=== PATIENT | female | born 1985 | race Caucasian/White ===

== ENCOUNTER 2016-10-02 21:23 | Emergency (ER) | payer OTHER ==
[2016-10-02] MEDS ORDERED: METHYLPREDNISOLONE PF 125MG/VIAL IVP ONE (23:11)
[2016-10-02] MEDS ORDERED: DIPHENHYDRAMINE HCL IV 50 MG/ML VIAL IVP ONE (23:11)
[2016-10-02] MEDS ORDERED: 0.9 % SODIUM CHLORIDE 1,000 ML BAG IV ONE (23:11)
[2016-10-02] MEDS ORDERED: METOCLOPRAMIDE HCL 10 MG/2 ML VIAL IVP ONE (23:11)
[2016-10-02] MEDS ORDERED: ALBUTEROL SULFATE (0.083%) 2.5 MG/3 ML NEB INH ONE (23:12)
--- NOTE | 2016-10-02 23:14 | Emergency Department Record ---
History of Present Illness - General Chief Complaint: Cough Stated Complaint: COUGH, MIGRAINE Time Seen by Provider: 10/02/16 23:05 Source: Patient Mode of Arrival: Ambulatory - History of Present Illness Initial Comments: The patient has had a cough productive green for the past week with coughing spasms and now a migraine headache has set in from all the coughing. She just finished Cipro yesterday for a UTI. She has a history of pneumonia in the past. She uses inhalers for what she calls asthma at home. MD Complaint: Cough Onset/Timin -: Week(s) Severity scale (1-10): 8 - Related Data Home Medications Medication Instructions Recorded Confirmed Last Taken Medroxyprogesterone Acetate [Depo 150 mg IM ASDIR 04/27/14 09/22/16 09/21/16 Provera] Butalb/Acetaminophen/Caffeine 1 each PO ASDIR PRN 07/23/14 09/22/16 07/25/16 [Fioricet] Diphenhydramine HCl [Benadryl] 50 mg PO Q12H PRN 07/23/14 09/22/16 09/21/16 Butorphanol Tartrate 10 mg NS ASDIR PRN 11/19/14 09/22/16 07/25/16 Cyclobenzaprine HCl [Flexeril] 10 mg PO ASDIR 03/04/16 09/22/16 09/21/16 Nortriptyline HCl [Pamelor] 30 mg PO QHS 06/25/16 09/22/16 09/21/16 Onabotulinumtoxina [Botox] 100 unit IJ ASDIR vial 06/29/16 09/22/16 09/21/16 Ursodiol [Actigall] 300 mg PO BID cap 06/29/16 09/22/16 09/21/16 Metformin HCl 500 mg PO BID 09/09/16 09/22/16 09/21/16 Previous Rx's Medication Instructions Recorded Fluticasone Propionate [Flonase] 2 spray EACH NARES DAILY #1 bottle 09/09/16 Ciprofloxacin HCl [Cipro] 500 mg PO Q12HR #13 tablet 09/22/16 Azithromycin [Zithromax] 250 mg PO DAILY #4 tab 10/03/16 Prednisone [Prednisone 20Mg] 20 mg PO DAILY #20 tab 10/03/16 Allergies Allergy/AdvReac Type Severity Reaction Status Date / Time sumatriptan [From Imitrex] Allergy ANAPHYLAXIS Verified 07/25/16 16:51 sumatriptan succinate Allergy ANAPHYLAXIS Verified 07/25/16 16:51 [From Imitrex] erythromycin base AdvReac VOMITING Verified 07/25/16 16:51 [Erythromycin Base] Travel Screening - Travel/Exposure Within Last 30 Days Have you traveled within the last 30 days?: No - Travel Symptoms Symptom Screening: None Review of Systems Reviewed: No additional complaints except as noted below Constitutional: Reports: As per HPI. Denies: Chills, Fever, Malaise, Night sweats, Weakness, Weight change Eyes: Reports: As per HPI. Denies: Eye discharge, Eye pain, Photophobia, Vision change ENT: Reports: As per HPI. Denies: Congestion, Dental pain, Ear pain, Epistaxis , Hearing loss, Throat pain Respiratory: Reports: As per HPI. Denies: Cough, Dyspnea, Hemoptysis, Stridor, Wheezes Cardiovascular: Reports: As per HPI. Denies: Arrhythmia, Chest pain, Dyspnea on exertion, Edema, Murmurs, Orthopnea, Palpitations, Paroxysmal nocturnal dyspnea, Rheumatic Fever, Syncope Endocrine: Reports: As per HPI. Denies: Fatigue, Heat or cold intolerance, Polydipsia, Polyuria Gastrointestinal: Reports: As per HPI. Denies: Abdominal pain, Constipation, Diarrhea, Hematemesis, Hematochezia, Melena, Nausea, Vomiting Genitourinary: Reports: As per HPI. Denies: Abnormal menses, Discharge, Dyspareunia, Dysuria, Frequency, Hematuria, Incontinence, Retention, Urgency Musculoskeletal: Reports: As per HPI. Denies: Arthralgia, Back pain, Gout, Joint swelling, Myalgia, Neck pain Skin: Reports: As per HPI. Denies: Bruising, Change in color, Change in hair/ nails, Lesions, Pruritus, Rash Neurological: Reports: As per HPI. Denies: Abnormal gait, Confusion, Headache, Numbness, Paresthesias, Seizure, Tingling, Tremors, Vertigo, Weakness Psychiatric: Reports: As per HPI. Denies: Anxiety, Auditory hallucinations, Depression, Homicidal thoughts, Suicidal thoughts, Visual hallucinations Hematological/Lymphatic: Reports: As per HPI. Denies: Anemia, Blood Clots, Easy bleeding, Easy bruising, Swollen glands Past Medical History - SOCIAL HISTORY Smoking Status: Never smoker - RESPIRATORY Hx Respiratory Disorders: Yes Hx Asthma: Yes Hx Sleep Apnea: Yes Hx of CPAP: Yes - CARDIOVASCULAR Hx Cardio Disorders: Yes Hx Hypertension: Yes ("pretty much went away since the gastric surgery") - NEURO Hx Neuro Disorders: Yes Hx Headaches: Yes (migraines) - GI Hx GI Disorders: No - Hx Genitourinary Disorders: Yes Hx Kidney Stones: Yes - ENDOCRINE Hx Endocrine Disorders: Yes Hx Diabetes: Yes (type II) Hx Thyroid Disease: No - MUSCULOSKELETAL Hx Musculoskeletal Disorders: No - PSYCH Hx Psych Problems: No - HEMATOLOGY/ONCOLOGY Hx Hematology/Oncology Disorders: No Family Medical History Any Significant Family History?: Yes Hx Cancer: Grandparents Hx Diabetes: Father, Grandparents Hx Heart Disease: Grandparents Hx HTN: Mother Hx Kidney Disease: Father *Kidney Comment: stones Hx Stroke: Grandparents Physical Exam - General General Appearance: Alert, Oriented x3, Cooperative, Moderate distress (due to coughing spasms ) - Head Head exam: Normal inspection - Eye Eye exam: Normal appearance, PERRL Pupils: Normal accommodation - ENT ENT exam: Normal exam, Mucous membranes moist, Normal external ear exam, Normal orophraynx, TM's normal bilaterally Ear exam: Normal external inspection. negative: External canal tenderness Nasal Exam: Normal inspection. negative: Discharge, Sinus tenderness Mouth exam: Normal external inspection, Tongue normal Teeth exam: Normal inspection. negative: Dental caries Throat exam: Normal inspection. negative: Tonsillar erythema, Tonsillar exudate - Neck Neck exam: Normal inspection, Full ROM. negative: Tenderness - Respiratory Respiratory exam: Normal lung sounds bilaterally. negative: Respiratory distress - Cardiovascular Cardiovascular Exam: Normal rhythm, Normal heart sounds, Tachycardia - GI/Abdominal GI/Abdominal exam: Soft, Normal bowel sounds, Other (obese). negative: Tenderness - Rectal Rectal exam: Deferred - exam: Deferred - Extremities Extremities exam: Normal inspection, Full ROM, Normal capillary refill. negative: Tenderness - Back Back exam: Reports: Normal inspection, Full ROM. Denies: Muscle spasm, Rash noted, Tenderness - Neurological Neurological exam: Alert, Normal gait, Oriented X3, Reflexes normal - Psychiatric Psychiatric exam: Normal affect, Normal mood - Skin Skin exam: Dry, Intact, Normal color, Warm Course Vital Signs 10/02/16 22:31 Temperature 98.2 F Pulse Rate [ 104 H Pulse Ox Probe] Respiratory 16 Rate Blood Pressure 132/99 [Left Arm] Pulse Ox 98 - Reevaluation(s) Reevaluation #1: The patient's breathing has improved but her headache has not. She is requesting dilaudid as she has tried all her rescue meds for headache which Dr. Lopez recommends. Will DC home on Zpack and steroid taper. 10/03/16 01:22 Reevaluation #2: Lungs clear to auscultation, coughing has diminished. 10/03/16 01:29 Medical Decision Making - Management Options MDM Management: No Additional Work-up Planned - Data Complexity MDM Data: X-Ray Ordered and/or Reviewed (CXR NEg per ED physician) Disposition Disposition: Discharge Clinical Impression: Acute asthmatic bronchitis Migraine Qualifiers: Migraine type: unspecified Status migrainosus presence: without status migrainosus Intractability: not intractable Qualified Code(s): G43.909 - Migraine, unspecified, not intractable, without status migrainosus Disposition: Home, Self-Care Condition: (1) Good Instructions: Cold Symptoms (ED), Acute Bronchitis (ED), Bronchospasm (ED), Migraine Headache (ED) Additional Instructions: Home to bed and do not drive tonight. Take antibiotics as directed until gone. Taper prednisone: 3 tabs daily for 3 days, the 2 tabs daily for 3 days, then 1 tab daily for 3 days, the 1/2 tab daily for 4 days, then stop. Follow up with PCP as needed. Prescriptions: Prednisone [Prednisone 20Mg] 20 mg PO DAILY #20 tab Azithromycin [Zithromax] 250 mg PO DAILY #4 tab Forms: Patient Portal Access
[2016-10-03] MEDS ORDERED: AZITHROMYCIN 500 MG TABLET PO ONE (01:21)
[2016-10-03] MEDS ORDERED: HYDROMORPHONE HCL 1 MG/ML CPJ IVP ONE (01:21)
--- NOTE | 2016-10-03 01:34 | Emergency Department Record ---
History of Present Illness - General Chief Complaint: Cough Stated Complaint: COUGH, MIGRAINE Time Seen by Provider: 10/02/16 23:05 Source: Patient Mode of Arrival: Ambulatory - History of Present Illness Initial Comments: The patient states that she developed a respiratory infection about a week ago and has been having greenish nasal discharge and harsh loose coughing spasms with low grade fevers. The coughing has induced a migraine headache which was unresolved with her usual protocol of migraine medications. She denies cp,v, ap ,calf tenderness, rashes. Onset/Timin -: Week(s) Severity scale (1-10): 8 - Related Data Home Medications Medication Instructions Recorded Confirmed Last Taken Medroxyprogesterone Acetate [Depo 150 mg IM ASDIR 04/27/14 09/22/16 09/21/16 Provera] Butalb/Acetaminophen/Caffeine 1 each PO ASDIR PRN 07/23/14 09/22/16 07/25/16 [Fioricet] Diphenhydramine HCl [Benadryl] 50 mg PO Q12H PRN 07/23/14 09/22/16 09/21/16 Butorphanol Tartrate 10 mg NS ASDIR PRN 11/19/14 09/22/16 07/25/16 Cyclobenzaprine HCl [Flexeril] 10 mg PO ASDIR 03/04/16 09/22/16 09/21/16 Nortriptyline HCl [Pamelor] 30 mg PO QHS 06/25/16 09/22/16 09/21/16 Onabotulinumtoxina [Botox] 100 unit IJ ASDIR vial 06/29/16 09/22/16 09/21/16 Ursodiol [Actigall] 300 mg PO BID cap 06/29/16 09/22/16 09/21/16 Metformin HCl 500 mg PO BID 09/09/16 09/22/16 09/21/16 Previous Rx's Medication Instructions Recorded Fluticasone Propionate [Flonase] 2 spray EACH NARES DAILY #1 bottle 09/09/16 Ciprofloxacin HCl [Cipro] 500 mg PO Q12HR #13 tablet 09/22/16 Azithromycin [Zithromax] 250 mg PO DAILY #4 tab 10/03/16 Prednisone [Prednisone 20Mg] 20 mg PO DAILY #20 tab 10/03/16 Allergies Allergy/AdvReac Type Severity Reaction Status Date / Time sumatriptan [From Imitrex] Allergy ANAPHYLAXIS Verified 07/25/16 16:51 sumatriptan succinate Allergy ANAPHYLAXIS Verified 07/25/16 16:51 [From Imitrex] erythromycin base AdvReac VOMITING Verified 07/25/16 16:51 [Erythromycin Base] Travel Screening - Travel/Exposure Within Last 30 Days Have you traveled within the last 30 days?: No - Travel Symptoms Symptom Screening: None Review of Systems Constitutional: Reports: As per HPI. Denies: Chills, Fever, Malaise, Night sweats, Weakness, Weight change Eyes: Reports: As per HPI. Denies: Eye discharge, Eye pain, Photophobia, Vision change ENT: Reports: As per HPI. Denies: Congestion, Dental pain, Ear pain, Epistaxis , Hearing loss, Throat pain Respiratory: Reports: As per HPI. Denies: Cough, Dyspnea, Hemoptysis, Stridor, Wheezes Cardiovascular: Reports: As per HPI. Denies: Arrhythmia, Chest pain, Dyspnea on exertion, Edema, Murmurs, Orthopnea, Palpitations, Paroxysmal nocturnal dyspnea, Rheumatic Fever, Syncope Endocrine: Reports: As per HPI. Denies: Fatigue, Heat or cold intolerance, Polydipsia, Polyuria Gastrointestinal: Reports: As per HPI. Denies: Abdominal pain, Constipation, Diarrhea, Hematemesis, Hematochezia, Melena, Nausea, Vomiting Genitourinary: Reports: As per HPI. Denies: Abnormal menses, Discharge, Dyspareunia, Dysuria, Frequency, Hematuria, Incontinence, Retention, Urgency Musculoskeletal: Reports: As per HPI. Denies: Arthralgia, Back pain, Gout, Joint swelling, Myalgia, Neck pain Skin: Reports: As per HPI. Denies: Bruising, Change in color, Change in hair/ nails, Lesions, Pruritus, Rash Neurological: Reports: As per HPI. Denies: Abnormal gait, Confusion, Headache, Numbness, Paresthesias, Seizure, Tingling, Tremors, Vertigo, Weakness Psychiatric: Reports: As per HPI. Denies: Anxiety, Auditory hallucinations, Depression, Homicidal thoughts, Suicidal thoughts, Visual hallucinations Hematological/Lymphatic: Reports: As per HPI. Denies: Anemia, Blood Clots, Easy bleeding, Easy bruising, Swollen glands Past Medical History - SOCIAL HISTORY Smoking Status: Never smoker - RESPIRATORY Hx Respiratory Disorders: Yes Hx Asthma: Yes Hx Sleep Apnea: Yes Hx of CPAP: Yes - CARDIOVASCULAR Hx Cardio Disorders: Yes Hx Hypertension: Yes ("pretty much went away since the gastric surgery") - NEURO Hx Neuro Disorders: Yes Hx Headaches: Yes (migraines) - GI Hx GI Disorders: No - Hx Genitourinary Disorders: Yes Hx Kidney Stones: Yes - ENDOCRINE Hx Endocrine Disorders: Yes Hx Diabetes: Yes (type II) Hx Thyroid Disease: No - MUSCULOSKELETAL Hx Musculoskeletal Disorders: No - PSYCH Hx Psych Problems: No - HEMATOLOGY/ONCOLOGY Hx Hematology/Oncology Disorders: No Family Medical History Any Significant Family History?: Yes Hx Cancer: Grandparents Hx Diabetes: Father, Grandparents Hx Heart Disease: Grandparents Hx HTN: Mother Hx Kidney Disease: Father *Kidney Comment: stones Hx Stroke: Grandparents Physical Exam - General General Appearance: Alert, Oriented x3, Cooperative, No acute distress, Mild distress (coughing spasms, uncontrolled prior to nebulizer treatment) - Head Head exam: Normal inspection - Eye Eye exam: Normal appearance, PERRL Pupils: Normal accommodation - ENT ENT exam: Normal exam, Mucous membranes moist, Normal external ear exam, Normal orophraynx, TM's normal bilaterally Ear exam: Normal external inspection. negative: External canal tenderness Nasal Exam: Normal inspection, Discharge (congestion, sniffling). negative: Sinus tenderness Mouth exam: Normal external inspection, Tongue normal Teeth exam: Normal inspection. negative: Dental caries Throat exam: Normal inspection. negative: Tonsillar erythema, Tonsillar exudate - Neck Neck exam: Normal inspection, Full ROM. negative: Lymphadenopathy, Meningismus , Tenderness - Respiratory Respiratory exam: Decreased breath sounds, Prolonged expiratory, Rhonchi ( generalized), Wheezes. negative: Respiratory distress - Cardiovascular Cardiovascular Exam: Normal rhythm, Normal heart sounds, Tachycardia - GI/Abdominal GI/Abdominal exam: Soft, Normal bowel sounds. negative: Tenderness - Rectal Rectal exam: Deferred - exam: Deferred - Extremities Extremities exam: Normal inspection, Full ROM, Normal capillary refill. negative: Calf tenderness, Pedal edema, Tenderness - Back Back exam: Reports: Normal inspection, Full ROM. Denies: Muscle spasm, Rash noted, Tenderness - Neurological Neurological exam: Alert, Normal gait, Oriented X3, Reflexes normal - Psychiatric Psychiatric exam: Normal affect, Normal mood - Skin Skin exam: Dry, Intact, Normal color, Warm Course Vital Signs 10/02/16 10/02/16 10/03/16 22:31 23:44 00:35 Temperature 98.2 F Pulse Rate 108 H Pulse Rate [ 104 H 100 H Pulse Ox Probe] Respiratory 16 20 16 Rate Blood Pressure 132/99 [Left Arm] Blood Pressure 102/60 [Right Arm] Pulse Ox 98 98 98 - Reevaluation(s) Reevaluation #1: Following nebulizer the patent's wheezes resolved and her coughing greatly diminished. Her headache remained, however and she said that only dilaudid helps her when she gets this way. She requested tessalon pearles prescription at discharge. 10/03/16 06:57 Medical Decision Making - Management Options MDM Management: No Additional Work-up Planned - Data Complexity MDM Data: X-Ray Ordered and/or Reviewed (CXR Neg per ED physician.) Disposition Disposition: Discharge Clinical Impression: Acute asthmatic bronchitis Migraine Qualifiers: Migraine type: unspecified Status migrainosus presence: without status migrainosus Intractability: not intractable Qualified Code(s): G43.909 - Migraine, unspecified, not intractable, without status migrainosus Disposition: Home, Self-Care Condition: (1) Good Instructions: Migraine Headache (ED), Acute Bronchitis (ED), Cold Symptoms (ED) , Bronchospasm (ED) Additional Instructions: Home to bed and do not drive tonight. Take antibiotics as directed until gone. Taper prednisone: 3 tabs daily for 3 days, the 2 tabs daily for 3 days, then 1 tab daily for 3 days, the 1/2 tab daily for 4 days, then stop. Follow up with PCP as needed. Prescriptions: Prednisone [Prednisone 20Mg] 20 mg PO DAILY #20 tab Azithromycin [Zithromax] 250 mg PO DAILY #4 tab Forms: Patient Portal Access
--- NOTE | 2016-10-06 13:17 | RADIOLOGY REPORT ---
EXAM: CHEST HISTORY: PRODUCTIVE COUGH WITH GREEN PHLEGM. TECHNIQUE: Two views of the chest were obtained. Comparison: 11/08/15. FINDINGS: The heart is not enlarged and there is no mediastinal mass. No infiltrate or vascular congestion identified. IMPRESSION: UNREMARKABLE CHEST EXAMINATION. JOB NUMBER: [id number] MTDD
== END 2016-10-03 02:06 | disposition home or self-care (01) ==
LOC: ER 21:23
DX: J45.909 Unspecified asthma, uncomplicated (principal); G43.909 Migraine, unspecified, not intractable, without status migrainosus; R07.89 Other chest pain
CPT/HCPCS: 99284 ×2; 96374; 96375; 71020; 94640; J1170; J1200; J2765; J2930; J7613

== ENCOUNTER 2016-10-18 19:21 | Emergency (ER) | payer OTHER ==
[2016-10-18] MEDS ORDERED: METHYLPREDNISOLONE PF 125MG/VIAL IVP ONE (19:44)
[2016-10-18] MEDS ORDERED: DIPHENHYDRAMINE HCL IV 50 MG/ML VIAL IVP ONE (19:44)
[2016-10-18] MEDS ORDERED: METOCLOPRAMIDE HCL 10 MG/2 ML VIAL IVP ONE (19:44)
[2016-10-18] MEDS ORDERED: 0.9 % SODIUM CHLORIDE 1000ML 1,000 ML IV SCH (19:45)
--- NOTE | 2016-10-18 19:49 | Emergency Department Record ---
History of Present Illness - General Chief Complaint: Headache Migraine Stated Complaint: LANGLEY Time Seen by Provider: 10/18/16 19:44 Source: Patient Mode of Arrival: Ambulatory Limitations: No limitations - History of Present Illness Initial Comments: 31 yo female presents to ED with a CC of "migraine headache" that began approximately 16 hours ago. Patient reports taking home treatments including Fiorcet, Stadol, and saw her PCP this afternoon and was given Toradol IM for her pain symptoms. Patient reports that her pain symptoms are similar to previous, and denies fevers, chills, or neck pain symptoms. MD Complaint: Headache Onset/Timin -: Hour(s) Onset Description: Awoke with symptoms Location: Diffuse Severity scale (1-10): 9 Quality: Throbbing, Similar to previous headaches Consistency: Constant Improves With: Medication Worsens With: Light, Noise Associated Symptoms: Nausea, Photophobia, Sensitivity to sound Treatments Prior to Arrival: Migraine medication - Related Data Home Medications Medication Instructions Recorded Confirmed Last Taken Medroxyprogesterone Acetate [Depo 150 mg IM ASDIR 04/27/14 09/22/16 09/21/16 Provera] Butalb/Acetaminophen/Caffeine 1 each PO ASDIR PRN 07/23/14 09/22/16 07/25/16 [Fioricet] Diphenhydramine HCl [Benadryl] 50 mg PO Q12H PRN 07/23/14 09/22/16 09/21/16 Butorphanol Tartrate 10 mg NS ASDIR PRN 11/19/14 09/22/16 07/25/16 Cyclobenzaprine HCl [Flexeril] 10 mg PO ASDIR 03/04/16 09/22/16 09/21/16 Nortriptyline HCl [Pamelor] 30 mg PO QHS 06/25/16 10/18/16 10/18/16 Onabotulinumtoxina [Botox] 100 unit IJ ASDIR vial 06/29/16 10/18/16 10/18/16 Ursodiol [Actigall] 300 mg PO BID cap 06/29/16 10/18/16 10/18/16 Metformin HCl 500 mg PO BID 09/09/16 09/22/16 09/21/16 Gabapentin [Neurontin] 300 mg PO Q6H 10/18/16 10/18/1617 Previous Rx's Medication Instructions Recorded Fluticasone Propionate [Flonase] 2 spray EACH NARES DAILY #1 bottle 09/09/16 Allergies Allergy/AdvReac Type Severity Reaction Status Date / Time sumatriptan [From Imitrex] Allergy ANAPHYLAXIS Verified 07/25/16 16:51 sumatriptan succinate Allergy ANAPHYLAXIS Verified 07/25/16 16:51 [From Imitrex] erythromycin base AdvReac VOMITING Verified 07/25/16 16:51 [Erythromycin Base] Travel Screening - Travel/Exposure Within Last 30 Days Have you traveled within the last 30 days?: No - Travel Symptoms Symptom Screening: None Review of Systems Constitutional: Denies: Chills, Fever, Malaise, Night sweats Eyes: Denies: Eye discharge, Eye pain ENT: Denies: Congestion, Ear pain, Epistaxis Respiratory: Denies: Cough, Dyspnea Cardiovascular: Denies: Chest pain, Dyspnea on exertion Endocrine: Denies: Fatigue, Heat or cold intolerance Gastrointestinal: Denies: Abdominal pain, Nausea, Vomiting Genitourinary: Denies: Dysuria, Frequency, Hematuria Musculoskeletal: Denies: Arthralgia, Back pain, Gout, Joint swelling Skin: Denies: Bruising, Change in color Neurological: Reports: Headache. Denies: Abnormal gait, Confusion, Seizure Psychiatric: Denies: Anxiety Hematological/Lymphatic: Denies: Anemia, Blood Clots Past Medical History - SOCIAL HISTORY Smoking Status: Never smoker - RESPIRATORY Hx Respiratory Disorders: Yes Hx Asthma: Yes Hx Sleep Apnea: Yes Hx of CPAP: Yes - CARDIOVASCULAR Hx Cardio Disorders: Yes Hx Hypertension: Yes ("pretty much went away since the gastric surgery") - NEURO Hx Neuro Disorders: Yes Hx Headaches: Yes (migraines) - GI Hx GI Disorders: No - Hx Genitourinary Disorders: Yes Hx Kidney Stones: Yes - ENDOCRINE Hx Endocrine Disorders: Yes Hx Diabetes: Yes (type II) Hx Thyroid Disease: No - MUSCULOSKELETAL Hx Musculoskeletal Disorders: No - PSYCH Hx Psych Problems: No - HEMATOLOGY/ONCOLOGY Hx Hematology/Oncology Disorders: No Family Medical History Any Significant Family History?: Yes Hx Cancer: Grandparents Hx Diabetes: Father, Grandparents Hx Heart Disease: Grandparents Hx HTN: Mother Hx Kidney Disease: Father *Kidney Comment: stones Hx Stroke: Grandparents Physical Exam - General General Appearance: Alert, Oriented x3, Cooperative, No acute distress Limitations: No limitations - Head Head exam: Atraumatic, Normocephalic, Normal inspection Head exam detail: negative: Abrasion, Contusion, Frazier's sign, General tenderness, Hematoma, Laceration - Eye Eye exam: Normal appearance. negative: Conjunctival injection, Periorbital swelling, Periorbital tenderness, Scleral icterus - ENT Ear exam: negative: Auricular hematoma, Auricular trauma Nasal Exam: negative: Active bleeding, Discharge, Dried blood, Foreign body Mouth exam: negative: Drooling, Laceration, Muffled voice, Tongue elevation - Neck Neck exam: Normal inspection. negative: Meningismus, Tenderness - Respiratory Respiratory exam: Normal lung sounds bilaterally. negative: Respiratory distress, Rhonchi, Stridor, Wheezes - Cardiovascular Cardiovascular Exam: Regular rate, Normal rhythm, Normal heart sounds - GI/Abdominal GI/Abdominal exam: Soft. negative: Pulsatile mass, Rebound, Rigid, Tenderness - Rectal Rectal exam: Deferred - exam: Deferred - Extremities Extremities exam: Normal inspection. negative: Calf tenderness, Pedal edema, Tenderness - Back Back exam: Reports: Normal inspection. Denies: CVA tenderness (R), CVA tenderness (L) - Neurological Neurological exam: Alert, Normal gait, Oriented X3 - Psychiatric Psychiatric exam: Normal affect, Normal mood - Skin Skin exam: Normal color. negative: Abrasion Type of lesion: negative: abrasion Course Vital Signs 10/18/16 19:26 Temperature 98.4 F Pulse Rate [ 103 H Pulse Ox Probe] Respiratory 20 Rate Blood Pressure 143/97 [Left Arm] Pulse Ox 100 - Reevaluation(s) Reevaluation #1: 10/18/16 19:51 Case was discussed with Dr. Flores, does feel that narcotic pain medication may be indicated for her refractory headache pain symptoms. Will order migraine cocktail in addition to Dilaudid 1 mg x 1. Will re-evaluate in 30-45 minutes. Reevaluation #2: 10/18/16 21:06 Patient re-evaluated, resting comfortably at this time and reports that her headache symptoms are down to 6/10 at this time. Patient appears stable for discharge at this time. Disposition Disposition: Discharge Clinical Impression: Acute headache Qualifiers: Headache type: unspecified Intractability: not intractable Qualified Code(s): R51 - Headache Disposition: Home, Self-Care Condition: (2) Stable Instructions: Acute Headache (ED) Additional Instructions: Return to ED if your symptoms worsen or if you have any concerns. Follow-up with Dr. Flores in 1-3 days as directed. Forms: Patient Portal Access Time of Disposition: 21:07
[2016-10-18] MEDS ORDERED: HYDROMORPHONE HCL 1 MG/ML CPJ IVP ONE (19:51)
== END 2016-10-18 21:16 | disposition home or self-care (01) ==
LOC: ER 19:21
DX: R51 Headache (principal); R11.0 Nausea; H53.149 Visual discomfort, unspecified
CPT/HCPCS: 99284 ×2; 96374; 96375; J1170; J1200; J2765; J2930; J7030

== ENCOUNTER 2016-11-06 14:54 | Emergency (ER) | payer OTHER ==
[2016-11-06] MEDS ORDERED: NALBUPHINE HCL 20 MG/ML AMPULE IM ONE (15:32)
[2016-11-06] MEDS ORDERED: PROMETHAZINE HCL 25 MG/ML VIAL IM ONE (15:33)
--- NOTE | 2016-11-06 15:38 | Emergency Department Record ---
History of Present Illness - General Chief Complaint: Headache Migraine Stated Complaint: LANGLEY Time Seen by Provider: 11/06/16 15:19 Source: Patient Mode of Arrival: Ambulatory Limitations: No limitations - History of Present Illness Initial Comments: 31 yo female presents to ED with a CC of headache symptoms. Patient reports that her headache symptoms are simialr to previous, patient denies fevers, chills, neck pain, or recent illness. Patient reports taking flexeril, fiorcet , stadol, and zofran at home without improvement. Patient reports that her headache symptoms are similar to previous. MD Complaint: Headache Onset/Timin -: Hour(s) Onset Description: Gradual, Awoke with symptoms Location: Diffuse Severity scale (1-10): 9 Quality: Aching, Similar to previous headaches Consistency: Constant Improves With: Nothing Worsens With: Light, Other Associated Symptoms: Photophobia Treatments Prior to Arrival: Antiemetic, Migraine medication - Related Data Home Medications Medication Instructions Recorded Confirmed Last Taken Medroxyprogesterone Acetate [Depo 150 mg IM ASDIR 04/27/14 11/06/16 11/06/16 Provera] Butalb/Acetaminophen/Caffeine 1 each PO ASDIR PRN 07/23/14 11/06/16 11/06/16 [Fioricet] Diphenhydramine HCl [Benadryl] 50 mg PO Q12H PRN 07/23/14 11/06/16 11/06/16 Butorphanol Tartrate 10 mg NS ASDIR PRN 11/19/14 11/06/16 11/06/16 Cyclobenzaprine HCl [Flexeril] 10 mg PO ASDIR 03/04/16 11/06/16 11/06/16 Onabotulinumtoxina [Botox] 100 unit IJ ASDIR vial 06/29/16 11/06/16 11/06/16 Ursodiol [Actigall] 300 mg PO BID cap 06/29/16 11/06/16 11/06/16 Metformin HCl 500 mg PO BID 09/09/16 11/06/16 11/06/16 Gabapentin [Neurontin] 300 mg PO Q6H 10/18/16 11/06/16 11/06/16 Phenobarbital 90 mg PO BID 02/05/17 02/05/17 02/05/17 Allergies Allergy/AdvReac Type Severity Reaction Status Date / Time sumatriptan [From Imitrex] Allergy ANAPHYLAXIS Verified 11/06/16 15:19 sumatriptan succinate Allergy ANAPHYLAXIS Verified 11/06/16 15:19 [From Imitrex] erythromycin base AdvReac VOMITING Verified 11/06/16 15:19 [Erythromycin Base] Travel Screening - Travel/Exposure Within Last 30 Days Have you traveled within the last 30 days?: No - Travel/Exposure Within Last Year Have you traveled outside the [place] in the last year?: No - Additonal Travel Details Have you been exposed to anyone with a communicable illness?: No - Travel Symptoms Symptom Screening: None Review of Systems Constitutional: Denies: Chills, Fever, Malaise, Night sweats Eyes: Denies: Eye discharge, Eye pain ENT: Denies: Congestion, Ear pain, Epistaxis Respiratory: Denies: Cough, Dyspnea Cardiovascular: Denies: Chest pain, Dyspnea on exertion Endocrine: Denies: Fatigue, Heat or cold intolerance Gastrointestinal: Reports: Nausea. Denies: Abdominal pain, Vomiting Genitourinary: Denies: Dysuria, Frequency, Hematuria, Incontinence Musculoskeletal: Denies: Arthralgia, Back pain, Gout, Joint swelling Skin: Denies: Bruising, Change in color Neurological: Reports: Headache. Denies: Abnormal gait, Confusion, Seizure Psychiatric: Denies: Anxiety Hematological/Lymphatic: Denies: Anemia Past Medical History - SOCIAL HISTORY Smoking Status: Never smoker Alcohol Use: None Drug Use: None - RESPIRATORY Hx Respiratory Disorders: Yes Hx Asthma: Yes Hx Sleep Apnea: Yes Hx of CPAP: Yes - CARDIOVASCULAR Hx Cardio Disorders: Yes Hx Hypertension: Yes ("pretty much went away since the gastric surgery") - NEURO Hx Neuro Disorders: Yes Hx Headaches: Yes (migraines) - GI Hx GI Disorders: No - Hx Genitourinary Disorders: Yes Hx Kidney Stones: Yes - ENDOCRINE Hx Endocrine Disorders: Yes Hx Diabetes: Yes (type II) Hx Thyroid Disease: No - MUSCULOSKELETAL Hx Musculoskeletal Disorders: No - PSYCH Hx Psych Problems: No - HEMATOLOGY/ONCOLOGY Hx Hematology/Oncology Disorders: No Family Medical History Any Significant Family History?: Yes Hx Cancer: Grandparents Hx Diabetes: Father, Grandparents Hx Heart Disease: Grandparents Hx HTN: Mother Hx Kidney Disease: Father *Kidney Comment: stones Hx Stroke: Grandparents Physical Exam - General General Appearance: Alert, Oriented x3, Cooperative, No acute distress Limitations: No limitations - Head Head exam: Atraumatic, Normocephalic, Normal inspection Head exam detail: negative: Abrasion, Contusion, Frazier's sign, General tenderness, Hematoma, Laceration - Eye Eye exam: Normal appearance. negative: Conjunctival injection, Periorbital swelling, Periorbital tenderness, Scleral icterus - ENT Ear exam: negative: Auricular hematoma, Auricular trauma Nasal Exam: negative: Active bleeding, Discharge, Dried blood, Foreign body Mouth exam: negative: Drooling, Laceration, Muffled voice, Tongue elevation - Neck Neck exam: Normal inspection. negative: Meningismus, Tenderness - Respiratory Respiratory exam: Normal lung sounds bilaterally. negative: Respiratory distress, Rhonchi, Stridor, Wheezes - Cardiovascular Cardiovascular Exam: Regular rate, Normal rhythm, Normal heart sounds - GI/Abdominal GI/Abdominal exam: Soft. negative: Distended, Rebound, Rigid, Tenderness - Rectal Rectal exam: Deferred - exam: Deferred - Extremities Extremities exam: Normal inspection. negative: Calf tenderness, Pedal edema, Tenderness - Back Back exam: Reports: Normal inspection. Denies: CVA tenderness (R), CVA tenderness (L) - Neurological Neurological exam: Alert, Normal gait, Oriented X3 - Psychiatric Psychiatric exam: Normal affect, Normal mood - Skin Skin exam: Normal color. negative: Abrasion Type of lesion: negative: abrasion Course Vital Signs 11/06/16 15:23 Temperature 98.3 F Pulse Rate 110 H Respiratory 18 Rate Blood Pressure 134/79 Pulse Ox 98 - Reevaluation(s) Reevaluation #1: 11/06/16 16:40 Patient reassessed, reports that her headache symptoms are improved, and the patient appears stable for discharge at this time. Disposition Disposition: Discharge Clinical Impression: Acute headache Qualifiers: Headache type: unspecified Intractability: not intractable Qualified Code(s): R51 - Headache Disposition: Home, Self-Care Condition: (2) Stable Instructions: Acute Headache (ED) Additional Instructions: Return to ED if your symptoms worsen or if you have any concerns. Follow-up with your family doctor in 1-3 days as directed. Forms: Patient Portal Access Time of Disposition: 16:40
== END 2016-11-06 16:53 | disposition home or self-care (01) ==
LOC: ER 14:54
DX: R51 Headache (principal)
CPT/HCPCS: 99283 ×2; 96372; J2300; J2550

== ENCOUNTER 2016-11-24 10:41 | Emergency (ER) | payer OTHER ==
[2016-11-24] MEDS ORDERED: NALBUPHINE HCL 20 MG/ML AMPULE IM ONE (10:54)
[2016-11-24] MEDS ORDERED: PROMETHAZINE HCL 25 MG/ML VIAL IM ONE (10:54)
--- NOTE | 2016-11-24 11:00 | Emergency Department Record ---
History of Present Illness - General Chief Complaint: Headache Migraine Stated Complaint: HEADACHE Time Seen by Provider: 11/24/16 10:46 Source: Patient Mode of Arrival: Ambulatory Limitations: No limitations - History of Present Illness Initial Comments: 31 yo female returns to ED for evaluation a "migraine headache". Patient reports taking her usual migraine therapy medications this morning (stadol, fiorcet) without significant improvement. Patient reports that she has recently received another round of botox injections for her frequent headaches, and has an appointment scheduled for the 2nd with her neurologist for further evaluation (Jessica). Patient denies fevers, chill, or recent illness. MD Complaint: Headache Onset/Timin -: Hour(s) Onset Description: Gradual, At rest Location: Neck, Temporal Severity scale (1-10): 9 Quality: Throbbing Consistency: Constant Improves With: Nothing Worsens With: None Associated Symptoms: Nausea, Vomiting Treatments Prior to Arrival: Migraine medication - Related Data Home Medications Medication Instructions Recorded Confirmed Last Taken Medroxyprogesterone Acetate [Depo 150 mg IM ASDIR 04/27/14 11/24/16 11/24/16 Provera] Butalb/Acetaminophen/Caffeine 1 each PO ASDIR PRN 07/23/14 11/24/16 11/24/16 [Fioricet] Diphenhydramine HCl [Benadryl] 50 mg PO Q12H PRN 07/23/14 11/24/16 11/24/16 Butorphanol Tartrate 10 mg NS ASDIR PRN 11/19/14 11/24/16 11/24/16 Cyclobenzaprine HCl [Flexeril] 10 mg PO ASDIR 03/04/16 11/24/16 11/24/16 Onabotulinumtoxina [Botox] 100 unit IJ ASDIR vial 06/29/16 11/24/16 11/24/16 Ursodiol [Actigall] 300 mg PO BID cap 06/29/16 11/24/16 11/24/16 Metformin HCl 500 mg PO BID 09/09/16 11/24/16 11/24/16 Gabapentin [Neurontin] 300 mg PO Q6H 10/18/16 11/24/16 11/24/16 Phenobarbital 90 mg PO BID 02/05/17 02/23/17 02/23/17 Cyclobenzaprine HCl [Flexeril] 10 mg PO ASDIR 11/24/16 11/24/16 11/24/16 Ondansetron [Zofran Odt] 4 mg PO ASDIR 11/24/16 11/24/16 11/24/16 Allergies Allergy/AdvReac Type Severity Reaction Status Date / Time sumatriptan [From Imitrex] Allergy ANAPHYLAXIS Verified 11/24/16 10:50 sumatriptan succinate Allergy ANAPHYLAXIS Verified 11/24/16 10:50 [From Imitrex] erythromycin base AdvReac VOMITING Verified 11/24/16 10:50 [Erythromycin Base] Travel Screening - Travel/Exposure Within Last 30 Days Have you traveled within the last 30 days?: No Review of Systems Constitutional: Denies: Chills, Fever, Malaise, Night sweats Eyes: Denies: Eye discharge, Eye pain ENT: Denies: Congestion, Ear pain, Epistaxis Respiratory: Denies: Cough, Dyspnea Cardiovascular: Denies: Chest pain, Dyspnea on exertion Endocrine: Denies: Fatigue, Heat or cold intolerance Gastrointestinal: Denies: Abdominal pain, Nausea, Vomiting Genitourinary: Denies: Dysuria, Frequency Musculoskeletal: Denies: Arthralgia, Back pain, Gout, Joint swelling Skin: Denies: Bruising, Change in color Neurological: Reports: Headache. Denies: Abnormal gait, Confusion, Seizure Psychiatric: Denies: Anxiety Hematological/Lymphatic: Denies: Anemia, Blood Clots Past Medical History - SOCIAL HISTORY Smoking Status: Never smoker Alcohol Use: None Drug Use: None - RESPIRATORY Hx Respiratory Disorders: Yes Hx Asthma: Yes Hx Sleep Apnea: Yes Hx of CPAP: Yes - CARDIOVASCULAR Hx Cardio Disorders: Yes Hx Hypertension: Yes ("pretty much went away since the gastric surgery") - NEURO Hx Neuro Disorders: Yes Hx Headaches: Yes (migraines) - GI Hx GI Disorders: No - Hx Genitourinary Disorders: Yes Hx Kidney Stones: Yes - ENDOCRINE Hx Endocrine Disorders: Yes Hx Diabetes: Yes (type II) Hx Thyroid Disease: No - MUSCULOSKELETAL Hx Musculoskeletal Disorders: No - PSYCH Hx Psych Problems: No - HEMATOLOGY/ONCOLOGY Hx Hematology/Oncology Disorders: No Family Medical History Any Significant Family History?: Yes Hx Cancer: Grandparents Hx Diabetes: Father, Grandparents Hx Heart Disease: Grandparents Hx HTN: Mother Hx Kidney Disease: Father *Kidney Comment: stones Hx Stroke: Grandparents Physical Exam - General General Appearance: Alert, Oriented x3, Cooperative, No acute distress Limitations: No limitations - Head Head exam: Atraumatic, Normocephalic, Normal inspection Head exam detail: negative: Abrasion, Contusion, Frazier's sign, General tenderness, Hematoma, Laceration - Eye Eye exam: Normal appearance. negative: Conjunctival injection, Periorbital swelling, Periorbital tenderness, Scleral icterus - ENT Ear exam: negative: Auricular hematoma, Auricular trauma Nasal Exam: negative: Active bleeding, Discharge, Dried blood, Foreign body Mouth exam: negative: Drooling, Laceration, Muffled voice, Tongue elevation - Neck Neck exam: Normal inspection. negative: Meningismus, Tenderness - Respiratory Respiratory exam: Normal lung sounds bilaterally. negative: Rales, Respiratory distress, Rhonchi, Stridor - Cardiovascular Cardiovascular Exam: Regular rate, Normal rhythm, Normal heart sounds - GI/Abdominal GI/Abdominal exam: Soft. negative: Rebound, Rigid, Tenderness - Rectal Rectal exam: Deferred - exam: Deferred - Extremities Extremities exam: Normal inspection. negative: Calf tenderness, Pedal edema, Tenderness - Back Back exam: Denies: CVA tenderness (R), CVA tenderness (L) - Neurological Neurological exam: Alert, Normal gait, Oriented X3 - Psychiatric Psychiatric exam: Normal affect, Normal mood - Skin Skin exam: Normal color. negative: Abrasion Type of lesion: negative: abrasion Course Vital Signs 11/24/16 10:47 Temperature 98.4 F Pulse Rate 107 H Respiratory 18 Rate Blood Pressure 126/96 Pulse Ox 97 - Reevaluation(s) Reevaluation #1: 11/24/16 10:59 Patient seen and examined, reports that her pain symptoms were improved with Phenergan and Nubain previously, will re-administer today and reassess. Reevaluation #2: 11/24/16 11:24 Patient reports that she is feeling much better, and appears stable for discharge at this time. Disposition Disposition: Discharge Clinical Impression: Acute headache Qualifiers: Headache type: unspecified Intractability: not intractable Qualified Code(s): R51 - Headache Disposition: Home, Self-Care Condition: (2) Stable Instructions: Acute Headache (ED) Additional Instructions: Return to ED if your symptoms worsen or if you have any concerns. Follow-up with Dr. Lopez as scheduled on December 01. Forms: Patient Portal Access Time of Disposition: 11:24
== END 2016-11-24 11:33 | disposition home or self-care (01) ==
LOC: ER 10:41
DX: R51 Headache (principal); R11.2 Nausea with vomiting, unspecified
CPT/HCPCS: 99283 ×2; 96372; J2300; J2550

== ENCOUNTER 2016-12-06 22:45 | Emergency (ER) | payer OTHER ==
[2016-12-06] MEDS ORDERED: NALBUPHINE HCL 20 MG/ML AMPULE IM ONE (23:14)
[2016-12-06] MEDS ORDERED: PROMETHAZINE HCL 25 MG/ML VIAL IM ONE (23:14)
--- NOTE | 2016-12-06 23:21 | Emergency Department Record ---
History of Present Illness - General Chief Complaint: Headache Migraine Stated Complaint: HEADACHE Time Seen by Provider: 12/06/16 23:14 Source: Patient Mode of Arrival: Ambulatory Limitations: No limitations - History of Present Illness Initial Comments: 31 yo female presents to ED with a CC of headache that began earlir this morning. Patient saw her PCP this afternoon, received Toradol that did not "break" her headache symptoms. Patient denies fevers, chills, or neck pain symptoms. Patient reports improvement with Nubain and Phenergan previously. MD Complaint: Headache Onset/Timin -: Days(s) Onset Description: Awoke with symptoms Location: Occipital, Temporal Severity scale (1-10): 8 Quality: Aching, Similar to previous headaches Consistency: Constant Improves With: Nothing Worsens With: Light, Noise, Other Treatments Prior to Arrival: Migraine medication, Prescription analgesic - Related Data Home Medications Medication Instructions Recorded Confirmed Last Taken Medroxyprogesterone Acetate [Depo 150 mg IM ASDIR 04/27/14 12/06/16 12/06/16 Provera] Butalb/Acetaminophen/Caffeine 1 each PO ASDIR PRN 07/23/14 12/06/16 12/06/16 [Fioricet] Diphenhydramine HCl [Benadryl] 50 mg SQ Q12H PRN 07/23/14 12/06/16 12/06/16 Butorphanol Tartrate 10 mg NS ASDIR PRN 11/19/14 12/06/16 12/06/16 Onabotulinumtoxina [Botox] 100 unit IJ ASDIR vial 06/29/16 12/06/16 12/06/16 Ursodiol [Actigall] 300 mg PO BID cap 06/29/16 12/06/16 12/06/16 Metformin HCl 500 mg PO BID 09/09/16 12/06/16 12/06/16 Gabapentin [Neurontin] 600 mg PO TID 10/18/16 12/06/16 12/06/16 Phenobarbital 90 mg PO BID 11/06/16 12/06/16 12/06/16 Cyclobenzaprine HCl [Flexeril] 10 mg PO ASDIR 11/24/16 12/06/16 12/06/16 Ondansetron [Zofran Odt] 4 mg PO ASDIR 02/12/06/16 12/06/16 Clonazepam [Clonazepam] 2 mg PO QHS 12/06/16 12/06/16 12/05/16 Gabapentin [Gabapentin] 900 mg PO QHS 12/06/16 12/06/16 12/06/16 Allergies Allergy/AdvReac Type Severity Reaction Status Date / Time sumatriptan [From Imitrex] Allergy ANAPHYLAXIS Verified 12/06/16 22:51 sumatriptan succinate Allergy ANAPHYLAXIS Verified 12/06/16 22:51 [From Imitrex] erythromycin base AdvReac VOMITING Verified 12/06/16 22:51 [Erythromycin Base] Travel Screening - Travel/Exposure Within Last 30 Days Have you traveled within the last 30 days?: No - Travel/Exposure Within Last Year Have you traveled outside the [place] in the last year?: No - Additonal Travel Details Have you been exposed to anyone with a communicable illness?: No - Travel Symptoms Symptom Screening: None Review of Systems Constitutional: Denies: Chills, Fever, Malaise, Night sweats Eyes: Denies: Eye discharge, Eye pain ENT: Denies: Congestion, Ear pain, Epistaxis Respiratory: Denies: Cough, Dyspnea Cardiovascular: Denies: Chest pain, Dyspnea on exertion Endocrine: Denies: Fatigue, Heat or cold intolerance Gastrointestinal: Denies: Abdominal pain, Nausea, Vomiting Genitourinary: Denies: Dysuria, Frequency Musculoskeletal: Denies: Arthralgia, Back pain, Gout Skin: Denies: Bruising, Change in color Neurological: Denies: Abnormal gait, Confusion, Seizure Psychiatric: Denies: Anxiety Hematological/Lymphatic: Denies: Anemia, Blood Clots Past Medical History - SOCIAL HISTORY Smoking Status: Never smoker Alcohol Use: None Drug Use: None - RESPIRATORY Hx Respiratory Disorders: Yes Hx Asthma: Yes Hx Sleep Apnea: Yes Hx of CPAP: Yes - CARDIOVASCULAR Hx Cardio Disorders: Yes Hx Hypertension: Yes ("pretty much went away since the gastric surgery") - NEURO Hx Neuro Disorders: Yes Hx Headaches: Yes (migraines) - GI Hx GI Disorders: No - Hx Genitourinary Disorders: Yes Hx Kidney Stones: Yes - ENDOCRINE Hx Endocrine Disorders: Yes Hx Diabetes: Yes (type II) Hx Thyroid Disease: No - MUSCULOSKELETAL Hx Musculoskeletal Disorders: No - PSYCH Hx Psych Problems: No - HEMATOLOGY/ONCOLOGY Hx Hematology/Oncology Disorders: No Family Medical History Any Significant Family History?: No Hx Cancer: Grandparents Hx Diabetes: Father, Grandparents Hx Heart Disease: Grandparents Hx HTN: Mother Hx Kidney Disease: Father *Kidney Comment: stones Hx Stroke: Grandparents Physical Exam - General General Appearance: Alert, Oriented x3, Cooperative, No acute distress Limitations: No limitations - Head Head exam: Atraumatic, Normocephalic, Normal inspection Head exam detail: negative: Abrasion, Contusion, Frazier's sign, General tenderness, Hematoma, Laceration - Eye Eye exam: Normal appearance. negative: Conjunctival injection, Periorbital swelling, Periorbital tenderness, Scleral icterus - ENT Ear exam: negative: Auricular hematoma, Auricular trauma Nasal Exam: negative: Active bleeding, Discharge, Dried blood, Foreign body Mouth exam: negative: Drooling, Laceration, Muffled voice, Tongue elevation - Neck Neck exam: Normal inspection. negative: Meningismus, Tenderness - Respiratory Respiratory exam: Normal lung sounds bilaterally. negative: Rales, Respiratory distress, Rhonchi, Stridor - Cardiovascular Cardiovascular Exam: Regular rate, Normal rhythm, Normal heart sounds - GI/Abdominal GI/Abdominal exam: Soft. negative: Rebound, Rigid, Tenderness - Rectal Rectal exam: Deferred - exam: Deferred - Extremities Extremities exam: Normal inspection. negative: Calf tenderness, Pedal edema, Tenderness - Back Back exam: Denies: CVA tenderness (R), CVA tenderness (L) - Neurological Neurological exam: Alert, Normal gait, Oriented X3 - Psychiatric Psychiatric exam: Normal affect, Normal mood - Skin Skin exam: Normal color. negative: Abrasion Type of lesion: negative: abrasion Course Vital Signs 12/06/16 22:57 Temperature 98.8 F Pulse Rate 110 H Respiratory 20 Rate Blood Pressure 124/87 Pulse Ox 97 - Reevaluation(s) Reevaluation #1: 12/06/16 23:42 Patient reassessed and reports that her symptoms are improved, and appears stable for discharge at this time. Disposition Disposition: Discharge Clinical Impression: Headache Qualifiers: Headache type: unspecified Headache chronicity pattern: acute headache Intractability: not intractable Qualified Code(s): R51 - Headache Disposition: Home, Self-Care Condition: (2) Stable Instructions: Acute Headache (ED) Additional Instructions: Return to ED if your symptoms worsen or if you have any concerns. Follow-up with Dr. Flores in 3-5 days as directed. Forms: Patient Portal Access Time of Disposition: 23:43
== END 2016-12-06 23:48 | disposition home or self-care (01) ==
LOC: ER 22:45
DX: R51 Headache (principal); E11.9 Type 2 diabetes mellitus without complications
CPT/HCPCS: 99283 ×2; 96372; J2300; J2550

== ENCOUNTER 2016-12-07 17:49 | Emergency (ER) | payer OTHER ==
[2016-12-07] MEDS ORDERED: KETOROLAC 60 MG/2 ML VIAL IM STA (18:39)
[2016-12-07] MEDS ORDERED: DIPHENHYDRAMINE HCL IV 50 MG/ML VIAL IM ONE (18:39)
[2016-12-07] MEDS ORDERED: PROMETHAZINE HCL 25 MG/ML VIAL IM ONE (18:39)
--- NOTE | 2016-12-07 18:41 | Emergency Department Record ---
History of Present Illness - General Chief Complaint: Headache Migraine Stated Complaint: LANGLEY Time Seen by Provider: 12/07/16 18:33 Source: Patient Mode of Arrival: Ambulatory Limitations: No limitations - History of Present Illness Initial Comments: 31 yo female returns to ED for recurrent headache that she was seen and treated for last night. Patient reports that upon discharge last night her headache symptoms were significantly improved, however her symptoms worsened this morning again. Patient denies fevers, chills, or a change in the symptoms of her headache, reports this headache is similar to previous. Patient reports taking Benadryl, Stadol, and Fiorcet at home for her symptoms. MD Complaint: Headache, "Migraine" Onset/Timin -: Days(s) Onset Description: Gradual Severity: Severe Severity scale (1-10): 9 Quality: Throbbing Consistency: Constant Improves With: Nothing Worsens With: None Associated Symptoms: Nausea, Vomiting Treatments Prior to Arrival: Migraine medication - Related Data Home Medications Medication Instructions Recorded Confirmed Last Taken Medroxyprogesterone Acetate [Depo 150 mg IM ASDIR 04/27/14 12/07/16 12/06/16 Provera] Butalb/Acetaminophen/Caffeine 1 each PO ASDIR PRN 07/23/14 12/07/16 12/06/16 [Fioricet] Diphenhydramine HCl [Benadryl] 50 mg SQ Q12H PRN 07/23/14 12/07/16 12/06/16 Butorphanol Tartrate 10 mg NS ASDIR PRN 11/19/14 12/07/16 12/06/16 Onabotulinumtoxina [Botox] 100 unit IJ ASDIR vial 06/29/16 12/07/16 12/06/16 Ursodiol [Actigall] 300 mg PO BID cap 06/29/16 12/07/16 12/06/16 Metformin HCl 500 mg PO BID 09/09/16 12/07/16 12/06/16 Gabapentin [Neurontin] 600 mg PO TID 10/18/16 12/07/16 12/06/16 Phenobarbital 90 mg PO BID 11/06/16 12/07/16 12/06/16 Cyclobenzaprine HCl [Flexeril] 10 mg PO ASDIR 11/24/16 12/07/16 12/06/16 Ondansetron [Zofran Odt] 4 mg PO ASDIR 11/24/16 12/07/16 12/06/16 Clonazepam [Clonazepam] 2 mg PO QHS 12/06/16 12/07/16 12/05/16 Gabapentin [Gabapentin] 900 mg PO QHS 12/06/16 12/07/16 12/06/16 Allergies Allergy/AdvReac Type Severity Reaction Status Date / Time sumatriptan [From Imitrex] Allergy ANAPHYLAXIS Verified 12/07/16 18:11 sumatriptan succinate Allergy ANAPHYLAXIS Verified 12/07/16 18:11 [From Imitrex] erythromycin base AdvReac VOMITING Verified 12/07/16 18:11 [Erythromycin Base] Travel Screening - Travel/Exposure Within Last 30 Days Have you traveled within the last 30 days?: No Review of Systems Constitutional: Denies: Chills, Fever, Malaise, Night sweats Eyes: Denies: Eye discharge, Eye pain ENT: Denies: Congestion, Ear pain, Epistaxis Respiratory: Denies: Cough, Dyspnea Cardiovascular: Denies: Chest pain, Dyspnea on exertion Endocrine: Denies: Fatigue, Heat or cold intolerance Gastrointestinal: Denies: Abdominal pain, Nausea, Vomiting Genitourinary: Denies: Frequency, Hematuria, Incontinence Musculoskeletal: Denies: Arthralgia, Back pain, Gout, Joint swelling Skin: Denies: Bruising, Change in color Neurological: Reports: Headache. Denies: Abnormal gait, Confusion, Tingling, Tremors Psychiatric: Denies: Anxiety Hematological/Lymphatic: Denies: Anemia, Blood Clots Past Medical History - SOCIAL HISTORY Smoking Status: Never smoker Alcohol Use: None Drug Use: None - RESPIRATORY Hx Respiratory Disorders: Yes Hx Asthma: Yes Hx Sleep Apnea: Yes Hx of CPAP: Yes - CARDIOVASCULAR Hx Cardio Disorders: Yes Hx Hypertension: Yes ("pretty much went away since the gastric surgery") - NEURO Hx Neuro Disorders: Yes Hx Headaches: Yes (migraines) - GI Hx GI Disorders: No - Hx Genitourinary Disorders: Yes Hx Kidney Stones: Yes - ENDOCRINE Hx Endocrine Disorders: Yes Hx Diabetes: Yes (type II) Hx Thyroid Disease: No - MUSCULOSKELETAL Hx Musculoskeletal Disorders: No - PSYCH Hx Psych Problems: No - HEMATOLOGY/ONCOLOGY Hx Hematology/Oncology Disorders: No Family Medical History Any Significant Family History?: Yes Hx Cancer: Grandparents Hx Diabetes: Father, Grandparents Hx Heart Disease: Grandparents Hx HTN: Mother Hx Kidney Disease: Father *Kidney Comment: stones Hx Stroke: Grandparents Physical Exam - General General Appearance: Alert, Oriented x3, Cooperative, Mild distress Limitations: No limitations - Head Head exam: Atraumatic, Normocephalic, Normal inspection Head exam detail: negative: Abrasion, Contusion, Frazier's sign, General tenderness, Hematoma, Laceration - Eye Eye exam: Normal appearance. negative: Conjunctival injection, Periorbital swelling, Periorbital tenderness, Scleral icterus - ENT Ear exam: negative: Auricular hematoma, Auricular trauma Nasal Exam: negative: Active bleeding, Discharge, Dried blood, Foreign body Mouth exam: negative: Drooling, Laceration, Muffled voice, Tongue elevation - Neck Neck exam: Normal inspection. negative: Meningismus, Tenderness - Respiratory Respiratory exam: Normal lung sounds bilaterally. negative: Respiratory distress, Rhonchi, Stridor, Wheezes - Cardiovascular Cardiovascular Exam: Regular rate, Normal rhythm, Normal heart sounds - GI/Abdominal GI/Abdominal exam: Soft. negative: Rebound, Rigid, Tenderness - Rectal Rectal exam: Deferred - exam: Deferred - Extremities Extremities exam: Normal inspection. negative: Calf tenderness, Pedal edema, Tenderness - Back Back exam: Denies: CVA tenderness (R), CVA tenderness (L) - Neurological Neurological exam: Alert, Normal gait, Oriented X3 - Psychiatric Psychiatric exam: Normal affect, Normal mood. negative: Anxious - Skin Skin exam: Normal color. negative: Abrasion Type of lesion: negative: abrasion Course Vital Signs 12/07/16 18:04 Temperature 98.3 F Pulse Rate [ 112 H Pulse Ox Probe] Respiratory 12 Rate Blood Pressure 149/97 [Left Arm] Pulse Ox 98 - Reevaluation(s) Reevaluation #1: 12/07/16 20:02 Patient reassesses, reports that her headache symptoms have not significantly improved. Case was discussed with her Neurologist, copy of the patient's ED visit history was faxed to his office as well. Will attempt the Nubain for pain relief tonight with instructions for her to call Dr. Lopez in the morning for a change in medication plan. Reevaluation #2: 12/07/16 20:31 Patient reassessed, reports improvement in her pain symptoms and appears stable for discharge with instructions to call Dr. Lopez tomorrow morning at 9:00 for further evaluation of her frequent headaches. Disposition Disposition: Discharge Clinical Impression: Acute headache Qualifiers: Headache type: unspecified Intractability: not intractable Qualified Code(s): R51 - Headache Disposition: Home, Self-Care Instructions: Acute Headache (ED) Additional Instructions: Return to ED if your symptoms worsen or if you have any concerns. Follow-up with Dr. Lopez or Dr. Flores in 1-3 days without fail for further management options for your headaches. Forms: Patient Portal Access Time of Disposition: 20:32
[2016-12-07] MEDS ORDERED: NALBUPHINE HCL 20 MG/ML AMPULE IM ONE (20:01)
== END 2016-12-07 20:31 | disposition home or self-care (01) ==
LOC: ER 17:49
DX: R51 Headache (principal); R11.2 Nausea with vomiting, unspecified
CPT/HCPCS: 99284 ×2; 96372; J2300; J1200; J1885; J2550

== ENCOUNTER 2016-12-13 21:58 | Emergency (ER) | payer OTHER ==
[2016-12-14] MEDS ORDERED: KETOROLAC 30 MG/ML VIAL IM ONE (00:20)
[2016-12-14] MEDS ORDERED: NALBUPHINE HCL 20 MG/ML AMPULE IM ONE (00:20)
[2016-12-14] MEDS ORDERED: PROMETHAZINE HCL 25 MG/ML VIAL IM ONE (00:20)
--- NOTE | 2016-12-14 00:26 | Emergency Department Record ---
History of Present Illness - General Chief Complaint: Headache Migraine Stated Complaint: HEADACHE Time Seen by Provider: 12/14/16 00:00 Source: Patient Mode of Arrival: Ambulatory Limitations: No limitations - History of Present Illness Initial Comments: pt is having her typical migraine. she has vomited 3x. she had a neg mri of the brain last week and sees her neurologist on MD Complaint: "Migraine" Onset/Timin -: Days(s) Onset Description: Awoke with symptoms Location: Diffuse Severity scale (1-10): 10 Quality: Similar to previous headaches Consistency: Constant Improves With: Medication Worsens With: Light, Movement of head/neck, Noise Associated Symptoms: Nausea, Photophobia, Sensitivity to sound, Vomiting Treatments Prior to Arrival: Prescription analgesic - Related Data Home Medications Medication Instructions Recorded Confirmed Last Taken Medroxyprogesterone Acetate [Depo 150 mg IM ASDIR 04/27/14 12/07/16 12/06/16 Provera] Butalb/Acetaminophen/Caffeine 1 each PO ASDIR PRN 07/23/14 12/07/16 12/06/16 [Fioricet] Diphenhydramine HCl [Benadryl] 50 mg SQ Q12H PRN 07/23/14 12/07/16 12/06/16 Butorphanol Tartrate 10 mg NS ASDIR PRN 11/19/14 12/07/16 12/06/16 Onabotulinumtoxina [Botox] 100 unit IJ ASDIR vial 06/29/16 12/07/16 12/06/16 Ursodiol [Actigall] 300 mg PO BID cap 06/29/16 12/07/16 12/06/16 Metformin HCl 500 mg PO BID 09/09/16 12/07/16 12/06/16 Gabapentin [Neurontin] 600 mg PO TID 10/18/16 12/07/16 12/06/16 Phenobarbital 90 mg PO BID 11/06/16 12/07/16 12/06/16 Cyclobenzaprine HCl [Flexeril] 10 mg PO ASDIR 11/24/16 12/07/16 12/06/16 Ondansetron [Zofran Odt] 4 mg PO ASDIR 11/24/16 12/07/16 12/06/16 Clonazepam [Clonazepam] 2 mg PO QHS 12/06/16 12/07/16 12/05/16 Gabapentin [Gabapentin] 900 mg PO QHS 12/06/16 12/07/16 12/06/16 Allergies Allergy/AdvReac Type Severity Reaction Status Date / Time sumatriptan [From Imitrex] Allergy ANAPHYLAXIS Verified 12/07/16 18:11 sumatriptan succinate Allergy ANAPHYLAXIS Verified 12/07/16 18:11 [From Imitrex] erythromycin base AdvReac VOMITING Verified 12/07/16 18:11 [Erythromycin Base] Travel Screening - Travel/Exposure Within Last 30 Days Have you traveled within the last 30 days?: No - Travel Symptoms Symptom Screening: None Review of Systems Reviewed: No additional complaints except as noted below Constitutional: Reports: As per HPI. Denies: Chills, Fever, Malaise, Night sweats, Weakness, Weight change Eyes: Reports: As per HPI. Denies: Eye discharge, Eye pain, Photophobia, Vision change ENT: Reports: As per HPI. Denies: Congestion, Dental pain, Ear pain, Epistaxis , Hearing loss, Throat pain Respiratory: Reports: As per HPI. Denies: Cough, Dyspnea, Hemoptysis, Stridor, Wheezes Cardiovascular: Reports: As per HPI. Denies: Arrhythmia, Chest pain, Dyspnea on exertion, Edema, Murmurs, Orthopnea, Palpitations, Paroxysmal nocturnal dyspnea, Rheumatic Fever, Syncope Endocrine: Reports: As per HPI. Denies: Fatigue, Heat or cold intolerance, Polydipsia, Polyuria Gastrointestinal: Reports: As per HPI. Denies: Abdominal pain, Constipation, Diarrhea, Hematemesis, Hematochezia, Melena, Nausea, Vomiting Genitourinary: Reports: As per HPI. Denies: Abnormal menses, Discharge, Dyspareunia, Dysuria, Frequency, Hematuria, Incontinence, Retention, Urgency Musculoskeletal: Reports: As per HPI. Denies: Arthralgia, Back pain, Gout, Joint swelling, Myalgia, Neck pain Skin: Reports: As per HPI. Denies: Bruising, Change in color, Change in hair/ nails, Lesions, Pruritus, Rash Neurological: Reports: As per HPI. Denies: Abnormal gait, Confusion, Headache, Numbness, Paresthesias, Seizure, Tingling, Tremors, Vertigo, Weakness Psychiatric: Reports: As per HPI. Denies: Anxiety, Auditory hallucinations, Depression, Homicidal thoughts, Suicidal thoughts, Visual hallucinations Hematological/Lymphatic: Reports: As per HPI. Denies: Anemia, Blood Clots, Easy bleeding, Easy bruising, Swollen glands Past Medical History - SOCIAL HISTORY Smoking Status: Never smoker - RESPIRATORY Hx Respiratory Disorders: Yes Hx Asthma: Yes Hx Sleep Apnea: Yes Hx of CPAP: Yes - CARDIOVASCULAR Hx Cardio Disorders: Yes Hx Hypertension: Yes ("pretty much went away since the gastric surgery") - NEURO Hx Neuro Disorders: Yes Hx Headaches: Yes (migraines) - GI Hx GI Disorders: No - Hx Genitourinary Disorders: Yes Hx Kidney Stones: Yes - ENDOCRINE Hx Endocrine Disorders: Yes Hx Diabetes: Yes (type II) Hx Thyroid Disease: No - MUSCULOSKELETAL Hx Musculoskeletal Disorders: No - PSYCH Hx Psych Problems: No - HEMATOLOGY/ONCOLOGY Hx Hematology/Oncology Disorders: No Family Medical History Any Significant Family History?: Yes Hx Cancer: Grandparents Hx Diabetes: Father, Grandparents Hx Heart Disease: Grandparents Hx HTN: Mother Hx Kidney Disease: Father *Kidney Comment: stones Hx Stroke: Grandparents Physical Exam - General General Appearance: Alert, Oriented x3, Cooperative, Mild distress - Head Head exam: Normal inspection - Eye Eye exam: Normal appearance, PERRL, EOMI Pupils: Normal accommodation - ENT ENT exam: Normal exam, Mucous membranes moist, Normal external ear exam, Normal orophraynx Ear exam: Normal external inspection. negative: External canal tenderness Nasal Exam: Normal inspection. negative: Discharge, Sinus tenderness Mouth exam: Normal external inspection, Tongue normal Teeth exam: Normal inspection. negative: Dental caries Throat exam: Normal inspection. negative: Tonsillar erythema, Tonsillar exudate - Neck Neck exam: Normal inspection, Full ROM. negative: Tenderness - Respiratory Respiratory exam: Normal lung sounds bilaterally. negative: Respiratory distress - Cardiovascular Cardiovascular Exam: Normal rhythm, Normal heart sounds, Tachycardia - GI/Abdominal GI/Abdominal exam: Soft, Normal bowel sounds. negative: Tenderness - Rectal Rectal exam: Deferred - exam: Deferred - Extremities Extremities exam: Normal inspection, Full ROM, Normal capillary refill. negative: Tenderness - Back Back exam: Reports: Normal inspection, Full ROM. Denies: Muscle spasm, Rash noted, Tenderness - Neurological Neurological exam: Alert, CN II-XII intact, Normal gait, Oriented X3 - Psychiatric Psychiatric exam: Normal affect, Normal mood - Skin Skin exam: Dry, Intact, Normal color, Warm Course Vital Signs 12/13/16 23:29 Temperature 98.8 F Pulse Rate [ 114 H Pulse Ox Probe] Respiratory 20 Rate Blood Pressure 143/95 [Left Arm] Pulse Ox 97 Disposition Disposition: Discharge Clinical Impression: Migraine Qualifiers: Migraine type: unspecified Status migrainosus presence: without status migrainosus Intractability: not intractable Qualified Code(s): G43.909 - Migraine, unspecified, not intractable, without status migrainosus Disposition: Home, Self-Care Condition: (1) Good Instructions: Migraine Headache (ED) Additional Instructions: follow up with neurologist. return sooner if worse Forms: Patient Portal Access
== END 2016-12-14 01:16 | disposition home or self-care (01) ==
LOC: ER 21:58
DX: G43.909 Migraine, unspecified, not intractable, without status migrainosus (principal); R11.2 Nausea with vomiting, unspecified; H53.149 Visual discomfort, unspecified
CPT/HCPCS: 99283 ×2; 96372; J1885; J2300; J2550

== ENCOUNTER 2016-12-19 05:10 | Emergency (ER) | payer OTHER ==
[2016-12-19] MEDS ORDERED: KETOROLAC 30 MG/ML VIAL IM ONE (05:27)
[2016-12-19] MEDS ORDERED: NALBUPHINE HCL 20 MG/ML AMPULE IM ONE ×2 (05:27→05:28)
--- NOTE | 2016-12-19 05:31 | Emergency Department Record ---
History of Present Illness - General Chief Complaint: Headache Migraine Stated Complaint: HEADACHE Time Seen by Provider: 12/19/16 05:22 Source: Patient Mode of Arrival: Ambulatory Limitations: No limitations - History of Present Illness Initial Comments: The patient is here due to a migraine LANGLEY over the last 3 hours. The pain is throbbing and located in the neck and front of the head. She does have mild photophobia and nausea but no vomiting. The patient has a long hx of similar LANGLEY' s. MD Complaint: Headache Onset/Timin -: Hour(s) Onset Description: Gradual, Awoke with symptoms Severity: Moderate Severity scale (1-10): 9 Quality: Similar to previous headaches Consistency: Constant Improves With: Nothing Worsens With: Light, Noise Associated Symptoms: Nausea, Sensitivity to sound, Vomiting Treatments Prior to Arrival: Other Treatment Prior to Arrival Comment:: benadryl inj stadol inh and zofran - Related Data Home Medications Medication Instructions Recorded Confirmed Last Taken Medroxyprogesterone Acetate [Depo 150 mg IM ASDIR 04/27/14 12/19/16 12/06/16 Provera] Butalb/Acetaminophen/Caffeine 1 each PO ASDIR PRN 07/23/14 12/19/16 12/06/16 [Fioricet] Diphenhydramine HCl [Benadryl] 50 mg SQ Q12H PRN 07/23/14 12/19/16 12/06/16 Butorphanol Tartrate 10 mg NS ASDIR PRN 11/19/14 12/19/16 12/06/16 Onabotulinumtoxina [Botox] 100 unit IJ ASDIR vial 06/29/16 12/19/16 12/06/16 Ursodiol [Actigall] 300 mg PO BID cap 06/29/16 12/19/16 12/06/16 Metformin HCl 500 mg PO BID 09/09/16 12/19/16 12/06/16 Gabapentin [Neurontin] 600 mg PO TID 10/18/16 12/19/16 12/06/16 Phenobarbital 90 mg PO BID 11/06/16 12/19/16 12/06/16 Cyclobenzaprine HCl [Flexeril] 10 mg PO ASDIR 11/24/16 12/19/16 12/06/16 Ondansetron [Zofran Odt] 4 mg PO ASDIR 11/24/16 12/19/16 12/06/16 Clonazepam [Clonazepam] 2 mg PO QHS 12/06/16 12/19/16 12/05/16 Gabapentin [Gabapentin] 900 mg PO QHS 12/06/16 12/19/16 12/06/16 Duloxetine HCl [Cymbalta] 30 mg PO DAILY 12/19/16 12/19/16 Unknown Allergies Allergy/AdvReac Type Severity Reaction Status Date / Time sumatriptan [From Imitrex] Allergy ANAPHYLAXIS Verified 12/07/16 18:11 sumatriptan succinate Allergy ANAPHYLAXIS Verified 12/07/16 18:11 [From Imitrex] erythromycin base AdvReac VOMITING Verified 12/07/16 18:11 [Erythromycin Base] Travel Screening - Travel/Exposure Within Last 30 Days Have you traveled within the last 30 days?: No - Travel/Exposure Within Last Year Have you traveled outside the [place] in the last year?: No - Additonal Travel Details Have you been exposed to anyone with a communicable illness?: No - Travel Symptoms Symptom Screening: None Review of Systems Constitutional: Denies: Chills, Fever Eyes: Denies: Eye discharge ENT: Denies: Congestion Respiratory: Denies: Cough, Dyspnea Past Medical History - SOCIAL HISTORY Smoking Status: Never smoker Alcohol Use: None Drug Use: None - RESPIRATORY Hx Respiratory Disorders: Yes Hx Asthma: Yes Hx Sleep Apnea: Yes Hx of CPAP: Yes - CARDIOVASCULAR Hx Cardio Disorders: Yes Hx Hypertension: Yes ("pretty much went away since the gastric surgery") - NEURO Hx Neuro Disorders: Yes Hx Headaches: Yes (migraines) - GI Hx GI Disorders: No - Hx Genitourinary Disorders: Yes Hx Kidney Stones: Yes - ENDOCRINE Hx Endocrine Disorders: Yes Hx Diabetes: Yes (type II) Hx Thyroid Disease: No - MUSCULOSKELETAL Hx Musculoskeletal Disorders: No - PSYCH Hx Psych Problems: No - HEMATOLOGY/ONCOLOGY Hx Hematology/Oncology Disorders: No Family Medical History Any Significant Family History?: No Hx Cancer: Grandparents Hx Diabetes: Father, Grandparents Hx Heart Disease: Grandparents Hx HTN: Mother Hx Kidney Disease: Father *Kidney Comment: stones Hx Stroke: Grandparents Physical Exam - General General Appearance: Alert, Oriented x3, Cooperative, No acute distress - Head Head exam: Atraumatic, Normocephalic, Normal inspection - Eye Eye exam: Normal appearance, PERRL - Neck Neck exam: Normal inspection, Full ROM. negative: Tenderness - Respiratory Respiratory exam: Normal lung sounds bilaterally. negative: Respiratory distress - Cardiovascular Cardiovascular Exam: Regular rate, Normal rhythm, Normal heart sounds - GI/Abdominal GI/Abdominal exam: Soft, Normal bowel sounds. negative: Tenderness - Extremities Extremities exam: Normal inspection, Full ROM, Normal capillary refill. negative: Tenderness - Neurological Neurological exam: Alert, Normal gait. negative: Abnormal gait, Motor sensory deficit Course Vital Signs 12/19/16 05:12 Temperature 98.2 F Pulse Rate 118 H Respiratory 20 Rate Blood Pressure 122/81 Pulse Ox 97 - Reevaluation(s) Reevaluation #1: The patient is doing much better at this time. She states the pain is almost completely gone and she feels ready for home. 12/19/16 06:03 Disposition Disposition: Discharge Clinical Impression: Migraine Qualifiers: Migraine type: unspecified Status migrainosus presence: without status migrainosus Intractability: not intractable Qualified Code(s): G43.909 - Migraine, unspecified, not intractable, without status migrainosus Disposition: Home, Self-Care Condition: (1) Good Instructions: Acute Headache (ED) Additional Instructions: Continue your regular medicines. Please see your Headache Specialist next week if needed. Forms: Patient Portal Access Time of Disposition: 06:04
== END 2016-12-19 06:22 | disposition home or self-care (01) ==
LOC: ER 05:10
DX: G43.909 Migraine, unspecified, not intractable, without status migrainosus (principal); R11.2 Nausea with vomiting, unspecified; H53.149 Visual discomfort, unspecified
CPT/HCPCS: 96372; 99283; J1885

== ENCOUNTER 2016-12-23 15:22 | Emergency (ER) | payer OTHER ==
[2016-12-23] MEDS ORDERED: PROMETHAZINE HCL 25 MG/ML VIAL IM ONE (16:10)
[2016-12-23] MEDS ORDERED: NALBUPHINE HCL 20 MG/ML AMPULE IM ONE (16:10)
[2016-12-23] MEDS ORDERED: KETOROLAC 30 MG/ML VIAL IM ONE (16:10)
--- NOTE | 2016-12-23 16:15 | Emergency Department Record ---
History of Present Illness - General Chief Complaint: Headache Migraine Stated Complaint: HEADACHE Time Seen by Provider: 12/23/16 16:08 Source: Patient, Family Mode of Arrival: Ambulatory - History of Present Illness Initial Comments: 31 yo female presents with a migraine. She does not have aura. She states the headache is typical with nausea. She vomiting once. No weakness, no vision changes but she is sensitive to light. She [place] [facility] [place] appointment was 2 weeks ago. She reports a negative MRI at that time. Her neurologist changes her medications. She is on Neurotin and cymbalta. No new are atypical features. MD Complaint: "Migraine" Onset/Timin -: Days(s) Onset Description: Awoke with symptoms Location: Occipital, Temporal Severity: Moderate Severity scale (1-10): >10 Quality: Aching Improves With: Nothing Worsens With: None Associated Symptoms: Nausea, Neck stiffness, Photophobia, Vomiting Treatments Prior to Arrival: Other Treatment Prior to Arrival Comment:: benadryl, zofran - Related Data Home Medications Medication Instructions Recorded Confirmed Last Taken Medroxyprogesterone Acetate [Depo 150 mg IM ASDIR 04/27/14 12/23/16 12/22/16 Provera] Butalb/Acetaminophen/Caffeine 1 each PO ASDIR PRN 07/23/14 12/23/16 12/22/16 [Fioricet] Diphenhydramine HCl [Benadryl] 50 mg SQ Q12H PRN 07/23/14 12/23/16 12/22/16 Butorphanol Tartrate 10 mg NS ASDIR PRN 11/19/14 12/23/16 12/22/16 Onabotulinumtoxina [Botox] 100 unit IJ ASDIR vial 06/29/16 12/23/16 12/22/16 Ursodiol [Actigall] 300 mg PO BID cap 06/29/16 12/23/16 12/22/16 Metformin HCl 500 mg PO BID 09/09/16 12/23/16 12/22/16 Gabapentin [Neurontin] 600 mg PO TID 10/18/16 12/23/16 12/22/16 Cyclobenzaprine HCl [Flexeril] 10 mg PO ASDIR 11/24/16 12/23/16 12/22/16 Ondansetron [Zofran Odt] 4 mg PO ASDIR 11/24/16 12/23/16 12/22/16 Clonazepam [Clonazepam] 2 mg PO QHS 12/06/16 12/23/16 12/22/16 Gabapentin [Gabapentin] 900 mg PO QHS 12/06/16 12/23/16 12/22/16 Duloxetine HCl [Cymbalta] 30 mg PO DAILY 12/19/16 12/23/16 12/22/16 Allergies Allergy/AdvReac Type Severity Reaction Status Date / Time sumatriptan [From Imitrex] Allergy ANAPHYLAXIS Verified 12/07/16 18:11 sumatriptan succinate Allergy ANAPHYLAXIS Verified 12/07/16 18:11 [From Imitrex] erythromycin base AdvReac VOMITING Verified 12/07/16 18:11 [Erythromycin Base] Travel Screening - Travel/Exposure Within Last 30 Days Have you traveled within the last 30 days?: No - Travel/Exposure Within Last Year Have you traveled outside the [place] in the last year?: No Review of Systems Constitutional: Denies: Chills, Fever, Malaise, Weakness Eyes: Reports: Photophobia. Denies: Eye discharge, Eye pain, Vision change ENT: Denies: Congestion Respiratory: Denies: Cough, Dyspnea, Hemoptysis, Stridor, Wheezes Cardiovascular: Denies: Chest pain, Palpitations, Syncope Endocrine: Denies: Fatigue Gastrointestinal: Reports: Nausea, Vomiting. Denies: Abdominal pain, Diarrhea Genitourinary: Denies: Dysuria, Urgency Musculoskeletal: Denies: Arthralgia, Back pain, Myalgia, Neck pain Skin: Denies: Change in color, Rash Neurological: Denies: Confusion, Headache Psychiatric: Denies: Anxiety Hematological/Lymphatic: Denies: Blood Clots, Easy bleeding, Easy bruising, Swollen glands Past Medical History - SOCIAL HISTORY Smoking Status: Never smoker Alcohol Use: None Drug Use: None - RESPIRATORY Hx Respiratory Disorders: Yes Hx Asthma: Yes Hx Sleep Apnea: Yes Hx of CPAP: Yes - CARDIOVASCULAR Hx Cardio Disorders: Yes Hx Hypertension: Yes ("pretty much went away since the gastric surgery") - NEURO Hx Neuro Disorders: Yes Hx Headaches: Yes (migraines) - GI Hx GI Disorders: No - Hx Genitourinary Disorders: Yes Hx Kidney Stones: Yes - ENDOCRINE Hx Endocrine Disorders: Yes Hx Diabetes: Yes (type II) Hx Thyroid Disease: No - MUSCULOSKELETAL Hx Musculoskeletal Disorders: No - PSYCH Hx Psych Problems: No - HEMATOLOGY/ONCOLOGY Hx Hematology/Oncology Disorders: No Family Medical History Any Significant Family History?: No Hx Cancer: Grandparents Hx Diabetes: Father, Grandparents Hx Heart Disease: Grandparents Hx HTN: Mother Hx Kidney Disease: Father *Kidney Comment: stones Hx Stroke: Grandparents Physical Exam - General General Appearance: Alert, Oriented x3, Cooperative, No acute distress Limitations: No limitations - Head Head exam: Atraumatic, Normal inspection - Eye Eye exam: Normal appearance, PERRL. negative: Conjunctival injection, Periorbital swelling - ENT ENT exam: Normal exam, Mucous membranes moist Ear exam: Normal external inspection Nasal Exam: Normal inspection Mouth exam: Normal external inspection Teeth exam: Normal inspection Throat exam: Normal inspection - Neck Neck exam: Normal inspection, Full ROM. negative: Lymphadenopathy, Tenderness, Thyromegaly - Respiratory Respiratory exam: Normal lung sounds bilaterally. negative: Respiratory distress, Rhonchi, Stridor, Wheezes - Cardiovascular Cardiovascular Exam: Regular rate, Normal rhythm, Normal heart sounds - GI/Abdominal GI/Abdominal exam: Soft. negative: Tenderness - Rectal Rectal exam: Deferred - exam: Deferred - Extremities Extremities exam: Normal inspection, Full ROM, Normal capillary refill. negative: Tenderness - Back Back exam: Reports: Normal inspection, Full ROM. Denies: CVA tenderness (R), CVA tenderness (L), Muscle spasm, Paraspinal tenderness, Rash noted, Tenderness , Vertebral tenderness - Neurological Neurological exam: Alert, CN II-XII intact, Normal gait, Oriented X3. negative : Abnormal gait, Altered, Motor sensory deficit - Psychiatric Psychiatric exam: Normal affect, Normal mood. negative: Agitated, Anxious - Skin Skin exam: Dry, Intact, Normal color, Warm Course - Reevaluation(s) Reevaluation #1: EMR reviewed for recent visits and treatment 12/23/16 16:31 Reevaluation #2: The patient reports the pain is controlled She is at her baseline She has phone follow up scheduled with her neurologist Monday12/23/16 17:01 Disposition Disposition: Discharge Clinical Impression: Migraine Qualifiers: Migraine type: unspecified Status migrainosus presence: without status migrainosus Intractability: not intractable Qualified Code(s): G43.909 - Migraine, unspecified, not intractable, without status migrainosus Disposition: Home, Self-Care Condition: (1) Good Instructions: Migraine Headache (ED) Additional Instructions: Follow up Monday as scheduled with your Neurologist Return if worse, vomiting or new concerns Forms: Patient Portal Access Time of Disposition: 17:03
== END 2016-12-23 17:18 | disposition home or self-care (01) ==
LOC: ER 15:22
DX: G43.909 Migraine, unspecified, not intractable, without status migrainosus (principal); R11.11 Vomiting without nausea
CPT/HCPCS: 99283 ×2; 96372; J1885; J2300; J2550

== ENCOUNTER 2016-12-24 12:19 | Emergency (ER) | payer OTHER ==
[2016-12-24] MEDS ORDERED: 0.9 % SODIUM CHLORIDE 1,000 ML BAG IV ONE (12:51)
[2016-12-24] MEDS ORDERED: ONDANSETRON HCL IV 4 MG/2 ML VIAL IV ONE (12:51)
[2016-12-24] MEDS ORDERED: KETOROLAC 30 MG/ML VIAL IVP ONE (12:51)
[2016-12-24 13:07] LABS: BASO % 0.9 % (0-6); EOS % 3.1 % (0-6); GRAN % 66.2 % (47-80); HEMATOCRIT 40.9 % (35.0-47.0); LYMPH % 23.9 % (16-45); MEAN CORPUSCULAR HEMOGLOBIN 30.1 pg (27-33); MEAN CORPUSCULAR HGB CONC 34.2 g/dl (32-36); MEAN PLATELET VOLUME 9.8 fl (7.4-10.4); MONO % 5.9 % (0-9); PLATELET COUNT 395 K/uL (130-400); RED BLOOD COUNT 4.65 M/uL (3.80-5.40); RED CELL DISTRIBUTION WIDTH 12.8 % (11.5-14.5); WHITE BLOOD COUNT W/O DIFF 8.7 K/uL (4.2-12.2)
[2016-12-24 13:18] LABS: ALB/GLOB RATIO 1.4 (1.1-1.8); ALBUMIN 4.7 gm/dL (3.5-5.0); ALKALINE PHOSPHATASE 108 U/L (38-126); ALT/SGPT 33 U/L (9-52); ANION GAP 11.6 (7-16); AST/SGOT 36 U/L (14-36); BILIRUBIN,TOTAL 0.46 mg/dL (0.2-1.3); BLOOD UREA NITROGEN 11 mg/dL (7-17); CARBON DIOXIDE 23.4 mmol/L (22-30); CREATININE 0.6 mg/dL (0.52-1.04); EST GLOMERULAR FILTRATION RATE > 60 ml/min; GLUCOSE,RANDOM 275 mg/dL (70-110); LIPASE 120 U/L (23-300)
[2016-12-24 13:20] LABS: URINE APPEARANCE SL CLOUDY; URINE BILIRUBIN NEGATIVE (NEGATIVE); URINE BLOOD LARGE (NEGATIVE); URINE COLOR YELLOW; URINE KETONE NEGATIVE (NEGATIVE); URINE LEUKOCYTE ESTERASE NEGATIVE (NEGATIVE); URINE NITRITE NEGATIVE (NEGATIVE); URINE PROTEIN TRACE (NEGATIVE)
[2016-12-24 13:23] LABS: HCG,QUALITATIVE URINE NEGATIVE (NEGATIVE)
--- NOTE | 2016-12-24 13:26 | Emergency Department Record ---
History of Present Illness - General Chief complaint: Flank Pain Stated complaint: flank pain Time Seen by Provider: 12/24/16 12:44 Source: Patient Mode of Arrival: Ambulatory Limitations: No limitations - History of Present Illness Initial comments: pt thinks she has a kidney stone. she has r flank pain that radiates to rlq and she has blood in her urine. she states it feels like her previous kidney stones Complaint: Other Onset/Timin -: Hour(s) Location: Suprapubic, RLQ Radiation: R flank Severity: Moderate Severity scale (1-10): 7 Quality: Aching Consistency: Constant Improves with: None Worsens with: None Patient : No - Related Data Home Medications Medication Instructions Recorded Confirmed Last Taken Medroxyprogesterone Acetate [Depo 150 mg IM ASDIR 04/27/14 12/24/16 1 Day Ago Provera] Butalb/Acetaminophen/Caffeine 1 each PO ASDIR PRN 07/23/14 12/24/16 1 Day Ago [Fioricet] Diphenhydramine HCl [Benadryl] 50 mg SQ Q12H PRN 07/23/14 12/24/16 1 Day Ago Butorphanol Tartrate 10 mg NS ASDIR PRN 11/19/14 12/24/16 1 Day Ago Onabotulinumtoxina [Botox] 100 unit IJ ASDIR vial 06/29/16 12/24/16 1 Day Ago Ursodiol [Actigall] 300 mg PO BID cap 06/29/16 12/24/16 1 Day Ago Metformin HCl 500 mg PO BID 09/09/16 12/24/16 1 Day Ago Gabapentin [Neurontin] 600 mg PO TID 10/18/16 12/24/16 1 Day Ago Cyclobenzaprine HCl [Flexeril] 10 mg PO ASDIR 11/24/16 12/24/16 1 Day Ago Ondansetron [Zofran Odt] 4 mg PO ASDIR 11/24/16 12/24/16 1 Day Ago Clonazepam [Clonazepam] 2 mg PO QHS 12/06/16 12/24/16 1 Day Ago Gabapentin [Gabapentin] 900 mg PO QHS 12/06/16 12/24/16 1 Day Ago Duloxetine HCl [Cymbalta] 30 mg PO DAILY 12/19/16 12/24/16 1 Day Ago Previous Rx's Medication Instructions Recorded Fluconazole [Diflucan] 150 mg PO ONCE #1 tab 12/24/16 Hydrocodone/Acetaminophen [[place] 1 tab PO Q6H PRN #7 tab 12/24/16 5mg/325mg] Allergies Allergy/AdvReac Type Severity Reaction Status Date / Time sumatriptan [From Imitrex] Allergy ANAPHYLAXIS Verified 12/24/16 12:34 sumatriptan succinate Allergy ANAPHYLAXIS Verified 12/24/16 12:34 [From Imitrex] erythromycin base AdvReac VOMITING Verified 12/24/16 12:34 [Erythromycin Base] Travel Screening - Travel/Exposure Within Last 30 Days Have you traveled within the last 30 days?: No - Travel/Exposure Within Last Year Have you traveled outside the [place] in the last year?: No - Additonal Travel Details Have you been exposed to anyone with a communicable illness?: No - Travel Symptoms Symptom Screening: None Review of Systems Reviewed: No additional complaints except as noted below Constitutional: Reports: As per HPI. Denies: Chills, Fever, Malaise, Night sweats, Weakness, Weight change Eyes: Reports: As per HPI. Denies: Eye discharge, Eye pain, Photophobia, Vision change ENT: Reports: As per HPI. Denies: Congestion, Dental pain, Ear pain, Epistaxis , Hearing loss, Throat pain Respiratory: Reports: As per HPI. Denies: Cough, Dyspnea, Hemoptysis, Stridor, Wheezes Cardiovascular: Reports: As per HPI. Denies: Arrhythmia, Chest pain, Dyspnea on exertion, Edema, Murmurs, Orthopnea, Palpitations, Paroxysmal nocturnal dyspnea, Rheumatic Fever, Syncope Endocrine: Reports: As per HPI. Denies: Fatigue, Heat or cold intolerance, Polydipsia, Polyuria Gastrointestinal: Reports: As per HPI. Denies: Abdominal pain, Constipation, Diarrhea, Hematemesis, Hematochezia, Melena, Nausea, Vomiting Genitourinary: Reports: As per HPI. Denies: Abnormal menses, Discharge, Dyspareunia, Dysuria, Frequency, Hematuria, Incontinence, Retention, Urgency Musculoskeletal: Reports: As per HPI. Denies: Arthralgia, Back pain, Gout, Joint swelling, Myalgia, Neck pain Skin: Reports: As per HPI. Denies: Bruising, Change in color, Change in hair/ nails, Lesions, Pruritus, Rash Neurological: Reports: As per HPI. Denies: Abnormal gait, Confusion, Headache, Numbness, Paresthesias, Seizure, Tingling, Tremors, Vertigo, Weakness Psychiatric: Reports: As per HPI. Denies: Anxiety, Auditory hallucinations, Depression, Homicidal thoughts, Suicidal thoughts, Visual hallucinations Hematological/Lymphatic: Reports: As per HPI. Denies: Anemia, Blood Clots, Easy bleeding, Easy bruising, Swollen glands Past Medical History - SOCIAL HISTORY Smoking Status: Never smoker Alcohol Use: Rare Drug Use: None - RESPIRATORY Hx Respiratory Disorders: Yes Hx Asthma: Yes Hx Sleep Apnea: Yes Hx of CPAP: Yes - CARDIOVASCULAR Hx Cardio Disorders: Yes Hx Hypertension: Yes ("pretty much went away since the gastric surgery") - NEURO Hx Neuro Disorders: Yes Hx Headaches: Yes (migraines) - GI Hx GI Disorders: No - Hx Genitourinary Disorders: Yes Hx Kidney Stones: Yes - ENDOCRINE Hx Endocrine Disorders: Yes Hx Diabetes: Yes (type II) Hx Thyroid Disease: No - MUSCULOSKELETAL Hx Musculoskeletal Disorders: No - PSYCH Hx Psych Problems: No - HEMATOLOGY/ONCOLOGY Hx Hematology/Oncology Disorders: No Family Medical History Any Significant Family History?: Yes Hx Cancer: Grandparents Hx Diabetes: Father, Grandparents Hx Heart Disease: Grandparents Hx HTN: Mother Hx Kidney Disease: Father *Kidney Comment: stones Hx Stroke: Grandparents Physical Exam - General General Appearance: Alert, Oriented x3, Cooperative, Mild distress - Head Head exam: Normal inspection - Eye Eye exam: Normal appearance, PERRL, EOMI Pupils: Normal accommodation - ENT ENT exam: Normal exam, Mucous membranes moist, Normal external ear exam, Normal orophraynx Ear exam: Normal external inspection. negative: External canal tenderness Nasal Exam: Normal inspection. negative: Discharge, Sinus tenderness Mouth exam: Normal external inspection, Tongue normal Teeth exam: Normal inspection. negative: Dental caries Throat exam: Normal inspection. negative: Tonsillar erythema, Tonsillar exudate - Neck Neck exam: Normal inspection, Full ROM. negative: Tenderness - Respiratory Respiratory exam: Normal lung sounds bilaterally. negative: Respiratory distress - Cardiovascular Cardiovascular Exam: Regular rate, Normal rhythm, Normal heart sounds - GI/Abdominal GI/Abdominal exam: Soft, Normal bowel sounds, Tenderness (rlq) - Rectal Rectal exam: Deferred - exam: Deferred - Extremities Extremities exam: Normal inspection, Full ROM, Normal capillary refill. negative: Tenderness - Back Back exam: Reports: Normal inspection, Full ROM. Denies: Muscle spasm, Rash noted, Tenderness - Neurological Neurological exam: Alert, CN II-XII intact, Normal gait, Oriented X3 - Psychiatric Psychiatric exam: Normal affect, Normal mood - Skin Skin exam: Dry, Intact, Normal color, Warm Course Vital Signs 12/24/16 12:25 Temperature 97.9 F Pulse Rate 92 H Respiratory 16 Rate Blood Pressure 133/92 Pulse Ox 99 - Reevaluation(s) Reevaluation #1: 12/24/16 14:54 cat scan shows recently passed stone in bladder Medical Decision Making - Management Options MDM Management: No Additional Work-up Planned - Data Complexity MDM Data: Labs Ordered and/or Reviewed, X-Ray Ordered and/or Reviewed - Lab Data Result diagrams: 12/24/16 13:05 12/24/16 13:05 Lab Results 12/24/16 12/24/16 12/24/16 Range/Units 12:41 12:42 13:05 WBC 8.7 (4.2-12.2) K/uL RBC 4.65 (3.80-5.40) M/uL Hgb 14.0 (11.6-16.0) gm/dl Hct 40.9 (35.0-47.0) % MCV 88.0 (81-97) fl MCH 30.1 (27-33) pg MCHC 34.2 (32-36) g/dl RDW 12.8 (11.5-14.5) % Plt Count 395 (130-400) K/uL MPV 9.8 (7.4-10.4) fl Gran % 66.2 (47-80) % Lymphocytes % 23.9 (16-45) % Monocytes % 5.9 (0-9) % Eosinophils % 3.1 (0-6) % Basophils % 0.9 (0-6) % Sodium (136-145) mmol/L Potassium (3.5-5.1) mmol/L Chloride (98-107) mmol/L Carbon Dioxide (22-30) mmol/L Anion Gap (7-16) BUN (7-17) mg/dL Creatinine (0.52-1.04) mg/dL Estimated GFR ml/min Random Glucose (70-110) mg/dL Calcium (8.5-10.1) mg/dL Total Bilirubin (0.2-1.3) mg/dL AST (14-36) U/L ALT (9-52) U/L Alkaline Phosphatase (38-126) U/L Total Protein (6.3-8.2) gm/dL Albumin (3.5-5.0) gm/dL Globulin (1.4-4.8) gm/dL Albumin/Globulin Ratio (1.1-1.8) Lipase (23-300) U/L Urine Color Cancelled Urine Appearance Cancelled Urine pH Cancelled Ur Specific [place] Cancelled Urine Protein Cancelled Urine Glucose (UA) Cancelled Urine Clinitest Cancelled Urine Ketones Cancelled Urine Blood Cancelled Urine Nitrite Cancelled Urine Bilirubin Cancelled Urine Ictotest Cancelled Prot Sulfosalicylic Acd Cancelled Urine Urobilinogen Cancelled Ur Leukocyte Esterase Cancelled Urine HCG, Qual Cancelled 12/24/16 Range/Units 13:05 WBC (4.2-12.2) K/uL RBC (3.80-5.40) M/uL Hgb (11.6-16.0) gm/dl Hct (35.0-47.0) % MCV (81-97) fl MCH (27-33) pg MCHC (32-36) g/dl RDW (11.5-14.5) % Plt Count (130-400) K/uL MPV (7.4-10.4) fl Gran % (47-80) % Lymphocytes % (16-45) % Monocytes % (0-9) % Eosinophils % (0-6) % Basophils % (0-6) % Sodium 139 (136-145) mmol/L Potassium 3.9 (3.5-5.1) mmol/L Chloride 104 (98-107) mmol/L Carbon Dioxide 23.4 (22-30) mmol/L Anion Gap 11.6 (7-16) BUN 11 (7-17) mg/dL Creatinine 0.6 (0.52-1.04) mg/dL Estimated GFR > 60 ml/min Random Glucose 275 H (70-110) mg/dL Calcium 9.5 (8.5-10.1) mg/dL Total Bilirubin 0.46 (0.2-1.3) mg/dL AST 36 (14-36) U/L ALT 33 (9-52) U/L Alkaline Phosphatase 108 (38-126) U/L Total Protein 8.0 (6.3-8.2) gm/dL Albumin 4.7 (3.5-5.0) gm/dL Globulin 3.3 (1.4-4.8) gm/dL Albumin/Globulin Ratio 1.4 (1.1-1.8) Lipase 120 (23-300) U/L Urine Color Urine Appearance Urine pH Ur Specific [place] Urine Protein Urine Glucose (UA) Urine Clinitest Urine Ketones Urine Blood Urine Nitrite Urine Bilirubin Urine Ictotest Prot Sulfosalicylic Acd Urine Urobilinogen Ur Leukocyte Esterase Urine HCG, Qual Disposition Disposition: Discharge Clinical Impression: Renal lithiasis, Gloria vaginitis Disposition: Home, Self-Care Condition: (1) Good Instructions: Kidney Stones (ED), Vaginitis (ED), How to Strain Your Urine (ED) Additional Instructions: follow up with family doctor. return sooner if worse. stop zofran for 5 days Prescriptions: Fluconazole [Diflucan] 150 mg PO ONCE #1 tab Hydrocodone/Acetaminophen [[place] 5mg/325mg] 1 tab PO Q6H PRN #7 tab PRN Reason: Pain - General Forms: Patient Portal Access
[2016-12-24 13:27] LABS: URINE SQUAMOUS EPITHELIAL CELL 0 - 2 /hpf; URINE WBC 0 - 2 (0-2/hpf)
--- NOTE | 2016-12-28 12:43 | CT SCAN REPORT ---
EXAM: CT OF THE ABDOMEN AND PELVIS WITHOUT CONTRAST HISTORY: RIGHT LOWER QUADRANT PAIN EXTENDING INTO BACK. TECHNIQUE: Thin collimation helical CT examination of the abdomen and pelvis was performed without oral or intravenous contrast administration for express purpose of evaluating the renal collecting systems for obstructing calculi. Lack of oral and IV contrast utilization limits evaluation of the bowel and solid viscera respectively. Comparison: CT of the abdomen and pelvis without contrast dated 09/22/16. FINDINGS: There is minimal dependent atelectasis within the lung bases. The visualized lung bases are otherwise clear and there is no pleural or pericardial effusion. The heart is not enlarged. Diffuse decreased density of the liver relative to the spleen is again noted consistent with steatosis. There is a small area of sparing adjacent to the gallbladder fossa. No suspicious focal hepatic lesion is identified. The spleen, pancreas, and adrenal glands are normal in appearance. Post surgical changes involving the stomach redemonstrated. The kidneys remain normal in size, position, and are smoothly marginated. No nephrolithiasis nor renal mass. The renal collecting systems are not dilated. There is a tiny calcification projecting along the posterior wall of the urinary bladder lumen consistent with recently passed stone or tiny nonobstructing stone within the right ureterovesical junction. There are small follicles within the ovaries with the dominant follicle located on the right measuring 13 mm. The ovaries and uterus are otherwise normal in appearance. No suspicious pelvic mass nor lymphadenopathy is seen. No gross bowel dilatation nor bowel thickening. The appendix is visualized and is normal in appearance. No new lytic or blastic bone lesion. There are degenerative changes scattered within the visualized spine. A disk spur complex at the L3-L4 level is redemonstrated causing moderate central canal stenosis. IMPRESSION: 1. NO NEPHROLITHIASIS NOR OBSTRUCTIVE UROPATHY IDENTIFIED THOUGH THERE IS A TINY CALCIFICATION POSITIONED NEAR THE POSTERIOR WALL OF THE URINARY BLADDER JUST RIGHT OF MIDLINE CONSISTENT WITH RECENTLY PASSED STONE OR NONOBSTRUCTING CALCULUS WITHIN THE RIGHT URETEROVESICAL JUNCTION. 2. DIFFUSE HEPATIC STEATOSIS REDEMONSTRATED. 3. POST SURGICAL CHANGES AGAIN NOTED WITHIN THE STOMACH. 4. MODERATE SIZED DISK SPUR COMPLEX AT THE L3-L4 LEVEL REDEMONSTRATED CAUSING MODERATE CENTRAL CANAL STENOSIS. JOB NUMBER: [id number] MTDD
== END 2016-12-24 15:07 | disposition home or self-care (01) ==
LOC: ER 12:19
DX: N20.0 Calculus of kidney (principal); B37.3 Candidiasis of vulva and vagina; Z87.442 Personal history of urinary calculi
CPT/HCPCS: 74176; 80053; 81001; 81025; 83690; 85025; 96361; 96374; 96375; 99284; J1885; J2405; J7030

== ENCOUNTER 2017-01-08 20:39 | Emergency (ER) | payer OTHER ==
[2017-01-08] MEDS ORDERED: NALBUPHINE HCL 20 MG/ML AMPULE IM ONE (21:07)
[2017-01-08] MEDS ORDERED: PROMETHAZINE HCL 25 MG/ML VIAL IM ONE (21:07)
--- NOTE | 2017-01-08 21:13 | Emergency Department Record ---
History of Present Illness - General Chief Complaint: Headache Migraine Stated Complaint: HEADACHE Time Seen by Provider: 01/08/17 21:07 Source: Patient Mode of Arrival: Ambulatory Limitations: No limitations - History of Present Illness Initial Comments: 31 yo female returns to ED for evaluation of a "migraine headache". Patient reports that she saw her Neurologist , has been started on Depakate instead of her Neurontin, reports negative MRI brain in the last 3 weeks as well. Patient reports that she is scheduled to start PT of her neck tomorrow as well. Patient denies fevers, chills, or neck stiffness on examination, and reports that this headache is similar to previous. Complaint: Headache Onset/Timin -: Days(s) Onset Description: Awoke with symptoms Location: Diffuse, Temporal Severity scale (1-10): 9 Quality: Similar to previous headaches Consistency: Constant Improves With: Nothing Worsens With: Light, Movement of head/neck Associated Symptoms: Nausea, Photophobia, Sensitivity to sound, Vomiting Treatments Prior to Arrival: Migraine medication - Related Data Home Medications Medication Instructions Recorded Confirmed Last Taken Medroxyprogesterone Acetate [Depo 150 mg IM ASDIR 04/27/14 01/08/17 1 Day Ago Provera] Butalb/Acetaminophen/Caffeine 1 each PO ASDIR PRN 07/23/14 01/08/17 1 Day Ago [Fioricet] Diphenhydramine HCl [Benadryl] 50 mg SQ Q12H PRN 07/23/14 01/08/17 1 Day Ago Butorphanol Tartrate 10 mg NS ASDIR PRN 11/19/14 01/08/17 1 Day Ago Onabotulinumtoxina [Botox] 100 unit IJ ASDIR vial 06/29/16 01/08/17 1 Day Ago Ursodiol [Actigall] 300 mg PO BID cap 06/29/16 01/08/17 1 Day Ago Metformin HCl 500 mg PO BID 09/09/16 01/08/17 1 Day Ago Cyclobenzaprine HCl [Flexeril] 10 mg PO ASDIR 11/24/16 01/08/17 1 Day Ago Ondansetron [Zofran Odt] 4 mg PO ASDIR 11/24/16 01/08/17 1 Day Ago Clonazepam [Clonazepam] 2 mg PO QHS 12/06/16 01/08/17 1 Day Ago Duloxetine HCl [Cymbalta] 30 mg PO DAILY 12/19/16 01/08/17 1 Day Ago Cholecalciferol (Vitamin D3) 50,000 unit PO WEEKLY 01/08/17 01/08/17 01/05/17 [Vitamin D] Valproic Acid [Depakene] 250 mg PO TID 01/08/17 01/08/17 Unknown Previous Rx's Medication Instructions Recorded Fluconazole [Diflucan] 150 mg PO ONCE #1 tab 12/24/16 Hydrocodone/Acetaminophen [Temple 1 tab PO Q6H PRN #7 tab 12/24/16 5mg/325mg] Allergies Allergy/AdvReac Type Severity Reaction Status Date / Time sumatriptan [From Imitrex] Allergy ANAPHYLAXIS Verified 12/24/16 12:34 sumatriptan succinate Allergy ANAPHYLAXIS Verified 12/24/16 12:34 [From Imitrex] erythromycin base AdvReac VOMITING Verified 12/24/16 12:34 [Erythromycin Base] Travel Screening - Travel/Exposure Within Last 30 Days Have you traveled within the last 30 days?: No - Travel Symptoms Symptom Screening: None Review of Systems Constitutional: Denies: Chills, Fever, Malaise, Night sweats Eyes: Reports: Photophobia. Denies: Eye discharge, Eye pain ENT: Denies: Congestion, Dental pain, Ear pain, Epistaxis Respiratory: Denies: Cough, Dyspnea Cardiovascular: Denies: Chest pain, Dyspnea on exertion Endocrine: Denies: Fatigue, Heat or cold intolerance Gastrointestinal: Reports: Nausea, Vomiting. Denies: Abdominal pain Genitourinary: Denies: Incontinence, Retention Musculoskeletal: Denies: Arthralgia, Back pain, Gout, Joint swelling Skin: Denies: Bruising, Change in color Neurological: Reports: Headache. Denies: Abnormal gait, Confusion, Seizure Psychiatric: Denies: Anxiety Hematological/Lymphatic: Denies: Anemia, Blood Clots Past Medical History - SOCIAL HISTORY Smoking Status: Never smoker - RESPIRATORY Hx Respiratory Disorders: Yes Hx Asthma: Yes Hx Sleep Apnea: Yes Hx of CPAP: Yes - CARDIOVASCULAR Hx Cardio Disorders: Yes Hx Hypertension: Yes ("pretty much went away since the gastric surgery") - NEURO Hx Neuro Disorders: Yes Hx Headaches: Yes (migraines) - GI Hx GI Disorders: No - Hx Genitourinary Disorders: Yes Hx Kidney Stones: Yes - ENDOCRINE Hx Endocrine Disorders: Yes Hx Diabetes: Yes (type II) Hx Thyroid Disease: No - MUSCULOSKELETAL Hx Musculoskeletal Disorders: No - PSYCH Hx Psych Problems: No - HEMATOLOGY/ONCOLOGY Hx Hematology/Oncology Disorders: No Family Medical History Any Significant Family History?: Yes Hx Cancer: Grandparents Hx Diabetes: Father, Grandparents Hx Heart Disease: Grandparents Hx HTN: Mother Hx Kidney Disease: Father *Kidney Comment: stones Hx Stroke: Grandparents Physical Exam - General General Appearance: Alert, Oriented x3, Cooperative Limitations: No limitations - Head Head exam: Atraumatic, Normocephalic, Normal inspection Head exam detail: negative: Abrasion, Contusion, Frazier's sign, General tenderness, Hematoma, Laceration - Eye Eye exam: Normal appearance. negative: Conjunctival injection, Periorbital swelling, Periorbital tenderness, Scleral icterus - ENT Ear exam: negative: Auricular hematoma, Auricular trauma Nasal Exam: negative: Active bleeding, Discharge, Dried blood, Foreign body Mouth exam: negative: Drooling, Laceration, Muffled voice, Tongue elevation - Neck Neck exam: Normal inspection. negative: Meningismus, Tenderness - Respiratory Respiratory exam: Normal lung sounds bilaterally. negative: Rales, Respiratory distress, Rhonchi, Stridor - Cardiovascular Cardiovascular Exam: Regular rate, Normal rhythm, Normal heart sounds - GI/Abdominal GI/Abdominal exam: Soft. negative: Rebound, Rigid, Tenderness - Rectal Rectal exam: Deferred - exam: Deferred - Extremities Extremities exam: Normal inspection. negative: Calf tenderness, Pedal edema, Tenderness - Back Back exam: Denies: CVA tenderness (R), CVA tenderness (L) - Neurological Neurological exam: Alert, Normal gait, Oriented X3 - Psychiatric Psychiatric exam: Normal affect, Normal mood - Skin Skin exam: Normal color. negative: Abrasion Type of lesion: negative: abrasion Course Vital Signs 01/08/17 21:02 Temperature 97.9 F Pulse Rate [ 101 H Pulse Ox Probe] Respiratory 18 Rate Blood Pressure 160/104 [Left Arm] Pulse Ox 98 - Reevaluation(s) Reevaluation #1: 01/08/17 21:53 Patient reassessed, reports that her pain symptoms are down to 5/10 and reports that she is ready to go home at this time. Disposition Disposition: Discharge Clinical Impression: Acute headache Qualifiers: Headache type: unspecified Intractability: not intractable Qualified Code(s): R51 - Headache Disposition: Home, Self-Care Condition: (2) Stable Instructions: Acute Headache (ED) Additional Instructions: Return to ED if your symptoms worsen or if you have any concerns. Follow-up with your family doctor in 3-5 days as directed. Forms: Patient Portal Access Time of Disposition: 21:54
== END 2017-01-08 21:58 | disposition home or self-care (01) ==
LOC: ER 20:39
DX: R51 Headache (principal); R11.2 Nausea with vomiting, unspecified; H53.149 Visual discomfort, unspecified
CPT/HCPCS: 96372; 99283; J2550

== ENCOUNTER 2017-01-09 08:14 | Emergency (ER) | payer OTHER ==
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
[2017-01-09] MEDS ORDERED: KETOROLAC 30 MG/ML VIAL IM ONE (08:38)
[2017-01-09] MEDS ORDERED: HYDROMORPHONE HCL 1 MG/ML CPJ IM ONE (10:46)
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
== END 2017-01-09 11:47 | disposition home or self-care (01) ==
LOC: ER 08:14
DX: S20.211A Contusion of right front wall of thorax, initial encounter (principal); M54.2 Cervicalgia; M79.641 Pain in right hand; V49.88XA Car occupant (driver) (passenger) injured in other specified transport accidents, initial encounter; Y92.410 Unspecified street and highway as the place of occurrence of the external cause
CPT/HCPCS: 99284 ×2; 96372; 71020; 72050; 73130; 71110; 93005; 93010; J1885; J1170

== ENCOUNTER 2017-01-10 14:09 | Emergency (ER) | payer OTHER ==
[2017-01-10] MEDS ORDERED: KETOROLAC 30 MG/ML VIAL IM ONE (14:38)
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
[2017-01-10 15:01] LABS: BASO % 0.6 % (0-6); EOS % 4.3 % (0-6); GRAN % 59.4 % (47-80); HEMATOCRIT 38.9 % (35.0-47.0); HEMOGLOBIN 12.8 gm/dl (11.6-16.0); LYMPH % 28.9 % (16-45); MEAN CELL VOLUME 88.8 fl (81-97); MEAN CORPUSCULAR HEMOGLOBIN 29.2 pg (27-33); MEAN CORPUSCULAR HGB CONC 32.9 g/dl (32-36); MEAN PLATELET VOLUME 10.1 fl (7.4-10.4); MONO % 6.8 % (0-9); PLATELET COUNT 365 K/uL (130-400); RED BLOOD COUNT 4.38 M/uL (3.80-5.40); RED CELL DISTRIBUTION WIDTH 12.6 % (11.5-14.5)
[2017-01-10 15:31] LABS: ALB/GLOB RATIO 1.4 (1.1-1.8); ALBUMIN 4.1 gm/dL (3.5-5.0); ALKALINE PHOSPHATASE 107 U/L (38-126); ALT/SGPT 30 U/L (9-52); ANION GAP 11.4 (7-16); AST/SGOT 27 U/L (14-36); BILIRUBIN,TOTAL 0.23 mg/dL (0.2-1.3); BLOOD UREA NITROGEN 11 mg/dL (7-17); CARBON DIOXIDE 23.6 mmol/L (22-30); CREATININE 0.5 mg/dL (0.52-1.04); EST GLOMERULAR FILTRATION RATE > 60 ml/min; GLUCOSE,RANDOM 438 mg/dL (70-110)
[2017-01-10] MEDS ORDERED: METFORMIN 500 MG TABLET PO ONE (15:57)
[2017-01-10] MEDS ORDERED: HYDROMORPHONE HCL 1 MG/ML CPJ IM ONE (15:57)
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
== END 2017-01-10 17:09 | disposition home or self-care (01) ==
LOC: ER 14:09
DX: S20.211A Contusion of right front wall of thorax, initial encounter (principal); M54.2 Cervicalgia; E11.65 Type 2 diabetes mellitus with hyperglycemia; Z79.84 Long term (current) use of oral hypoglycemic drugs; V49.60XA Unspecified car occupant injured in collision with unspecified motor vehicles in traffic accident, initial encounter
CPT/HCPCS: 99283; 96372; 99284; 85025; 80053; 71250; J1885; J1170

== ENCOUNTER 2017-01-12 23:14 | Emergency (ER) | payer OTHER ==
[2017-01-12] MEDS ORDERED: NALBUPHINE HCL 20 MG/ML AMPULE IM ONE (23:34)
[2017-01-12] MEDS ORDERED: PROMETHAZINE HCL 25 MG/ML VIAL IM ONE (23:34)
--- NOTE | 2017-01-12 23:42 | Emergency Department Record ---
History of Present Illness - General Chief Complaint: Headache Migraine Stated Complaint: HEADACHE Time Seen by Provider: 01/12/17 23:26 Source: Patient Mode of Arrival: Ambulatory Limitations: No limitations - History of Present Illness Initial Comments: pt having her typical migraine w nausea Complaint: "Migraine" Onset/Timin -: Days(s) Onset Description: Awoke with symptoms Location: Diffuse Severity scale (1-10): 9 Quality: Throbbing, Similar to previous headaches Consistency: Constant Improves With: Medication, Rest Worsens With: Exertion/activity, Light, Movement of head/neck, Noise Associated Symptoms: Nausea, Photophobia, Sensitivity to sound Treatments Prior to Arrival: Migraine medication - Related Data Home Medications Medication Instructions Recorded Confirmed Last Taken Medroxyprogesterone Acetate [Depo 150 mg IM ASDIR 04/27/14 01/10/17 1 Day Ago Provera] Butalb/Acetaminophen/Caffeine 1 each PO ASDIR PRN 07/23/14 01/10/17 1 Day Ago [Fioricet] Diphenhydramine HCl [Benadryl] 50 mg SQ Q12H PRN 07/23/14 01/10/17 1 Day Ago Butorphanol Tartrate 10 mg NS ASDIR PRN 11/19/14 01/10/17 1 Day Ago Onabotulinumtoxina [Botox] 100 unit IJ ASDIR vial 06/29/16 01/10/17 1 Day Ago Ursodiol [Actigall] 300 mg PO BID cap 06/29/16 01/10/17 1 Day Ago Metformin HCl 500 mg PO BID 09/09/16 01/10/17 1 Day Ago Cyclobenzaprine HCl [Flexeril] 10 mg PO ASDIR 11/24/16 01/10/17 1 Day Ago Ondansetron [Zofran Odt] 4 mg PO ASDIR 11/24/16 01/10/17 1 Day Ago Clonazepam [Clonazepam] 2 mg PO QHS 12/06/16 01/10/17 1 Day Ago Duloxetine HCl [Cymbalta] 30 mg PO DAILY 12/19/16 01/10/17 1 Day Ago Cholecalciferol (Vitamin D3) 50,000 unit PO WEEKLY 01/08/17 01/10/17 01/05/17 [Vitamin D] Valproic Acid [Depakene] 250 mg PO TID 01/08/17 01/10/17 Unknown Allergies Allergy/AdvReac Type Severity Reaction Status Date / Time sumatriptan [From Imitrex] Allergy ANAPHYLAXIS Verified 12/24/16 12:34 sumatriptan succinate Allergy ANAPHYLAXIS Verified 12/24/16 12:34 [From Imitrex] erythromycin base AdvReac VOMITING Verified 12/24/16 12:34 [Erythromycin Base] Travel Screening - Travel/Exposure Within Last 30 Days Have you traveled within the last 30 days?: No - Travel Symptoms Symptom Screening: None Review of Systems Reviewed: No additional complaints except as noted below Constitutional: Reports: As per HPI. Denies: Chills, Fever, Malaise, Night sweats, Weakness, Weight change Eyes: Reports: As per HPI. Denies: Eye discharge, Eye pain, Photophobia, Vision change ENT: Reports: As per HPI. Denies: Congestion, Dental pain, Ear pain, Epistaxis , Hearing loss, Throat pain Respiratory: Reports: As per HPI. Denies: Cough, Dyspnea, Hemoptysis, Stridor, Wheezes Cardiovascular: Reports: As per HPI. Denies: Arrhythmia, Chest pain, Dyspnea on exertion, Edema, Murmurs, Orthopnea, Palpitations, Paroxysmal nocturnal dyspnea, Rheumatic Fever, Syncope Endocrine: Reports: As per HPI. Denies: Fatigue, Heat or cold intolerance, Polydipsia, Polyuria Gastrointestinal: Reports: As per HPI. Denies: Abdominal pain, Constipation, Diarrhea, Hematemesis, Hematochezia, Melena, Nausea, Vomiting Genitourinary: Reports: As per HPI. Denies: Abnormal menses, Discharge, Dyspareunia, Dysuria, Frequency, Hematuria, Incontinence, Retention, Urgency Musculoskeletal: Reports: As per HPI. Denies: Arthralgia, Back pain, Gout, Joint swelling, Myalgia, Neck pain Skin: Reports: As per HPI. Denies: Bruising, Change in color, Change in hair/ nails, Lesions, Pruritus, Rash Neurological: Reports: As per HPI. Denies: Abnormal gait, Confusion, Headache, Numbness, Paresthesias, Seizure, Tingling, Tremors, Vertigo, Weakness Psychiatric: Reports: As per HPI. Denies: Anxiety, Auditory hallucinations, Depression, Homicidal thoughts, Suicidal thoughts, Visual hallucinations Hematological/Lymphatic: Reports: As per HPI. Denies: Anemia, Blood Clots, Easy bleeding, Easy bruising, Swollen glands Past Medical History - SOCIAL HISTORY Smoking Status: Never smoker - RESPIRATORY Hx Respiratory Disorders: Yes Hx Asthma: Yes Hx Sleep Apnea: Yes Hx of CPAP: Yes - CARDIOVASCULAR Hx Cardio Disorders: Yes Hx Hypertension: Yes ("pretty much went away since the gastric surgery") - NEURO Hx Neuro Disorders: Yes Hx Headaches: Yes (migraines) - GI Hx GI Disorders: No - Hx Genitourinary Disorders: Yes Hx Kidney Stones: Yes - ENDOCRINE Hx Endocrine Disorders: Yes Hx Diabetes: Yes (type II) Hx Thyroid Disease: No - MUSCULOSKELETAL Hx Musculoskeletal Disorders: No - PSYCH Hx Psych Problems: No - HEMATOLOGY/ONCOLOGY Hx Hematology/Oncology Disorders: No Family Medical History Any Significant Family History?: Yes Hx Cancer: Grandparents Hx Diabetes: Father, Grandparents Hx Heart Disease: Grandparents Hx HTN: Mother Hx Kidney Disease: Father *Kidney Comment: stones Hx Stroke: Grandparents Physical Exam - General General Appearance: Alert, Oriented x3, Cooperative, Mild distress - Head Head exam: Normal inspection - Eye Eye exam: Normal appearance, PERRL, EOMI Pupils: Normal accommodation - ENT ENT exam: Normal exam, Mucous membranes moist, Normal external ear exam, Normal orophraynx Ear exam: Normal external inspection. negative: External canal tenderness Nasal Exam: Normal inspection. negative: Discharge, Sinus tenderness Mouth exam: Normal external inspection, Tongue normal Teeth exam: Normal inspection. negative: Dental caries Throat exam: Normal inspection. negative: Tonsillar erythema, Tonsillar exudate - Neck Neck exam: Normal inspection, Full ROM. negative: Tenderness - Respiratory Respiratory exam: Normal lung sounds bilaterally. negative: Respiratory distress - Cardiovascular Cardiovascular Exam: Regular rate, Normal rhythm, Normal heart sounds - GI/Abdominal GI/Abdominal exam: Soft, Normal bowel sounds. negative: Tenderness - Rectal Rectal exam: Deferred - exam: Deferred - Extremities Extremities exam: Normal inspection, Full ROM, Normal capillary refill. negative: Tenderness - Back Back exam: Reports: Normal inspection, Full ROM. Denies: Muscle spasm, Rash noted, Tenderness - Neurological Neurological exam: Alert, CN II-XII intact, Normal gait, Oriented X3 - Psychiatric Psychiatric exam: Normal affect, Normal mood - Skin Skin exam: Dry, Intact, Normal color, Warm Course Vital Signs 01/12/17 23:23 Temperature 97.9 F Pulse Rate 120 H Respiratory 18 Rate Blood Pressure 123/81 Pulse Ox 97 Disposition Disposition: Discharge Clinical Impression: Migraine Qualifiers: Migraine type: unspecified Status migrainosus presence: without status migrainosus Intractability: not intractable Qualified Code(s): G43.909 - Migraine, unspecified, not intractable, without status migrainosus Disposition: Home, Self-Care Condition: (1) Good Instructions: Migraine Headache (ED) Additional Instructions: follow up with family doctorand with neurologist. return sooner if worse Forms: Patient Portal Access
== END 2017-01-13 00:24 | disposition home or self-care (01) ==
LOC: ER 23:14
DX: G43.909 Migraine, unspecified, not intractable, without status migrainosus (principal); R11.0 Nausea; H53.149 Visual discomfort, unspecified
CPT/HCPCS: 96372; 99283; J2550

== ENCOUNTER 2017-01-13 11:22 | Emergency (ER) | payer OTHER ==
[2017-01-13] MEDS ORDERED: NALBUPHINE HCL 20 MG/ML AMPULE IM ONE (11:44)
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
== END 2017-01-13 12:21 | disposition home or self-care (01) ==
LOC: ER 11:22
DX: R51 Headache (principal); M54.2 Cervicalgia; H53.149 Visual discomfort, unspecified; V49.60XA Unspecified car occupant injured in collision with unspecified motor vehicles in traffic accident, initial encounter
CPT/HCPCS: 96372; 99283

== ENCOUNTER 2017-01-13 23:08 | Emergency (ER) | payer OTHER ==
[2017-01-14] MEDS ORDERED: 0.9 % SODIUM CHLORIDE 1,000 ML BAG IV ONE (00:15)
[2017-01-14] MEDS ORDERED: KETOROLAC 30 MG/ML VIAL IVP ONE (00:31)
[2017-01-14] MEDS ORDERED: PROMETHAZINE HCL 25 MG/ML VIAL IVP ONE (00:37)
[2017-01-14] MEDS ORDERED: NALBUPHINE HCL 20 MG/ML AMPULE IM ONE (00:37)
[2017-01-14 01:35] LABS: BASO % 0.8 % (0-6); EOS % 4.3 % (0-6); GRAN % 55.4 % (47-80); HEMATOCRIT 42.5 % (35.0-47.0); HEMOGLOBIN 13.9 gm/dl (11.6-16.0); LYMPH % 32.4 % (16-45); MEAN CORPUSCULAR HEMOGLOBIN 28.8 pg (27-33); MEAN CORPUSCULAR HGB CONC 32.7 g/dl (32-36); MONO % 7.1 % (0-9); PLATELET COUNT 405 K/uL (130-400); RED BLOOD COUNT 4.83 M/uL (3.80-5.40); RED CELL DISTRIBUTION WIDTH 12.9 % (11.5-14.5)
[2017-01-14 01:43] LABS: ANION GAP 12.8 (7-16); BLOOD UREA NITROGEN 13 mg/dL (7-17); CARBON DIOXIDE 25.2 mmol/L (22-30); CREATININE 0.5 mg/dL (0.52-1.04); EST GLOMERULAR FILTRATION RATE > 60 ml/min; GLUCOSE,RANDOM 180 mg/dL (70-110)
--- NOTE | 2017-01-14 01:51 | Emergency Department Record ---
History of Present Illness - General Chief Complaint: Headache Migraine Stated Complaint: MIGRAINE Time Seen by Provider: 01/14/17 00:12 Source: Patient Mode of Arrival: Ambulatory Limitations: No limitations - History of Present Illness Initial Comments: pt having her typical migraine MD Complaint: "Migraine" Onset/Timin -: Days(s) Onset Description: Gradual Location: Diffuse Severity: Moderate Severity scale (1-10): 9 Quality: Throbbing, Similar to previous headaches Consistency: Constant, Getting worse Improves With: Nothing Worsens With: Light, Noise Associated Symptoms: Nausea, Photophobia, Sensitivity to sound Treatments Prior to Arrival: Other - Related Data Home Medications Medication Instructions Recorded Confirmed Last Taken Medroxyprogesterone Acetate [Depo 150 mg IM ASDIR 04/27/14 01/13/17 01/12/17 Provera] Butalb/Acetaminophen/Caffeine 1 each PO ASDIR PRN 07/23/14 01/13/17 01/12/17 [Fioricet] Diphenhydramine HCl [Benadryl] 50 mg SQ Q12H PRN 07/23/14 01/13/17 01/13/17 Butorphanol Tartrate 10 mg NS ASDIR PRN 11/19/14 01/13/17 01/12/17 Onabotulinumtoxina [Botox] 100 unit IJ ASDIR vial 06/29/16 01/13/17 01/12/17 Ursodiol [Actigall] 300 mg PO BID cap 06/29/16 01/13/17 01/12/17 Metformin HCl 500 mg PO BID 09/09/16 01/13/17 01/12/17 Cyclobenzaprine HCl [Flexeril] 10 mg PO ASDIR 11/24/16 01/13/17 01/12/17 Ondansetron [Zofran Odt] 4 mg PO ASDIR 11/24/16 01/13/17 01/13/17 Clonazepam [Clonazepam] 2 mg PO QHS 12/06/16 01/13/17 01/12/17 Duloxetine HCl [Cymbalta] 30 mg PO DAILY 12/19/16 01/13/17 01/12/17 Cholecalciferol (Vitamin D3) 50,000 unit PO WEEKLY 01/08/17 01/13/17 01/12/17 [Vitamin D] Valproic Acid [Depakene] 250 mg PO TID 01/08/17 01/13/17 01/12/17 Allergies Allergy/AdvReac Type Severity Reaction Status Date / Time sumatriptan [From Imitrex] Allergy ANAPHYLAXIS Verified 01/13/17 11:25 sumatriptan succinate Allergy ANAPHYLAXIS Verified 01/13/17 11:25 [From Imitrex] erythromycin base AdvReac VOMITING Verified 01/13/17 11:25 [Erythromycin Base] Travel Screening - Travel/Exposure Within Last 30 Days Have you traveled within the last 30 days?: No - Travel/Exposure Within Last Year Have you traveled outside the [place] in the last year?: No - Additonal Travel Details Have you been exposed to anyone with a communicable illness?: No - Travel Symptoms Symptom Screening: None Review of Systems Reviewed: No additional complaints except as noted below Constitutional: Reports: As per HPI. Denies: Chills, Fever, Malaise, Night sweats, Weakness, Weight change Eyes: Reports: As per HPI. Denies: Eye discharge, Eye pain, Photophobia, Vision change ENT: Reports: As per HPI. Denies: Congestion, Dental pain, Ear pain, Epistaxis , Hearing loss, Throat pain Respiratory: Reports: As per HPI. Denies: Cough, Dyspnea, Hemoptysis, Stridor, Wheezes Cardiovascular: Reports: As per HPI. Denies: Arrhythmia, Chest pain, Dyspnea on exertion, Edema, Murmurs, Orthopnea, Palpitations, Paroxysmal nocturnal dyspnea, Rheumatic Fever, Syncope Endocrine: Reports: As per HPI. Denies: Fatigue, Heat or cold intolerance, Polydipsia, Polyuria Gastrointestinal: Reports: As per HPI. Denies: Abdominal pain, Constipation, Diarrhea, Hematemesis, Hematochezia, Melena, Nausea, Vomiting Genitourinary: Reports: As per HPI. Denies: Abnormal menses, Discharge, Dyspareunia, Dysuria, Frequency, Hematuria, Incontinence, Retention, Urgency Musculoskeletal: Reports: As per HPI. Denies: Arthralgia, Back pain, Gout, Joint swelling, Myalgia, Neck pain Skin: Reports: As per HPI. Denies: Bruising, Change in color, Change in hair/ nails, Lesions, Pruritus, Rash Neurological: Reports: As per HPI. Denies: Abnormal gait, Confusion, Headache, Numbness, Paresthesias, Seizure, Tingling, Tremors, Vertigo, Weakness Psychiatric: Reports: As per HPI. Denies: Anxiety, Auditory hallucinations, Depression, Homicidal thoughts, Suicidal thoughts, Visual hallucinations Hematological/Lymphatic: Reports: As per HPI. Denies: Anemia, Blood Clots, Easy bleeding, Easy bruising, Swollen glands Past Medical History - SOCIAL HISTORY Smoking Status: Never smoker Alcohol Use: None Drug Use: None - RESPIRATORY Hx Respiratory Disorders: Yes Hx Asthma: Yes Hx Sleep Apnea: Yes Hx of CPAP: Yes - CARDIOVASCULAR Hx Cardio Disorders: Yes Hx Hypertension: Yes ("pretty much went away since the gastric surgery") - NEURO Hx Neuro Disorders: Yes Hx Headaches: Yes (migraines) - GI Hx GI Disorders: No - Hx Genitourinary Disorders: Yes Hx Kidney Stones: Yes - ENDOCRINE Hx Endocrine Disorders: Yes Hx Diabetes: Yes (type II) Hx Thyroid Disease: No - MUSCULOSKELETAL Hx Musculoskeletal Disorders: No - PSYCH Hx Psych Problems: No - HEMATOLOGY/ONCOLOGY Hx Hematology/Oncology Disorders: No Family Medical History Any Significant Family History?: No Hx Cancer: Grandparents Hx Diabetes: Father, Grandparents Hx Heart Disease: Grandparents Hx HTN: Mother Hx Kidney Disease: Father *Kidney Comment: stones Hx Stroke: Grandparents Physical Exam - General General Appearance: Alert, Oriented x3, Cooperative, Mild distress - Head Head exam: Normal inspection - Eye Eye exam: Normal appearance, PERRL, EOMI Pupils: Normal accommodation - ENT ENT exam: Normal exam, Mucous membranes moist, Normal external ear exam, Normal orophraynx Ear exam: Normal external inspection. negative: External canal tenderness Nasal Exam: Normal inspection. negative: Discharge, Sinus tenderness Mouth exam: Normal external inspection, Tongue normal Teeth exam: Normal inspection. negative: Dental caries Throat exam: Normal inspection. negative: Tonsillar erythema, Tonsillar exudate - Neck Neck exam: Normal inspection, Full ROM. negative: Tenderness - Respiratory Respiratory exam: Normal lung sounds bilaterally. negative: Respiratory distress - Cardiovascular Cardiovascular Exam: Normal rhythm, Normal heart sounds, Tachycardia - GI/Abdominal GI/Abdominal exam: Soft, Normal bowel sounds. negative: Tenderness - Rectal Rectal exam: Deferred - exam: Deferred - Extremities Extremities exam: Normal inspection, Full ROM, Normal capillary refill. negative: Tenderness - Back Back exam: Reports: Normal inspection, Full ROM. Denies: Muscle spasm, Rash noted, Tenderness - Neurological Neurological exam: Alert, CN II-XII intact, Normal gait, Oriented X3 - Psychiatric Psychiatric exam: Normal affect, Normal mood - Skin Skin exam: Dry, Intact, Normal color, Warm Course Vital Signs 01/13/17 01/13/17 23:16 23:17 Temperature 98.0 F 98.0 F Pulse Rate [ 114 H Pulse Ox Probe] Respiratory 22 22 Rate Blood Pressure 126/90 [Left Arm] Pulse Ox 99 99 - Reevaluation(s) Reevaluation #1: 01/14/17 02:03 pt is better Medical Decision Making - Lab Data Result diagrams: 01/14/17 01:15 01/14/17 01:15 Lab Results 01/14/17 Range/Units 01:15 WBC 13.0 H (4.2-12.2) K/uL RBC 4.83 (3.80-5.40) M/uL Hgb 13.9 (11.6-16.0) gm/dl Hct 42.5 (35.0-47.0) % MCV 88.0 (81-97) fl MCH 28.8 (27-33) pg MCHC 32.7 (32-36) g/dl RDW 12.9 (11.5-14.5) % Plt Count 405 H (130-400) K/uL MPV 10.0 (7.4-10.4) fl Gran % 55.4 (47-80) % Lymphocytes % 32.4 (16-45) % Monocytes % 7.1 (0-9) % Eosinophils % 4.3 (0-6) % Basophils % 0.8 (0-6) % Disposition Disposition: Discharge Clinical Impression: Migraine Qualifiers: Migraine type: unspecified Status migrainosus presence: without status migrainosus Intractability: not intractable Qualified Code(s): G43.909 - Migraine, unspecified, not intractable, without status migrainosus Condition: (1) Good Instructions: Migraine Headache (ED) Additional Instructions: follow up with family doctor and with neurologist. return sooner if worse. Forms: Patient Portal Access
[2017-01-14] MEDS ORDERED: LORAZEPAM 0.5 MG TABLET PO ONE (02:02)
== END 2017-01-14 02:35 | disposition home or self-care (01) ==
LOC: ER 23:08
DX: G43.909 Migraine, unspecified, not intractable, without status migrainosus (principal); R11.0 Nausea; H53.149 Visual discomfort, unspecified; V49.60XA Unspecified car occupant injured in collision with unspecified motor vehicles in traffic accident, initial encounter
CPT/HCPCS: 80048; 85025; 96372; 96374; 96375; 99284; J1885; J2550; J7030

== ENCOUNTER 2017-01-17 09:25 | Emergency (ER) | payer OTHER ==
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
[2017-01-17] MEDS ORDERED: PROMETHAZINE HCL 25 MG/ML VIAL IM ONE (09:53)
[2017-01-17] MEDS ORDERED: NALBUPHINE HCL 20 MG/ML AMPULE IM ONE (09:53)
== END 2017-01-17 10:56 | disposition home or self-care (01) ==
LOC: ER 09:25
DX: G43.909 Migraine, unspecified, not intractable, without status migrainosus (principal); H53.149 Visual discomfort, unspecified
CPT/HCPCS: 99283 ×2; 96372; J2300; J2550

== ENCOUNTER 2017-01-18 16:29 | Emergency (ER) | payer OTHER ==
--- NOTE | 2017-01-18 17:30 | Emergency Department Record ---
History of Present Illness - General Chief Complaint: Headache Migraine Stated Complaint: MIGRAINE Time Seen by Provider: 01/18/17 17:30 Source: Patient, RN notes reviewed Mode of Arrival: Ambulatory - History of Present Illness Initial Comments: headache similiar to her other headaches and she is going to the [facility] in [place] for treatment of her headaches MD Complaint: Headache Onset/Timin -: Hour(s) Onset Description: Awoke with symptoms Location: Diffuse, Frontal, Left, Occipital, Retro-orbital, Right, Temporal Severity scale (1-10): 10 Quality: Aching, Pulsatile, Sharp, Throbbing Improves With: Nothing Worsens With: None Treatments Prior to Arrival: Migraine medication, Other - Related Data Home Medications Medication Instructions Recorded Confirmed Last Taken Medroxyprogesterone Acetate [Depo 150 mg IM ASDIR 04/27/14 01/18/17 01/17/17 Provera] Butalb/Acetaminophen/Caffeine 1 each PO ASDIR PRN 07/23/14 01/18/17 01/18/17 [Fioricet] Diphenhydramine HCl [Benadryl] 50 mg SQ Q12H PRN 07/23/14 01/18/17 01/18/17 Butorphanol Tartrate 10 mg NS ASDIR PRN 11/19/14 01/18/17 01/17/17 Ursodiol [Actigall] 300 mg PO BID cap 06/29/16 01/18/17 01/17/17 Metformin HCl 500 mg PO BID 09/09/16 01/18/17 01/17/17 Cyclobenzaprine HCl [Flexeril] 10 mg PO ASDIR 11/24/16 01/18/17 01/18/17 Ondansetron [Zofran Odt] 4 mg PO ASDIR 11/24/16 01/18/17 01/18/17 Clonazepam [Clonazepam] 2 mg PO QHS 12/06/16 01/18/17 01/17/17 Duloxetine HCl [Cymbalta] 30 mg PO DAILY 12/19/16 01/18/17 01/18/17 Cholecalciferol (Vitamin D3) 50,000 unit PO WEEKLY 01/08/17 01/18/17 01/17/17 [Vitamin D] Valproic Acid [Depakene] 250 mg PO TID 0401/18/17 01/18/17 Previous Rx's Medication Instructions Recorded Lorazepam [Ativan] 1 mg PO Q8HR #6 tablet 01/18/17 Allergies Allergy/AdvReac Type Severity Reaction Status Date / Time sumatriptan [From Imitrex] Allergy ANAPHYLAXIS Verified 01/17/17 09:27 sumatriptan succinate Allergy ANAPHYLAXIS Verified 01/17/17 09:27 [From Imitrex] erythromycin base AdvReac VOMITING Verified 01/17/17 09:27 [Erythromycin Base] Travel Screening - Travel/Exposure Within Last 30 Days Have you traveled within the last 30 days?: No - Travel/Exposure Within Last Year Have you traveled outside the [place] in the last year?: No - Additonal Travel Details Have you been exposed to anyone with a communicable illness?: No - Travel Symptoms Symptom Screening: None Review of Systems Reviewed: No additional complaints except as noted below Constitutional: Reports: As per HPI. Denies: Chills, Fever, Malaise, Night sweats, Weakness, Weight change Eyes: Reports: As per HPI. Denies: Eye discharge, Eye pain, Photophobia, Vision change ENT: Reports: As per HPI. Denies: Congestion, Dental pain, Ear pain, Epistaxis , Hearing loss, Throat pain Respiratory: Reports: As per HPI. Denies: Cough, Dyspnea, Hemoptysis, Stridor, Wheezes Cardiovascular: Reports: As per HPI. Denies: Arrhythmia, Chest pain, Dyspnea on exertion, Edema, Murmurs, Orthopnea, Palpitations, Paroxysmal nocturnal dyspnea, Rheumatic Fever, Syncope Endocrine: Reports: As per HPI. Denies: Fatigue, Heat or cold intolerance, Polydipsia, Polyuria Gastrointestinal: Reports: As per HPI. Denies: Abdominal pain, Constipation, Diarrhea, Hematemesis, Hematochezia, Melena, Nausea, Vomiting Genitourinary: Reports: As per HPI. Denies: Abnormal menses, Discharge, Dyspareunia, Dysuria, Frequency, Hematuria, Incontinence, Retention, Urgency Musculoskeletal: Reports: As per HPI. Denies: Arthralgia, Back pain, Gout, Joint swelling, Myalgia, Neck pain Skin: Reports: As per HPI. Denies: Bruising, Change in color, Change in hair/ nails, Lesions, Pruritus, Rash Neurological: Reports: As per HPI, Headache. Denies: Abnormal gait, Confusion, Numbness, Paresthesias, Seizure, Tingling, Tremors, Vertigo, Weakness Psychiatric: Reports: As per HPI. Denies: Anxiety, Auditory hallucinations, Depression, Homicidal thoughts, Suicidal thoughts, Visual hallucinations Hematological/Lymphatic: Reports: As per HPI. Denies: Anemia, Blood Clots, Easy bleeding, Easy bruising, Swollen glands Past Medical History - SOCIAL HISTORY Smoking Status: Never smoker Alcohol Use: None Drug Use: None - RESPIRATORY Hx Respiratory Disorders: Yes Hx Asthma: Yes Hx Sleep Apnea: Yes Hx of CPAP: Yes - CARDIOVASCULAR Hx Cardio Disorders: Yes Hx Hypertension: Yes ("pretty much went away since the gastric surgery") - NEURO Hx Neuro Disorders: Yes Hx Headaches: Yes (migraines) - GI Hx GI Disorders: No - Hx Genitourinary Disorders: Yes Hx Kidney Stones: Yes - ENDOCRINE Hx Endocrine Disorders: Yes Hx Diabetes: Yes (type II) Hx Thyroid Disease: No - MUSCULOSKELETAL Hx Musculoskeletal Disorders: No - PSYCH Hx Psych Problems: No - HEMATOLOGY/ONCOLOGY Hx Hematology/Oncology Disorders: No Family Medical History Any Significant Family History?: No Hx Cancer: Grandparents Hx Diabetes: Father, Grandparents Hx Heart Disease: Grandparents Hx HTN: Mother Hx Kidney Disease: Father *Kidney Comment: stones Hx Stroke: Grandparents Physical Exam - General General Appearance: Alert, Oriented x3, Cooperative, No acute distress - Head Head exam: Normal inspection - Eye Eye exam: Normal appearance, PERRL Pupils: Normal accommodation - ENT ENT exam: Normal exam, Mucous membranes moist, Normal external ear exam, Normal orophraynx, TM's normal bilaterally Ear exam: Normal external inspection. negative: External canal tenderness Nasal Exam: Normal inspection. negative: Discharge, Sinus tenderness Mouth exam: Normal external inspection, Tongue normal Teeth exam: Normal inspection. negative: Dental caries Throat exam: Normal inspection. negative: Tonsillar erythema, Tonsillar exudate - Neck Neck exam: Normal inspection, Full ROM. negative: Tenderness - Respiratory Respiratory exam: Normal lung sounds bilaterally. negative: Respiratory distress - Cardiovascular Cardiovascular Exam: Regular rate, Normal rhythm, Normal heart sounds - GI/Abdominal GI/Abdominal exam: Soft, Normal bowel sounds. negative: Tenderness - Rectal Rectal exam: Deferred - exam: Deferred - Extremities Extremities exam: Normal inspection, Full ROM, Normal capillary refill. negative: Tenderness - Back Back exam: Reports: Normal inspection, Full ROM. Denies: Muscle spasm, Rash noted, Tenderness - Neurological Neurological exam: Alert, Normal gait, Oriented X3, Reflexes normal - Psychiatric Psychiatric exam: Normal affect, Normal mood - Skin Skin exam: Dry, Intact, Normal color, Warm Course Vital Signs 01/18/17 17:09 Temperature 98.2 F Pulse Rate 115 H Respiratory 20 Rate Blood Pressure 120/83 Pulse Ox 98 - Reevaluation(s) Reevaluation #1: patient is feeling better 01/18/17 18:01 Disposition Clinical Impression: Headache Qualifiers: Headache type: unspecified Headache chronicity pattern: acute headache Intractability: not intractable Qualified Code(s): R51 - Headache Migraine Qualifiers: Migraine type: unspecified Status migrainosus presence: without status migrainosus Intractability: not intractable Qualified Code(s): G43.909 - Migraine, unspecified, not intractable, without status migrainosus Disposition: Home, Self-Care Instructions: Migraine Headache (ED) Additional Instructions: follow up with family Dr. or neurologist as scheduled Prescriptions: Lorazepam [Ativan] 1 mg PO Q8HR #6 tablet Forms: Patient Portal Access Time of Disposition: 18:01
[2017-01-18] MEDS ORDERED: KETOROLAC 60 MG/2 ML VIAL IM STA (17:35)
[2017-01-18] MEDS ORDERED: NALBUPHINE HCL 20 MG/ML AMPULE IM ONE (17:35)
[2017-01-18] MEDS ORDERED: PROMETHAZINE HCL 25 MG/ML VIAL IM ONE (17:35)
== END 2017-01-18 18:30 | disposition home or self-care (01) ==
LOC: ER 16:29
DX: G43.909 Migraine, unspecified, not intractable, without status migrainosus (principal)
CPT/HCPCS: 99283 ×2; 96372; J2300; J1885; J2550

== ENCOUNTER 2017-02-12 08:41 | Emergency (ER) | payer OTHER ==
[2017-02-12] MEDS ORDERED: NALBUPHINE HCL 20 MG/ML AMPULE IM ONE (09:01)
[2017-02-12] MEDS ORDERED: KETOROLAC 30 MG/ML VIAL IM ONE (09:01)
--- NOTE | 2017-02-12 09:08 | Emergency Department Record ---
History of Present Illness - General Chief Complaint: Headache Migraine Stated Complaint: MIGRAINE Time Seen by Provider: 02/12/17 08:55 Source: Patient Mode of Arrival: Ambulatory Limitations: No limitations - History of Present Illness Initial Comments: The patient is here due to her typical migraine LANGLEY. The onset was yesterday and she had the pain when she woke up. It has worsened gradually since. The pain is all over and is associated with mild nausea and vomiting. The patient has a long hx of migraines exactly like this. She was recently at the [facility] in [place] and had her medicines adjusted. Complaint: Headache, "Migraine" Onset/Timin -: Days(s) Onset Description: Gradual Location: Frontal, Left, Right, Temporal Severity scale (1-10): 8 Quality: Throbbing Consistency: Constant Improves With: Nothing Worsens With: Light, Movement of head/neck Associated Symptoms: Nausea Treatments Prior to Arrival: Migraine medication - Related Data Home Medications Medication Instructions Recorded Confirmed Last Taken Medroxyprogesterone Acetate [Depo 150 mg IM ASDIR 04/27/14 02/12/17 01/17/17 Provera] Butalb/Acetaminophen/Caffeine 1 each PO ASDIR PRN 07/23/14 02/12/17 01/18/17 [Fioricet] Diphenhydramine HCl [Benadryl] 50 mg SQ Q12H PRN 07/23/14 02/12/17 01/18/17 Butorphanol Tartrate 10 mg NS ASDIR PRN 11/19/14 02/12/17 01/17/17 Ursodiol [Actigall] 300 mg PO BID cap 06/29/16 02/12/17 01/17/17 Metformin HCl 500 mg PO BID 09/09/16 02/12/17 01/17/17 Cyclobenzaprine HCl [Flexeril] 10 mg PO ASDIR 11/24/16 02/12/17 01/18/17 Ondansetron [Zofran Odt] 4 mg PO ASDIR 11/24/16 02/12/17 01/18/17 Clonazepam [Clonazepam] 2 mg PO QHS 12/06/16 02/12/17 01/17/17 Duloxetine HCl [Cymbalta] 30 mg PO DAILY 12/19/16 02/12/17 01/18/17 Cholecalciferol (Vitamin D3) 50,000 unit PO WEEKLY 01/08/17 02/12/17 01/17/17 [Vitamin D] Valproic Acid [Depakene] 250 mg PO TID 01/08/17 02/12/17 01/18/17 Acetazolamide 250 mg PO ASDIR 02/12/17 02/12/17 Unknown Benztropine Mesylate 1 mg PO ASDIR 02/12/17 02/12/17 Unknown Haloperidol 2 mg PO ASDIR 02/12/17 02/12/17 Unknown Ketorolac Tromethamine 30 mg IJ ASDIR 02/12/17 02/12/17 Unknown Tizanidine HCl 4 mg PO TID 02/12/17 02/12/17 Unknown Previous Rx's Medication Instructions Recorded Lorazepam [Ativan] 1 mg PO Q8HR #6 tablet 01/18/17 Allergies Allergy/AdvReac Type Severity Reaction Status Date / Time sumatriptan [From Imitrex] Allergy ANAPHYLAXIS Verified 02/12/17 08:54 sumatriptan succinate Allergy ANAPHYLAXIS Verified 02/12/17 08:54 [From Imitrex] erythromycin base AdvReac VOMITING Verified 02/12/17 08:54 [Erythromycin Base] nortriptyline [From Pamelor] AdvReac TACHYCARDIA Verified 02/12/17 08:55 Travel Screening - Travel/Exposure Within Last 30 Days Have you traveled within the last 30 days?: No Review of Systems Constitutional: Denies: Chills, Fever Eyes: Denies: Eye discharge ENT: Denies: Congestion Respiratory: Denies: Cough, Dyspnea Past Medical History - SOCIAL HISTORY Smoking Status: Never smoker Alcohol Use: None Drug Use: None - RESPIRATORY Hx Respiratory Disorders: Yes Hx Asthma: Yes Hx Sleep Apnea: Yes Hx of CPAP: Yes - CARDIOVASCULAR Hx Cardio Disorders: Yes Hx Hypertension: Yes ("pretty much went away since the gastric surgery") - NEURO Hx Neuro Disorders: Yes Hx Headaches: Yes (migraines) - GI Hx GI Disorders: No - Hx Genitourinary Disorders: Yes Hx Kidney Stones: Yes - ENDOCRINE Hx Endocrine Disorders: Yes Hx Diabetes: Yes (type II) Hx Thyroid Disease: No - MUSCULOSKELETAL Hx Musculoskeletal Disorders: No - PSYCH Hx Psych Problems: No - HEMATOLOGY/ONCOLOGY Hx Hematology/Oncology Disorders: No Family Medical History Any Significant Family History?: Yes Hx Cancer: Grandparents Hx Diabetes: Father, Grandparents Hx Heart Disease: Grandparents Hx HTN: Mother Hx Kidney Disease: Father *Kidney Comment: stones Hx Stroke: Grandparents Physical Exam - General General Appearance: Alert, Oriented x3, Cooperative, No acute distress - Head Head exam: Atraumatic, Normocephalic, Normal inspection - Eye Eye exam: Normal appearance, PERRL - Neck Neck exam: Normal inspection, Full ROM. negative: Tenderness - Respiratory Respiratory exam: Normal lung sounds bilaterally. negative: Respiratory distress - Cardiovascular Cardiovascular Exam: Regular rate, Normal rhythm, Normal heart sounds - GI/Abdominal GI/Abdominal exam: Soft, Normal bowel sounds. negative: Tenderness - Extremities Extremities exam: Normal inspection, Full ROM, Normal capillary refill. negative: Tenderness - Neurological Neurological exam: Alert, Normal gait, Oriented X3. negative: Abnormal gait, Altered, Motor sensory deficit - Skin Skin exam: negative: Rash Course Vital Signs 02/12/17 08:50 Temperature 97.8 F Pulse Rate 88 Respiratory 16 Rate Blood Pressure 117/73 Pulse Ox 98 - Reevaluation(s) Reevaluation #1: The patient is doing better. She feels ready for home. 02/12/17 09:47 Disposition Disposition: Discharge Clinical Impression: Migraine Qualifiers: Migraine type: unspecified Status migrainosus presence: without status migrainosus Intractability: not intractable Qualified Code(s): G43.909 - Migraine, unspecified, not intractable, without status migrainosus Disposition: Home, Self-Care Condition: (1) Good Instructions: Migraine Headache (ED) Additional Instructions: Please continue your regular medicines. Please see your Neurologist when possible. Forms: Patient Portal Access Time of Disposition: 09:48
== END 2017-02-12 09:57 | disposition home or self-care (01) ==
LOC: ER 08:41
DX: G43.909 Migraine, unspecified, not intractable, without status migrainosus (principal); R11.2 Nausea with vomiting, unspecified
CPT/HCPCS: 99283 ×2; 96372; J1885; J2300

== ENCOUNTER 2017-02-13 18:03 | Emergency (ER) | payer OTHER ==
[2017-02-13] MEDS ORDERED: BENZTROPINE IM ONE (18:37)
[2017-02-13] MEDS ORDERED: LORAZEPAM 0.5 MG TABLET PO ONE (18:37)
[2017-02-13] MEDS ORDERED: HALOPERIDOL LACTATE 5 MG/ML VIAL IM ONE (18:37)
--- NOTE | 2017-02-13 18:42 | Emergency Department Record ---
History of Present Illness - General Chief Complaint: Headache Migraine Stated Complaint: HEADACHE Time Seen by Provider: 02/13/17 18:31 Source: Patient Mode of Arrival: Ambulatory Limitations: No limitations - History of Present Illness Initial Comments: 32 yo female presents to ED for recurrent headache symptoms. Patient reports that she was recently admitted to [facility] in [place] for 12 days , released 02/01/17. Patient denies fevers, chills, or neck stiffness symptoms. Patient reports that her headache symptoms are similar to previous. Patient reports taking Toradol and Benadryl at home for her headache symptoms which did not improve. Patient was also seen yesterday for similar symptoms. MD Complaint: Headache Onset/Timin -: Days(s) Onset Description: Gradual Location: Diffuse Severity: Severe Severity scale (1-10): 10 Quality: Aching, Pulsatile Consistency: Constant Improves With: Nothing Worsens With: Light Associated Symptoms: Nausea, Photophobia Treatments Prior to Arrival: Migraine medication - Related Data Home Medications Medication Instructions Recorded Confirmed Last Taken Medroxyprogesterone Acetate [Depo 150 mg IM ASDIR 04/27/14 02/13/17 01/17/17 Provera] Butalb/Acetaminophen/Caffeine 1 each PO ASDIR PRN 07/23/14 02/13/17 01/18/17 [Fioricet] Diphenhydramine HCl [Benadryl] 50 mg SQ Q12H PRN 07/23/14 02/13/17 01/18/17 Butorphanol Tartrate 10 mg NS ASDIR PRN 11/19/14 02/13/17 01/17/17 Ursodiol [Actigall] 300 mg PO BID cap 06/29/16 02/13/17 01/17/17 Metformin HCl 500 mg PO BID 09/09/16 02/13/17 01/17/17 Cyclobenzaprine HCl [Flexeril] 10 mg PO ASDIR 11/24/16 02/13/17 01/18/17 Ondansetron [Zofran Odt] 4 mg PO ASDIR 11/24/16 02/13/17 01/18/17 Clonazepam [Clonazepam] 2 mg PO QHS 12/06/16 02/13/17 01/17/17 Duloxetine HCl [Cymbalta] 30 mg PO DAILY 12/19/16 02/13/1701/18/17 Cholecalciferol (Vitamin D3) 50,000 unit PO WEEKLY 01/08/17 02/13/17 01/17/17 [Vitamin D] Valproic Acid [Depakene] 250 mg PO TID 01/08/17 02/13/17 01/18/17 Acetazolamide 250 mg PO ASDIR 02/12/17 02/13/17 Unknown Benztropine Mesylate 1 mg PO ASDIR 02/12/17 02/13/17 Unknown Candesartan Cilexetil 8 mg PO ASDIR 02/12/17 02/13/17 Unknown Haloperidol 2 mg PO ASDIR 02/12/17 02/13/17 Unknown Ketorolac Tromethamine 30 mg IJ ASDIR 02/12/17 02/13/17 Unknown Levetiracetam 1,000 mg PO BID 02/12/17 02/13/17 Unknown Linagliptin [Tradjenta] 5 mg PO ASDIR 02/12/17 02/13/17 Unknown Tizanidine HCl 8 mg PO QHS 02/12/17 02/13/17 Unknown Dexamethasone 0.75 mg PO ASDIR 02/13/17 02/13/17 Unknown Previous Rx's Medication Instructions Recorded Lorazepam [Ativan] 1 mg PO Q8HR #6 tablet 01/18/17 Allergies Allergy/AdvReac Type Severity Reaction Status Date / Time sumatriptan [From Imitrex] Allergy ANAPHYLAXIS Verified 02/12/17 08:54 sumatriptan succinate Allergy ANAPHYLAXIS Verified 02/12/17 08:54 [From Imitrex] erythromycin base AdvReac VOMITING Verified 02/12/17 08:54 [Erythromycin Base] nortriptyline [From Pamelor] AdvReac TACHYCARDIA Verified 02/12/17 08:55 Travel Screening - Travel/Exposure Within Last 30 Days Have you traveled within the last 30 days?: No Review of Systems Constitutional: Denies: Chills, Fever, Malaise, Night sweats Eyes: Denies: Eye discharge, Eye pain ENT: Denies: Congestion, Ear pain, Epistaxis Respiratory: Denies: Cough, Dyspnea Cardiovascular: Denies: Chest pain, Dyspnea on exertion Endocrine: Denies: Fatigue, Heat or cold intolerance Gastrointestinal: Denies: Abdominal pain, Nausea, Vomiting Genitourinary: Denies: Incontinence, Retention Musculoskeletal: Denies: Arthralgia, Back pain Skin: Denies: Bruising, Change in color Neurological: Reports: Headache. Denies: Abnormal gait, Confusion Psychiatric: Denies: Anxiety Hematological/Lymphatic: Denies: Anemia, Blood Clots Past Medical History - SOCIAL HISTORY Smoking Status: Never smoker Alcohol Use: None Drug Use: None - RESPIRATORY Hx Respiratory Disorders: Yes Hx Asthma: Yes Hx Sleep Apnea: Yes Hx of CPAP: Yes - CARDIOVASCULAR Hx Cardio Disorders: Yes Hx Hypertension: Yes ("pretty much went away since the gastric surgery") - NEURO Hx Neuro Disorders: Yes Hx Headaches: Yes (migraines) - GI Hx GI Disorders: No - Hx Genitourinary Disorders: Yes Hx Kidney Stones: Yes - ENDOCRINE Hx Endocrine Disorders: Yes Hx Diabetes: Yes (type II) Hx Thyroid Disease: No - MUSCULOSKELETAL Hx Musculoskeletal Disorders: No - PSYCH Hx Psych Problems: No - HEMATOLOGY/ONCOLOGY Hx Hematology/Oncology Disorders: No Family Medical History Any Significant Family History?: Yes Hx Cancer: Grandparents Hx Diabetes: Father, Grandparents Hx Heart Disease: Grandparents Hx HTN: Mother Hx Kidney Disease: Father *Kidney Comment: stones Hx Stroke: Grandparents Physical Exam - General General Appearance: Alert, Oriented x3, Cooperative, Moderate distress Limitations: No limitations - Head Head exam: Atraumatic, Normocephalic, Normal inspection Head exam detail: negative: Abrasion, Contusion, Frazier's sign, General tenderness, Hematoma, Laceration - Eye Eye exam: Normal appearance. negative: Conjunctival injection, Periorbital swelling, Periorbital tenderness, Scleral icterus - ENT Ear exam: negative: Auricular hematoma, Auricular trauma Nasal Exam: negative: Active bleeding, Discharge, Dried blood, Foreign body Mouth exam: negative: Drooling, Laceration, Muffled voice, Tongue elevation - Neck Neck exam: Normal inspection. negative: Tenderness - Respiratory Respiratory exam: Normal lung sounds bilaterally. negative: Respiratory distress, Rhonchi, Stridor, Wheezes - Cardiovascular Cardiovascular Exam: Regular rate, Normal rhythm, Normal heart sounds - GI/Abdominal GI/Abdominal exam: Soft. negative: Organomegaly, Rebound, Rigid, Tenderness - Rectal Rectal exam: Deferred - exam: Deferred - Extremities Extremities exam: Normal inspection. negative: Calf tenderness, Pedal edema, Tenderness - Back Back exam: Denies: CVA tenderness (R), CVA tenderness (L) - Neurological Neurological exam: Alert, Normal gait, Oriented X3 - Psychiatric Psychiatric exam: Normal affect, Normal mood - Skin Skin exam: Normal color. negative: Abrasion Type of lesion: negative: abrasion Course Vital Signs 02/13/17 18:15 Temperature 98.3 F Pulse Rate 84 Respiratory 18 Rate Blood Pressure 117/77 Pulse Ox 98 - Reevaluation(s) Reevaluation #1: 02/13/17 19:36 Patient reports that her headache symptoms are starting to improve, and appears stable for discharge at this time. Disposition Disposition: Discharge Clinical Impression: Headache Qualifiers: Headache type: unspecified Headache chronicity pattern: acute headache Intractability: not intractable Qualified Code(s): R51 - Headache Disposition: Home, Self-Care Condition: (2) Stable Instructions: Acute Headache (ED) Additional Instructions: Return to ED if your symptoms worsen or if you have any concerns. Follow-up with your family doctor in 1-3 days as directed. Forms: Patient Portal Access Time of Disposition: 19:36
[2017-02-13] MEDS ORDERED: LORAZEPAM 2 MG/ML VIAL IM ONE (19:00)
== END 2017-02-13 19:35 | disposition home or self-care (01) ==
LOC: ER 18:03
DX: R51 Headache (principal); R11.0 Nausea; H53.149 Visual discomfort, unspecified
CPT/HCPCS: 99283; J1630

== ENCOUNTER 2017-03-12 14:02 | Emergency (ER) | payer OTHER ==
[2017-03-12] MEDS ORDERED: LORAZEPAM 2 MG/ML VIAL IM ONE (14:37)
[2017-03-12] MEDS ORDERED: HALOPERIDOL LACTATE 5 MG/ML VIAL IM ONE (14:37)
[2017-03-12] MEDS ORDERED: BENZTROPINE IM SCH (14:45)
--- NOTE | 2017-03-12 14:45 | Emergency Department Record ---
History of Present Illness - General Chief Complaint: Headache Migraine Stated Complaint: MIGRAINE,BLADDER INFEC Time Seen by Provider: 03/12/17 14:33 Source: Patient, RN Mode of Arrival: Ambulatory - History of Present Illness Initial Comments: similiar headache and she was at the [facility] one week ago and she has her rescue medications listed and she took toradol and benadryl prior to coming to the ED. She is following up with [facility] in one week by phone. MD Complaint: "Migraine" Onset/Timin -: Days(s) Onset Description: Gradual Location: Frontal, Occipital Severity: Moderate Severity scale (1-10): 8 Quality: Aching, Pulsatile Consistency: Constant Treatment Prior to Arrival Comment:: benadryl and Toradol injection 0700 - Related Data Home Medications Medication Instructions Recorded Confirmed Last Taken Medroxyprogesterone Acetate [Depo 150 mg IM ASDIR 04/27/14 03/12/17 03/12/17 Provera] Diphenhydramine HCl [Benadryl] 50 mg SQ Q12H PRN 07/23/14 03/12/17 03/12/17 Metformin HCl 500 mg PO BID 09/09/16 03/12/17 03/12/17 Acetazolamide 250 mg PO ASDIR 02/12/17 03/12/17 03/05/17 Candesartan Cilexetil 8 mg PO ASDIR 02/12/17 03/12/17 03/12/17 Haloperidol 2 mg PO ASDIR 02/12/17 03/12/17 03/05/17 Ketorolac Tromethamine 60 mg IJ ASDIR 02/12/17 03/12/17 03/12/17 Levetiracetam 1,000 mg PO BID 02/12/17 03/12/17 03/12/17 Linagliptin [Tradjenta] 5 mg PO ASDIR 02/12/17 03/12/17 03/12/17 Benztropine Mesylate 2 mg PO ASDIR 03/12/17 03/12/17 03/05/17 Cyproheptadine HCl 4 mg PO TID 03/12/17 03/12/17 03/12/17 Lorazepam [Ativan] 2 mg PO Q8HR 03/12/17 03/12/17 03/05/17 Phenelzine Sulfate [Nardil] 15 mg PO TID 03/12/17 03/12/17 03/12/17 Promethazine HCl [Phenergan] 25 mg PO ASDIR 03/12/17 03/12/17 03/10/17 Tizanidine HCl [Zanaflex] 4 mg PO QHS 03/12/17 03/12/17 03/11/17 Allergies Allergy/AdvReac Type Severity Reaction Status Date / Time sumatriptan [From Imitrex] Allergy ANAPHYLAXIS Verified 02/12/17 08:54 sumatriptan succinate Allergy ANAPHYLAXIS Verified 02/12/17 08:54 [From Imitrex] erythromycin base AdvReac VOMITING Verified 02/12/17 08:54 [Erythromycin Base] nortriptyline [From Pamelor] AdvReac TACHYCARDIA Verified 02/12/17 08:55 Travel Screening - Travel/Exposure Within Last 30 Days Have you traveled within the last 30 days?: Yes Location Detail:: [place] - Travel/Exposure Within Last Year Have you traveled outside the [place] in the last year?: No - Additonal Travel Details Have you been exposed to anyone with a communicable illness?: No - Travel Symptoms Symptom Screening: None Review of Systems Reviewed: No additional complaints except as noted below Constitutional: Reports: As per HPI. Denies: Chills, Fever, Malaise, Night sweats, Weakness, Weight change Eyes: Reports: As per HPI. Denies: Eye discharge, Eye pain, Photophobia, Vision change ENT: Reports: As per HPI. Denies: Congestion, Dental pain, Ear pain, Epistaxis , Hearing loss, Throat pain Respiratory: Reports: As per HPI. Denies: Cough, Dyspnea, Hemoptysis, Stridor, Wheezes Cardiovascular: Reports: As per HPI. Denies: Arrhythmia, Chest pain, Dyspnea on exertion, Edema, Murmurs, Orthopnea, Palpitations, Paroxysmal nocturnal dyspnea, Rheumatic Fever, Syncope Endocrine: Reports: As per HPI. Denies: Fatigue, Heat or cold intolerance, Polydipsia, Polyuria Gastrointestinal: Reports: As per HPI. Denies: Abdominal pain, Constipation, Diarrhea, Hematemesis, Hematochezia, Melena, Nausea, Vomiting Genitourinary: Reports: As per HPI. Denies: Abnormal menses, Discharge, Dyspareunia, Dysuria, Frequency, Hematuria, Incontinence, Retention, Urgency Musculoskeletal: Reports: As per HPI. Denies: Arthralgia, Back pain, Gout, Joint swelling, Myalgia, Neck pain Skin: Reports: As per HPI. Denies: Bruising, Change in color, Change in hair/ nails, Lesions, Pruritus, Rash Neurological: Reports: As per HPI, Headache. Denies: Abnormal gait, Confusion, Numbness, Paresthesias, Seizure, Tingling, Tremors, Vertigo, Weakness Psychiatric: Reports: As per HPI. Denies: Anxiety, Auditory hallucinations, Depression, Homicidal thoughts, Suicidal thoughts, Visual hallucinations Hematological/Lymphatic: Reports: As per HPI. Denies: Anemia, Blood Clots, Easy bleeding, Easy bruising, Swollen glands Past Medical History - SOCIAL HISTORY Smoking Status: Never smoker Alcohol Use: None Drug Use: None - RESPIRATORY Hx Respiratory Disorders: Yes Hx Asthma: Yes Hx Sleep Apnea: Yes Hx of CPAP: Yes - CARDIOVASCULAR Hx Cardio Disorders: Yes Hx Hypertension: Yes ("pretty much went away since the gastric surgery") - NEURO Hx Neuro Disorders: Yes Hx Headaches: Yes (migraines) - GI Hx GI Disorders: No - Hx Genitourinary Disorders: Yes Hx Kidney Stones: Yes - ENDOCRINE Hx Endocrine Disorders: Yes Hx Diabetes: Yes (type II) Hx Thyroid Disease: No - MUSCULOSKELETAL Hx Musculoskeletal Disorders: No - PSYCH Hx Psych Problems: No - HEMATOLOGY/ONCOLOGY Hx Hematology/Oncology Disorders: No Family Medical History Any Significant Family History?: No Hx Cancer: Grandparents Hx Diabetes: Father, Grandparents Hx Heart Disease: Grandparents Hx HTN: Mother Hx Kidney Disease: Father *Kidney Comment: stones Hx Stroke: Grandparents Physical Exam - General General Appearance: Alert, Oriented x3, Cooperative, No acute distress - Head Head exam: Normal inspection - Eye Eye exam: Normal appearance, PERRL Pupils: Normal accommodation - ENT ENT exam: Normal exam, Mucous membranes moist, Normal external ear exam, Normal orophraynx, TM's normal bilaterally Ear exam: Normal external inspection. negative: External canal tenderness Nasal Exam: Normal inspection. negative: Discharge, Sinus tenderness Mouth exam: Normal external inspection, Tongue normal Teeth exam: Normal inspection. negative: Dental caries Throat exam: Normal inspection. negative: Tonsillar erythema, Tonsillar exudate - Neck Neck exam: Normal inspection, Full ROM. negative: Tenderness - Respiratory Respiratory exam: Normal lung sounds bilaterally. negative: Respiratory distress - Cardiovascular Cardiovascular Exam: Regular rate, Normal rhythm, Normal heart sounds - GI/Abdominal GI/Abdominal exam: Soft, Normal bowel sounds. negative: Tenderness - Rectal Rectal exam: Deferred - exam: Deferred - Extremities Extremities exam: Normal inspection, Full ROM, Normal capillary refill. negative: Tenderness - Back Back exam: Reports: Normal inspection, Full ROM. Denies: Muscle spasm, Rash noted, Tenderness - Neurological Neurological exam: Alert, Normal gait, Oriented X3, Reflexes normal - Psychiatric Psychiatric exam: Normal affect, Normal mood - Skin Skin exam: Dry, Intact, Normal color, Warm Course Vital Signs 03/12/17 14:09 Temperature 98.2 F Pulse Rate [ 86 Pulse Ox Probe] Respiratory 19 Rate Blood Pressure 133/86 [Left Arm] Pulse Ox 100 - Reevaluation(s) Reevaluation #1: feeling better 03/12/17 16:30 Disposition Clinical Impression: Migraine Qualifiers: Migraine type: with aura Status migrainosus presence: without status migrainosus Intractability: not intractable Qualified Code(s): G43.109 - Migraine with aura, not intractable, without status migrainosus Disposition: Home, Self-Care Condition: (1) Good Instructions: Migraine Headache (ED) Additional Instructions: follow up with family Dr or [facility] in one week Forms: Patient Portal Access Time of Disposition: 16:30
[2017-03-12 15:02] LABS: URINE BILIRUBIN SMALL (NEGATIVE); URINE BLOOD TRACE-I (NEGATIVE); URINE COLOR YELLOW; URINE GLUCOSE (UA) NEGATIVE (NEGATIVE); URINE KETONE TRACE (NEGATIVE); URINE LEUKOCYTE ESTERASE SMALL (NEGATIVE); URINE NITRITE NEGATIVE (NEGATIVE)
[2017-03-12 15:03] LABS: URINE APPEARANCE SL CLOUDY
[2017-03-12 15:14] LABS: URINE RBC 0 - 2 (NONE SEEN)
[2017-03-12 15:15] LABS: URINE AMORPHOUS SEDIMENT 1+; URINE BACTERIA 2+; URINE MUCUS MODERATE; URINE WBC 21 - 35 (0-2/hpf)
[2017-03-12] MEDS ORDERED: NALBUPHINE HCL 20 MG/ML AMPULE IM ONE (15:54)
--- NOTE | 2017-03-12 17:03 | Emergency Department Record ---
History of Present Illness - General Chief Complaint: Headache Migraine Stated Complaint: MIGRAINE,BLADDER INFEC Time Seen by Provider: 03/12/17 14:33 Mode of Arrival: Ambulatory - History of Present Illness Onset/Timin -: Days(s) Onset Description: Gradual Location: Frontal, Occipital Severity: Moderate Severity scale (1-10): 8 Quality: Aching, Pulsatile Consistency: Constant Treatment Prior to Arrival Comment:: benadryl and Toradol injection 0700 - Related Data Home Medications Medication Instructions Recorded Confirmed Last Taken Medroxyprogesterone Acetate [Depo 150 mg IM ASDIR 04/27/14 03/12/17 03/12/17 Provera] Diphenhydramine HCl [Benadryl] 50 mg SQ Q12H PRN 07/23/14 03/12/17 03/12/17 Metformin HCl 500 mg PO BID 09/09/16 03/12/17 03/12/17 Acetazolamide 250 mg PO ASDIR 02/12/17 03/12/17 03/05/17 Candesartan Cilexetil 8 mg PO ASDIR 02/12/17 03/12/17 03/12/17 Haloperidol 2 mg PO ASDIR 02/12/17 03/12/17 03/05/17 Ketorolac Tromethamine 60 mg IJ ASDIR 02/12/17 03/12/17 03/12/17 Levetiracetam 1,000 mg PO BID 02/12/17 03/12/17 03/12/17 Linagliptin [Tradjenta] 5 mg PO ASDIR 02/12/17 03/12/17 03/12/17 Benztropine Mesylate 2 mg PO ASDIR 03/12/17 03/12/17 03/05/17 Cyproheptadine HCl 4 mg PO TID 03/12/17 03/12/17 03/12/17 Lorazepam [Ativan] 2 mg PO Q8HR 03/12/17 03/12/17 03/05/17 Phenelzine Sulfate [Nardil] 15 mg PO TID 03/12/17 03/12/17 03/12/17 Promethazine HCl [Phenergan] 25 mg PO ASDIR 03/12/17 03/12/17 03/10/17 Tizanidine HCl [Zanaflex] 4 mg PO QHS 03/12/17 03/12/17 03/11/17 Previous Rx's Medication Instructions Recorded Ciprofloxacin HCl [Cipro] 500 mg PO Q12HR #14 tablet 03/12/17 Allergies Allergy/AdvReac Type Severity Reaction Status Date / Time sumatriptan [From Imitrex] Allergy ANAPHYLAXIS Verified 02/12/17 08:54 sumatriptan succinate Allergy ANAPHYLAXIS Verified 02/12/17 08:54 [From Imitrex] erythromycin base AdvReac VOMITING Verified 02/12/17 08:54 [Erythromycin Base] nortriptyline [From Pamelor] AdvReac TACHYCARDIA Verified 02/12/17 08:55 Travel Screening - Travel/Exposure Within Last 30 Days Have you traveled within the last 30 days?: Yes Location Detail:: [place] - Travel/Exposure Within Last Year Have you traveled outside the [place] in the last year?: No - Additonal Travel Details Have you been exposed to anyone with a communicable illness?: No - Travel Symptoms Symptom Screening: None Review of Systems Constitutional: Reports: As per HPI. Denies: Chills, Fever, Malaise, Night sweats, Weakness, Weight change Eyes: Reports: As per HPI. Denies: Eye discharge, Eye pain, Photophobia, Vision change ENT: Reports: As per HPI. Denies: Congestion, Dental pain, Ear pain, Epistaxis , Hearing loss, Throat pain Respiratory: Reports: As per HPI. Denies: Cough, Dyspnea, Hemoptysis, Stridor, Wheezes Cardiovascular: Reports: As per HPI. Denies: Arrhythmia, Chest pain, Dyspnea on exertion, Edema, Murmurs, Orthopnea, Palpitations, Paroxysmal nocturnal dyspnea, Rheumatic Fever, Syncope Endocrine: Reports: As per HPI. Denies: Fatigue, Heat or cold intolerance, Polydipsia, Polyuria Gastrointestinal: Reports: As per HPI. Denies: Abdominal pain, Constipation, Diarrhea, Hematemesis, Hematochezia, Melena, Nausea, Vomiting Genitourinary: Reports: As per HPI. Denies: Abnormal menses, Discharge, Dyspareunia, Dysuria, Frequency, Hematuria, Incontinence, Retention, Urgency Musculoskeletal: Reports: As per HPI. Denies: Arthralgia, Back pain, Gout, Joint swelling, Myalgia, Neck pain Skin: Reports: As per HPI. Denies: Bruising, Change in color, Change in hair/ nails, Lesions, Pruritus, Rash Neurological: Reports: As per HPI, Headache. Denies: Abnormal gait, Confusion, Numbness, Paresthesias, Seizure, Tingling, Tremors, Vertigo, Weakness Psychiatric: Reports: As per HPI. Denies: Anxiety, Auditory hallucinations, Depression, Homicidal thoughts, Suicidal thoughts, Visual hallucinations Hematological/Lymphatic: Reports: As per HPI. Denies: Anemia, Blood Clots, Easy bleeding, Easy bruising, Swollen glands Past Medical History - SOCIAL HISTORY Smoking Status: Never smoker Alcohol Use: None Drug Use: None - RESPIRATORY Hx Respiratory Disorders: Yes Hx Asthma: Yes Hx Sleep Apnea: Yes Hx of CPAP: Yes - CARDIOVASCULAR Hx Cardio Disorders: Yes Hx Hypertension: Yes ("pretty much went away since the gastric surgery") - NEURO Hx Neuro Disorders: Yes Hx Headaches: Yes (migraines) - GI Hx GI Disorders: No - Hx Genitourinary Disorders: Yes Hx Kidney Stones: Yes - ENDOCRINE Hx Endocrine Disorders: Yes Hx Diabetes: Yes (type II) Hx Thyroid Disease: No - MUSCULOSKELETAL Hx Musculoskeletal Disorders: No - PSYCH Hx Psych Problems: No - HEMATOLOGY/ONCOLOGY Hx Hematology/Oncology Disorders: No Family Medical History Any Significant Family History?: No Hx Cancer: Grandparents Hx Diabetes: Father, Grandparents Hx Heart Disease: Grandparents Hx HTN: Mother Hx Kidney Disease: Father *Kidney Comment: stones Hx Stroke: Grandparents Course Vital Signs 03/12/17 14:09 Temperature 98.2 F Pulse Rate [ 86 Pulse Ox Probe] Respiratory 19 Rate Blood Pressure 133/86 [Left Arm] Pulse Ox 100 Medical Decision Making - Lab Data Lab Results 03/12/17 Range/Units 14:50 Urine Color Yellow Urine Appearance Sl cloudy Urine pH 5.5 (5.0-8.0) Ur Specific [place] >= 1.030 (1.002-1.030) Urine Protein 30 mg/dl H (NEGATIVE) Urine Glucose (UA) Negative (NEGATIVE) Urine Ketones Trace H (NEGATIVE) Urine Blood Trace-i (NEGATIVE) Urine Nitrite Negative (NEGATIVE) Urine Bilirubin Small H (NEGATIVE) Urine Urobilinogen 1.0 (0.20 - 1.00) E.U./dL Ur Leukocyte Esterase Small H (NEGATIVE) Urine RBC 0 - 2 (NONE SEEN) Urine WBC 21 - 35 (0-2/hpf) Ur Epithelial Cells 7 - 10 (FEW) Amorphous Sediment 1+ Urine Bacteria 2+ Urine Mucus Moderate Disposition Clinical Impression: Migraine Qualifiers: Migraine type: with aura Status migrainosus presence: without status migrainosus Intractability: not intractable Qualified Code(s): G43.109 - Migraine with aura, not intractable, without status migrainosus UTI (urinary tract infection) Qualifiers: Urinary tract infection type: acute cystitis Hematuria presence: without hematuria Qualified Code(s): N30.00 - Acute cystitis without hematuria Disposition: Home, Self-Care Condition: (1) Good Instructions: Migraine Headache (ED) Additional Instructions: follow up with family Dr or [facility] in one week Prescriptions: Ciprofloxacin HCl [Cipro] 500 mg PO Q12HR #14 tablet Forms: Patient Portal Access Time of Disposition: 17:03
== END 2017-03-12 17:18 | disposition home or self-care (01) ==
LOC: ER 14:02
DX: G43.109 Migraine with aura, not intractable, without status migrainosus (principal); N30.00 Acute cystitis without hematuria
CPT/HCPCS: 99283 ×2; 96372; 81001; J2060; J2300; J1630

== ENCOUNTER 2017-03-20 17:04 | Emergency (ER) | payer OTHER ==
--- NOTE | 2017-03-20 18:11 | Emergency Department Record ---
History of Present Illness - General Chief Complaint: Headache Migraine Stated Complaint: MIGRAINE Time Seen by Provider: 03/20/17 18:08 Source: Patient, Family Mode of Arrival: Ambulatory - History of Present Illness Initial Comments: 32 yo female presents with her typical migraine for the last several days. She has a long history of migraines. She has been working recently with her PCP and neurologist regarding her increasing migraine frequency. She has light sensitivity and nausea. No vomiting. No fevers. No trauma. No new or different symptoms from her migraines. In the last month she had been admitted to the [facility] in [place]. Her medications have been changed. She is starting to get some daily relief compared to her normal daily migraines. MD Complaint: "Migraine" Onset/Timin -: Days(s) Onset Description: Gradual, Sudden Location: Frontal, Left, Occipital, Retro-orbital, Right, Temporal Severity: Severe Severity scale (1-10): 8 Quality: Throbbing Consistency: Constant Improves With: Nothing Worsens With: Light, Movement of head/neck Associated Symptoms: Nausea Treatments Prior to Arrival: Migraine medication - Related Data Home Medications Medication Instructions Recorded Confirmed Last Taken Medroxyprogesterone Acetate [Depo 150 mg IM ASDIR 04/27/14 03/20/17 03/12/17 Provera] Diphenhydramine HCl [Benadryl] 50 mg SQ Q12H PRN 07/23/14 03/20/17 03/20/17 Metformin HCl 500 mg PO BID 09/09/16 03/20/17 03/12/17 Acetazolamide 250 mg PO ASDIR 02/12/17 03/20/17 03/20/17 Candesartan Cilexetil 8 mg PO ASDIR 02/12/17 03/20/17 03/20/17 Haloperidol 2 mg PO ASDIR 02/12/17 03/20/17 03/20/17 Ketorolac Tromethamine 60 mg IJ ASDIR 02/12/17 03/20/17 03/20/17 Levetiracetam 1,000 mg PO BID 02/12/17 03/20/17 03/20/17 Linagliptin [Tradjenta] 5 mg PO ASDIR 02/12/17 03/20/17 03/12/17 Benztropine Mesylate 2 mg PO ASDIR 06/08/1803/20/17 03/20/17 Cyproheptadine HCl 4 mg PO TID 03/12/17 03/20/17 03/12/17 Lorazepam [Ativan] 2 mg PO Q8HR 03/12/17 03/20/17 03/20/17 Phenelzine Sulfate [Nardil] 15 mg PO TID 03/12/17 03/20/17 03/20/17 Promethazine HCl [Phenergan] 25 mg PO ASDIR 03/12/17 03/20/17 03/10/17 Tizanidine HCl [Zanaflex] 4 mg PO QHS 03/12/17 03/20/17 03/11/17 Previous Rx's Medication Instructions Recorded Ciprofloxacin HCl [Cipro] 500 mg PO Q12HR #14 tablet 03/12/17 Allergies Allergy/AdvReac Type Severity Reaction Status Date / Time sumatriptan [From Imitrex] Allergy ANAPHYLAXIS Verified 03/20/17 17:43 sumatriptan succinate Allergy ANAPHYLAXIS Verified 03/20/17 17:43 [From Imitrex] erythromycin base AdvReac VOMITING Verified 03/20/17 17:43 [Erythromycin Base] nortriptyline [From Pamelor] AdvReac TACHYCARDIA Verified 03/20/17 17:43 Travel Screening - Travel/Exposure Within Last 30 Days Have you traveled within the last 30 days?: No Review of Systems Constitutional: Denies: Chills, Fever, Malaise, Weakness Eyes: Denies: Eye discharge ENT: Denies: Congestion, Throat pain Respiratory: Denies: Cough, Dyspnea, Hemoptysis, Stridor, Wheezes Cardiovascular: Denies: Chest pain, Palpitations, Syncope Endocrine: Denies: Fatigue Gastrointestinal: Reports: Nausea. Denies: Abdominal pain, Diarrhea, Hematemesis, Hematochezia, Vomiting Genitourinary: Denies: Dysuria, Urgency Musculoskeletal: Denies: Arthralgia, Back pain, Neck pain Skin: Denies: Bruising, Change in color, Rash Neurological: Reports: Headache. Denies: Abnormal gait, Confusion, Numbness, Tingling, Tremors, Vertigo, Weakness Psychiatric: Denies: Anxiety Hematological/Lymphatic: Denies: Blood Clots, Easy bleeding, Easy bruising, Swollen glands Past Medical History - SOCIAL HISTORY Smoking Status: Never smoker Alcohol Use: None Drug Use: None - RESPIRATORY Hx Respiratory Disorders: Yes Hx Asthma: Yes Hx Sleep Apnea: Yes Hx of CPAP: Yes - CARDIOVASCULAR Hx Cardio Disorders: Yes Hx Hypertension: Yes ("pretty much went away since the gastric surgery") - NEURO Hx Neuro Disorders: Yes Hx Headaches: Yes (migraines) - GI Hx GI Disorders: No - Hx Genitourinary Disorders: Yes Hx Kidney Stones: Yes - ENDOCRINE Hx Endocrine Disorders: Yes Hx Diabetes: Yes (type II) Hx Thyroid Disease: No - MUSCULOSKELETAL Hx Musculoskeletal Disorders: No - PSYCH Hx Psych Problems: No - HEMATOLOGY/ONCOLOGY Hx Hematology/Oncology Disorders: No Family Medical History Any Significant Family History?: Yes Hx Cancer: Grandparents Hx Diabetes: Father, Grandparents Hx Heart Disease: Grandparents Hx HTN: Mother Hx Kidney Disease: Father *Kidney Comment: stones Hx Stroke: Grandparents Physical Exam - General General Appearance: Alert, Oriented x3, Cooperative, No acute distress Limitations: No limitations - Head Head exam: Atraumatic, Normal inspection - Eye Eye exam: Normal appearance, PERRL, EOMI. negative: Conjunctival injection, Nystagmus, Periorbital swelling - ENT ENT exam: Normal exam, Mucous membranes moist Ear exam: Normal external inspection Nasal Exam: Normal inspection Mouth exam: Normal external inspection Teeth exam: Normal inspection Throat exam: Normal inspection - Neck Neck exam: Normal inspection, Full ROM. negative: Tenderness - Respiratory Respiratory exam: Normal lung sounds bilaterally. negative: Accessory muscle use, Respiratory distress, Stridor, Wheezes - Cardiovascular Cardiovascular Exam: Regular rate, Normal rhythm, Normal heart sounds - GI/Abdominal GI/Abdominal exam: Soft. negative: Tenderness - Rectal Rectal exam: Deferred - exam: Deferred - Extremities Extremities exam: Normal inspection, Full ROM, Normal capillary refill. negative: Pedal edema, Tenderness - Back Back exam: Reports: Normal inspection, Full ROM. Denies: Muscle spasm, Rash noted, Tenderness - Neurological Neurological exam: Alert, CN II-XII intact, Normal gait, Oriented X3. negative : Altered, Motor sensory deficit - Psychiatric Psychiatric exam: Normal affect, Normal mood. negative: Agitated, Anxious - Skin Skin exam: Dry, Intact, Normal color, Warm Course Vital Signs 03/20/17 17:46 Temperature 98.6 F Pulse Rate 79 Respiratory 18 Rate Blood Pressure 98/68 Pulse Ox 100 - Reevaluation(s) Reevaluation #1: The patient is doing much better and is ready for DC She plans on phone followup tomorrow with her [facility] team. 03/20/17 19:01 Disposition Disposition: Discharge Clinical Impression: Migraine Qualifiers: Migraine type: unspecified Status migrainosus presence: without status migrainosus Intractability: not intractable Qualified Code(s): G43.909 - Migraine, unspecified, not intractable, without status migrainosus Disposition: Home, Self-Care Condition: (1) Good Instructions: Migraine Headache (ED) Additional Instructions: Rest and stay well hydrated Return if worse, vomiting or any new concerns Forms: Patient Portal Access Time of Disposition: 19:03
[2017-03-20] MEDS ORDERED: NALBUPHINE HCL 20 MG/ML AMPULE IM ONE (18:14)
[2017-03-20] MEDS ORDERED: PROMETHAZINE HCL 25 MG/ML VIAL IM ONE (18:14)
== END 2017-03-20 19:21 | disposition home or self-care (01) ==
LOC: ER 17:04
DX: G43.909 Migraine, unspecified, not intractable, without status migrainosus (principal); R11.0 Nausea
CPT/HCPCS: 99283 ×2; 96372; J2300; J2550

== ENCOUNTER 2017-03-24 07:10 | Emergency (ER) | payer OTHER ==
[2017-03-24] MEDS ORDERED: PROMETHAZINE HCL 25 MG/ML VIAL IM ONE (07:41)
[2017-03-24] MEDS ORDERED: NALBUPHINE HCL 20 MG/ML AMPULE IM ONE (07:41)
--- NOTE | 2017-03-24 07:53 | Emergency Department Record ---
History of Present Illness - General Chief Complaint: Headache Migraine Stated Complaint: HEADACHE Time Seen by Provider: 03/24/17 07:31 Source: Patient Mode of Arrival: Ambulatory Limitations: No limitations - History of Present Illness MD Complaint: "Migraine" Onset/Timin -: Days(s) Onset Description: Gradual Location: Diffuse Severity: Moderate Severity scale (1-10): 8 Quality: Aching, Throbbing, Similar to previous headaches Consistency: Constant Improves With: Nothing Worsens With: Light, Noise, Other Treatments Prior to Arrival: Prescription analgesic, Other Treatment Prior to Arrival Comment:: Benadryl Toradol injections - Related Data Home Medications Medication Instructions Recorded Confirmed Last Taken Medroxyprogesterone Acetate [Depo 150 mg IM ASDIR 04/27/14 03/24/17 03/23/17 Provera] Diphenhydramine HCl [Benadryl] 100 mg SQ Q12H PRN 07/23/14 03/24/17 03/24/17 Metformin HCl 500 mg PO BID 09/09/16 03/24/17 03/24/17 Acetazolamide 250 mg PO ASDIR 02/12/17 03/24/17 03/23/17 Candesartan Cilexetil 8 mg PO ASDIR 02/12/17 03/24/17 03/24/17 Haloperidol 2 mg PO ASDIR 02/12/17 03/24/17 03/23/17 Ketorolac Tromethamine 60 mg IJ ASDIR 02/12/17 03/24/17 03/24/17 Levetiracetam 1,000 mg PO BID 02/12/17 03/24/17 03/24/17 Linagliptin [Tradjenta] 5 mg PO ASDIR 02/12/17 03/24/17 03/24/17 Benztropine Mesylate 2 mg PO ASDIR 03/12/17 03/24/17 03/23/17 Cyproheptadine HCl 4 mg PO TID 03/12/17 03/24/17 03/23/17 Lorazepam [Ativan] 2 mg PO Q8HR 03/12/17 03/24/17 03/23/17 Phenelzine Sulfate [Nardil] 15 mg PO TID 03/12/17 03/24/17 03/24/17 Promethazine HCl [Phenergan] 25 mg PO ASDIR 03/12/17 03/24/17 03/23/17 Tizanidine HCl [Zanaflex] 4 mg PO QHS 03/12/17 03/24/17 03/23/17 Previous Rx's Medication Instructions Recorded Ciprofloxacin HCl [Cipro] 500 mg PO Q12HR #14 tablet 03/12/17 Allergies Allergy/AdvReac Type Severity Reaction Status Date / Time sumatriptan [From Imitrex] Allergy ANAPHYLAXIS Verified 03/20/17 17:43 sumatriptan succinate Allergy ANAPHYLAXIS Verified 03/20/17 17:43 [From Imitrex] chlorpromazine AdvReac HYPERSENSIT Verified 03/24/17 07:20 [From Thorazine] IVITY erythromycin base AdvReac VOMITING Verified 03/20/17 17:43 [Erythromycin Base] nortriptyline [From Pamelor] AdvReac TACHYCARDIA Verified 03/20/17 17:43 Travel Screening - Travel/Exposure Within Last 30 Days Have you traveled within the last 30 days?: No - Travel/Exposure Within Last Year Have you traveled outside the [place] in the last year?: No - Additonal Travel Details Have you been exposed to anyone with a communicable illness?: No - Travel Symptoms Symptom Screening: None Review of Systems Reviewed: No additional complaints except as noted below Constitutional: Reports: As per HPI. Denies: Chills, Fever, Malaise, Night sweats, Weakness, Weight change Eyes: Reports: As per HPI. Denies: Eye discharge, Eye pain, Photophobia, Vision change ENT: Reports: As per HPI. Denies: Congestion, Dental pain, Ear pain, Epistaxis , Hearing loss, Throat pain Respiratory: Reports: As per HPI. Denies: Cough, Dyspnea, Hemoptysis, Stridor, Wheezes Cardiovascular: Reports: As per HPI. Denies: Arrhythmia, Chest pain, Dyspnea on exertion, Edema, Murmurs, Orthopnea, Palpitations, Paroxysmal nocturnal dyspnea, Rheumatic Fever, Syncope Endocrine: Reports: As per HPI. Denies: Fatigue, Heat or cold intolerance, Polydipsia, Polyuria Gastrointestinal: Reports: As per HPI. Denies: Abdominal pain, Constipation, Diarrhea, Hematemesis, Hematochezia, Melena, Nausea, Vomiting Genitourinary: Reports: As per HPI. Denies: Abnormal menses, Discharge, Dyspareunia, Dysuria, Frequency, Hematuria, Incontinence, Retention, Urgency Musculoskeletal: Reports: As per HPI. Denies: Arthralgia, Back pain, Gout, Joint swelling, Myalgia, Neck pain Skin: Reports: As per HPI. Denies: Bruising, Change in color, Change in hair/ nails, Lesions, Pruritus, Rash Neurological: Reports: As per HPI. Denies: Abnormal gait, Confusion, Headache, Numbness, Paresthesias, Seizure, Tingling, Tremors, Vertigo, Weakness Psychiatric: Reports: As per HPI. Denies: Anxiety, Auditory hallucinations, Depression, Homicidal thoughts, Suicidal thoughts, Visual hallucinations Hematological/Lymphatic: Reports: As per HPI. Denies: Anemia, Blood Clots, Easy bleeding, Easy bruising, Swollen glands Past Medical History - SOCIAL HISTORY Smoking Status: Never smoker Alcohol Use: None Drug Use: None - RESPIRATORY Hx Respiratory Disorders: Yes Hx Asthma: Yes Hx Sleep Apnea: Yes Hx of CPAP: Yes - CARDIOVASCULAR Hx Cardio Disorders: Yes Hx Hypertension: Yes ("pretty much went away since the gastric surgery") - NEURO Hx Neuro Disorders: Yes Hx Headaches: Yes (migraines) - GI Hx GI Disorders: No - Hx Genitourinary Disorders: Yes Hx Kidney Stones: Yes - ENDOCRINE Hx Endocrine Disorders: Yes Hx Diabetes: Yes (type II) Hx Thyroid Disease: No - MUSCULOSKELETAL Hx Musculoskeletal Disorders: No - PSYCH Hx Psych Problems: No - HEMATOLOGY/ONCOLOGY Hx Hematology/Oncology Disorders: No Family Medical History Any Significant Family History?: No Hx Cancer: Grandparents Hx Diabetes: Father, Grandparents Hx Heart Disease: Grandparents Hx HTN: Mother Hx Kidney Disease: Father *Kidney Comment: stones Hx Stroke: Grandparents Physical Exam - General General Appearance: Alert, Oriented x3, Cooperative, Mild distress - Head Head exam: Normal inspection - Eye Eye exam: Normal appearance, PERRL, EOMI Pupils: Normal accommodation - ENT ENT exam: Normal exam, Mucous membranes moist, Normal external ear exam, Normal orophraynx Ear exam: Normal external inspection. negative: External canal tenderness Nasal Exam: Normal inspection. negative: Discharge, Sinus tenderness Mouth exam: Normal external inspection, Tongue normal Teeth exam: Normal inspection. negative: Dental caries Throat exam: Normal inspection. negative: Tonsillar erythema, Tonsillar exudate - Neck Neck exam: Normal inspection, Full ROM. negative: Tenderness - Respiratory Respiratory exam: Normal lung sounds bilaterally. negative: Respiratory distress - Cardiovascular Cardiovascular Exam: Regular rate, Normal rhythm, Normal heart sounds - GI/Abdominal GI/Abdominal exam: Soft, Normal bowel sounds. negative: Tenderness - Rectal Rectal exam: Deferred - exam: Deferred - Extremities Extremities exam: Normal inspection, Full ROM, Normal capillary refill. negative: Tenderness - Back Back exam: Reports: Normal inspection, Full ROM. Denies: Muscle spasm, Rash noted, Tenderness - Neurological Neurological exam: Alert, CN II-XII intact, Normal gait, Oriented X3 - Psychiatric Psychiatric exam: Normal affect, Normal mood - Skin Skin exam: Dry, Intact, Normal color, Warm Course Vital Signs 03/24/17 07:13 Temperature 98.3 F Pulse Rate 90 Respiratory 18 Rate Blood Pressure 100/71 Pulse Ox 98 Disposition Disposition: Discharge Clinical Impression: Migraine Disposition: Home, Self-Care Condition: (1) Good Instructions: Migraine Headache (ED) Additional Instructions: follow up with neurologist. return sooner if worse Forms: Patient Portal Access
== END 2017-03-24 08:31 | disposition home or self-care (01) ==
LOC: ER 07:10
DX: G43.909 Migraine, unspecified, not intractable, without status migrainosus (principal)
CPT/HCPCS: 99283 ×2; 96372; J2300; J2550

== ENCOUNTER 2017-03-26 22:10 | Emergency (ER) | payer OTHER ==
--- NOTE | 2017-03-26 22:20 | Emergency Department Record ---
History of Present Illness - General Chief Complaint: Headache Migraine Stated Complaint: LANGLEY Time Seen by Provider: 03/26/17 22:18 Source: Patient Mode of Arrival: Ambulatory Limitations: No limitations - History of Present Illness Initial Comments: The patient is here due to a one day hx of a migraine LANGLEY. She has a long hx of similar LANGLEY's and woke up with the LANGLEY today. The patient has had an extensive hx of similar issues and has been to multiple [place] She does have mild photophobia and nausea but no vomiting. The pain is diffuse and very typical for her LANGLEY. She does have a phone consultation with her Neurologist in the morning due to the recent increase in the head pain. MD Complaint: "Migraine" Onset/Timin -: Days(s) Onset Description: Gradual, Awoke with symptoms Location: Diffuse Quality: Aching, Similar to previous headaches Consistency: Constant Improves With: Nothing Worsens With: None - Related Data Home Medications Medication Instructions Recorded Confirmed Last Taken Medroxyprogesterone Acetate [Depo 150 mg IM ASDIR 04/27/14 03/26/17 03/23/17 Provera] Diphenhydramine HCl [Benadryl] 100 mg SQ Q12H PRN 07/23/14 03/26/17 03/24/17 Metformin HCl 500 mg PO BID 09/09/16 03/26/17 03/24/17 Acetazolamide 250 mg PO ASDIR 02/12/17 03/26/17 03/23/17 Candesartan Cilexetil 8 mg PO ASDIR 02/12/17 03/26/17 03/24/17 Haloperidol 2 mg PO ASDIR 02/12/17 03/26/17 03/23/17 Ketorolac Tromethamine 60 mg IJ ASDIR 02/12/17 03/26/17 03/24/17 Levetiracetam 1,000 mg PO BID 02/12/17 03/26/17 03/24/17 Linagliptin [Tradjenta] 5 mg PO ASDIR 02/12/17 03/26/17 03/24/17 Benztropine Mesylate 2 mg PO ASDIR 03/12/17 03/26/17 03/23/17 Cyproheptadine HCl 4 mg PO TID 03/12/17 03/26/17 03/23/17 Lorazepam [Ativan] 2 mg PO Q8HR 03/12/17 03/26/17 03/23/17 Phenelzine Sulfate [Nardil] 15 mg PO TID 03/12/17 03/26/17 03/24/17 Promethazine HCl [Phenergan] 25 mg PO ASDIR 03/12/17 03/26/17 03/23/17 Tizanidine HCl [Zanaflex] 4 mg PO QHS 03/12/17 03/26/17 03/23/17 Previous Rx's Medication Instructions Recorded Ciprofloxacin HCl [Cipro] 500 mg PO Q12HR #14 tablet 03/12/17 Allergies Allergy/AdvReac Type Severity Reaction Status Date / Time sumatriptan [From Imitrex] Allergy ANAPHYLAXIS Verified 03/26/17 22:17 sumatriptan succinate Allergy ANAPHYLAXIS Verified 03/26/17 22:17 [From Imitrex] chlorpromazine AdvReac HYPERSENSIT Verified 03/26/17 22:17 [From Thorazine] IVITY erythromycin base AdvReac VOMITING Verified 03/26/17 22:17 [Erythromycin Base] nortriptyline [From Pamelor] AdvReac TACHYCARDIA Verified 03/26/17 22:17 Review of Systems Constitutional: Denies: Chills, Fever Eyes: Denies: Eye discharge ENT: Denies: Congestion Respiratory: Denies: Cough, Dyspnea Past Medical History - SOCIAL HISTORY Smoking Status: Never smoker Drug Use: None - RESPIRATORY Hx Respiratory Disorders: Yes Hx Asthma: Yes Hx Sleep Apnea: Yes Hx of CPAP: Yes - CARDIOVASCULAR Hx Cardio Disorders: Yes Hx Hypertension: Yes ("pretty much went away since the gastric surgery") - NEURO Hx Neuro Disorders: Yes Hx Headaches: Yes (migraines) - GI Hx GI Disorders: No - Hx Genitourinary Disorders: Yes Hx Kidney Stones: Yes - ENDOCRINE Hx Endocrine Disorders: Yes Hx Diabetes: Yes (type II) Hx Thyroid Disease: No - MUSCULOSKELETAL Hx Musculoskeletal Disorders: No - PSYCH Hx Psych Problems: No - HEMATOLOGY/ONCOLOGY Hx Hematology/Oncology Disorders: No Family Medical History Hx Cancer: Grandparents Hx Diabetes: Father, Grandparents Hx Heart Disease: Grandparents Hx HTN: Mother Hx Kidney Disease: Father *Kidney Comment: stones Hx Stroke: Grandparents Physical Exam - General General Appearance: Alert, Oriented x3, Cooperative, No acute distress - Head Head exam: Atraumatic, Normocephalic, Normal inspection - Eye Eye exam: Normal appearance, PERRL - ENT Throat exam: Normal inspection. negative: Tonsillar erythema, Tonsillar exudate - Neck Neck exam: Normal inspection, Full ROM. negative: Meningismus, Tenderness - Respiratory Respiratory exam: Normal lung sounds bilaterally. negative: Respiratory distress - Cardiovascular Cardiovascular Exam: Regular rate, Normal rhythm, Normal heart sounds - Extremities Extremities exam: Normal inspection, Full ROM, Normal capillary refill. negative: Tenderness - Neurological Neurological exam: Alert, Normal gait, Oriented X3, Other (Neg Drift and Rhomberg exams.). negative: Abnormal gait, Altered, Motor sensory deficit - Psychiatric Psychiatric exam: negative: Agitated, Anxious, Depressed Course Vital Signs 03/26/17 22:17 Temperature 97.9 F Pulse Rate [ 88 Pulse Ox Probe] Respiratory 24 Rate Blood Pressure 123/82 [Left Arm] Pulse Ox 100 - Reevaluation(s) Reevaluation #1: The patient is doing better. She is ready for home. 03/27/17 00:00 Disposition Disposition: Discharge Clinical Impression: Migraine Qualifiers: Migraine type: unspecified Status migrainosus presence: without status migrainosus Intractability: not intractable Qualified Code(s): G43.909 - Migraine, unspecified, not intractable, without status migrainosus Disposition: Home, Self-Care Condition: (2) Stable Instructions: Migraine Headache (ED) Additional Instructions: Please continue your regular medicines. Please contact your specialist tomorrow as planned. Return to the ER for any problems. Forms: Patient Portal Access Time of Disposition: 00:00
[2017-03-26] MEDS ORDERED: KETOROLAC 30 MG/ML VIAL IVP ONE (22:28)
[2017-03-26] MEDS ORDERED: DIPHENHYDRAMINE HCL IV 50 MG/ML VIAL IVP ONE (22:28)
[2017-03-26] MEDS ORDERED: METOCLOPRAMIDE HCL 10 MG/2 ML VIAL IVP ONE (22:28)
[2017-03-26] MEDS ORDERED: LORAZEPAM 2 MG/ML VIAL IV ONE ×2 (23:05→23:43)
[2017-03-26] MEDS ORDERED: HALOPERIDOL LACTATE 5 MG/ML VIAL IM ONE (23:06)
== END 2017-03-27 00:10 | disposition home or self-care (01) ==
LOC: ER 22:10
DX: G43.909 Migraine, unspecified, not intractable, without status migrainosus (principal); R11.0 Nausea
CPT/HCPCS: 99284 ×2; 96376; 96374; 96372; 96375; J1885; J2060; J1200; J1630; J2765

== ENCOUNTER 2017-03-28 15:53 | Emergency (ER) | payer OTHER ==
--- NOTE | 2017-03-28 16:11 | Emergency Department Record ---
History of Present Illness - General Chief Complaint: Headache Migraine Stated Complaint: MIGRAINE Time Seen by Provider: 03/28/17 15:54 Source: Patient Mode of Arrival: Ambulatory Limitations: No limitations - History of Present Illness Initial Comments: 32 yo female presents to ED with a CC of recurrent headache that has been present for several days. Patient reports that her headache symptoms are similar to previous, denies fevers, neck stiffness, or sudden-onset of her symptoms. Patient reports that she is undergoing treatment for her headache symptoms through the [facility] in [place], and they have recently added Vistaril and Baclofen to her medication regimen which she has been unable to fill as of yet. Complaint: Headache Onset/Timin -: Days(s) Onset Description: Sudden Location: Diffuse Severity scale (1-10): 8 Quality: Throbbing Consistency: Constant Improves With: Nothing Worsens With: Light, Movement of head/neck Associated Symptoms: Nausea, Vomiting Treatments Prior to Arrival: Migraine medication - Related Data Home Medications Medication Instructions Recorded Confirmed Last Taken Medroxyprogesterone Acetate [Depo 150 mg IM ASDIR 04/27/14 03/28/17 03/23/17 Provera] Diphenhydramine HCl [Benadryl] 100 mg SQ Q12H PRN 07/23/14 03/28/17 03/28/17 Metformin HCl 500 mg PO BID 09/09/16 03/28/17 03/28/17 Acetazolamide 250 mg PO ASDIR 02/12/17 03/28/17 03/28/17 Candesartan Cilexetil 8 mg PO ASDIR 02/12/17 03/28/17 03/28/17 Haloperidol 2 mg PO ASDIR 02/12/17 03/28/17 03/23/17 Ketorolac Tromethamine 60 mg IJ ASDIR 02/12/17 03/28/17 03/28/17 Levetiracetam 1,000 mg PO BID 02/12/17 03/28/17 03/24/17 Linagliptin [Tradjenta] 5 mg PO ASDIR 02/12/17 03/28/17 03/28/17 Benztropine Mesylate 2 mg PO ASDIR 03/12/17 03/28/17 03/23/17 Cyproheptadine HCl 4 mg PO TID 03/12/17 03/28/1703/23/17 Lorazepam [Ativan] 2 mg PO Q8HR 03/12/17 03/28/17 03/23/17 Phenelzine Sulfate [Nardil] 30 mg PO BID 03/12/17 03/28/17 03/28/17 Promethazine HCl [Phenergan] 25 mg PO ASDIR 03/12/17 03/28/17 03/23/17 Tizanidine HCl [Zanaflex] 4 mg PO QHS 03/12/17 03/28/17 03/23/17 Baclofen 10 mg PO TID 03/28/17 03/28/17 Unknown Hydroxyzine Pamoate [Vistaril] 25 mg PO TID 03/28/17 03/28/17 Unknown Previous Rx's Medication Instructions Recorded Ciprofloxacin HCl [Cipro] 500 mg PO Q12HR #14 tablet 03/12/17 Allergies Allergy/AdvReac Type Severity Reaction Status Date / Time sumatriptan [From Imitrex] Allergy ANAPHYLAXIS Verified 03/28/17 15:56 sumatriptan succinate Allergy ANAPHYLAXIS Verified 03/28/17 15:56 [From Imitrex] chlorpromazine AdvReac HYPERSENSIT Verified 03/28/17 15:56 [From Thorazine] IVITY erythromycin base AdvReac VOMITING Verified 03/28/17 15:56 [Erythromycin Base] nortriptyline [From Pamelor] AdvReac TACHYCARDIA Verified 03/28/17 15:56 Travel Screening - Travel/Exposure Within Last 30 Days Have you traveled within the last 30 days?: No Review of Systems Constitutional: Denies: Chills, Fever, Malaise, Night sweats Eyes: Denies: Eye discharge, Eye pain ENT: Denies: Congestion, Ear pain, Epistaxis Respiratory: Denies: Cough, Dyspnea Cardiovascular: Denies: Chest pain, Dyspnea on exertion Endocrine: Denies: Fatigue, Heat or cold intolerance Gastrointestinal: Reports: Nausea. Denies: Abdominal pain, Vomiting Genitourinary: Denies: Incontinence, Retention Musculoskeletal: Denies: Arthralgia, Back pain, Gout, Joint swelling Skin: Denies: Bruising, Change in color Neurological: Denies: Abnormal gait, Confusion, Headache, Seizure Psychiatric: Denies: Anxiety Hematological/Lymphatic: Denies: Anemia, Blood Clots Past Medical History - SOCIAL HISTORY Smoking Status: Never smoker Alcohol Use: None Drug Use: None - RESPIRATORY Hx Respiratory Disorders: Yes Hx Asthma: Yes Hx Sleep Apnea: Yes Hx of CPAP: Yes - CARDIOVASCULAR Hx Cardio Disorders: Yes Hx Hypertension: Yes ("pretty much went away since the gastric surgery") - NEURO Hx Neuro Disorders: Yes Hx Headaches: Yes (migraines) - GI Hx GI Disorders: No - Hx Genitourinary Disorders: Yes Hx Kidney Stones: Yes - ENDOCRINE Hx Endocrine Disorders: Yes Hx Diabetes: Yes (type II) Hx Thyroid Disease: No - MUSCULOSKELETAL Hx Musculoskeletal Disorders: No - PSYCH Hx Psych Problems: No - HEMATOLOGY/ONCOLOGY Hx Hematology/Oncology Disorders: No Family Medical History Any Significant Family History?: Yes Hx Cancer: Grandparents Hx Diabetes: Father, Grandparents Hx Heart Disease: Grandparents Hx HTN: Mother Hx Kidney Disease: Father *Kidney Comment: stones Hx Stroke: Grandparents Physical Exam - General General Appearance: Alert, Oriented x3, Cooperative, Mild distress Limitations: No limitations - Head Head exam: Atraumatic, Normocephalic, Normal inspection Head exam detail: negative: Abrasion, Contusion, Frazier's sign, General tenderness, Hematoma, Laceration - Eye Eye exam: Normal appearance. negative: Conjunctival injection, Periorbital swelling, Periorbital tenderness - ENT Ear exam: negative: Auricular hematoma, Auricular trauma Nasal Exam: negative: Active bleeding, Discharge, Dried blood, Foreign body Mouth exam: negative: Drooling, Laceration, Muffled voice, Tongue elevation - Neck Neck exam: Normal inspection. negative: Meningismus, Tenderness - Respiratory Respiratory exam: Normal lung sounds bilaterally. negative: Rales, Respiratory distress, Rhonchi, Stridor - Cardiovascular Cardiovascular Exam: Regular rate, Normal rhythm, Normal heart sounds - GI/Abdominal GI/Abdominal exam: Soft. negative: Rebound, Rigid, Tenderness - Rectal Rectal exam: Deferred - exam: Deferred - Extremities Extremities exam: Normal inspection. negative: Calf tenderness, Pedal edema, Tenderness - Back Back exam: Denies: CVA tenderness (R), CVA tenderness (L) - Neurological Neurological exam: Alert, Normal gait, Oriented X3 - Psychiatric Psychiatric exam: Normal affect, Normal mood - Skin Skin exam: Normal color. negative: Abrasion Type of lesion: negative: abrasion Course Vital Signs 03/28/17 15:57 Temperature 98.4 F Pulse Rate 95 H Respiratory 18 Rate Blood Pressure 118/75 Pulse Ox 98 - Reevaluation(s) Reevaluation #1: 03/28/17 16:11 Dr. Davis contacted from the patient's headache clinic for further treatment recommendation in the ED today. Reevaluation #2: 03/28/17 17:14 2ndd call placed to [facility], continuing to await return call. Reevaluation #3: 03/28/17 17:22 3rd call placed for consultation with Dr. Davis, per staff the message has been delivered and he is seeing his patient's currently. Patient has been updated on the delay and that we are awaiting consultation for acute headache management. 03/28/17 17:28 Reevaluation #4: 03/28/17 18:23 Dr. Davis was contacted again via answering service, he is currently driving but will return call when he arrives at his destination. Reevaluation #5: 03/28/17 18:59 It has now been 3 hours since the patient's neurologist was contacted with no return call. Will administer Nubain and Phenergan for the patient's symptoms at this time and reassess. 03/28/17 19:11 Dr. Davis did return phone call, recommends no more twice/month Nubain and treatment with ativan, benadryl, and haloperidol or thorazine for recurrent headache symptoms. Patient reassessed, pain symptoms are down to 5/10. Patient appears stable for discharge at this time. 03/28/17 19:30 Disposition Disposition: Discharge Clinical Impression: Headache Qualifiers: Headache type: unspecified Headache chronicity pattern: acute headache Intractability: not intractable Qualified Code(s): R51 - Headache Disposition: Home, Self-Care Condition: (2) Stable Instructions: Acute Headache (ED) Additional Instructions: Return to ED if your symptoms worsen or if you have any concerns. Follow-up with your family doctor in 3-5 days as directed. Forms: Patient Portal Access Time of Disposition: 19:13
[2017-03-28] MEDS ORDERED: NALBUPHINE HCL 20 MG/ML AMPULE IM ONE (18:38)
[2017-03-28] MEDS ORDERED: PROMETHAZINE HCL 25 MG/ML VIAL IM ONE (18:38)
== END 2017-03-28 19:33 | disposition home or self-care (01) ==
LOC: ER 15:53
DX: R51 Headache (principal); R11.2 Nausea with vomiting, unspecified
CPT/HCPCS: 99283 ×2; 96372; J2300; J2550

== ENCOUNTER 2017-04-06 16:04 | Emergency (ER) | payer OTHER ==
[2017-04-06] MEDS ORDERED: NALBUPHINE HCL 20 MG/ML AMPULE IM ONE (16:17)
[2017-04-06] MEDS ORDERED: PROMETHAZINE HCL 25 MG/ML VIAL IM ONE (16:17)
--- NOTE | 2017-04-06 16:23 | Emergency Department Record ---
History of Present Illness - General Chief Complaint: Headache Migraine Stated Complaint: MIGRAINE Time Seen by Provider: 04/06/17 16:17 Source: Patient Mode of Arrival: Ambulatory Limitations: No limitations - History of Present Illness Initial Comments: 32 yo female presents with about 5 days of migraine. She has chronic migraines and has been recently treated at [facility]. She has typical symptoms with light sensitivity and nausea with vomiting. She took her typical medication as guided by the [facility] without relief due to the nausea and vomiting. No fevers. No trauma. MD Complaint: "Migraine" -: Days(s) (5) Onset Description: Gradual Location: Frontal Quality: Aching Consistency: Constant Improves With: Nothing Worsens With: Light, Noise Associated Symptoms: Nausea, Vomiting Treatments Prior to Arrival: Migraine medication - Related Data Home Medications Medication Instructions Recorded Confirmed Last Taken Medroxyprogesterone Acetate [Depo 150 mg IM ASDIR 04/27/14 04/06/17 03/23/17 Provera] Diphenhydramine HCl [Benadryl] 100 mg SQ Q12H PRN 07/23/14 04/06/17 03/28/17 Metformin HCl 500 mg PO BID 09/09/16 04/06/17 03/28/17 Acetazolamide 250 mg PO ASDIR 02/12/17 04/06/17 03/28/17 Candesartan Cilexetil 8 mg PO ASDIR 02/12/17 04/06/17 03/28/17 Haloperidol 2 mg PO ASDIR 02/12/17 04/06/17 03/23/17 Ketorolac Tromethamine 60 mg IJ ASDIR 02/12/17 04/06/17 03/28/17 Levetiracetam 1,000 mg PO BID 02/12/17 04/06/17 03/24/17 Linagliptin [Tradjenta] 5 mg PO ASDIR 02/12/17 04/06/17 03/28/17 Benztropine Mesylate 2 mg PO ASDIR 03/12/17 04/06/17 03/23/17 Cyproheptadine HCl 4 mg PO TID 03/12/17 04/06/17 03/23/17 Lorazepam [Ativan] 2 mg PO Q8HR 03/12/17 04/06/17 03/23/17 Phenelzine Sulfate [Nardil] 30 mg PO BID 03/12/17 04/06/17 03/28/17 Promethazine HCl [Phenergan] 25 mg PO ASDIR 03/12/17 04/06/17 03/23/17 Tizanidine HCl [Zanaflex] 4 mg PO QHS 03/12/17 04/06/17 03/23/17 Hydroxyzine Pamoate [Vistaril] 25 mg PO TID 03/28/17 04/06/17 Unknown Previous Rx's Medication Instructions Recorded Ciprofloxacin HCl [Cipro] 500 mg PO Q12HR #14 tablet 03/12/17 Allergies Allergy/AdvReac Type Severity Reaction Status Date / Time sumatriptan [From Imitrex] Allergy ANAPHYLAXIS Verified 03/28/17 15:56 sumatriptan succinate Allergy ANAPHYLAXIS Verified 03/28/17 15:56 [From Imitrex] chlorpromazine AdvReac HYPERSENSIT Verified 03/28/17 15:56 [From Thorazine] IVITY erythromycin base AdvReac VOMITING Verified 03/28/17 15:56 [Erythromycin Base] nortriptyline [From Pamelor] AdvReac TACHYCARDIA Verified 03/28/17 15:56 Review of Systems Constitutional: Reports: Malaise. Denies: Chills, Fever, Weakness Eyes: Reports: Photophobia. Denies: Eye discharge, Eye pain, Vision change ENT: Denies: Congestion, Throat pain Respiratory: Denies: Cough Cardiovascular: Denies: Chest pain Endocrine: Denies: Fatigue Gastrointestinal: Reports: Nausea, Vomiting. Denies: Abdominal pain, Diarrhea Genitourinary: Denies: Dysuria, Urgency Musculoskeletal: Denies: Arthralgia, Back pain, Myalgia Skin: Denies: Bruising, Change in color Neurological: Reports: Headache. Denies: Confusion, Numbness, Tingling, Tremors , Vertigo, Weakness Psychiatric: Denies: Anxiety Hematological/Lymphatic: Denies: Easy bleeding, Easy bruising Past Medical History - SOCIAL HISTORY Smoking Status: Never smoker Drug Use: None - RESPIRATORY Hx Respiratory Disorders: Yes Hx Asthma: Yes Hx Sleep Apnea: Yes Hx of CPAP: Yes - CARDIOVASCULAR Hx Cardio Disorders: Yes Hx Hypertension: Yes ("pretty much went away since the gastric surgery") - NEURO Hx Neuro Disorders: Yes Hx Headaches: Yes (migraines) - GI Hx GI Disorders: No - Hx Genitourinary Disorders: Yes Hx Kidney Stones: Yes - ENDOCRINE Hx Endocrine Disorders: Yes Hx Diabetes: Yes (type II) Hx Thyroid Disease: No - MUSCULOSKELETAL Hx Musculoskeletal Disorders: No - PSYCH Hx Psych Problems: No - HEMATOLOGY/ONCOLOGY Hx Hematology/Oncology Disorders: No Family Medical History Hx Cancer: Grandparents Hx Diabetes: Father, Grandparents Hx Heart Disease: Grandparents Hx HTN: Mother Hx Kidney Disease: Father *Kidney Comment: stones Hx Stroke: Grandparents Physical Exam - General General Appearance: Alert, Oriented x3, Cooperative, No acute distress Limitations: No limitations - Head Head exam: Atraumatic, Normocephalic, Normal inspection - Eye Eye exam: Normal appearance, PERRL, EOMI. negative: Conjunctival injection, Nystagmus, Periorbital swelling - ENT ENT exam: Normal exam, Mucous membranes moist Ear exam: Normal external inspection Nasal Exam: Normal inspection Mouth exam: Normal external inspection Teeth exam: Normal inspection Throat exam: Normal inspection. negative: Tonsillar erythema, Tonsillar exudate - Neck Neck exam: Normal inspection, Full ROM. negative: Tenderness - Respiratory Respiratory exam: Normal lung sounds bilaterally. negative: Respiratory distress - Cardiovascular Cardiovascular Exam: Regular rate, Normal rhythm, Normal heart sounds Peripheral Pulses: 2+: Radial (R), Radial (L) - GI/Abdominal GI/Abdominal exam: Soft. negative: Tenderness - Rectal Rectal exam: Deferred - exam: Deferred - Extremities Extremities exam: Normal inspection, Full ROM, Normal capillary refill. negative: Pedal edema, Tenderness - Back Back exam: Reports: Normal inspection, Full ROM. Denies: Muscle spasm, Rash noted, Tenderness - Neurological Neurological exam: Alert, CN II-XII intact, Normal gait, Oriented X3. negative : Altered, Motor sensory deficit - Psychiatric Psychiatric exam: Normal affect, Normal mood. negative: Agitated, Anxious, Depressed - Skin Skin exam: Dry, Intact, Normal color, Warm Course - Reevaluation(s) Reevaluation #1: The patient is doing better with controlled nausea Her pain is under control for DC home 04/06/17 16:56 Disposition Disposition: Discharge Clinical Impression: Migraine Disposition: Home, Self-Care Condition: (1) Good Instructions: Migraine Headache (ED) Additional Instructions: Follow up as scheduled with your headache specialist Rest and stay well hydrated Forms: Patient Portal Access Time of Disposition: 16:56
== END 2017-04-06 17:08 | disposition home or self-care (01) ==
LOC: ER 16:04
DX: G43.909 Migraine, unspecified, not intractable, without status migrainosus (principal); R11.2 Nausea with vomiting, unspecified
CPT/HCPCS: 96372; 99283; J2550

== ENCOUNTER 2017-04-10 19:22 | Emergency (ER) | payer OTHER ==
[2017-04-10] MEDS ORDERED: DIPHENHYDRAMINE HCL IV 50 MG/ML VIAL IM ONE (19:34)
--- NOTE | 2017-04-10 19:37 | Emergency Department Record ---
History of Present Illness - General Chief Complaint: Headache Migraine Stated Complaint: LANGLEY Time Seen by Provider: 04/10/17 19:23 Source: Patient Mode of Arrival: Ambulatory Limitations: No limitations - History of Present Illness Initial Comments: 32 yo female presents to ED for recurrent headache symptoms for the past several days. Patient has attempted her home migraine abortive therapy regimen without significant improvement. Patient denies fevers, chills, neck stiffness , or recent illness. Patient reports that today's symptoms are similar to her previous headache symptoms. Complaint: Headache Onset/Timin -: Days(s) Onset Description: Gradual Location: Diffuse Severity: Severe Quality: Throbbing Consistency: Constant Improves With: Nothing Worsens With: None Associated Symptoms: Nausea Treatments Prior to Arrival: Migraine medication - Related Data Home Medications Medication Instructions Recorded Confirmed Last Taken Medroxyprogesterone Acetate [Depo 150 mg IM ASDIR 04/27/14 04/06/17 03/23/17 Provera] Diphenhydramine HCl [Benadryl] 100 mg SQ Q12H PRN 07/23/14 04/06/17 03/28/17 Metformin HCl 500 mg PO BID 09/09/16 04/06/17 03/28/17 Acetazolamide 250 mg PO ASDIR 02/12/17 04/06/17 03/28/17 Candesartan Cilexetil 8 mg PO ASDIR 02/12/17 04/06/17 03/28/17 Haloperidol 2 mg PO ASDIR 02/12/17 04/06/17 03/23/17 Ketorolac Tromethamine 60 mg IJ ASDIR 02/12/17 04/06/17 03/28/17 Levetiracetam 1,000 mg PO BID 02/12/17 04/06/17 03/24/17 Linagliptin [Tradjenta] 5 mg PO ASDIR 02/12/17 04/06/17 03/28/17 Benztropine Mesylate 2 mg PO ASDIR 03/12/17 04/06/17 03/23/17 Cyproheptadine HCl 4 mg PO TID 03/12/17 04/06/17 03/23/17 Lorazepam [Ativan] 2 mg PO Q8HR 03/12/17 04/06/17 03/23/17 Phenelzine Sulfate [Nardil] 30 mg PO BID 03/12/17 04/06/17 03/28/17 Promethazine HCl [Phenergan] 25 mg PO ASDIR 03/12/17 04/06/17 03/23/17 Tizanidine HCl [Zanaflex] 4 mg PO QHS 03/12/17 04/06/17 03/23/17 Hydroxyzine Pamoate [Vistaril] 25 mg PO TID 03/28/17 04/06/17 Unknown Previous Rx's Medication Instructions Recorded Ciprofloxacin HCl [Cipro] 500 mg PO Q12HR #14 tablet 03/12/17 Allergies Allergy/AdvReac Type Severity Reaction Status Date / Time sumatriptan [From Imitrex] Allergy ANAPHYLAXIS Verified 03/28/17 15:56 sumatriptan succinate Allergy ANAPHYLAXIS Verified 03/28/17 15:56 [From Imitrex] chlorpromazine AdvReac HYPERSENSIT Verified 03/28/17 15:56 [From Thorazine] IVITY erythromycin base AdvReac VOMITING Verified 03/28/17 15:56 [Erythromycin Base] nortriptyline [From Pamelor] AdvReac TACHYCARDIA Verified 03/28/17 15:56 Review of Systems Constitutional: Denies: Chills, Fever, Malaise, Night sweats Eyes: Reports: Photophobia. Denies: Eye discharge, Eye pain ENT: Denies: Congestion, Ear pain, Epistaxis Respiratory: Denies: Cough, Dyspnea Cardiovascular: Denies: Chest pain, Dyspnea on exertion Endocrine: Denies: Fatigue, Heat or cold intolerance Gastrointestinal: Reports: Nausea. Denies: Abdominal pain, Vomiting Genitourinary: Denies: Incontinence, Retention Musculoskeletal: Denies: Arthralgia, Back pain, Gout, Joint swelling Skin: Denies: Bruising, Change in color Neurological: Reports: Headache. Denies: Abnormal gait, Confusion, Seizure Psychiatric: Denies: Anxiety Hematological/Lymphatic: Denies: Anemia, Blood Clots Past Medical History - SOCIAL HISTORY Smoking Status: Never smoker Alcohol Use: None Drug Use: None - RESPIRATORY Hx Respiratory Disorders: Yes Hx Asthma: Yes Hx Sleep Apnea: Yes Hx of CPAP: Yes - CARDIOVASCULAR Hx Cardio Disorders: Yes Hx Hypertension: Yes ("pretty much went away since the gastric surgery") - NEURO Hx Neuro Disorders: Yes Hx Headaches: Yes (migraines) - GI Hx GI Disorders: No - Hx Genitourinary Disorders: Yes Hx Kidney Stones: Yes - ENDOCRINE Hx Endocrine Disorders: Yes Hx Diabetes: Yes (type II) Hx Thyroid Disease: No - MUSCULOSKELETAL Hx Musculoskeletal Disorders: No - PSYCH Hx Psych Problems: No - HEMATOLOGY/ONCOLOGY Hx Hematology/Oncology Disorders: No Family Medical History Any Significant Family History?: Yes Hx Cancer: Grandparents Hx Diabetes: Father, Grandparents Hx Heart Disease: Grandparents Hx HTN: Mother Hx Kidney Disease: Father *Kidney Comment: stones Hx Stroke: Grandparents Physical Exam - General General Appearance: Alert, Oriented x3, Cooperative, No acute distress Limitations: No limitations - Head Head exam: Atraumatic, Normocephalic, Normal inspection Head exam detail: negative: Abrasion, Contusion, Frazier's sign, General tenderness, Hematoma, Laceration - Eye Eye exam: Normal appearance. negative: Conjunctival injection, Periorbital swelling, Periorbital tenderness, Scleral icterus - ENT Ear exam: negative: Auricular hematoma, Auricular trauma Nasal Exam: negative: Active bleeding, Discharge, Dried blood, Foreign body Mouth exam: negative: Drooling, Laceration, Muffled voice, Tongue elevation - Neck Neck exam: Normal inspection. negative: Meningismus, Tenderness - Respiratory Respiratory exam: Normal lung sounds bilaterally. negative: Rales, Respiratory distress, Rhonchi, Stridor - Cardiovascular Cardiovascular Exam: Regular rate, Normal rhythm, Normal heart sounds - GI/Abdominal GI/Abdominal exam: Soft. negative: Rebound, Rigid, Tenderness - Rectal Rectal exam: Deferred - exam: Deferred - Extremities Extremities exam: Normal inspection. negative: Pedal edema, Tenderness - Back Back exam: Denies: CVA tenderness (R), CVA tenderness (L) - Neurological Neurological exam: Alert, Normal gait, Oriented X3 - Psychiatric Psychiatric exam: Flat affect, Normal mood - Skin Skin exam: Normal color. negative: Abrasion Type of lesion: negative: abrasion Course Vital Signs 04/10/17 19:25 Temperature 98.5 F Pulse Rate [ 107 H Pulse Ox Probe] Respiratory 20 Rate Blood Pressure 126/85 [Left Arm] Pulse Ox 97 - Reevaluation(s) Reevaluation #1: 04/10/17 19:38 Previous records from recent visits reviewed as well the patient's migraine treatment recommendations from her neurologist (Dr. Davis), patient has received Nubain was administered 03/24, 03/28, and 04/06 (17 [address] span). [address] Davis's recommendations, patient should not receive Nubain more than twice a month. Migraine treatment recommendation including Haldol, Benadryl, and Ativan will be ordered as the patient reports adverse reaction to Thorazine per Dr. Davis's recommendations. Reevaluation #2: 04/10/17 20:16 Patient reports mild improvement in her headache symptoms and appears stable for discharge at this time. Disposition Disposition: Discharge Clinical Impression: Headache Qualifiers: Headache type: unspecified Headache chronicity pattern: chronic headache Intractability: not intractable Qualified Code(s): R51 - Headache Disposition: Home, Self-Care Condition: (2) Stable Instructions: Acute Headache (ED) Additional Instructions: Return to ED if your symptoms worsen or if you have any concerns. Follow-up with Dr. Davis next week as scheduled. Forms: Patient Portal Access Time of Disposition: 19:42 Quality - Quality Measures Quality Measures: N/A - Blood Pressure Screening Blood Pressure Classification: Pre-Hypertensive BP Reading Systolic Measurement: 126 Diastolic Measurement: 85 Screening for High Blood Pressure: < Pre-Hypertensive BP, F/U Documented > [ G8950] Pre-Hypertensive Follow-up Interventions: Referral to alternative/primary care provider.
[2017-04-10] MEDS: HALOPERIDOL LACTATE 5 MG/ML VIAL IM ONE (19:50)
[2017-04-10] MEDS: LORAZEPAM 2 MG/ML VIAL IM ONE (19:50)
[2017-04-10] MEDS: DIPHENHYDRAMINE HCL IV 50 MG/ML VIAL IM ONE (19:50)
== END 2017-04-10 20:21 | disposition home or self-care (01) ==
LOC: ER 19:22
DX: R51 Headache (principal); R11.0 Nausea
CPT/HCPCS: 99283 ×2; 96372; J2060; J1200; J1630

== ENCOUNTER 2017-04-28 10:52 | Inpatient (IN) | payer OTHER ==
[2017-04-28] MEDS ORDERED: KETOROLAC 30 MG/ML VIAL IM ONE (11:16)
--- NOTE | 2017-04-28 11:21 | Emergency Department Record ---
History of Present Illness - General Chief complaint: Pain Stated complaint: right rib pain Time Seen by Provider: 04/28/17 11:03 Source: Patient Mode of Arrival: Ambulatory Limitations: No limitations - History of Present Illness Initial comments: The patient is here due to R rib pain for 5 hours since waking up this Am. The pain is sharp and stabbing and is worse with any bending, twisting or lifting. She denies any injury, fall or trauma that precipitated the injury. The patient denies any SOB or NAHOMI or any L sided CP. She did just return from the [facility] clinic yesterday where she had her chronic pain medicines adjusted. The patient also states she may have passed out in the kitchen 2 hours ago. She states she got up to go into the kitchen and began to feel lightheaded and possibly passed out for a few seconds. She has recently been started on Nardil which can cause postural hypotension which she has been warned about. She denies any AP, dysuria, LANG[place] or neck pain since the fall and she is not on any blood thinners. MD Complaint: Other Onset/Timin -: Hour(s) Location: Right History of Same: No Severity scale (1-10): 8 Quality: Aching Consistency: Constant Improves with: Nothing Worsens with: Nothing Associated Symptoms: Denies other symptoms - Related Data Home Medications Medication Instructions Recorded Confirmed Last Taken Medroxyprogesterone Acetate [Depo 150 mg IM ASDIR 04/27/14 04/28/17 03/23/17 Provera] Diphenhydramine HCl [Benadryl] 100 mg SQ Q12H PRN 07/23/14 04/28/17 1 Day Ago ~04/27/17 Acetazolamide 250 mg PO ASDIR 02/12/17 04/28/17 1 Day Ago ~04/27/17 Candesartan Cilexetil 8 mg PO ASDIR 02/12/17 04/28/17 1 Day Ago ~04/27/17 Haloperidol 2 mg PO ASDIR 02/12/17 04/28/17 1 Day Ago ~04/27/17 Ketorolac Tromethamine 60 mg IJ ASDIR 02/12/17 04/28/17 1 Day Ago ~04/27/17 Linagliptin [Tradjenta] 5 mg PO DAILY 02/12/17 04/28/17 1 Day Ago ~04/27/17 Benztropine Mesylate 2 mg PO ASDIR 03/12/17 04/28/17 1 Day Ago ~04/27/17 Lorazepam [Ativan] 2 mg PO ASDIR 03/12/17 04/28/17 1 Day Ago ~04/27/17 Phenelzine Sulfate [Nardil] 30 mg PO QAM 03/12/17 04/28/17 1 Day Ago ~04/27/17 Promethazine HCl [Phenergan] 25 mg PO DAILY 03/12/17 04/28/17 1 Day Ago ~04/27/17 Tizanidine HCl [Zanaflex] 8 mg PO QHS 03/12/17 04/28/17 1 Day Ago ~04/27/17 Candesartan Cilexetil [Atacand] 8 mg PO DAILY 04/28/17 04/28/17 1 Day Ago ~04/27/17 Clonazepam [Klonopin] 2 mg PO QHS 04/28/17 04/28/17 1 Day Ago ~04/27/17 Levetiracetam [Keppra] 1,000 mg PO TID 04/28/17 04/28/17 1 Day Ago ~04/27/17 Metformin HCl 500 mg PO BID 04/28/17 04/28/17 1 Day Ago ~04/27/17 Nebivolol HCl [Bystolic] 5 mg PO QHS 04/28/17 04/28/17 1 Day Ago ~04/27/17 Ondansetron HCl [Zofran] 8 mg PO TID PRN 04/28/17 04/28/17 Unknown Phenelzine Sulfate [Nardil] 45 mg PO [id number] 04/28/17 04/28/17 04/28/17 Allergies Allergy/AdvReac Type Severity Reaction Status Date / Time sumatriptan [From Imitrex] Allergy ANAPHYLAXIS Verified 04/28/17 11:03 sumatriptan succinate Allergy ANAPHYLAXIS Verified 04/28/17 11:03 [From Imitrex] chlorpromazine AdvReac HYPERSENSIT Verified 04/28/17 11:03 [From Thorazine] IVITY erythromycin base AdvReac VOMITING Verified 04/28/17 11:03 [Erythromycin Base] nortriptyline [From Pamelor] AdvReac TACHYCARDIA Verified 04/28/17 11:03 Travel Screening - Travel/Exposure Within Last 30 Days Have you traveled within the last 30 days?: No - Travel/Exposure Within Last Year Have you traveled outside the [place] in the last year?: No - Additonal Travel Details Have you been exposed to anyone with a communicable illness?: No - Travel Symptoms Symptom Screening: None Review of Systems Constitutional: Denies: Chills, Fever Eyes: Denies: Eye discharge ENT: Denies: Congestion Respiratory: Denies: Cough, Dyspnea Cardiovascular: Reports: Chest pain. Denies: Arrhythmia Endocrine: Reports: Fatigue Gastrointestinal: Denies: Abdominal pain, Nausea, Vomiting Genitourinary: Denies: Dysuria Musculoskeletal: Denies: Back pain Skin: Denies: Bruising Neurological: Denies: Abnormal gait Past Medical History - SOCIAL HISTORY Smoking Status: Never smoker Alcohol Use: None Drug Use: None - RESPIRATORY Hx Respiratory Disorders: Yes Hx Asthma: Yes Hx Sleep Apnea: Yes Hx of CPAP: Yes - CARDIOVASCULAR Hx Cardio Disorders: Yes Hx Hypertension: Yes ("pretty much went away since the gastric surgery") - NEURO Hx Neuro Disorders: Yes Hx Headaches: Yes (migraines) - GI Hx GI Disorders: No - Hx Genitourinary Disorders: Yes Hx Kidney Stones: Yes - ENDOCRINE Hx Endocrine Disorders: Yes Hx Diabetes: Yes (type II) Hx Thyroid Disease: No - MUSCULOSKELETAL Hx Musculoskeletal Disorders: No - PSYCH Hx Psych Problems: No - HEMATOLOGY/ONCOLOGY Hx Hematology/Oncology Disorders: No Family Medical History Any Significant Family History?: Yes Hx Cancer: Grandparents Hx Diabetes: Father, Grandparents Hx Heart Disease: Grandparents Hx HTN: Mother Hx Kidney Disease: Father *Kidney Comment: stones Hx Stroke: Grandparents Physical Exam - General General Appearance: Alert, Oriented x3, Cooperative, No acute distress - Head Head exam: Atraumatic, Normocephalic, Normal inspection - Eye Eye exam: Normal appearance, PERRL - ENT Throat exam: Normal inspection. negative: Tonsillar erythema, Tonsillar exudate - Neck Neck exam: Normal inspection, Full ROM. negative: Tenderness - Respiratory Respiratory exam: Normal lung sounds bilaterally, Chest wall tenderness (The R rib pain is 100% reproducible with palpation the R anterior lower chest wall. There is no swelling or bruising evident.). negative: Respiratory distress - Cardiovascular Cardiovascular Exam: Regular rate, Normal rhythm, Normal heart sounds - GI/Abdominal GI/Abdominal exam: Soft, Normal bowel sounds. negative: Distended, Rebound, Rigid, Tenderness - Extremities Extremities exam: Normal inspection, Full ROM, Normal capillary refill. negative: Tenderness - Back Back exam: Reports: Normal inspection, Full ROM. Denies: Muscle spasm, Rash noted, Tenderness, Vertebral tenderness - Neurological Neurological exam: Alert, Normal gait, Oriented X3. negative: Abnormal gait, Altered, Motor sensory deficit - Psychiatric Psychiatric exam: negative: Anxious, Depressed Course Vital Signs 04/28/17 10:54 Temperature 98.7 F Pulse Rate 82 Respiratory 18 Rate Blood Pressure 113/53 Pulse Ox 97 - Reevaluation(s) Reevaluation #1: The patient is resting comfortably but is still complaining of pain. She denies any new symptoms. 04/28/17 13:00 Reevaluation #2: The patient is doing well at this time but is still having pain. I did discuss the CT result that does demonstrate a PE in the R posterior lobe. 04/28/17 14:43 Reevaluation #3: The patient is doing very well at this time. I did discuss the case with Eileen and she does accept the patient to the hospital for admission. 04/28/17 15:02 Medical Decision Making - Data Complexity MDM Data: Labs Ordered and/or Reviewed, X-Ray Ordered and/or Reviewed - Lab Data Result diagrams: 04/28/17 11:40 04/28/17 11:40 - Radiology Data Radiology results: Report reviewed (R ribs: Neg Chest CT: R posterior lower lobe PE with atelectasis in the bases.) Disposition Disposition: Admit Clinical Impression: Pulmonary embolism Qualifiers: Pulmonary embolism type: other Chronicity: acute Acute cor pulmonale presence: without acute cor pulmonale Qualified Code(s): I26.99 - Other pulmonary embolism without acute cor pulmonale Disposition: Still a Patient at [facility] Decision to Admit: Admit from ER Decision to Admit Date: 04/28/17 Decision to Admit Time: 14:47 Accepting Physician: Aurea Time Discussed w/Accepting Physician: 14:47 Condition: (2) Stable Forms: Patient Portal Access Time of Disposition: 14:47 Quality - Quality Measures Quality Measures: N/A - Blood Pressure Screening View Details: Yes Blood Pressure Classification: Normal BP Reading Systolic Measurement: 113 Diastolic Measurement: 53 Screening for High Blood Pressure: < Normal BP, F/U Not Required > [[id number]] Normal BP Follow-up Interventions: No follow-up required
[2017-04-28] MEDS ORDERED: 0.9 % SODIUM CHLORIDE 1,000 ML BAG IV ONE (11:27)
[2017-04-28] MEDS ORDERED: KETOROLAC 30 MG/ML VIAL IVP ONE (11:27)
[2017-04-28 11:46] LABS: BASO % 0.5 % (0-6); EOS % 1.9 % (0-6); GRAN % 69.9 % (47-80); HEMATOCRIT 37.8 % (35.0-47.0); HEMOGLOBIN 12.2 gm/dl (11.6-16.0); LYMPH % 18.2 % (16-45); MEAN CORPUSCULAR HGB CONC 32.3 g/dl (32-36); MEAN PLATELET VOLUME 10.3 fl (7.4-10.4); MONO % 9.5 % (0-9); PLATELET COUNT 401 K/uL (130-400); RED CELL DISTRIBUTION WIDTH 12.5 % (11.5-14.5); WHITE BLOOD COUNT W/O DIFF 16.6 K/uL (4.2-12.2)
[2017-04-28 12:11] LABS: ANION GAP 12.5 (7-16); BLOOD UREA NITROGEN 17 mg/dL (7-17); CARBON DIOXIDE 24.5 mmol/L (22-30); CREATININE 0.9 mg/dL (0.52-1.04); EST GLOMERULAR FILTRATION RATE > 60 ml/min; GLUCOSE,RANDOM 81 mg/dL (70-110)
[2017-04-28] MEDS ORDERED: ACETAMINOPHEN 325 MG TAB PO ONE (12:42)
--- NOTE | 2017-04-28 12:50 | RADIOLOGY REPORT ---
EXAM: RIGHT RIBS WITH PA CHEST HISTORY: RIGHT LOWER RIB PAIN RADIATING TO POSTERIOR ASPECT OF SHOULDER. NO KNOWN INJURY. TECHNIQUE: AP and oblique views of the right ribs were obtained as well as an upright PA view of the chest. Comparison: CT chest without contrast dated 01/10/17. Bilateral ribs dated 01/09. FINDINGS: There is normal bone mineralization. No acute right rib fracture is identified nor is there evidence of destructive bone lesion. The heart is not enlarged and the pulmonary vasculature is nondilated. Plate like atelectasis is demonstrated in each lung base. This is new since the prior CT chest examination. The lungs and pleural spaces are otherwise clear. IMPRESSION: 1. NEGATIVE RIGHT RIBS. 2. MILD PLATE LIKE ATELECTASIS SUGGESTED IN EACH LUNG BASE. JOB NUMBER: [id number] MTDD
[2017-04-28] MEDS ORDERED: HEPARIN SODIUM 1000 UNIT/1 ML 10ML VIAL IVP ONE ×2 (14:36→22:30)
[2017-04-28] MEDS ORDERED: HYDROMORPHONE HCL 1 MG/ML CPJ IVP ONE (14:41)
[2017-04-28 14:48] LABS: PARTIAL THROMBOPLASTIN TIME 27.8 SECONDS (24.5-39.1); PROTHROMBIN TIME (PATIENT) 10.8 SECONDS (9.5-12.1)
[2017-04-28] MEDS: HEPARIN SODIUM/D5W 25,000 UNITS/500 ML BAG IV SCH (14:55)
[2017-04-28] MEDS ORDERED: LEVETIRACETAM 1000 MG PO SCH (16:05)
[2017-04-28] MEDS ORDERED: ONDANSETRON HCL IV 4 MG/2 ML VIAL IVP PRN (16:05)
[2017-04-28] MEDS ORDERED: CANDESARTAN CILEXETIL 8 MG PO SCH (16:05)
[2017-04-28] MEDS ORDERED: ACETAMINOPHEN 500 MG TABLET PO PRN (16:05)
[2017-04-28] MEDS ORDERED: BENZTROPINE 2 MG PO PRN (18:15)
[2017-04-28] MEDS ORDERED: LORAZEPAM 0.5 MG TABLET PO PRN (18:25)
[2017-04-28] MEDS: HYDROMORPHONE HCL 1 MG/ML CPJ IVP PRN ×2 (18:27→22:46)
[2017-04-28] MEDS ORDERED: ACETAZOLAMIDE 250 MG PO SCH (19:45)
[2017-04-28] MEDS ORDERED: METFORMIN 500 MG TABLET PO SCH (22:00)
[2017-04-28] MEDS: CLONAZEPAM 1MG TABLET PO SCH (22:45)
[2017-04-28] MEDS: LEVETIRACETAM 500 MG TABLET PO SCH (22:45)
[2017-04-28] MEDS: TIZANIDINE HCL 4 MG TABLET PO SCH (22:45)
[2017-04-28] MEDS: NEBIVOLOL 5 MG PO SCH (22:46)
[2017-04-29] MEDS: HYDROMORPHONE HCL 1 MG/ML CPJ IVP PRN ×5 (02:44→21:12)
[2017-04-29] MEDS ORDERED: HEPARIN SODIUM 1000 UNIT/1 ML 10ML VIAL IVP ONE (04:57)
[2017-04-29] MEDS: HEPARIN SODIUM/D5W 25,000 UNITS/500 ML BAG IV SCH (06:56)
[2017-04-29] MEDS: METFORMIN 500 MG TABLET PO SCH ×2 (08:22→17:59)
[2017-04-29] MEDS: PHENELZINE 15 MG PO SCH ×2 (08:23→12:00)
[2017-04-29] MEDS: PROMETHAZINE HCL 25 MG TABLET PO SCH (09:50)
[2017-04-29] MEDS: LOSARTAN POTASSIUM 25 MG TABLET PO SCH (09:58)
[2017-04-29] MEDS: LEVETIRACETAM 500 MG TABLET PO SCH ×3 (09:58→21:35)
[2017-04-29] MEDS ORDERED: PHENELZINE SULFATE PO SCH (10:00)
[2017-04-29] MEDS: LINAGLIPTIN 5 MG PO SCH (10:09)
--- NOTE | 2017-04-29 10:10 | History & Physical ---
History of Present Illness - Date of Service Date of Service for History & Physical: 04/29/17 - History of Present Illness Admitting Diagnosis: 1. Acute Pulmonary Embolism. History of Present Illness: 32yo female with CC of right side and chest pain. She has history of frequent migraines, T2DM, HTN, terry with cpap use, asthma and gastric sleeve surgery. Patient presented to ED with R rib pain for 5 hours since waking up. The pain is sharp and stabbing and is worse with any bending, twisting or lifting. She denies any injury, fall or trauma that precipitated the injury. The patient denies any SOB or NAHOMI or any L sided CP. She did just return from the [place] [facility] yesterday where she had her chronic pain medicines adjusted as well as had a PICC line placed and removed. While in the ED, Patient's oxygen saturation was 97% on room air. Her CXR had no changes from last one in December. WBC count was elevated at 16.6. CMP unremarkable. Rib and chest XR were negative for fracture, did show b/l atelectasis. DDimer was elevated at 2.31. CTA of chest revealed small right posterior lobe PE with subsegmental changes consistent with atelectasis vs infarct. Patient was started on dilaudid for her pain and heparin drip and admitted for PE. 04/29/17- Patient continues to report sharp pleuritic right sided chest pain. Says the diluadid is helping quite a bit. She denies any shortness of breath, cough or wheezing. Denies any left sided chest pain, fatigue, or confusion. She was recently inpatient at the [place] [facility] for titrating of her chronic meds used to treat her severe, frequent migraines. She states she was in a hospital bed for 8 days and had a PICC in place. States she was given heparin flushes but not sure if she was on any other anticoagulants. Denies pain or swelling where PICC line had been. pcp: laura Travel Screening - Travel/Exposure Within Last 30 Days Have you traveled within the last 30 days?: No - Travel/Exposure Within Last Year Have you traveled outside the [place] in the last year?: No - Additonal Travel Details Have you been exposed to anyone with a communicable illness?: No - Travel Symptoms Symptom Screening: None Review of Systems Constitutional: Denies: Chills, Fever Eyes: Denies: Eye discharge ENT: Denies: Congestion Respiratory: Denies: Cough, Dyspnea Cardiovascular: Reports: Chest pain. Denies: Arrhythmia Gastrointestinal: Denies: Abdominal pain, Nausea, Vomiting Genitourinary: Denies: Dysuria Musculoskeletal: Denies: Back pain Skin: Denies: Bruising Neurological: Denies: Abnormal gait Past Medical History - SOCIAL HISTORY Smoking Status: Never smoker Alcohol Use: None Drug Use: None - RESPIRATORY Hx Respiratory Disorders: Yes Hx Asthma: Yes Hx Sleep Apnea: Yes Hx of CPAP: Yes - CARDIOVASCULAR Hx Cardio Disorders: Yes Hx Hypertension: Yes ("pretty much went away since the gastric surgery") - NEURO Hx Neuro Disorders: Yes Hx Headaches: Yes (migraines) - GI Hx GI Disorders: Yes Comment:: gastric sleeve - Hx Genitourinary Disorders: Yes Hx Kidney Stones: Yes - ENDOCRINE Hx Endocrine Disorders: Yes Hx Diabetes: Yes (type II) Hx Thyroid Disease: No - MUSCULOSKELETAL Hx Musculoskeletal Disorders: No - PSYCH Hx Psych Problems: No - HEMATOLOGY/ONCOLOGY Hx Hematology/Oncology Disorders: No Family Medical History Any Significant Family History?: Yes Hx Cancer: Grandparents Hx Diabetes: Father, Grandparents Hx Heart Disease: Grandparents Hx HTN: Mother Hx Kidney Disease: Father *Kidney Comment: stones Hx Stroke: Grandparents H&P Meds/Allergies - Allergies Allergies: Allergies Allergy/AdvReac Type Severity Reaction Status Date / Time sumatriptan [From Imitrex] Allergy ANAPHYLAXIS Verified 04/28/17 11:03 sumatriptan succinate Allergy ANAPHYLAXIS Verified 04/28/17 11:03 [From Imitrex] chlorpromazine AdvReac HYPERSENSIT Verified 04/28/17 11:03 [From Thorazine] IVITY erythromycin base AdvReac VOMITING Verified 04/28/17 11:03 [Erythromycin Base] nortriptyline [From Pamelor] AdvReac TACHYCARDIA Verified 04/28/17 11:03 - Home Medications Home Medications Medication Instructions Recorded Confirmed Last Taken Medroxyprogesterone Acetate [Depo 150 mg IM ASDIR 04/27/14 04/28/17 03/23/17 Provera] Diphenhydramine HCl [Benadryl] 100 mg SQ Q12H PRN 07/23/14 04/28/17 1 Day Ago ~04/27/17 Acetazolamide 250 mg PO ASDIR 02/12/17 04/28/17 1 Day Ago ~04/27/17 Candesartan Cilexetil 8 mg PO ASDIR 02/12/17 04/28/17 1 Day Ago ~04/27/17 Haloperidol 2 mg PO ASDIR 02/12/17 04/28/17 1 Day Ago ~04/27/17 Ketorolac Tromethamine 60 mg IJ ASDIR 02/12/17 04/28/17 1 Day Ago ~04/27/17 Linagliptin [Tradjenta] 5 mg PO DAILY 02/12/17 04/28/17 1 Day Ago ~04/27/17 Benztropine Mesylate 2 mg PO ASDIR 03/12/17 04/28/17 1 Day Ago ~04/27/17 Lorazepam [Ativan] 2 mg PO ASDIR 03/12/17 04/28/17 1 Day Ago ~04/27/17 Phenelzine Sulfate [Nardil] 30 mg PO QAM 03/12/17 04/28/17 1 Day Ago ~04/27/17 Promethazine HCl [Phenergan] 25 mg PO DAILY 03/12/17 04/28/17 1 Day Ago ~04/27/17 Tizanidine HCl [Zanaflex] 8 mg PO QHS 03/12/17 04/28/17 1 Day Ago ~04/27/17 Candesartan Cilexetil [Atacand] 8 mg PO DAILY 04/28/17 04/28/17 1 Day Ago ~04/27/17 Clonazepam [Klonopin] 2 mg PO QHS 04/28/17 04/28/17 1 Day Ago ~04/27/17 Levetiracetam [Keppra] 1,000 mg PO TID 04/28/17 04/28/17 1 Day Ago ~04/27/17 Metformin HCl 500 mg PO BID 04/28/17 04/28/17 1 Day Ago ~04/27/17 Nebivolol HCl [Bystolic] 5 mg PO QHS 04/28/17 04/28/17 1 Day Ago ~04/27/17 Ondansetron HCl [Zofran] 8 mg PO TID PRN 04/28/17 04/28/17 Unknown Phenelzine Sulfate [Nardil] 45 mg PO [id number] 04/28/17 04/28/17 04/28/17 Previous Rx's Medication Instructions Recorded Apixaban [Eliquis] 5 mg PO BID #60 tablet 04/29/17 - Active Medications Active Medications: Current Medications Acetaminophen (Tylenol 500mg Tab) 500 mg PO Q6H PRN PRN Reason: PAIN/TEMP Clonazepam (Klonopin) 2 mg PO QHS [facility] Last Admin: 04/28/17 22:45 Dose: 2 mg Hydromorphone HCl (Dilaudid) 1 mg IVP Q4H PRN PRN Reason: Analgesia Last Admin: 04/29/17 06:45 Dose: 1 mg Heparin Sodium/Dextrose (Heparin Sodium/D5w) 25,000 units in 500 mls @ 26.345 mls/hr IV TITRATE ALEXIA; 12 UNITS/KG/HR PRN Reason: Protocol Last Admin: 04/29/17 06:56 Dose: 15.48 units/kg/hr, 33.984 mls/hr Levetiracetam (Keppra) 1,000 mg PO TID [facility] Last Admin: 04/29/17 09:58 Dose: 1,000 mg Lorazepam (Ativan) 2 mg PO ASDIR PRN PRN Reason: PANIC ATTACKS Losartan Potassium (Cozaar) 50 mg PO DAILY [facility] Last Admin: 04/29/17 09:58 Dose: 50 mg Metformin HCl (Glucophage Ir) 500 mg PO 0800,1700 [facility] Last Admin: 04/29/17 08:22 Dose: Not Given Ondansetron HCl (Zofran) 4 mg IVP Q4H PRN PRN Reason: NAUSEA Patient Own Med: Acetazolamide 250 Mg Tab 1 each PO ASDIR [facility] Patient Own Med: Benztropine 2 Mg Tablet 1 each PO ASDIR PRN PRN Reason: HEADACHE Patient Own Med: (Linagliptin 5 Mg) 1 each PO DAILY [facility] Patient Own Med: (Nebivolol 5 Mg Tab) 1 each PO QHS [facility] Last Admin: 04/28/17 22:46 Dose: Not Given Patient Own Med: (Phenelzine 15 Mg Tab) 2 each PO 0800,1200 [facility] Last Admin: 04/29/17 08:23 Dose: 2 each Promethazine HCl (Phenergan) 25 mg PO DAILY [facility] Last Admin: 04/29/17 09:50 Dose: 25 mg Tizanidine HCl (Tizanidine Hcl) 8 mg PO QHS [facility] Last Admin: 04/28/17 22:45 Dose: 8 mg Physical Exam - Vital Signs Vital Signs: Vital Signs - Last 24 Hrs Temp Pulse Resp BP BP Pulse Ox 04/29/17 09:00 90 16 04/29/17 06:00 90 102/57 04/29/17 01:32 78 90/56 04/28/17 22:05 82 16 110/66 97 04/28/17 21:00 85 18 04/28/17 18:05 97.7 F 99 H 16 116/66 96 04/28/17 17:01 20 04/28/17 16:05 97.7 F 73 16 116/79 98 - General General Appearance: Alert, Oriented x3, Cooperative, No acute distress Limitations: No limitations - Head Head exam: Atraumatic, Normocephalic, Normal inspection - Eye Eye exam: Normal appearance, PERRL - ENT Throat exam: Normal inspection. negative: Tonsillar erythema, Tonsillar exudate - Neck Neck exam: Normal inspection, Full ROM. negative: Tenderness - Respiratory Respiratory exam: Normal lung sounds bilaterally, Chest wall tenderness (The R rib pain is 100% reproducible with palpation the R anterior lower chest wall. There is no swelling or bruising evident.). negative: Respiratory distress - Cardiovascular Cardiovascular Exam: Regular rate, Normal rhythm, Normal heart sounds - GI/Abdominal GI/Abdominal exam: Soft, Normal bowel sounds. negative: Distended, Rebound, Rigid, Tenderness - Extremities Extremities exam: Normal inspection, Full ROM, Normal capillary refill. negative: Tenderness - Back Back exam: Reports: Normal inspection, Full ROM. Denies: Muscle spasm, Rash noted, Tenderness, Vertebral tenderness - Neurological Neurological exam: Alert, Normal gait, Oriented X3. negative: Abnormal gait, Altered, Motor sensory deficit - Psychiatric Psychiatric exam: negative: Anxious, Depressed Results - Labs Result Diagrams: 04/28/17 11:40 04/28/17 11:40 Labs Last 24 Hours: Laboratory Results - last 24 hr 04/28/17 04/29/17 21:45 04:00 APTT 36.00 37.90 - Imaging and Cardiology CT scan - chest Status: Report reviewed (CTA showed posterior right lower lobe PE with atelectasis vs infarction) VTE H&P Assessment - Risk for VTE Risk for VTE: Yes Risk Level: High Risk Assessment Date: 04/29/17 Risk Assessment Time: 14:24 VTE Orders Placed or Will Be Placed: Yes Plan - Inpatient Certification Inpatient Certification: Admit to inpatient care: Based on my medical assessment, after consideration of patient's risk factors (age, co-morbidities and patient presenting symptoms and acuity), I expect that this patient will remain in the hospital greater than or equal to two midnights and that the services needed warrant inpatient care because: Patient Risk Factors: [pulmonary embolism, age, intractable pain] Estimated length of stay: [48H] The patient may reasonably be expected to be discharged or transferred to a hospital within 96 hours after admission to [facility]. Services needed: [IV heparin, cardiac monitoring] Post hospital care (if known): [] I certify that my determination is in accordance with my understanding of Medicare requirements for reasonable and necessary inpatient services. 04/29/17 10:09 - Detailed Diagnosis and Plan (1) Pulmonary embolism Current Visit: Yes Status: Acute Qualifiers: Pulmonary embolism type: other Chronicity: acute Acute cor pulmonale presence: without acute cor pulmonale Qualified Code(s): I26.99 - Other pulmonary embolism without acute cor pulmonale Base Code: I26.99 - OTHER PULMONARY EMBOLISM WITHOUT ACUTE COR PULMONALE Comment: 04/29/17- CTA showing right lower lobe PE with subsegmental infarct likely causing her right sided chest pain. BP and oxygen stable and no evidence of RV strain on cardiac monitoring. Patient currently being titrated on heparin drip. -transition to eliquis treatment dose with 10mg po bid for 7 days then 5mg po bid. This PE is likely provoked event with recent PICC line in RUE. doppler unavailable to evaluate. -will continue diluadid 1mg IV q4H prn severe pain. Discussed transitioning to oral pain medication and that pain is likely 2/2 infarcted lung tissue. Encouraged incentive spirometry to avoid secondary infiltrate. -continue cardiac monitoring -vitals q8H -labs qam (2) Full code status Current Visit: Yes Status: Acute Base Code: Z78.9 - OTHER SPECIFIED HEALTH STATUS Comment: 04/29/17- patient is full code (3) DVT prophylaxis Current Visit: Yes Status: Acute Base Code: [id number] - Comment: 04/29/17- patient currently receiving treatment for VTE with anticoagulation
[2017-04-29] MEDS: ACETAMINOPHEN 500 MG TABLET PO PRN (17:57)
[2017-04-29] MEDS: APIXABAN 5MG TABLET PO SCH ×4 (17:57→23:22)
[2017-04-29] MEDS: TIZANIDINE HCL 4 MG TABLET PO SCH (21:35)
[2017-04-29] MEDS: CLONAZEPAM 1MG TABLET PO SCH (21:36)
[2017-04-29] MEDS: NEBIVOLOL 5 MG PO SCH (21:38)
[2017-04-29] MEDS ORDERED: APIXABAN 5MG TABLET PO SCH (22:00)
[2017-04-30] MEDS: HYDROMORPHONE HCL 1 MG/ML CPJ IVP PRN ×5 (01:54→22:09)
[2017-04-30] MEDS: ACETAMINOPHEN 500 MG TABLET PO PRN ×2 (05:46→14:34)
[2017-04-30] MEDS: APIXABAN 5MG TABLET PO SCH ×3 (05:46→21:49)
[2017-04-30 05:55] LABS: BASO % 0.7 % (0-6); EOS % 3.6 % (0-6); GRAN % 62.7 % (47-80); HEMATOCRIT 34.9 % (35.0-47.0); HEMOGLOBIN 11.3 gm/dl (11.6-16.0); LYMPH % 23.4 % (16-45); MEAN CELL VOLUME 90.2 fl (81-97); MEAN CORPUSCULAR HGB CONC 32.4 g/dl (32-36); MEAN PLATELET VOLUME 10.1 fl (7.4-10.4); MONO % 9.6 % (0-9); PLATELET COUNT 414 K/uL (130-400); RED BLOOD COUNT 3.87 M/uL (3.80-5.40); RED CELL DISTRIBUTION WIDTH 12.4 % (11.5-14.5); WHITE BLOOD COUNT W/O DIFF 10.8 K/uL (4.2-12.2)
[2017-04-30 06:04] LABS: ANION GAP 8.8 (7-16); BLOOD UREA NITROGEN 12 mg/dL (7-17); CARBON DIOXIDE 24.2 mmol/L (22-30); CREATININE 0.6 mg/dL (0.52-1.04); EST GLOMERULAR FILTRATION RATE > 60 ml/min; GLUCOSE,RANDOM 107 mg/dL (70-110); MEAN CORPUSCULAR HEMOGLOBIN 29.1 pg (27-33)
[2017-04-30] MEDS: METFORMIN 500 MG TABLET PO SCH ×2 (08:41→16:42)
[2017-04-30] MEDS: PHENELZINE 15 MG PO SCH ×2 (08:41→12:40)
[2017-04-30] MEDS: LEVETIRACETAM 500 MG TABLET PO SCH ×3 (09:27→22:09)
[2017-04-30] MEDS: PROMETHAZINE HCL 25 MG TABLET PO SCH (09:27)
[2017-04-30] MEDS: LOSARTAN POTASSIUM 25 MG TABLET PO SCH (09:28)
[2017-04-30] MEDS: LINAGLIPTIN 5 MG PO SCH (09:31)
--- NOTE | 2017-04-30 11:33 | Discharge Summary ---
Providers Discharge Summary Date: 05/01/17 Date of admission: 04/28/17 16:00 Expected Date of Discharge: 04/30/17 Attending physician: ZIGGY BENJAMIN Primary care physician: JESSICA HAMEED D.O. Physical Exam - Vital Signs Vital Signs: Vital Signs - Last 24 Hrs Temp Pulse Resp BP BP Pulse Ox 04/30/17 09:00 72 16 04/30/17 07:25 72 16 100/62 04/30/17 05:42 98.1 F 91 H 18 87/51 92 L 04/30/17 02:00 98.9 F 74 18 99/59 93 L 04/29/17 21:00 78 16 04/29/17 20:18 98.5 F 93 H 24 104/64 94 L 04/29/17 18:00 98.1 F 111 H 18 115/80 93 L 04/29/17 14:00 98.7 F 108 H 20 99/67 - General General Appearance: Alert, Oriented x3, Cooperative, No acute distress Limitations: No limitations - Head Head exam: Atraumatic, Normocephalic, Normal inspection - Eye Eye exam: Normal appearance, PERRL - ENT Throat exam: Normal inspection. negative: Tonsillar erythema, Tonsillar exudate - Neck Neck exam: Normal inspection, Full ROM. negative: Tenderness - Respiratory Respiratory exam: Normal lung sounds bilaterally, Chest wall tenderness (mild chest wall tendernesson the right lower side). negative: Accessory muscle use, Respiratory distress, Wheezes - Cardiovascular Cardiovascular Exam: Regular rate, Normal rhythm, Normal heart sounds - GI/Abdominal GI/Abdominal exam: Soft, Normal bowel sounds. negative: Distended, Rebound, Rigid, Tenderness - Extremities Extremities exam: Normal inspection, Full ROM, Normal capillary refill. negative: Tenderness - Back Back exam: Reports: Normal inspection, Full ROM. Denies: Muscle spasm, Rash noted, Tenderness, Vertebral tenderness - Neurological Neurological exam: Alert, Normal gait, Oriented X3. negative: Abnormal gait, Altered, Motor sensory deficit - Psychiatric Psychiatric exam: negative: Anxious, Depressed Hospitalization - Hospitalization Admission Diagnosis: 1. Acute Pulmonary Embolism. - Problem List/Discharge Diagnosis (1) Pulmonary embolism Current Visit: Yes Status: Acute Discharge Diagnosis: Pulmonary embolism type: other Chronicity: acute Acute cor pulmonale presence: without acute cor pulmonale Qualified Code(s): I26.99 - Other pulmonary embolism without acute cor pulmonale Base Code: I26.99 - OTHER PULMONARY EMBOLISM WITHOUT ACUTE COR PULMONALE Comment: 05/01/17- CTA showing right lower lobe PE with subsegmental infarct likely causing her right sided chest pain. BP and oxygen stable and no evidence of RV strain on cardiac monitoring. Patient currently on anticoagulation therapy with eliquis. -edwin plan to discharge home today. Patient has been in contact with her PCP and will schedule her follow up in the next 7-10 days. -continue eliquis 10mg po bid for 7 days then 5mg po bid. This PE is likely provoked requiring 3 months anticoagulation with recent PICC line in RUE. doppler unavailable to evaluate. -transition to oral pain medication. Encouraged incentive spirometry to avoid secondary infiltrate. hydrocodone 10/325mg po q6H prn severe pain #20 script for home. (2) Full code status Current Visit: Yes Status: Acute Base Code: Z78.9 - OTHER SPECIFIED HEALTH STATUS Comment: 05/01/17- patient is full code (3) DVT prophylaxis Current Visit: Yes Status: Acute Base Code: [id number] - Comment: 05/01/17- patient currently receiving treatment for VTE with anticoagulation - Hospitalization Course Disposition: Home, Self-Care Hospital Course: 32yo female with CC of right side and chest pain. She has history of frequent migraines, T2DM, HTN, terry with cpap use, asthma and gastric sleeve surgery. Patient presented to ED with R rib pain for 5 hours since waking up. The pain is sharp and stabbing and is worse with any bending, twisting or lifting. She denies any injury, fall or trauma that precipitated the injury. The patient denies any SOB or NAHOMI or any L sided CP. She did just return from the [facility] yesterday where she had her chronic pain medicines adjusted as well as had a PICC line placed and removed. While in the ED, Patient's oxygen saturation was 97% on room air. Her CXR had no changes from last one in December. WBC count was elevated at 16.6. CMP unremarkable. Rib and chest XR were negative for fracture, did show b/l atelectasis. DDimer was elevated at 2.31. CTA of chest revealed small right posterior lobe PE with subsegmental changes consistent with atelectasis vs infarct. Patient was started on dilaudid for her pain and heparin drip and admitted for PE. 04/29/17- Patient continues to report sharp pleuritic right sided chest pain. Says the diluadid is helping quite a bit. She denies any shortness of breath, cough or wheezing. Denies any left sided chest pain, fatigue, or confusion. She was recently inpatient at the [facility] for titrating of her chronic meds used to treat her severe, frequent migraines. She states she was in a hospital bed for 8 days and had a PICC in place. States she was given heparin flushes but not sure if she was on any other anticoagulants. Denies pain or swelling where PICC line had been. 04/30/17- patient states her right sided chest pain has improved today. she has been using her incentive spirometer and has been up ambulating. She denies feeling short of breath. no cough, fever, headache, light-headedness. 05/01/17- patient states her pain continues to improve. Says she has been using her incentive spirometer and getting up and walking and that has helped significantly. She says she is willing to do trial of oral pain medication. She denies nay shortness of breath, headache, light-headedness or dizziness and no chest heaviness. PCP: Mark Abnormal Labs: Abnormal Lab Results 04/29/17 04/29/17 04/30/17 Range/Units 11:00 17:00 05:45 Hgb 11.3 L (11.6-16.0) gm/dl Hct 34.9 L (35.0-47.0) % Plt Count 414 H (130-400) K/uL Monocytes % 9.6 H (0-9) % APTT 41.20 H (24.5-39.1) SECONDS POC Glucose 120 H (70-110) mg/dL Condition at Discharge: (2) Stable Discharge Medications - Discharge Medications Prescriptions: Apixaban [Eliquis] 5 mg PO BID #60 tablet Apixaban [Eliquis] 10 mg PO BID #24 tablet Hydrocodone/Acetaminophen [Hydrocodone/Acetaminophen 10mg/325mg] 1 tab PO Q6H PRN #20 tab PRN Reason: Pain - Severe (8-10) Home Medications: Ambulatory Orders Medroxyprogesterone Acetate [Depo Provera] 150 mg IM ASDIR 04/27/14 [Last Taken 03/23/17] Diphenhydramine HCl [Benadryl] 100 mg SQ Q12H PRN 07/23/14 [Last Taken 1 Day Ago ~04/27/17] Acetazolamide 250 mg PO ASDIR 02/12/17 [Last Taken 1 Day Ago ~04/27/17] Candesartan Cilexetil 8 mg PO ASDIR 02/12/17 [Last Taken 1 Day Ago ~04/27/17] Haloperidol 2 mg PO ASDIR 02/12/17 [Last Taken 1 Day Ago ~04/27/17] Ketorolac Tromethamine 60 mg IJ ASDIR 02/12/17 [Last Taken 1 Day Ago ~04/27/17] Linagliptin [Tradjenta] 5 mg PO DAILY 02/12/17 [Last Taken 1 Day Ago ~04/27/17] Benztropine Mesylate 2 mg PO ASDIR 03/12/17 [Last Taken 1 Day Ago ~04/27/17] Lorazepam [Ativan] 2 mg PO ASDIR 03/12/17 [Last Taken 1 Day Ago ~04/27/17] Phenelzine Sulfate [Nardil] 30 mg PO QAM 03/12/17 [Last Taken 1 Day Ago ~] Promethazine HCl [Phenergan] 25 mg PO DAILY 03/12/17 [Last Taken 1 Day Ago ~] Tizanidine HCl [Zanaflex] 8 mg PO QHS 03/12/17 [Last Taken 1 Day Ago ~04/27/17] Candesartan Cilexetil [Atacand] 8 mg PO DAILY 04/28/17 [Last Taken 1 Day Ago ~] Clonazepam [Klonopin] 2 mg PO QHS 04/28/17 [Last Taken 1 Day Ago ~04/27/17] Levetiracetam [Keppra] 1,000 mg PO TID 04/28/17 [Last Taken 1 Day Ago ~04/27/17] Metformin HCl 500 mg PO BID 04/28/17 [Last Taken 1 Day Ago ~04/27/17] Nebivolol HCl [Bystolic] 5 mg PO QHS 04/28/17 [Last Taken 1 Day Ago ~04/27/17] Ondansetron HCl [Zofran] 8 mg PO TID PRN 04/28/17 [Last Taken Unknown] Phenelzine Sulfate [Nardil] 45 mg PO [id number] 04/28/17 [Last Taken 04/28/17] Apixaban [Eliquis] 5 mg PO BID #60 tablet 04/29/17 [Last Taken Unknown] Apixaban [Eliquis] 10 mg PO BID #24 tablet 04/30/17 [Last Taken Unknown] Hydrocodone/Acetaminophen [Hydrocodone/Acetaminophen 10mg/325mg] 1 tab PO Q6H PRN #20 tab 04/30/17 [Last Taken Unknown] Discharge Plan - Discharge Instructions Activity at Discharge: Resume Usual Activities As Tolerated Diet at Discharge: Diabetic Diet Additional Instructions: Follow up with Dr. Hameed in 7-10 days. Please let us know if you have any difficulty scheduling Continue eliquis 10mg by mouth twice daily for 6 more days Then transition to eliquis 5mg by mouth twice daily Continue incentive spirometry at home Please call with questions or concerns Please return to ED for any new or worsening symptoms
[2017-04-30] MEDS: HYDROCODONE/APAP 10/325 TABLET PO PRN (12:36)
[2017-04-30 15:35] LABS: URINE APPEARANCE CLEAR; URINE BILIRUBIN NEGATIVE (NEGATIVE); URINE BLOOD NEGATIVE (NEGATIVE); URINE COLOR YELLOW; URINE GLUCOSE (UA) NEGATIVE (NEGATIVE); URINE KETONE NEGATIVE (NEGATIVE); URINE LEUKOCYTE ESTERASE NEGATIVE (NEGATIVE); URINE NITRITE NEGATIVE (NEGATIVE); URINE PROTEIN NEGATIVE (NEGATIVE)
--- NOTE | 2017-04-30 21:08 | Physician Progress Note ---
Subjective - Date Date of Physician Progress Note: 04/30/17 - Subjective Subjective Comment: 04/30/17- patient states her right sided chest pain has improved today. she has been using her incentive spirometer and has been up ambulating. She denies feeling short of breath. no cough, fever, headache, light-headedness. Objective - Vital Signs Vital Signs: Vital Signs - Last 24 Hrs Temp Pulse Resp BP BP Pulse Ox 04/30/17 20:00 97.5 F L 85 24 104/64 95 04/30/17 16:00 97.6 F 69 18 90/52 92 L 04/30/17 12:00 97.8 F 90 16 100/50 98 04/30/17 09:00 72 16 04/30/17 07:25 72 16 100/62 04/30/17 05:42 98.1 F 91 H 18 87/51 92 L 04/30/17 02:00 98.9 F 74 18 99/59 93 L - General General Appearance: Alert, Oriented x3, Cooperative, No acute distress Limitations: No limitations - Head Head exam: Atraumatic, Normocephalic, Normal inspection - Eye Eye exam: Normal appearance, PERRL - ENT Throat exam: Normal inspection. negative: Tonsillar erythema, Tonsillar exudate - Neck Neck exam: Normal inspection, Full ROM. negative: Tenderness - Respiratory Respiratory exam: Normal lung sounds bilaterally, Chest wall tenderness (The R rib pain is 100% reproducible with palpation the R anterior lower chest wall. There is no swelling or bruising evident.). negative: Respiratory distress - Cardiovascular Cardiovascular Exam: Regular rate, Normal rhythm, Normal heart sounds - GI/Abdominal GI/Abdominal exam: Soft, Normal bowel sounds. negative: Distended, Rebound, Rigid, Tenderness - Extremities Extremities exam: Normal inspection, Full ROM, Normal capillary refill. negative: Tenderness - Back Back exam: Reports: Normal inspection, Full ROM. Denies: Muscle spasm, Rash noted, Tenderness, Vertebral tenderness - Neurological Neurological exam: Alert, Normal gait, Oriented X3. negative: Abnormal gait, Altered, Motor sensory deficit - Psychiatric Psychiatric exam: negative: Anxious, Depressed Assessment and Plan - Assessment and Plan (1) Pulmonary embolism Current Visit: Yes Status: Acute Qualifiers: Pulmonary embolism type: other Chronicity: acute Acute cor pulmonale presence: without acute cor pulmonale Qualified Code(s): I26.99 - Other pulmonary embolism without acute cor pulmonale Base Code: I26.99 - OTHER PULMONARY EMBOLISM WITHOUT ACUTE COR PULMONALE Comment: 04/30/17- CTA showing right lower lobe PE with subsegmental infarct likely causing her right sided chest pain. BP and oxygen stable and no evidence of RV strain on cardiac monitoring. Patient currently on anticoagulation therapy with eliquis. -continue eliquis 10mg po bid for 7 days then 5mg po bid. This PE is likely provoked requiring just 3 months anticoagulation with recent PICC line in RUE. doppler unavailable to evaluate. -will continue diluadid 1mg IV q4H prn severe pain. Discussed transitioning to oral pain medication and that pain is likely 2/2 infarcted lung tissue. Encouraged incentive spirometry to avoid secondary infiltrate. she is agreeable to doing a trial of hydrocodone 10/325mg in place of the diluadid. -continue cardiac monitoring -vitals q8H -labs qam (2) Full code status Current Visit: Yes Status: Acute Base Code: Z78.9 - OTHER SPECIFIED HEALTH STATUS Comment: 04/30/17- patient is full code (3) DVT prophylaxis Current Visit: Yes Status: Acute Base Code: [id number] - Comment: 04/30/17- patient currently receiving treatment for VTE with anticoagulation Results - Labs Result Diagrams: 04/30/17 05:45 04/30/17 05:45 Labs Last 24 Hours: Laboratory Results - last 24 hr 04/30/17 04/30/17 04/30/17 05:45 05:45 15:20 WBC 10.8 RBC 3.87 Hgb 11.3 L Hct 34.9 L MCV 90.2 MCH 29.1 MCHC 32.4 RDW 12.4 Plt Count 414 H MPV 10.1 Gran % 62.7 Lymphocytes % 23.4 Monocytes % 9.6 H Eosinophils % 3.6 Basophils % 0.7 Sodium 139 Potassium 4.2 Chloride 106 Carbon Dioxide 24.2 Anion Gap 8.8 BUN 12 Creatinine 0.6 Estimated GFR > 60 Random Glucose 107 Calcium 9.2 Urine Color Yellow Urine Appearance Clear Urine pH 6.0 Ur Specific [place] 1.020 Urine Protein Negative Urine Glucose (UA) Negative Urine Ketones Negative Urine Blood Negative Urine Nitrite Negative Urine Bilirubin Negative Urine Urobilinogen 1.0 Ur Leukocyte Esterase Negative DVT/PE Assessment - Risk for VTE Risk for VTE: No Risk Level: High Risk Assessment Date: 04/29/17 Risk Assessment Time: 14:24 VTE Orders Placed or Will Be Placed: Yes - Active Medicaitons Current Medications: Current Medications Acetaminophen (Tylenol 500mg Tab) 500 mg PO Q6H PRN PRN Reason: PAIN/TEMP Acetaminophen (Tylenol 500mg Tab) 1,000 mg PO Q6H PRN PRN Reason: Pain - Moderate (5-7) Last Admin: 04/30/17 14:34 Dose: 1,000 mg Hydrocodone Bitart/Acetaminophen ([place] 10mg/325mg) 1 each PO Q6H PRN PRN Reason: SEVERE PAIN Last Admin: 04/30/17 12:36 Dose: 1 each Apixaban (Eliquis) 10 mg PO BID [facility] Stop: 05/06/17 18:00 Last Admin: 04/30/17 09:28 Dose: 10 mg Clonazepam (Klonopin) 2 mg PO QHS [facility] Last Admin: 04/29/17 21:36 Dose: 2 mg Hydromorphone HCl (Dilaudid) 1 mg IVP Q4H PRN PRN Reason: Pain - Severe (8-10) Last Admin: 04/30/17 15:50 Dose: 1 mg Levetiracetam (Keppra) 1,000 mg PO TID [facility] Last Admin: 04/30/17 16:43 Dose: 1,000 mg Lorazepam (Ativan) 2 mg PO ASDIR PRN PRN Reason: PANIC ATTACKS Losartan Potassium (Cozaar) 50 mg PO DAILY [facility] Last Admin: 04/30/17 09:28 Dose: 50 mg Metformin HCl (Glucophage Ir) 500 mg PO 0800,1700 [facility] Last Admin: 04/30/17 16:42 Dose: 500 mg Ondansetron HCl (Zofran) 4 mg IVP Q4H PRN PRN Reason: NAUSEA Patient Own Med: Acetazolamide 250 Mg Tab 1 each PO ASDIR [facility] Patient Own Med: Benztropine 2 Mg Tablet 1 each PO ASDIR PRN PRN Reason: HEADACHE Patient Own Med: (Linagliptin 5 Mg) 1 each PO DAILY [facility] Last Admin: 04/30/17 09:31 Dose: Not Given Patient Own Med: (Nebivolol 5 Mg Tab) 1 each PO QHS [facility] Last Admin: 04/29/17 21:38 Dose: 1 each Patient Own Med: (Phenelzine 15 Mg Tab) 2 each PO 0800,1200 [facility] Last Admin: 04/30/17 12:40 Dose: 2 each Promethazine HCl (Phenergan) 25 mg PO DAILY [facility] Last Admin: 04/30/17 09:27 Dose: 25 mg Tizanidine HCl (Tizanidine Hcl) 8 mg PO QHS [facility] Last Admin: 04/29/17 21:35 Dose: 8 mg AMI Plan - Labs Result Diagrams: 04/30/17 05:45 04/30/17 05:45
[2017-04-30] MEDS: TIZANIDINE HCL 4 MG TABLET PO SCH (22:08)
[2017-04-30] MEDS: CLONAZEPAM 1MG TABLET PO SCH (22:09)
[2017-04-30] MEDS: NEBIVOLOL 5 MG PO SCH (22:11)
[2017-05-01] MEDS: HYDROCODONE/APAP 10/325 TABLET PO PRN ×2 (03:16→10:02)
[2017-05-01] MEDS: APIXABAN 5MG TABLET PO SCH ×2 (06:29→10:17)
[2017-05-01] MEDS: HYDROMORPHONE HCL 1 MG/ML CPJ IVP PRN (06:30)
--- NOTE | 2017-05-01 07:26 | CT ANGIOGRAM REPORT ---
EXAM: CT ANGIOGRAM OF THE CHEST HISTORY: RIGHT LOWER CHEST/RIB PAIN. ELEVATED D-DIMER. TECHNIQUE: Routine CTA examination of the chest was performed utilizing a pulmonary embolus protocol with 80 ml of Omnipaque 350 utilized. Coronal and sagittal maximum intensity projection reformatted images are generated and reviewed. Comparison: Same day radiographic examination of the right ribs with PA chest. CT of the chest without contrast dated 01/10/17. FINDINGS: Opacification of the pulmonary arteries is satisfactory for interpretation. There is luminal filling defect within the posterior basal segmental artery of the right lower lobe. This artery is mildly distended. This is consistent with acute pulmonary embolus. Small emboli within a few subsegmental arteries in the posterior right lung base are also possible. Otherwise, there is no evidence of luminal filling defect in the outflow tract, main arteries, lobar arteries, or proximal segmental arteries. The heart is not enlarged. There is no evidence of right heart strain. The thoracic aorta is without aneurysmal dilatation nor evidence of dissection. The left vertebral artery arises from the aortic arch between the origins of the left common carotid artery and left subclavian artery. This is a normal variant. No mediastinal mass nor adenopathy. Lymphoid tissue in the right hilum is at the upper limits of normal. No left hilar adenopathy. Patchy opacities are noted dependently in each lung base consistent with atelectasis or infiltrate. Underlying ischemia within the posterior right lung base would be difficult to exclude. There is a tiny dependent right pleural effusion at the mid to lower hemithorax level. No left pleural effusion nor pericardial effusion. No pneumothorax. There is likely dependent atelectasis in the upper lungs. The adrenal glands are incompletely imaged though to the extent visualized are normal in size. No lytic or blastic bone lesion. IMPRESSION: 1. ACUTE PULMONARY EMBOLUS WITHIN THE POSTERIOR BASAL SEGMENTAL ARTERY OF THE RIGHT LOWER LOBE AND THERE ARE LIKELY SMALL EMBOLI WITHIN ADDITIONAL SUBSEGMENTAL ARTERIES OF THE POSTERIOR RIGHT LOWER LOBE. 2. PATCHY OPACITIES IN EACH LUNG BASE CONSISTENT WITH ATELECTASIS OR INFILTRATE. UNDERLYING ISCHEMIA WITHIN THE POSTERIOR RIGHT LUNG BASE IS ALSO POSSIBLE. 3. TINY DEPENDENT RIGHT PLEURAL EFFUSION. JOB NUMBER: [id number] [facility]
[2017-05-01] MEDS: LEVETIRACETAM 500 MG TABLET PO SCH (10:02)
[2017-05-01] MEDS: LOSARTAN POTASSIUM 25 MG TABLET PO SCH (10:03)
[2017-05-01] MEDS: PROMETHAZINE HCL 25 MG TABLET PO SCH (10:03)
[2017-05-01] MEDS: LINAGLIPTIN 5 MG PO SCH (10:04)
[2017-05-01] MEDS: PHENELZINE 15 MG PO SCH (10:05)
[2017-05-01] MEDS: METFORMIN 500 MG TABLET PO SCH (10:06)
== END 2017-05-01 10:39 | disposition home or self-care (01) | DRG 176 ==
LOC: ER 10:52 → MEDSURG 16:00
PROVIDERS: ADMIT Family Medicine; ATTEND Family Medicine
DX: I26.99 Other pulmonary embolism without acute cor pulmonale (principal); E11.9 Type 2 diabetes mellitus without complications; Z78.9 Other specified health status; Z79.84 Long term (current) use of oral hypoglycemic drugs
CPT/HCPCS: 36416; 71275; 80048; 81003; 82948; 85025; 85379; 85610; 85730; 93005; 93010; 94010; 96365; 96375; 99223; 99233; 99239; 99285; J1170; J1885; J7030; Q0170

== ENCOUNTER 2017-05-09 16:40 | Emergency (ER) | payer OTHER ==
--- NOTE | 2017-05-09 16:51 | Emergency Department Record ---
History of Present Illness - General Chief Complaint: Headache Migraine Stated Complaint: MIGRAINE Time Seen by Provider: 05/09/17 16:44 Source: Patient Mode of Arrival: Ambulatory Limitations: No limitations - History of Present Illness Initial Comments: 32 yo female presents with a headache. She has an extensive history of migraines. She is treated locally and at the [facility]. She recently had a stay at the [facility]. This was followed by a recent (April) admission for PE at [facility]. She is on Eliquis currently. No shortness of breath. No fevers. No new symptoms with the migraine that has not been present prior. This headache started Monday. It is the first migraine in 2 weeks since treatment at [facility]. She is in close contact with [facility]. She took her rescue medications without resolution today. Complaint: "Migraine" -: Days(s) (2) Onset Description: Gradual Location: Diffuse Severity: Severe Quality: Aching, Throbbing Consistency: Constant Improves With: Nothing Worsens With: Light Context: Occured at rest Associated Symptoms: Nausea Treatments Prior to Arrival: Migraine medication, Other - Related Data Home Medications Medication Instructions Recorded Confirmed Last Taken Medroxyprogesterone Acetate [Depo 150 mg IM ASDIR 04/27/14 05/09/17 03/23/17 Provera] Diphenhydramine HCl [Benadryl] 100 mg SQ Q12H PRN 07/23/14 05/09/17 1 Day Ago ~04/27/17 Acetazolamide 250 mg PO ASDIR 02/12/17 05/09/17 1 Day Ago ~04/27/17 Candesartan Cilexetil 8 mg PO ASDIR 02/12/17 05/09/17 1 Day Ago ~04/27/17 Haloperidol 2 mg PO ASDIR 02/12/17 05/09/17 1 Day Ago ~04/27/17 Ketorolac Tromethamine 60 mg IJ ASDIR 02/12/17 05/09/17 1 Day Ago ~04/27/17 Linagliptin [Tradjenta] 5 mg PO DAILY 02/12/17 05/09/17 1 Day Ago ~04/27/17 Benztropine Mesylate 2 mg PO ASDIR 03/12/17 05/09/17 1 Day Ago ~04/27/17 Lorazepam [Ativan] 2 mg PO ASDIR 03/12/17 05/09/17 1 Day Ago ~04/27/17 Phenelzine Sulfate [Nardil] 30 mg PO QAM 03/12/17 05/09/17 1 Day Ago ~04/27/17 Promethazine HCl [Phenergan] 25 mg PO DAILY 03/12/17 05/09/17 1 Day Ago ~04/27/17 Tizanidine HCl [Zanaflex] 8 mg PO QHS 03/12/17 05/09/17 1 Day Ago ~04/27/17 Candesartan Cilexetil [Atacand] 8 mg PO DAILY 04/28/17 05/09/17 1 Day Ago ~04/27/17 Clonazepam [Klonopin] 2 mg PO QHS 04/28/17 05/09/17 1 Day Ago ~04/27/17 Levetiracetam [Keppra] 1,000 mg PO TID 04/28/17 05/09/17 1 Day Ago ~04/27/17 Metformin HCl 500 mg PO BID 04/28/17 05/09/17 1 Day Ago ~04/27/17 Nebivolol HCl [Bystolic] 5 mg PO QHS 04/28/17 05/09/17 1 Day Ago ~04/27/17 Ondansetron HCl [Zofran] 8 mg PO TID PRN 04/28/17 05/09/17 Unknown Phenelzine Sulfate [Nardil] 45 mg PO [id number] 04/28/17 05/09/17 04/28/17 Previous Rx's Medication Instructions Recorded Apixaban [Eliquis] 5 mg PO BID #60 tablet 04/29/17 Hydrocodone/Acetaminophen 1 tab PO Q6H PRN #20 tab 04/30/17 [Hydrocodone/Acetaminophen 10mg/325mg] Allergies Allergy/AdvReac Type Severity Reaction Status Date / Time sumatriptan [From Imitrex] Allergy ANAPHYLAXIS Verified 04/28/17 11:03 sumatriptan succinate Allergy ANAPHYLAXIS Verified 04/28/17 11:03 [From Imitrex] chlorpromazine AdvReac HYPERSENSIT Verified 04/28/17 11:03 [From Thorazine] IVITY erythromycin base AdvReac VOMITING Verified 04/28/17 11:03 [Erythromycin Base] nortriptyline [From Pamelor] AdvReac TACHYCARDIA Verified 04/28/17 11:03 Review of Systems Constitutional: Denies: Chills, Fever, Malaise, Weakness Eyes: Reports: Photophobia. Denies: Eye discharge, Eye pain, Vision change ENT: Denies: Congestion, Throat pain Respiratory: Denies: Cough Cardiovascular: Reports: Chest pain (pleuritic pain since her PE, slowly improving). Denies: Syncope Endocrine: Denies: Fatigue Gastrointestinal: Reports: Nausea, Vomiting. Denies: Abdominal pain, Diarrhea Genitourinary: Denies: Dysuria Musculoskeletal: Denies: Arthralgia, Back pain, Neck pain Skin: Denies: Bruising, Change in color, Rash Neurological: Denies: Confusion, Headache Psychiatric: Denies: Anxiety Hematological/Lymphatic: Denies: Blood Clots, Easy bleeding, Easy bruising, Swollen glands Past Medical History - SOCIAL HISTORY Smoking Status: Never smoker Drug Use: None - RESPIRATORY Hx Respiratory Disorders: Yes Hx Asthma: Yes Hx Sleep Apnea: Yes Hx of CPAP: Yes - CARDIOVASCULAR Hx Cardio Disorders: Yes Hx Hypertension: Yes ("pretty much went away since the gastric surgery") - NEURO Hx Neuro Disorders: Yes Hx Headaches: Yes (migraines) - GI Hx GI Disorders: Yes Comment:: gastric sleeve - Hx Genitourinary Disorders: Yes Hx Kidney Stones: Yes - ENDOCRINE Hx Endocrine Disorders: Yes Hx Diabetes: Yes (type II) Hx Thyroid Disease: No - MUSCULOSKELETAL Hx Musculoskeletal Disorders: No - PSYCH Hx Psych Problems: No - HEMATOLOGY/ONCOLOGY Hx Hematology/Oncology Disorders: No Family Medical History Hx Cancer: Grandparents Hx Diabetes: Father, Grandparents Hx Heart Disease: Grandparents Hx HTN: Mother Hx Kidney Disease: Father *Kidney Comment: stones Hx Stroke: Grandparents Physical Exam - General General Appearance: Alert, Oriented x3, Cooperative, No acute distress Limitations: No limitations - Head Head exam: Atraumatic, Normocephalic, Normal inspection - Eye Eye exam: Normal appearance, PERRL, EOMI. negative: Conjunctival injection, Periorbital swelling, Scleral icterus - ENT ENT exam: Normal exam, Mucous membranes moist Ear exam: Normal external inspection Nasal Exam: Normal inspection Mouth exam: Normal external inspection - Neck Neck exam: Normal inspection, Full ROM - Respiratory Respiratory exam: Normal lung sounds bilaterally. negative: Respiratory distress - Cardiovascular Cardiovascular Exam: Regular rate, Normal rhythm, Normal heart sounds - Rectal Rectal exam: Deferred - exam: Deferred - Extremities Extremities exam: Normal inspection - Neurological Neurological exam: Alert, Normal gait, Oriented X3. negative: Altered, Motor sensory deficit - Psychiatric Psychiatric exam: Normal affect, Normal mood - Skin Skin exam: Dry, Intact, Normal color, Warm. negative: Diaphoretic, Erythema, Mottled Course - Reevaluation(s) Reevaluation #1: Dr Calderon's chart from 04/10 was reviewed. He spoke with Dr Cheung regarding a treatment plan for the patient's very frequent migraines. He suggested Nubain limited to twice per month. Ativan, Benadryl, and Haldol treatment in the ED is an option. The patient was informed. She took the latter combination at home without relief. I reviewed the recommendation of her doctor with the patient including limiting the Nubain to twice a month. She expressed agreement with the plan. 05/09/17 17:06 Reevaluation #2: The patient is doing much better and ready for DC She will call her [facility] coordinator to report her ED visit 05/09/17 17:34 Disposition Disposition: Discharge Clinical Impression: Migraine Qualifiers: Migraine type: unspecified Status migrainosus presence: without status migrainosus Intractability: not intractable Qualified Code(s): G43.909 - Migraine, unspecified, not intractable, without status migrainosus Disposition: Home, Self-Care Condition: (1) Good Instructions: Migraine Headache (ED) Additional Instructions: Call your doctor and migraine specialist today to report your care in the ED Forms: Patient Portal Access Time of Disposition: 17:35 Quality - Quality Measures Quality Measures: N/A - Blood Pressure Screening View Details: Yes Blood Pressure Classification: Pre-Hypertensive BP Reading Systolic Measurement: 120 Diastolic Measurement: 73 Screening for High Blood Pressure: < Pre-Hypertensive BP, F/U Documented > [ G8950] Pre-Hypertensive Follow-up Interventions: Referral to alternative/primary care provider.
[2017-05-09] MEDS ORDERED: NALBUPHINE HCL 20 MG/ML AMPULE IM ONE (17:02)
[2017-05-09] MEDS ORDERED: PROMETHAZINE HCL 25 MG/ML VIAL IM ONE (17:02)
== END 2017-05-09 17:48 | disposition home or self-care (01) ==
LOC: ER 16:40
DX: G43.909 Migraine, unspecified, not intractable, without status migrainosus (principal)
CPT/HCPCS: 96372; 99283; J2550

== ENCOUNTER 2017-06-02 16:51 | Emergency (ER) | payer OTHER ==
[2017-06-02] MEDS ORDERED: PROMETHAZINE HCL 25 MG/ML VIAL IM ONE (16:58)
[2017-06-02] MEDS ORDERED: NALBUPHINE HCL 20 MG/ML AMPULE IM ONE (16:58)
--- NOTE | 2017-06-02 17:04 | Emergency Department Record ---
History of Present Illness - General Chief Complaint: Headache Migraine Stated Complaint: LANGLEY Time Seen by Provider: 06/02/17 16:57 Source: Patient Mode of Arrival: Ambulatory Limitations: No limitations - History of Present Illness Initial Comments: 32 yo female presents with headache that is consistent with her migraine syndrome for the last 4 days. She has mostly frontal pain with some nausea and light sensitivity. 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 She had a few medication changes by phone this week due to feeling light headed. No additions of any medications. She took her usual abortive medications. NO fevers. No chest pain or shortness of breath. She does have an guideline to minimize narcotics to twice monthly in the ED if possible. MD Complaint: "Migraine" Onset/Timin -: Days(s) Onset Description: Gradual Location: Diffuse Severity: Moderate Quality: Aching, Full Consistency: Constant Worsens With: Light, Noise Associated Symptoms: Nausea Treatments Prior to Arrival: Migraine medication - Related Data Previous Rx's Medication Instructions Recorded Apixaban [Eliquis] 5 mg PO BID #60 tablet 04/29/17 Allergies Allergy/AdvReac Type Severity Reaction Status Date / Time sumatriptan [From Imitrex] Allergy ANAPHYLAXIS Verified 06/02/17 16:58 sumatriptan succinate Allergy ANAPHYLAXIS Verified 06/02/17 16:58 [From Imitrex] chlorpromazine AdvReac HYPERSENSIT Verified 06/02/17 16:58 [From Thorazine] IVITY erythromycin base AdvReac VOMITING Verified 06/02/17 16:58 [Erythromycin Base] nortriptyline [From Pamelor] AdvReac TACHYCARDIA Verified 06/02/17 16:58 Travel Screening - Travel/Exposure Within Last 30 Days Have you traveled within the last 30 days?: No - Travel/Exposure Within Last Year Have you traveled outside the [place] in the last year?: No - Additonal Travel Details Have you been exposed to anyone with a communicable illness?: No - Travel Symptoms Symptom Screening: None Review of Systems Constitutional: Denies: Chills, Fever, Malaise, Night sweats, Weakness Eyes: Reports: Photophobia. Denies: Eye discharge, Eye pain, Vision change ENT: Denies: Congestion, Ear pain, Epistaxis, Throat pain Respiratory: Denies: Cough, Dyspnea, Hemoptysis Cardiovascular: Denies: Chest pain, Palpitations, Syncope Endocrine: Reports: Fatigue Gastrointestinal: Reports: Nausea. Denies: Abdominal pain, Diarrhea Genitourinary: Denies: Dysuria, Frequency, Incontinence, Urgency Musculoskeletal: Denies: Arthralgia, Myalgia, Neck pain Skin: Denies: Bruising, Change in color, Rash Neurological: Reports: Headache. Denies: Abnormal gait, Confusion, Numbness, Paresthesias, Tingling, Tremors, Vertigo, Weakness Psychiatric: Denies: Anxiety Hematological/Lymphatic: Denies: Blood Clots, Easy bleeding, Easy bruising, Swollen glands Past Medical History - SOCIAL HISTORY Smoking Status: Never smoker Alcohol Use: None Drug Use: None - RESPIRATORY Hx Respiratory Disorders: Yes Hx Asthma: Yes Hx Pulmonary Embolism: Yes (05/18) Hx Sleep Apnea: Yes Hx of CPAP: Yes - CARDIOVASCULAR Hx Cardio Disorders: Yes Hx Hypertension: Yes ("pretty much went away since the gastric surgery") - NEURO Hx Neuro Disorders: Yes Hx Headaches: Yes (migraines) - GI Hx GI Disorders: Yes Comment:: gastric sleeve - Hx Genitourinary Disorders: Yes Hx Kidney Stones: Yes - ENDOCRINE Hx Endocrine Disorders: Yes Hx Diabetes: Yes (type II) Hx Thyroid Disease: No - MUSCULOSKELETAL Hx Musculoskeletal Disorders: No - PSYCH Hx Psych Problems: No - HEMATOLOGY/ONCOLOGY Hx Hematology/Oncology Disorders: No Family Medical History Any Significant Family History?: Yes Hx Cancer: Grandparents Hx Diabetes: Father, Grandparents Hx Heart Disease: Grandparents Hx HTN: Mother Hx Kidney Disease: Father *Kidney Comment: stones Hx Stroke: Grandparents Physical Exam - General General Appearance: Alert, Oriented x3, Cooperative, No acute distress Limitations: No limitations - Head Head exam: Normal inspection - Eye Eye exam: Normal appearance, PERRL, EOMI. negative: Conjunctival injection, Periorbital swelling, Scleral icterus - ENT ENT exam: Normal exam, Mucous membranes moist Ear exam: Normal external inspection Nasal Exam: Normal inspection Mouth exam: Normal external inspection - Neck Neck exam: Normal inspection, Full ROM. negative: Lymphadenopathy, Tenderness - Respiratory Respiratory exam: Normal lung sounds bilaterally. negative: Respiratory distress - Cardiovascular Cardiovascular Exam: Regular rate, Normal rhythm, Normal heart sounds - GI/Abdominal GI/Abdominal exam: Soft. negative: Tenderness - Rectal Rectal exam: Deferred - exam: Deferred - Extremities Extremities exam: Normal inspection, Full ROM, Normal capillary refill. negative: Tenderness - Back Back exam: Reports: Normal inspection, Full ROM. Denies: Muscle spasm, Rash noted, Tenderness - Neurological Neurological exam: Alert, CN II-XII intact, Normal gait, Oriented X3. negative : Abnormal gait, Altered, Motor sensory deficit - Psychiatric Psychiatric exam: Normal affect, Normal mood. negative: Agitated, Anxious - Skin Skin exam: Dry, Intact, Normal color, Warm Course Vital Signs 06/02/17 16:53 Temperature 98.0 F Pulse Rate 78 Respiratory 18 Rate Blood Pressure 135/94 Pulse Ox 98 - Reevaluation(s) Reevaluation #1: 06/02/17 17:03 EMR reviewed Last ED visit was 05/09/17 Disposition Disposition: Discharge Clinical Impression: Migraine Qualifiers: Migraine type: unspecified Status migrainosus presence: without status migrainosus Intractability: not intractable Qualified Code(s): G43.909 - Migraine, unspecified, not intractable, without status migrainosus Disposition: Home, Self-Care Condition: (1) Good Instructions: Migraine Headache (ED) Additional Instructions: Call [facility] for an update and close follow up Call your local doctor for close follow up this week Forms: Patient Portal Access Time of Disposition: 17:43 Quality - Quality Measures Quality Measures: N/A - Blood Pressure Screening Does Patient Have Any of the Following: No Blood Pressure Classification: Hypertensive Reading Systolic Measurement: 135 Diastolic Measurement: 94 Screening for High Blood Pressure: < Pre-Hypertensive BP, F/U Documented > [ G8950] Pre-Hypertensive Follow-up Interventions: Referral to alternative/primary care provider.
== END 2017-06-02 17:49 | disposition home or self-care (01) ==
LOC: ER 16:51
DX: G43.909 Migraine, unspecified, not intractable, without status migrainosus (principal); R11.0 Nausea
CPT/HCPCS: 99283 ×2; 96372; J2300; J2550

== ENCOUNTER 2017-06-06 16:55 | Emergency (ER) | payer BC, OTHER ==
[2017-06-06] MEDS ORDERED: ONDANSETRON HCL IV 4 MG/2 ML VIAL IV ONE (18:33)
[2017-06-06] MEDS ORDERED: 0.9 % SODIUM CHLORIDE 1,000 ML BAG IV ONE (18:33)
--- NOTE | 2017-06-06 18:47 | Emergency Department Record ---
History of Present Illness - General Chief Complaint: Headache Migraine Stated Complaint: LANGLEY AND LOWER BACK PAIN Time Seen by Provider: 06/06/17 18:25 Source: Patient Mode of Arrival: Ambulatory Limitations: No limitations - History of Present Illness Initial Comments: pt c/o migraine and r flank pain w blood in urine and difficulty urinating. pain feels like previous kidney stones Complaint: "Migraine" Onset/Timin -: Days(s) Onset Description: Gradual Location: Diffuse Severity: Moderate Severity scale (1-10): 9 Quality: Aching, Similar to previous headaches Consistency: Constant Improves With: Nothing Worsens With: None Associated Symptoms: Nausea, Other Treatments Prior to Arrival: Other Treatment Prior to Arrival Comment:: toradol, benadryl, nardil, keppra. - Related Data Previous Rx's Medication Instructions Recorded Apixaban [Eliquis] 5 mg PO BID #60 tablet 04/29/17 Allergies Allergy/AdvReac Type Severity Reaction Status Date / Time sumatriptan [From Imitrex] Allergy ANAPHYLAXIS Verified 06/02/17 16:58 sumatriptan succinate Allergy ANAPHYLAXIS Verified 06/02/17 16:58 [From Imitrex] chlorpromazine AdvReac HYPERSENSIT Verified 06/02/17 16:58 [From Thorazine] IVITY erythromycin base AdvReac VOMITING Verified 06/02/17 16:58 [Erythromycin Base] nortriptyline [From Pamelor] AdvReac TACHYCARDIA Verified 06/02/17 16:58 Travel Screening - Travel/Exposure Within Last 30 Days Have you traveled within the last 30 days?: No Review of Systems Reviewed: No additional complaints except as noted below Constitutional: Reports: As per HPI. Denies: Chills, Fever, Malaise, Night sweats, Weakness, Weight change Eyes: Reports: As per HPI. Denies: Eye discharge, Eye pain, Photophobia, Vision change ENT: Reports: As per HPI. Denies: Congestion, Dental pain, Ear pain, Epistaxis , Hearing loss, Throat pain Respiratory: Reports: As per HPI. Denies: Cough, Dyspnea, Hemoptysis, Stridor, Wheezes Cardiovascular: Reports: As per HPI. Denies: Arrhythmia, Chest pain, Dyspnea on exertion, Edema, Murmurs, Orthopnea, Palpitations, Paroxysmal nocturnal dyspnea, Rheumatic Fever, Syncope Endocrine: Reports: As per HPI. Denies: Fatigue, Heat or cold intolerance, Polydipsia, Polyuria Gastrointestinal: Reports: As per HPI. Denies: Abdominal pain, Constipation, Diarrhea, Hematemesis, Hematochezia, Melena, Nausea, Vomiting Genitourinary: Reports: As per HPI. Denies: Abnormal menses, Discharge, Dyspareunia, Dysuria, Frequency, Hematuria, Incontinence, Retention, Urgency Musculoskeletal: Reports: As per HPI. Denies: Arthralgia, Back pain, Gout, Joint swelling, Myalgia, Neck pain Skin: Reports: As per HPI. Denies: Bruising, Change in color, Change in hair/ nails, Lesions, Pruritus, Rash Neurological: Reports: As per HPI. Denies: Abnormal gait, Confusion, Headache, Numbness, Paresthesias, Seizure, Tingling, Tremors, Vertigo, Weakness Psychiatric: Reports: As per HPI. Denies: Anxiety, Auditory hallucinations, Depression, Homicidal thoughts, Suicidal thoughts, Visual hallucinations Hematological/Lymphatic: Reports: As per HPI. Denies: Anemia, Blood Clots, Easy bleeding, Easy bruising, Swollen glands Past Medical History - SOCIAL HISTORY Smoking Status: Never smoker Alcohol Use: None Drug Use: None - RESPIRATORY Hx Respiratory Disorders: Yes Hx Asthma: Yes Hx Pulmonary Embolism: Yes (05/18) Hx Sleep Apnea: Yes Hx of CPAP: Yes - CARDIOVASCULAR Hx Cardio Disorders: Yes Hx Hypertension: Yes ("pretty much went away since the gastric surgery") - NEURO Hx Neuro Disorders: Yes Hx Headaches: Yes (migraines) - GI Hx GI Disorders: Yes Comment:: gastric sleeve - Hx Genitourinary Disorders: Yes Hx Kidney Stones: Yes - ENDOCRINE Hx Endocrine Disorders: Yes Hx Diabetes: Yes (type II) Hx Thyroid Disease: No - MUSCULOSKELETAL Hx Musculoskeletal Disorders: No - PSYCH Hx Psych Problems: No - HEMATOLOGY/ONCOLOGY Hx Hematology/Oncology Disorders: No Family Medical History Any Significant Family History?: Yes Hx Cancer: Grandparents Hx Diabetes: Father, Grandparents Hx Heart Disease: Grandparents Hx HTN: Mother Hx Kidney Disease: Father *Kidney Comment: stones Hx Stroke: Grandparents Physical Exam - General General Appearance: Alert, Oriented x3, Cooperative, Mild distress - Head Head exam: Normal inspection - Eye Eye exam: Normal appearance, PERRL, EOMI Pupils: Normal accommodation - ENT ENT exam: Normal exam, Mucous membranes moist, Normal external ear exam, Normal orophraynx Ear exam: Normal external inspection. negative: External canal tenderness Nasal Exam: Normal inspection. negative: Discharge, Sinus tenderness Mouth exam: Normal external inspection, Tongue normal Teeth exam: Normal inspection. negative: Dental caries Throat exam: Normal inspection. negative: Tonsillar erythema, Tonsillar exudate - Neck Neck exam: Normal inspection, Full ROM. negative: Tenderness - Respiratory Respiratory exam: Normal lung sounds bilaterally. negative: Respiratory distress - Cardiovascular Cardiovascular Exam: Regular rate, Normal rhythm, Normal heart sounds - GI/Abdominal GI/Abdominal exam: Soft, Normal bowel sounds, Tenderness - Rectal Rectal exam: Deferred - exam: Deferred - Extremities Extremities exam: Normal inspection, Full ROM, Normal capillary refill. negative: Tenderness - Back Back exam: Reports: Normal inspection, Full ROM. Denies: Muscle spasm, Rash noted, Tenderness - Neurological Neurological exam: Alert, CN II-XII intact, Normal gait, Oriented X3 - Psychiatric Psychiatric exam: Normal affect, Normal mood - Skin Skin exam: Dry, Intact, Normal color, Warm Course Vital Signs 06/06/17 18:13 Temperature 98.1 F Pulse Rate 93 H Respiratory 16 Rate Blood Pressure 118/85 Pulse Ox 98 Medical Decision Making - Lab Data Result diagrams: 06/06/17 19:10 06/06/17 19:10 Disposition Disposition: Discharge Clinical Impression: Flank pain, acute Migraine Qualifiers: Migraine type: unspecified Status migrainosus presence: without status migrainosus Intractability: not intractable Qualified Code(s): G43.909 - Migraine, unspecified, not intractable, without status migrainosus Disposition: Home, Self-Care Condition: (1) Good Instructions: Migraine Headache (ED), Flank Pain (ED) Additional Instructions: follow up with family doctor. return sooner if worse. push fluids Forms: Patient Portal Access Quality - Quality Measures Quality Measures: Headache - Headache: Neuroimaging Quality Measure: Measure #419: Overuse of Neuroimaging Neurological Exam: Patient had a normal neurological exam. [G9535] Headache: Use of Neuroimaging: < CTA, CT, MRA or MRI was NOT ordered > [G9534] - Blood Pressure Screening Does Patient Have Any of the Following: No Blood Pressure Classification: Pre-Hypertensive BP Reading Systolic Measurement: 118 Diastolic Measurement: 85 Screening for High Blood Pressure: < Pre-Hypertensive BP, F/U Documented > [ G8950] Pre-Hypertensive Follow-up Interventions: Follow-up with rescreen every year.
[2017-06-06 19:20] LABS: BASO % 0.2 % (0-6); HEMATOCRIT 40.5 % (35.0-47.0); HEMOGLOBIN 13.4 gm/dl (11.6-16.0); LYMPH % 25.3 % (16-45); MEAN CELL VOLUME 85.4 fl (81-97); MEAN CORPUSCULAR HEMOGLOBIN 28.3 pg (27-33); MEAN CORPUSCULAR HGB CONC 33.1 g/dl (32-36); MEAN PLATELET VOLUME 9.6 fl (7.4-10.4); MONO % 7.5 % (0-9); PLATELET COUNT 503 K/uL (130-400); RED BLOOD COUNT 4.74 M/uL (3.80-5.40); RED CELL DISTRIBUTION WIDTH 12.9 % (11.5-14.5); WHITE BLOOD COUNT W/O DIFF 16.5 K/uL (4.2-12.2)
[2017-06-06 19:31] LABS: ALB/GLOB RATIO 1.4 (1.1-1.8); ALBUMIN 4.5 gm/dL (3.5-5.0); ALKALINE PHOSPHATASE 114 U/L (38-126); ALT/SGPT 29 U/L (9-52); ANION GAP 11.5 (7-16); AST/SGOT 24 U/L (14-36); BILIRUBIN,TOTAL 0.65 mg/dL (0.2-1.3); BLOOD UREA NITROGEN 18 mg/dL (7-17); CARBON DIOXIDE 22.5 mmol/L (22-30); CREATININE 0.7 mg/dL (0.52-1.04); EST GLOMERULAR FILTRATION RATE > 60 ml/min; GLUCOSE,RANDOM 86 mg/dL (70-110); LIPASE 52 U/L (23-300); TOTAL PROTEIN 7.8 gm/dL (6.3-8.2)
[2017-06-06 19:48] LABS: URINE APPEARANCE CLEAR; URINE BILIRUBIN MODERATE (NEGATIVE); URINE COLOR YELLOW; URINE GLUCOSE (UA) NEGATIVE (NEGATIVE); URINE KETONE NEGATIVE (NEGATIVE); URINE LEUKOCYTE ESTERASE NEGATIVE (NEGATIVE); URINE NITRITE NEGATIVE (NEGATIVE); URINE PROTEIN TRACE (NEGATIVE)
[2017-06-06 19:49] LABS: URINE BLOOD NEGATIVE (NEGATIVE)
[2017-06-06 19:50] LABS: HCG,QUALITATIVE URINE NEGATIVE (NEGATIVE)
[2017-06-06] MEDS ORDERED: NALBUPHINE HCL 20 MG/ML AMPULE IM ONE (20:17)
--- NOTE | 2017-06-07 10:40 | CT SCAN REPORT ---
EXAM: ABDOMEN AND PELVIS CT WITHOUT IV CONTRAST HISTORY: LOW BACK PAIN EXTENDING INTO THE PERINEAL REGION, ACUTE. TECHNIQUE: Contiguous axial images from the lung bases to the symphysis pubis were obtained without IV contrast. Comparison: Abdomen and pelvis CT 12/24/16. FINDINGS: The lung bases are clear. The liver, spleen, kidneys, adrenals, and pancreas are unremarkable. The gallbladder is present. Status post gastric sleeve procedure. The visualized loops of small and large bowel are of normal caliber. Normal appendix. Moderate fecal material throughout the colon. No bowel wall thickening. The abdominal aorta is of normal caliber with no aneurysm. The uterus is present. No pelvic mass. The urinary bladder is unremarkable. No free intraperitoneal fluid or adenopathy. Dystrophic calcification in the subcutaneous fat of the right buttock. The visualized peroneal fat is symmetric without fat infiltration. No lytic or blastic osseous lesions. The vertebral body stature is preserved. IMPRESSION: 1. NO ACUTE PROCESS OF THE ABDOMEN OR PELVIS. 2. STATUS POST GASTRIC SLEEVE PROCEDURE. 3. NORMAL APPENDIX. JOB NUMBER: [id number] [facility]
== END 2017-06-06 20:57 | disposition home or self-care (01) ==
LOC: ER 16:55
DX: G43.909 Migraine, unspecified, not intractable, without status migrainosus (principal); M54.5 Low back pain; R31.0 Gross hematuria; R11.0 Nausea
CPT/HCPCS: 99284 ×2; 96374; 96372; 83690; 85025; 80053; 81003; 81025; 74176; J2405; J2300; J7030

== ENCOUNTER 2017-07-02 15:52 | Emergency (ER) | payer BC ==
--- NOTE | 2017-07-02 16:54 | Emergency Department Record ---
History of Present Illness - General Chief Complaint: Headache Migraine Stated Complaint: HEADACHE Time Seen by Provider: 07/02/17 16:54 Source: Patient Mode of Arrival: Ambulatory Limitations: No limitations - History of Present Illness Initial Comments: 32 yo female presents with a migraine for about one week. She suffers from long standing migraines. This current migraine is similar to prior. No fevers. NO new or different symptoms. She is followed by the [facility] in [place]. She is nauseated and light sensitive as well as noise sensitive. Her medications are guided by the [facility]. She is currently on Nardil. Complaint: "Migraine" Onset/Timin -: Week(s) Onset Description: Gradual Location: Diffuse Severity: Moderate Severity scale (1-10): 9 Quality: Throbbing, Similar to previous headaches Consistency: Constant Improves With: Nothing Worsens With: Light, Noise Associated Symptoms: Photophobia Treatments Prior to Arrival: Prescription analgesic Treatment Prior to Arrival Comment:: Benadryl 100 mg and Toradol 60 mg inj. this AM - Related Data Previous Rx's Medication Instructions Recorded Apixaban [Eliquis] 5 mg PO BID #60 tablet 04/29/17 Allergies Allergy/AdvReac Type Severity Reaction Status Date / Time sumatriptan [From Imitrex] Allergy ANAPHYLAXIS Verified 07/02/17 16:42 sumatriptan succinate Allergy ANAPHYLAXIS Verified 07/02/17 16:42 [From Imitrex] chlorpromazine AdvReac HYPERSENSIT Verified 07/02/17 16:42 [From Thorazine] IVITY erythromycin base AdvReac VOMITING Verified 07/02/17 16:42 [Erythromycin Base] nortriptyline [From Pamelor] AdvReac TACHYCARDIA Verified 07/02/17 16:42 Travel Screening - Travel/Exposure Within Last 30 Days Have you traveled within the last 30 days?: Yes Location Detail:: [place] - Travel/Exposure Within Last Year Have you traveled outside the [place] in the last year?: No - Additonal Travel Details Have you been exposed to anyone with a communicable illness?: No - Travel Symptoms Symptom Screening: None Review of Systems Constitutional: Denies: Chills, Fever, Malaise, Weakness Eyes: Reports: Photophobia. Denies: Eye discharge, Eye pain, Vision change ENT: Denies: Congestion, Throat pain Respiratory: Denies: Cough, Dyspnea, Hemoptysis, Stridor, Wheezes Cardiovascular: Denies: Chest pain, Palpitations, Syncope Endocrine: Denies: Fatigue, Polydipsia, Polyuria Gastrointestinal: Reports: Abdominal pain, Nausea, Vomiting. Denies: Diarrhea Genitourinary: Denies: Dysuria, Incontinence, Retention, Urgency Musculoskeletal: Denies: Arthralgia, Back pain, Neck pain Skin: Denies: Bruising, Change in color, Rash Neurological: Reports: Headache. Denies: Abnormal gait, Confusion, Numbness, Seizure, Tingling, Tremors, Vertigo, Weakness Psychiatric: Denies: Anxiety Hematological/Lymphatic: Denies: Blood Clots, Easy bleeding, Easy bruising, Swollen glands Past Medical History - SOCIAL HISTORY Smoking Status: Never smoker Alcohol Use: None Drug Use: None - RESPIRATORY Hx Respiratory Disorders: Yes Hx Asthma: Yes Hx Pulmonary Embolism: Yes (05/18) Hx Sleep Apnea: Yes Hx of CPAP: Yes - CARDIOVASCULAR Hx Cardio Disorders: Yes Hx Hypertension: Yes ("pretty much went away since the gastric surgery") - NEURO Hx Neuro Disorders: Yes Hx Headaches: Yes (migraines) - GI Hx GI Disorders: Yes Comment:: gastric sleeve - Hx Genitourinary Disorders: Yes Hx Kidney Stones: Yes - ENDOCRINE Hx Endocrine Disorders: Yes Hx Diabetes: Yes (type II) Hx Thyroid Disease: No - MUSCULOSKELETAL Hx Musculoskeletal Disorders: No - PSYCH Hx Psych Problems: No - HEMATOLOGY/ONCOLOGY Hx Hematology/Oncology Disorders: No Family Medical History Any Significant Family History?: Yes Hx Cancer: Grandparents Hx Diabetes: Father, Grandparents Hx Heart Disease: Grandparents Hx HTN: Mother Hx Kidney Disease: Father *Kidney Comment: stones Hx Stroke: Grandparents Physical Exam - General General Appearance: Alert, Oriented x3, Cooperative, No acute distress Limitations: No limitations - Head Head exam: Atraumatic, Normocephalic, Normal inspection - Eye Eye exam: Normal appearance, PERRL, EOMI. negative: Conjunctival injection, Nystagmus, Periorbital swelling, Scleral icterus - ENT ENT exam: Normal exam, Mucous membranes moist Ear exam: Normal external inspection Nasal Exam: Normal inspection Mouth exam: Normal external inspection Teeth exam: Normal inspection - Neck Neck exam: Normal inspection. negative: Lymphadenopathy - Respiratory Respiratory exam: Normal lung sounds bilaterally. negative: Respiratory distress - Cardiovascular Cardiovascular Exam: Regular rate, Normal rhythm, Normal heart sounds Peripheral Pulses: 2+: Radial (R), Radial (L) - GI/Abdominal GI/Abdominal exam: Soft. negative: Tenderness - Rectal Rectal exam: Deferred - exam: Deferred - Extremities Extremities exam: Normal inspection, Full ROM, Normal capillary refill. negative: Tenderness - Back Back exam: Reports: Normal inspection, Full ROM. Denies: Muscle spasm, Rash noted, Tenderness - Neurological Neurological exam: Alert, CN II-XII intact, Normal gait, Oriented X3, Reflexes normal. negative: Abnormal gait, Altered, Motor sensory deficit - Psychiatric Psychiatric exam: Normal affect, Normal mood - Skin Skin exam: Dry, Intact, Normal color, Warm Course Vital Signs 07/02/17 16:44 Temperature 98.1 F Pulse Rate 97 H Respiratory 18 Rate Blood Pressure 131/79 Pulse Ox 97 - Reevaluation(s) Reevaluation #1: The patient is much improved and ready to go 07/02/17 18:02 Disposition Disposition: Discharge Clinical Impression: Migraine Qualifiers: Migraine type: unspecified Status migrainosus presence: without status migrainosus Intractability: not intractable Qualified Code(s): G43.909 - Migraine, unspecified, not intractable, without status migrainosus Disposition: Home, Self-Care Condition: (1) Good Instructions: Migraine Headache (ED) Additional Instructions: Call your [facility] doctor tomorrow as scheduled Return if worse or any new or concerning symptoms Forms: Patient Portal Access Time of Disposition: 18:03 Quality - Quality Measures Quality Measures: N/A - Blood Pressure Screening Does Patient Have Any of the Following: No Blood Pressure Classification: Pre-Hypertensive BP Reading Systolic Measurement: 131 Diastolic Measurement: 79 Screening for High Blood Pressure: < Pre-Hypertensive BP, F/U Documented > [ G8950] Pre-Hypertensive Follow-up Interventions: Referral to alternative/primary care provider.
[2017-07-02] MEDS ORDERED: NALBUPHINE HCL 20 MG/ML AMPULE IM ONE (17:02)
[2017-07-02] MEDS ORDERED: PROMETHAZINE HCL 25 MG/ML VIAL IM ONE (17:02)
== END 2017-07-02 18:00 | disposition home or self-care (01) ==
LOC: ER 15:52
DX: G43.909 Migraine, unspecified, not intractable, without status migrainosus (principal); H53.149 Visual discomfort, unspecified; R11.0 Nausea
CPT/HCPCS: 99283 ×2; 96372; J2300; J2550

== ENCOUNTER 2017-07-11 18:53 | Emergency (ER) | payer BC ==
--- NOTE | 2017-07-11 19:08 | Emergency Department Record ---
History of Present Illness - General Chief Complaint: Headache Migraine Stated Complaint: HEADACHE Time Seen by Provider: 07/11/17 19:01 Source: Patient Mode of Arrival: Ambulatory Limitations: No limitations - History of Present Illness Initial Comments: 32 yo female presents to ED for evaluation of headache symptoms that have been present for the past several days. Patient has a long standing history of headaches, reports that her symptoms tonight are similar to her previous without fever, chills, or neck stiffness symptoms. Patient reports taking her home migraine therapy without improvement. Patient reports that she is still being cared for by Dr. Davis (Neurologist). MD Complaint: Headache Onset/Timin -: Days(s) Onset Description: Gradual Location: Diffuse Severity: Moderate Quality: Throbbing Consistency: Constant Improves With: Nothing Treatments Prior to Arrival: Migraine medication - Related Data Previous Rx's Medication Instructions Recorded Apixaban [Eliquis] 5 mg PO BID #60 tablet 04/29/17 Allergies Allergy/AdvReac Type Severity Reaction Status Date / Time sumatriptan [From Imitrex] Allergy ANAPHYLAXIS Verified 07/02/17 16:42 sumatriptan succinate Allergy ANAPHYLAXIS Verified 07/02/17 16:42 [From Imitrex] chlorpromazine AdvReac HYPERSENSIT Verified 07/02/17 16:42 [From Thorazine] IVITY erythromycin base AdvReac VOMITING Verified 07/02/17 16:42 [Erythromycin Base] nortriptyline [From Pamelor] AdvReac TACHYCARDIA Verified 07/02/17 16:42 Review of Systems Constitutional: Denies: Chills, Fever, Malaise, Night sweats Eyes: Denies: Eye discharge, Eye pain ENT: Denies: Congestion, Ear pain, Epistaxis Respiratory: Denies: Cough, Dyspnea Cardiovascular: Denies: Chest pain, Dyspnea on exertion Endocrine: Denies: Fatigue, Heat or cold intolerance Gastrointestinal: Reports: Nausea. Denies: Abdominal pain, Constipation, Vomiting Genitourinary: Denies: Incontinence, Retention Musculoskeletal: Denies: Arthralgia, Back pain, Gout, Joint swelling Skin: Denies: Bruising, Change in color Neurological: Reports: Headache. Denies: Abnormal gait, Confusion, Seizure Psychiatric: Denies: Anxiety Hematological/Lymphatic: Denies: Anemia, Blood Clots Past Medical History - SOCIAL HISTORY Smoking Status: Never smoker Alcohol Use: None Drug Use: None - RESPIRATORY Hx Respiratory Disorders: Yes Hx Asthma: Yes Hx Pulmonary Embolism: Yes (05/18) Hx Sleep Apnea: Yes Hx of CPAP: Yes - CARDIOVASCULAR Hx Cardio Disorders: Yes Hx Hypertension: Yes ("pretty much went away since the gastric surgery") - NEURO Hx Neuro Disorders: Yes Hx Headaches: Yes (migraines) - GI Hx GI Disorders: Yes Comment:: gastric sleeve - Hx Genitourinary Disorders: Yes Hx Kidney Stones: Yes - ENDOCRINE Hx Endocrine Disorders: Yes Hx Diabetes: Yes (type II) Hx Thyroid Disease: No - MUSCULOSKELETAL Hx Musculoskeletal Disorders: No - PSYCH Hx Psych Problems: No - HEMATOLOGY/ONCOLOGY Hx Hematology/Oncology Disorders: No Family Medical History Any Significant Family History?: Yes Hx Cancer: Grandparents Hx Diabetes: Father, Grandparents Hx Heart Disease: Grandparents Hx HTN: Mother Hx Kidney Disease: Father *Kidney Comment: stones Hx Stroke: Grandparents Physical Exam - General General Appearance: Alert, Oriented x3, Cooperative, Mild distress, Other ( conversational on exxmaination, no meningeal signs are present.) Limitations: No limitations - Head Head exam: Atraumatic, Normocephalic, Normal inspection Head exam detail: negative: Abrasion, Contusion, Frazier's sign, General tenderness, Hematoma, Laceration - Eye Eye exam: Normal appearance. negative: Conjunctival injection, Periorbital swelling, Periorbital tenderness, Scleral icterus - ENT Ear exam: negative: Auricular hematoma, Auricular trauma Nasal Exam: negative: Active bleeding, Discharge, Dried blood, Foreign body Mouth exam: negative: Drooling, Laceration, Muffled voice, Tongue elevation - Neck Neck exam: Normal inspection. negative: Meningismus, Tenderness - Respiratory Respiratory exam: Normal lung sounds bilaterally. negative: Rales, Respiratory distress, Rhonchi, Stridor - Cardiovascular Cardiovascular Exam: Regular rate, Normal rhythm, Normal heart sounds - GI/Abdominal GI/Abdominal exam: Soft. negative: Rebound, Rigid, Tenderness - Rectal Rectal exam: Deferred - exam: Deferred - Extremities Extremities exam: Normal inspection. negative: Calf tenderness, Pedal edema, Tenderness - Back Back exam: Denies: CVA tenderness (R), CVA tenderness (L) - Neurological Neurological exam: Alert, Normal gait, Oriented X3 - Psychiatric Psychiatric exam: Normal affect, Normal mood - Skin Skin exam: Normal color. negative: Abrasion Type of lesion: negative: abrasion Course Vital Signs 07/11/17 19:02 Temperature 98.3 F Pulse Rate [ 91 H Pulse Ox Probe] Respiratory 20 Rate Blood Pressure 145/109 [Left Arm] Pulse Ox 98 - Reevaluation(s) Reevaluation #1: 07/11/17 19:44 Patient reports that her pain symptoms are improving. Patient verbalizes understanding that she has received her 2nd Nubain injection for the current month, and that Nubain will not be given for subsequent headache symptoms for the month of July per her care plan with Dr. Davis. Patient appears stable for discharge at this time. Disposition Disposition: Discharge Clinical Impression: Headache Qualifiers: Headache type: unspecified Headache chronicity pattern: acute headache Intractability: not intractable Qualified Code(s): R51 - Headache Disposition: Home, Self-Care Condition: (2) Stable Instructions: Acute Headache (ED) Additional Instructions: Return to ED if your symptoms worsen or if you have any concerns. Follow-up with Dr. Davis in 3-5 days as directed. Forms: Patient Portal Access Time of Disposition: 19:46 Quality - Quality Measures Quality Measures: N/A - Blood Pressure Screening Does Patient Have Any of the Following: No Blood Pressure Classification: Hypertensive Reading Systolic Measurement: 139 Diastolic Measurement: 90 Screening for High Blood Pressure: < Second Hypertensive BP, F/U Documented > [ G8950] Second Hypertensive Follow-up Interventions: Referral to alternative/primary care provider.
[2017-07-11] MEDS: NALBUPHINE HCL 20 MG/ML AMPULE IM ONE (19:20)
[2017-07-11] MEDS: PROMETHAZINE HCL 25 MG/ML VIAL IM ONE (19:20)
== END 2017-07-11 19:52 | disposition home or self-care (01) ==
LOC: ER 18:53
DX: R51 Headache (principal)
CPT/HCPCS: 99283 ×2; 96372; J2300; J2550

== ENCOUNTER 2017-08-15 15:38 | Emergency (ER) | payer BC ==
[2017-08-15] MEDS ORDERED: PROMETHAZINE HCL 25 MG/ML VIAL IM ONE (16:13)
[2017-08-15] MEDS ORDERED: KETOROLAC 30 MG/ML VIAL IM ONE (16:13)
[2017-08-15] MEDS ORDERED: NALBUPHINE HCL 20 MG/ML AMPULE IM ONE (16:13)
--- NOTE | 2017-08-15 16:52 | Emergency Department Record ---
History of Present Illness - General Chief Complaint: Headache Migraine Stated Complaint: MIGRAINE Time Seen by Provider: 08/15/17 16:07 Source: Patient Mode of Arrival: Ambulatory Limitations: No limitations - History of Present Illness Initial Comments: pt is having her typical migraine. she has n but no v. she is due to see her neurologist next week MD Complaint: "Migraine" Onset/Timin -: Days(s) Onset Description: Gradual Location: Diffuse Severity: Moderate Severity scale (1-10): 9 Quality: Aching Consistency: Constant Improves With: Nothing Worsens With: Light, Movement of head/neck, Noise Associated Symptoms: Nausea Treatments Prior to Arrival: Migraine medication - Symptoms of Stroke Onset of Symptoms Date: 08/15/17 Onset of Symptoms Time: 15:52 - Related Data Previous Rx's Medication Instructions Recorded Apixaban [Eliquis] 5 mg PO BID #60 tablet 04/29/17 Allergies Allergy/AdvReac Type Severity Reaction Status Date / Time sumatriptan [From Imitrex] Allergy ANAPHYLAXIS Verified 08/15/17 15:54 sumatriptan succinate Allergy ANAPHYLAXIS Verified 08/15/17 15:54 [From Imitrex] chlorpromazine AdvReac HYPERSENSIT Verified 08/15/17 15:54 [From Thorazine] IVITY erythromycin base AdvReac VOMITING Verified 08/15/17 15:54 [Erythromycin Base] nortriptyline [From Pamelor] AdvReac TACHYCARDIA Verified 08/15/17 15:54 Travel Screening - Travel/Exposure Within Last 30 Days Have you traveled within the last 30 days?: No - Travel/Exposure Within Last Year Have you traveled outside the [place] in the last year?: No - Additonal Travel Details Have you been exposed to anyone with a communicable illness?: No - Travel Symptoms Symptom Screening: None Review of Systems Reviewed: No additional complaints except as noted below Constitutional: Reports: As per HPI. Denies: Chills, Fever, Malaise, Night sweats, Weakness, Weight change Eyes: Reports: As per HPI. Denies: Eye discharge, Eye pain, Photophobia, Vision change ENT: Reports: As per HPI. Denies: Congestion, Dental pain, Ear pain, Epistaxis , Hearing loss, Throat pain Respiratory: Reports: As per HPI. Denies: Cough, Dyspnea, Hemoptysis, Stridor, Wheezes Cardiovascular: Reports: As per HPI. Denies: Arrhythmia, Chest pain, Dyspnea on exertion, Edema, Murmurs, Orthopnea, Palpitations, Paroxysmal nocturnal dyspnea, Rheumatic Fever, Syncope Endocrine: Reports: As per HPI. Denies: Fatigue, Heat or cold intolerance, Polydipsia, Polyuria Gastrointestinal: Reports: As per HPI. Denies: Abdominal pain, Constipation, Diarrhea, Hematemesis, Hematochezia, Melena, Nausea, Vomiting Genitourinary: Reports: As per HPI. Denies: Abnormal menses, Discharge, Dyspareunia, Dysuria, Frequency, Hematuria, Incontinence, Retention, Urgency Musculoskeletal: Reports: As per HPI. Denies: Arthralgia, Back pain, Gout, Joint swelling, Myalgia, Neck pain Skin: Reports: As per HPI. Denies: Bruising, Change in color, Change in hair/ nails, Lesions, Pruritus, Rash Neurological: Reports: As per HPI. Denies: Abnormal gait, Confusion, Headache, Numbness, Paresthesias, Seizure, Tingling, Tremors, Vertigo, Weakness Psychiatric: Reports: As per HPI. Denies: Anxiety, Auditory hallucinations, Depression, Homicidal thoughts, Suicidal thoughts, Visual hallucinations Hematological/Lymphatic: Reports: As per HPI. Denies: Anemia, Blood Clots, Easy bleeding, Easy bruising, Swollen glands Past Medical History - SOCIAL HISTORY Smoking Status: Never smoker - RESPIRATORY Hx Respiratory Disorders: Yes Hx Asthma: Yes Hx Pulmonary Embolism: Yes (05/18) Hx Sleep Apnea: Yes Hx of CPAP: Yes - CARDIOVASCULAR Hx Cardio Disorders: Yes Hx Hypertension: Yes ("pretty much went away since the gastric surgery") - NEURO Hx Neuro Disorders: Yes Hx Headaches: Yes (migraines) - GI Hx GI Disorders: Yes Comment:: gastric sleeve - Hx Genitourinary Disorders: Yes Hx Kidney Stones: Yes - ENDOCRINE Hx Endocrine Disorders: Yes Hx Diabetes: Yes (type II) Hx Thyroid Disease: No - MUSCULOSKELETAL Hx Musculoskeletal Disorders: No - PSYCH Hx Psych Problems: No - HEMATOLOGY/ONCOLOGY Hx Hematology/Oncology Disorders: No Family Medical History Any Significant Family History?: Yes Hx Cancer: Grandparents Hx Diabetes: Father, Grandparents Hx Heart Disease: Grandparents Hx HTN: Mother Hx Kidney Disease: Father *Kidney Comment: stones Hx Stroke: Grandparents Physical Exam - General General Appearance: Alert, Oriented x3, Cooperative, Mild distress - Head Head exam: Normal inspection - Eye Eye exam: Normal appearance, PERRL, EOMI Pupils: Normal accommodation - ENT ENT exam: Normal exam, Mucous membranes moist, Normal external ear exam, Normal orophraynx Ear exam: Normal external inspection. negative: External canal tenderness Nasal Exam: Normal inspection. negative: Discharge, Sinus tenderness Mouth exam: Normal external inspection, Tongue normal Teeth exam: Normal inspection. negative: Dental caries Throat exam: Normal inspection. negative: Tonsillar erythema, Tonsillar exudate - Neck Neck exam: Normal inspection, Full ROM. negative: Tenderness - Respiratory Respiratory exam: Normal lung sounds bilaterally. negative: Respiratory distress - Cardiovascular Cardiovascular Exam: Regular rate, Normal rhythm, Normal heart sounds - GI/Abdominal GI/Abdominal exam: Soft, Normal bowel sounds. negative: Tenderness - Rectal Rectal exam: Deferred - exam: Deferred - Extremities Extremities exam: Normal inspection, Full ROM, Normal capillary refill. negative: Tenderness - Back Back exam: Reports: Normal inspection, Full ROM. Denies: Muscle spasm, Rash noted, Tenderness - Neurological Neurological exam: Alert, CN II-XII intact, Normal gait, Oriented X3 - Psychiatric Psychiatric exam: Normal affect, Normal mood - Skin Skin exam: Dry, Intact, Normal color, Warm Course Vital Signs 08/15/17 15:50 Temperature 98.1 F Pulse Rate 87 Respiratory 18 Rate Blood Pressure 124/92 Pulse Ox 98 Disposition Disposition: Discharge Clinical Impression: Migraine Qualifiers: Migraine type: unspecified Status migrainosus presence: without status migrainosus Intractability: intractable Qualified Code(s): G43.919 - Migraine, unspecified, intractable, without status migrainosus Disposition: Home, Self-Care Condition: (1) Good Instructions: Migraine Headache (ED) Additional Instructions: follow up with family doctor. return sooner if worse. Quality - Quality Measures Quality Measures: N/A - Blood Pressure Screening Does Patient Have Any of the Following: No Blood Pressure Classification: Hypertensive Reading Systolic Measurement: 124 Diastolic Measurement: 92 Screening for High Blood Pressure: < Pre-Hypertensive BP, F/U Documented > [ G8950] Pre-Hypertensive Follow-up Interventions: Follow-up with rescreen every year.
== END 2017-08-15 17:07 | disposition home or self-care (01) ==
LOC: ER 15:38
DX: G43.919 Migraine, unspecified, intractable, without status migrainosus (principal); R11.0 Nausea
CPT/HCPCS: 96372; 99283; J1885; J2550

== ENCOUNTER 2017-08-21 19:00 | Emergency (ER) | payer BC ==
--- NOTE | 2017-08-21 19:24 | Emergency Department Record ---
History of Present Illness - General Stated Complaint: MIGRAINE Time Seen by Provider: 08/21/17 19:02 Source: Patient Mode of Arrival: Ambulatory Limitations: No limitations - History of Present Illness Initial Comments: 32 yo female presents to ED for evaluation of a a migraine headache that began earlier today. Patient reports a long history of similar headaches, recent was weaned from Nardil in [place] for 10 days, has been unable to get her new medication (effexor) filled as the pharmacy has not had the medication available for 1 week. Patient denies fever, chills, or stiff neck symptoms. Patient reports that her headache symptoms are similar to previous. MD Complaint: Headache Onset/Timin -: Days(s) Onset Description: Gradual Location: Diffuse Severity: Moderate Quality: Throbbing Consistency: Constant Improves With: Nothing Worsens With: None Treatments Prior to Arrival: Migraine medication - Related Data Previous Rx's Medication Instructions Recorded Apixaban [Eliquis] 5 mg PO BID #60 tablet 04/29/17 Allergies Allergy/AdvReac Type Severity Reaction Status Date / Time sumatriptan [From Imitrex] Allergy ANAPHYLAXIS Verified 08/15/17 15:54 sumatriptan succinate Allergy ANAPHYLAXIS Verified 08/15/17 15:54 [From Imitrex] chlorpromazine AdvReac HYPERSENSIT Verified 08/15/17 15:54 [From Thorazine] IVITY erythromycin base AdvReac VOMITING Verified 08/15/17 15:54 [Erythromycin Base] nortriptyline [From Pamelor] AdvReac TACHYCARDIA Verified 08/15/17 15:54 Review of Systems Constitutional: Denies: Chills, Fever, Malaise, Night sweats Eyes: Denies: Eye discharge, Eye pain ENT: Denies: Congestion, Ear pain, Epistaxis Respiratory: Denies: Cough, Dyspnea Cardiovascular: Denies: Chest pain, Dyspnea on exertion Endocrine: Denies: Fatigue, Heat or cold intolerance Gastrointestinal: Denies: Abdominal pain, Nausea, Vomiting Genitourinary: Denies: Incontinence, Retention Musculoskeletal: Denies: Arthralgia, Back pain, Gout, Joint swelling Skin: Denies: Bruising, Change in color Neurological: Reports: Headache. Denies: Abnormal gait, Confusion, Seizure Psychiatric: Denies: Anxiety Hematological/Lymphatic: Denies: Anemia, Blood Clots Past Medical History - SOCIAL HISTORY Smoking Status: Never smoker - RESPIRATORY Hx Respiratory Disorders: Yes Hx Asthma: Yes Hx Pulmonary Embolism: Yes (05/18) Hx Sleep Apnea: Yes Hx of CPAP: Yes - CARDIOVASCULAR Hx Cardio Disorders: Yes Hx Hypertension: Yes ("pretty much went away since the gastric surgery") - NEURO Hx Neuro Disorders: Yes Hx Headaches: Yes (migraines) - GI Hx GI Disorders: Yes Comment:: gastric sleeve - Hx Genitourinary Disorders: Yes Hx Kidney Stones: Yes - ENDOCRINE Hx Endocrine Disorders: Yes Hx Diabetes: Yes (type II) Hx Thyroid Disease: No - MUSCULOSKELETAL Hx Musculoskeletal Disorders: No - PSYCH Hx Psych Problems: No - HEMATOLOGY/ONCOLOGY Hx Hematology/Oncology Disorders: No Family Medical History Hx Cancer: Grandparents Hx Diabetes: Father, Grandparents Hx Heart Disease: Grandparents Hx HTN: Mother Hx Kidney Disease: Father *Kidney Comment: stones Hx Stroke: Grandparents Physical Exam - General General Appearance: Alert, Oriented x3, Cooperative, Mild distress Limitations: No limitations - Head Head exam: Atraumatic, Normocephalic, Normal inspection Head exam detail: negative: Abrasion, Contusion, Frazier's sign, General tenderness, Hematoma, Laceration - Eye Eye exam: Normal appearance. negative: Conjunctival injection, Periorbital swelling, Periorbital tenderness, Scleral icterus - ENT Ear exam: negative: Auricular hematoma, Auricular trauma Nasal Exam: negative: Active bleeding, Discharge, Dried blood, Foreign body Mouth exam: negative: Drooling, Laceration, Muffled voice, Tongue elevation - Neck Neck exam: Normal inspection. negative: Meningismus, Tenderness - Respiratory Respiratory exam: Normal lung sounds bilaterally. negative: Rales, Respiratory distress, Rhonchi, Stridor - Cardiovascular Cardiovascular Exam: Regular rate, Normal rhythm, Normal heart sounds - GI/Abdominal GI/Abdominal exam: Soft. negative: Rebound, Rigid, Tenderness - Rectal Rectal exam: Deferred - exam: Deferred - Extremities Extremities exam: negative: Calf tenderness, Pedal edema, Tenderness - Back Back exam: Denies: CVA tenderness (R), CVA tenderness (L) - Neurological Neurological exam: Alert, Normal gait, Oriented X3 - Psychiatric Psychiatric exam: Flat affect - Skin Skin exam: Normal color. negative: Abrasion Type of lesion: negative: abrasion Course Vital Signs 08/21/17 19:11 Temperature 98.4 F Pulse Rate [ 103 H Pulse Ox Probe] Respiratory 20 Rate Blood Pressure 125/92 [Left Arm] Pulse Ox 97 - Reevaluation(s) Reevaluation #1: 08/21/17 20:05 Patient was reassessed and reports improvement in her headache symptoms. Patient appears stable for discharge at this time with instructions to follow- up with her neurologist Dr. Davis in 1-3 days as directed. Disposition Disposition: Discharge Clinical Impression: Headache Qualifiers: Headache type: unspecified Headache chronicity pattern: acute headache Intractability: not intractable Qualified Code(s): R51 - Headache Disposition: Home, Self-Care Condition: (2) Stable Instructions: Acute Headache (ED) Additional Instructions: Return to ED if your symptoms worsen or if you have any concerns. Follow-up with Dr. Davis in 1-3 days as directed. Continue your home medications as prescribed. Forms: Patient Portal Access Time of Disposition: 20:07 Quality - Quality Measures Quality Measures: N/A - Blood Pressure Screening Does Patient Have Any of the Following: No Blood Pressure Classification: Pre-Hypertensive BP Reading Systolic Measurement: 117 Diastolic Measurement: 83 Screening for High Blood Pressure: < Pre-Hypertensive BP, F/U Documented > [ G8950] Pre-Hypertensive Follow-up Interventions: Referral to alternative/primary care provider.
[2017-08-21] MEDS: NALBUPHINE HCL 20 MG/ML AMPULE IM ONE (19:32)
[2017-08-21] MEDS: PROMETHAZINE HCL 25 MG/ML VIAL IM ONE (19:32)
== END 2017-08-21 20:10 | disposition home or self-care (01) ==
LOC: ER 19:00
DX: R51 Headache (principal)
CPT/HCPCS: 99283 ×2; 96372; J2300; J2550

== ENCOUNTER 2017-09-11 19:01 | Emergency (ER) | payer BC ==
[2017-09-11] MEDS ORDERED: NALBUPHINE HCL 20 MG/ML AMPULE IM ONE (19:57)
[2017-09-11] MEDS ORDERED: PROMETHAZINE HCL 25 MG/ML VIAL IM ONE (19:57)
--- NOTE | 2017-09-11 20:03 | Emergency Department Record ---
History of Present Illness - General Chief Complaint: Headache Migraine Stated Complaint: GAETANO Time Seen by Provider: 09/11/17 19:20 Source: Patient Mode of Arrival: Ambulatory Limitations: No limitations - History of Present Illness Initial Comments: 32 yo female presents to ED for evaluation of a typical migraine headache that began 2 days ago, denies any change in symptoms compared with her previous chronic headache symptoms. Patient denies fevers, chills, or recent illness. Patient's Neurologist (Dr. Davis) changed a part of her preventative therapy to Effexor which has not significantly improved her symptoms. Patient is scheduled to follow-up with her Neurologist next month as well. MD Complaint: Headache, "Migraine" Onset/Timin -: Days(s) Onset Description: Gradual Location: Diffuse Severity: Moderate Severity scale (1-10): 9 Quality: Throbbing, Similar to previous headaches Consistency: Constant Improves With: Nothing Worsens With: None Treatments Prior to Arrival: Migraine medication, Prescription analgesic - Symptoms of Stroke Baseline State: Baseline State - Related Data Previous Rx's Medication Instructions Recorded Apixaban [Eliquis] 5 mg PO BID #60 tablet 04/29/17 Allergies Allergy/AdvReac Type Severity Reaction Status Date / Time sumatriptan [From Imitrex] Allergy ANAPHYLAXIS Verified 09/11/17 19:50 sumatriptan succinate Allergy ANAPHYLAXIS Verified 09/11/17 19:50 [From Imitrex] chlorpromazine AdvReac HYPERSENSIT Verified 09/11/17 19:50 [From Thorazine] IVITY erythromycin base AdvReac VOMITING Verified 09/11/17 19:50 [Erythromycin Base] nortriptyline [From Pamelor] AdvReac TACHYCARDIA Verified 09/11/17 19:50 Travel Screening - Travel/Exposure Within Last 30 Days Have you traveled within the last 30 days?: No - Travel/Exposure Within Last Year Have you traveled outside the [place] in the last year?: No - Additonal Travel Details Have you been exposed to anyone with a communicable illness?: No - Travel Symptoms Symptom Screening: None Review of Systems Constitutional: Denies: Chills, Fever, Malaise, Night sweats Eyes: Denies: Eye discharge, Eye pain ENT: Denies: Congestion, Ear pain, Epistaxis Respiratory: Denies: Cough, Dyspnea Cardiovascular: Denies: Chest pain, Dyspnea on exertion Endocrine: Denies: Fatigue, Heat or cold intolerance Gastrointestinal: Reports: Nausea. Denies: Abdominal pain, Vomiting Genitourinary: Denies: Incontinence, Retention Musculoskeletal: Denies: Arthralgia, Back pain, Gout, Joint swelling Skin: Denies: Bruising, Change in color Neurological: Reports: Headache. Denies: Abnormal gait, Confusion, Seizure Psychiatric: Denies: Anxiety Hematological/Lymphatic: Denies: Anemia, Blood Clots Past Medical History - SOCIAL HISTORY Smoking Status: Never smoker Alcohol Use: None Drug Use: None - RESPIRATORY Hx Respiratory Disorders: Yes Hx Asthma: Yes Hx Pulmonary Embolism: Yes (05/18) Hx Sleep Apnea: Yes Hx of CPAP: Yes - CARDIOVASCULAR Hx Cardio Disorders: Yes Hx Hypertension: Yes ("pretty much went away since the gastric surgery") - NEURO Hx Neuro Disorders: Yes Hx Headaches: Yes (migraines) - GI Hx GI Disorders: Yes Comment:: gastric sleeve - Hx Genitourinary Disorders: Yes Hx Kidney Stones: Yes - ENDOCRINE Hx Endocrine Disorders: Yes Hx Diabetes: Yes (type II) Hx Thyroid Disease: No - MUSCULOSKELETAL Hx Musculoskeletal Disorders: No - PSYCH Hx Psych Problems: No - HEMATOLOGY/ONCOLOGY Hx Hematology/Oncology Disorders: No Family Medical History Any Significant Family History?: No Hx Cancer: Grandparents Hx Diabetes: Father, Grandparents Hx Heart Disease: Grandparents Hx HTN: Mother Hx Kidney Disease: Father *Kidney Comment: stones Hx Stroke: Grandparents Physical Exam - General General Appearance: Alert, Oriented x3, Cooperative, Mild distress Limitations: No limitations - Head Head exam: Atraumatic, Normocephalic, Normal inspection Head exam detail: negative: Abrasion, Contusion, Frazier's sign, General tenderness, Hematoma, Laceration - Eye Eye exam: Normal appearance. negative: Conjunctival injection, Periorbital swelling, Periorbital tenderness, Scleral icterus - ENT Ear exam: negative: Auricular hematoma, Auricular trauma Nasal Exam: negative: Active bleeding, Discharge, Dried blood, Foreign body Mouth exam: negative: Drooling, Laceration, Muffled voice, Tongue elevation - Neck Neck exam: Normal inspection. negative: Meningismus, Tenderness - Respiratory Respiratory exam: Normal lung sounds bilaterally. negative: Rales, Respiratory distress, Rhonchi, Stridor - Cardiovascular Cardiovascular Exam: Regular rate, Normal rhythm, Normal heart sounds - GI/Abdominal GI/Abdominal exam: Soft. negative: Rebound, Rigid, Tenderness - Rectal Rectal exam: Deferred - exam: Deferred - Extremities Extremities exam: Normal inspection. negative: Pedal edema, Tenderness - Back Back exam: Denies: CVA tenderness (R), CVA tenderness (L) - Neurological Neurological exam: Alert, Normal gait, Oriented X3 - Psychiatric Psychiatric exam: Flat affect, Normal mood - Skin Skin exam: Normal color. negative: Abrasion Type of lesion: negative: abrasion Course Vital Signs 09/11/17 19:44 Temperature 98.7 F Pulse Rate [ 92 H Pulse Ox Probe] Respiratory 18 Rate Blood Pressure 159/107 [Left Arm] Pulse Ox 98 - Reevaluation(s) Reevaluation #1: 09/11/17 20:01 Previous records reviewed, will administer Nubain and Phenergan as previously prescribed. Reevaluation #2: 09/11/17 20:50 Patient reassessed by nursing staff, pain is down to 7/10 from 07/11, reports that she is feeling better and appears stable for discharge at this time. Disposition Disposition: Discharge Clinical Impression: Migraine Qualifiers: Migraine type: unspecified Status migrainosus presence: without status migrainosus Intractability: not intractable Qualified Code(s): G43.909 - Migraine, unspecified, not intractable, without status migrainosus Disposition: Home, Self-Care Condition: (2) Stable Instructions: Acute Headache (ED) Additional Instructions: Return to ED if your symptoms worsen or if you have any concerns. Follow-up with Dr. Davis as directed. Forms: Patient Portal Access Time of Disposition: 20:03 Quality - Quality Measures Quality Measures: N/A - Blood Pressure Screening Does Patient Have Any of the Following: No Blood Pressure Classification: Hypertensive Reading Systolic Measurement: 159 Diastolic Measurement: 107 Screening for High Blood Pressure: < First Hypertensive BP, F/U Documented > [ G8950] First Hypertensive Follow-up Interventions: Referral to alternative/primary care provider.
== END 2017-09-11 20:52 | disposition home or self-care (01) ==
LOC: ER 19:01
DX: G43.909 Migraine, unspecified, not intractable, without status migrainosus (principal)
CPT/HCPCS: 99283 ×2; 96372; J2300; J2550

== ENCOUNTER 2017-09-20 17:50 | Emergency (ER) | payer BC ==
[2017-09-20] MEDS ORDERED: NALBUPHINE HCL 20 MG/ML AMPULE IM ONE (18:05)
[2017-09-20] MEDS ORDERED: PROMETHAZINE HCL 25 MG/ML VIAL IM ONE (18:05)
--- NOTE | 2017-09-20 18:10 | Emergency Department Record ---
History of Present Illness - General Chief Complaint: Headache Migraine Time Seen by Provider: 09/20/17 17:55 Source: Patient Mode of Arrival: Ambulatory Limitations: No limitations - History of Present Illness Initial Comments: pt has typical migraine. she is going to start a new medication from [facility] tomorrow Complaint: "Migraine" Onset/Timin -: Days(s) Onset Description: Gradual Location: Diffuse Severity: Moderate Severity scale (1-10): 9 Quality: Aching Consistency: Constant Improves With: Nothing - Related Data Home Medications Medication Instructions Recorded Confirmed Last Taken Venlafaxine HCl [Effexor Xr] 2 tab PO QAM 09/20/17 09/20/17 1 Day Ago ~09/19/17 Previous Rx's Medication Instructions Recorded Apixaban [Eliquis] 5 mg PO BID #60 tablet 04/29/17 Allergies Allergy/AdvReac Type Severity Reaction Status Date / Time sumatriptan [From Imitrex] Allergy ANAPHYLAXIS Verified 09/20/17 18:31 sumatriptan succinate Allergy ANAPHYLAXIS Verified 09/20/17 18:31 [From Imitrex] chlorpromazine AdvReac HYPERSENSIT Verified 09/20/17 18:31 [From Thorazine] IVITY erythromycin base AdvReac VOMITING Verified 09/20/17 18:31 [Erythromycin Base] nortriptyline [From Pamelor] AdvReac TACHYCARDIA Verified 09/20/17 18:31 Travel Screening - Travel/Exposure Within Last 30 Days Have you traveled within the last 30 days?: No - Travel/Exposure Within Last Year Have you traveled outside the [place] in the last year?: No - Additonal Travel Details Have you been exposed to anyone with a communicable illness?: No - Travel Symptoms Symptom Screening: None Review of Systems Reviewed: No additional complaints except as noted below Constitutional: Reports: As per HPI. Denies: Chills, Fever, Malaise, Night sweats, Weakness, Weight change Eyes: Reports: As per HPI. Denies: Eye discharge, Eye pain, Photophobia, Vision change ENT: Reports: As per HPI. Denies: Congestion, Dental pain, Ear pain, Epistaxis , Hearing loss, Throat pain Respiratory: Reports: As per HPI. Denies: Cough, Dyspnea, Hemoptysis, Stridor, Wheezes Cardiovascular: Reports: As per HPI. Denies: Arrhythmia, Chest pain, Dyspnea on exertion, Edema, Murmurs, Orthopnea, Palpitations, Paroxysmal nocturnal dyspnea, Rheumatic Fever, Syncope Endocrine: Reports: As per HPI. Denies: Fatigue, Heat or cold intolerance, Polydipsia, Polyuria Gastrointestinal: Reports: As per HPI. Denies: Abdominal pain, Constipation, Diarrhea, Hematemesis, Hematochezia, Melena, Nausea, Vomiting Genitourinary: Reports: As per HPI. Denies: Abnormal menses, Discharge, Dyspareunia, Dysuria, Frequency, Hematuria, Incontinence, Retention, Urgency Musculoskeletal: Reports: As per HPI. Denies: Arthralgia, Back pain, Gout, Joint swelling, Myalgia, Neck pain Skin: Reports: As per HPI. Denies: Bruising, Change in color, Change in hair/ nails, Lesions, Pruritus, Rash Neurological: Reports: As per HPI. Denies: Abnormal gait, Confusion, Headache, Numbness, Paresthesias, Seizure, Tingling, Tremors, Vertigo, Weakness Psychiatric: Reports: As per HPI. Denies: Anxiety, Auditory hallucinations, Depression, Homicidal thoughts, Suicidal thoughts, Visual hallucinations Hematological/Lymphatic: Reports: As per HPI. Denies: Anemia, Blood Clots, Easy bleeding, Easy bruising, Swollen glands Past Medical History - SOCIAL HISTORY Smoking Status: Never smoker Alcohol Use: None Drug Use: None - RESPIRATORY Hx Respiratory Disorders: Yes Hx Asthma: Yes Hx Pulmonary Embolism: Yes (05/18) Hx Sleep Apnea: Yes Hx of CPAP: Yes - CARDIOVASCULAR Hx Cardio Disorders: Yes Hx Hypertension: Yes ("pretty much went away since the gastric surgery") - NEURO Hx Neuro Disorders: Yes Hx Headaches: Yes (migraines) - GI Hx GI Disorders: Yes Comment:: gastric sleeve - Hx Genitourinary Disorders: Yes Hx Kidney Stones: Yes - ENDOCRINE Hx Endocrine Disorders: Yes Hx Diabetes: Yes (type II) Hx Thyroid Disease: No - MUSCULOSKELETAL Hx Musculoskeletal Disorders: No - PSYCH Hx Psych Problems: No - HEMATOLOGY/ONCOLOGY Hx Hematology/Oncology Disorders: No Family Medical History Any Significant Family History?: Yes Hx Cancer: Grandparents Hx Diabetes: Father, Grandparents Hx Heart Disease: Grandparents Hx HTN: Mother Hx Kidney Disease: Father *Kidney Comment: stones Hx Stroke: Grandparents Physical Exam - General General Appearance: Alert, Oriented x3, Cooperative, Mild distress - Head Head exam: Normal inspection - Eye Eye exam: Normal appearance, PERRL, EOMI Pupils: Normal accommodation - ENT ENT exam: Normal exam, Mucous membranes moist, Normal external ear exam, Normal orophraynx Ear exam: Normal external inspection. negative: External canal tenderness Nasal Exam: Normal inspection. negative: Discharge, Sinus tenderness Mouth exam: Normal external inspection, Tongue normal Teeth exam: Normal inspection. negative: Dental caries Throat exam: Normal inspection. negative: Tonsillar erythema, Tonsillar exudate - Neck Neck exam: Normal inspection, Full ROM. negative: Tenderness - Respiratory Respiratory exam: Normal lung sounds bilaterally. negative: Respiratory distress - Cardiovascular Cardiovascular Exam: Regular rate, Normal rhythm, Normal heart sounds - GI/Abdominal GI/Abdominal exam: Soft, Normal bowel sounds. negative: Tenderness - Rectal Rectal exam: Deferred - exam: Deferred - Extremities Extremities exam: Normal inspection, Full ROM, Normal capillary refill. negative: Tenderness - Back Back exam: Reports: Normal inspection, Full ROM. Denies: Muscle spasm, Rash noted, Tenderness - Neurological Neurological exam: Alert, CN II-XII intact, Normal gait, Oriented X3 - Psychiatric Psychiatric exam: Normal affect, Normal mood - Skin Skin exam: Dry, Intact, Normal color, Warm Course Vital Signs 09/20/17 17:52 Temperature 99.2 F Pulse Rate 88 Respiratory 18 Rate Blood Pressure 143/102 Pulse Ox 97 Disposition Disposition: Discharge Clinical Impression: Migraine Qualifiers: Migraine type: unspecified Status migrainosus presence: without status migrainosus Intractability: intractable Qualified Code(s): G43.919 - Migraine, unspecified, intractable, without status migrainosus Disposition: Home, Self-Care Condition: (1) Good Instructions: Migraine Headache (ED) Additional Instructions: follow up with neurologist. return sooner if worse Forms: Patient Portal Access Quality - Quality Measures Quality Measures: N/A - Blood Pressure Screening Does Patient Have Any of the Following: No Blood Pressure Classification: Hypertensive Reading Systolic Measurement: 143 Diastolic Measurement: 102 Screening for High Blood Pressure: < First Hypertensive BP, F/U Documented > [ G8950] First Hypertensive Follow-up Interventions: Follow-up with rescreen GT 1 day and LT 4 weeks.
== END 2017-09-20 18:52 | disposition home or self-care (01) ==
LOC: ER 17:50
DX: G43.919 Migraine, unspecified, intractable, without status migrainosus (principal)
CPT/HCPCS: 99283 ×2; 96372; J2300; J2550

== ENCOUNTER 2017-10-02 19:28 | Emergency (ER) | payer BC ==
--- NOTE | 2017-10-02 19:56 | Emergency Department Record ---
History of Present Illness - General Chief Complaint: Headache Migraine Stated Complaint: MIGRAINE Time Seen by Provider: 10/02/17 19:54 Source: Patient Mode of Arrival: Ambulatory - History of Present Illness Initial Comments: The patient has her typical migraine headache which has been ongoing for several days and failed all of her drug protocols at home given by [facility]. She denies fever chills or other new problems. MD Complaint: "Migraine" Onset Description: At rest Severity scale (1-10): 10 Quality: Similar to previous headaches Improves With: Nothing Worsens With: None - Related Data Previous Rx's Medication Instructions Recorded Apixaban [Eliquis] 5 mg PO BID #60 tablet 04/29/17 Allergies Allergy/AdvReac Type Severity Reaction Status Date / Time sumatriptan [From Imitrex] Allergy ANAPHYLAXIS Verified 09/20/17 18:31 sumatriptan succinate Allergy ANAPHYLAXIS Verified 09/20/17 18:31 [From Imitrex] chlorpromazine AdvReac HYPERSENSIT Verified 09/20/17 18:31 [From Thorazine] IVITY erythromycin base AdvReac VOMITING Verified 09/20/17 18:31 [Erythromycin Base] nortriptyline [From Pamelor] AdvReac TACHYCARDIA Verified 09/20/17 18:31 Travel Screening - Travel/Exposure Within Last 30 Days Have you traveled within the last 30 days?: No Review of Systems Reviewed: No additional complaints except as noted below Constitutional: Reports: As per HPI. Denies: Chills, Fever, Malaise, Night sweats, Weakness, Weight change Eyes: Reports: As per HPI. Denies: Eye discharge, Eye pain, Photophobia, Vision change ENT: Reports: As per HPI. Denies: Congestion, Dental pain, Ear pain, Epistaxis , Hearing loss, Throat pain Respiratory: Reports: As per HPI. Denies: Cough, Dyspnea, Hemoptysis, Stridor, Wheezes Cardiovascular: Reports: As per HPI. Denies: Arrhythmia, Chest pain, Dyspnea on exertion, Edema, Murmurs, Orthopnea, Palpitations, Paroxysmal nocturnal dyspnea, Rheumatic Fever, Syncope Endocrine: Reports: As per HPI. Denies: Fatigue, Heat or cold intolerance, Polydipsia, Polyuria Gastrointestinal: Reports: As per HPI. Denies: Abdominal pain, Constipation, Diarrhea, Hematemesis, Hematochezia, Melena, Nausea, Vomiting Genitourinary: Reports: As per HPI. Denies: Abnormal menses, Discharge, Dyspareunia, Dysuria, Frequency, Hematuria, Incontinence, Retention, Urgency Musculoskeletal: Reports: As per HPI. Denies: Arthralgia, Back pain, Gout, Joint swelling, Myalgia, Neck pain Skin: Reports: As per HPI. Denies: Bruising, Change in color, Change in hair/ nails, Lesions, Pruritus, Rash Neurological: Reports: As per HPI. Denies: Abnormal gait, Confusion, Headache, Numbness, Paresthesias, Seizure, Tingling, Tremors, Vertigo, Weakness Psychiatric: Reports: As per HPI. Denies: Anxiety, Auditory hallucinations, Depression, Homicidal thoughts, Suicidal thoughts, Visual hallucinations Hematological/Lymphatic: Reports: As per HPI. Denies: Anemia, Blood Clots, Easy bleeding, Easy bruising, Swollen glands Past Medical History - SOCIAL HISTORY Smoking Status: Never smoker - RESPIRATORY Hx Respiratory Disorders: Yes Hx Asthma: Yes Hx Pulmonary Embolism: Yes (05/18) Hx Sleep Apnea: Yes Hx of CPAP: Yes - CARDIOVASCULAR Hx Cardio Disorders: Yes Hx Hypertension: Yes ("pretty much went away since the gastric surgery") - NEURO Hx Neuro Disorders: Yes Hx Headaches: Yes (migraines) - GI Hx GI Disorders: Yes Comment:: gastric sleeve - Hx Genitourinary Disorders: Yes Hx Kidney Stones: Yes - ENDOCRINE Hx Endocrine Disorders: Yes Hx Diabetes: Yes (type II) Hx Thyroid Disease: No - MUSCULOSKELETAL Hx Musculoskeletal Disorders: No - PSYCH Hx Psych Problems: No - HEMATOLOGY/ONCOLOGY Hx Hematology/Oncology Disorders: No Family Medical History Any Significant Family History?: Yes Hx Cancer: Grandparents Hx Diabetes: Father, Grandparents Hx Heart Disease: Grandparents Hx HTN: Mother Hx Kidney Disease: Father *Kidney Comment: stones Hx Stroke: Grandparents Physical Exam - General General Appearance: Alert, Oriented x3, Cooperative, Moderate distress, Other ( laying in dark room, speaking softly) - Head Head exam: Normal inspection - Eye Eye exam: Normal appearance, PERRL, EOMI Pupils: Normal accommodation - ENT ENT exam: Normal exam, Mucous membranes moist, Normal external ear exam, Normal orophraynx, TM's normal bilaterally Ear exam: Normal external inspection. negative: External canal tenderness Nasal Exam: Normal inspection. negative: Discharge, Sinus tenderness Mouth exam: Normal external inspection, Tongue normal Teeth exam: Normal inspection. negative: Dental caries Throat exam: Normal inspection. negative: Tonsillar erythema, Tonsillar exudate - Neck Neck exam: Normal inspection, Full ROM. negative: Lymphadenopathy, Meningismus , Tenderness - Respiratory Respiratory exam: Normal lung sounds bilaterally. negative: Respiratory distress - Cardiovascular Cardiovascular Exam: Regular rate, Normal rhythm, Normal heart sounds - GI/Abdominal GI/Abdominal exam: Soft, Normal bowel sounds. negative: Tenderness - Rectal Rectal exam: Deferred - exam: Deferred - Extremities Extremities exam: Normal inspection, Full ROM, Normal capillary refill. negative: Calf tenderness, Pedal edema, Tenderness - Back Back exam: Reports: Normal inspection, Full ROM. Denies: Muscle spasm, Rash noted, Tenderness - Neurological Neurological exam: Alert, CN II-XII intact, Normal gait, Oriented X3, Reflexes normal. negative: Motor sensory deficit - Psychiatric Psychiatric exam: Normal affect, Normal mood - Skin Skin exam: Dry, Intact, Normal color, Warm Course Vital Signs 10/02/17 19:49 Temperature 98.9 F Pulse Rate [ 98 H Pulse Ox Probe] Respiratory 20 Rate Blood Pressure 125/89 [Left Arm] Pulse Ox 98 - Reevaluation(s) Reevaluation #1: Patient states she feels improvement and is ready for DC home. 10/02/17 20:33 Medical Decision Making - Management Options MDM Management: No Additional Work-up Planned Disposition Disposition: Discharge Clinical Impression: Migraine Qualifiers: Migraine type: without aura Status migrainosus presence: without status migrainosus Intractability: not intractable Qualified Code(s): G43.009 - Migraine without aura, not intractable, without status migrainosus Disposition: Home, Self-Care Condition: (2) Stable Instructions: Migraine Headache (ED) Additional Instructions: Home to bed. follow up with PCP and/or [facility] as instructed. Quality - Quality Measures Quality Measures: Headache - Headache: Neuroimaging Quality Measure: Measure #419: Overuse of Neuroimaging Neurological Exam: Patient had a normal neurological exam. [G9535] Headache: Use of Neuroimaging: < CTA, CT, MRA or MRI was NOT ordered > [G9534] - Blood Pressure Screening Does Patient Have Any of the Following: No Blood Pressure Classification: Pre-Hypertensive BP Reading Systolic Measurement: 125 Diastolic Measurement: 89 Screening for High Blood Pressure: < Pre-Hypertensive BP, F/U Documented > [ G8950] Pre-Hypertensive Follow-up Interventions: Follow-up with rescreen every year.
[2017-10-02] MEDS ORDERED: NALBUPHINE HCL 20 MG/ML AMPULE IM ONE (20:04)
[2017-10-02] MEDS ORDERED: PROMETHAZINE HCL 25 MG/ML VIAL IM ONE (20:04)
== END 2017-10-02 21:08 | disposition home or self-care (01) ==
LOC: ER 19:28
DX: G43.009 Migraine without aura, not intractable, without status migrainosus (principal)
CPT/HCPCS: 96372; 99283; J2550

== ENCOUNTER 2017-10-09 20:02 | Emergency (ER) | payer BC ==
[2017-10-09] MEDS ORDERED: NALBUPHINE HCL 20 MG/ML AMPULE IM ONE (20:05)
[2017-10-09] MEDS ORDERED: PROMETHAZINE HCL 25 MG/ML VIAL IM ONE (20:05)
--- NOTE | 2017-10-09 20:18 | Emergency Department Record ---
History of Present Illness - General Chief Complaint: Headache Migraine Stated Complaint: MIGRAINE Time Seen by Provider: 10/09/17 20:03 Source: Patient Mode of Arrival: Ambulatory Limitations: No limitations - History of Present Illness Initial Comments: 32 yo female presents to ED for evaluation of migraine headache symptoms that began earlier today. Patient reports a long history of similar symptoms, denies any recent medication changes from her neurologist. Patient denies fevers, chills, or neck stiffness symptoms. MD Complaint: "Migraine" Onset/Timin -: Week(s) Onset Description: Gradual Location: Diffuse Quality: Similar to previous headaches Consistency: Constant Improves With: Nothing Worsens With: None Treatments Prior to Arrival: Migraine medication - Related Data Previous Rx's Medication Instructions Recorded Apixaban [Eliquis] 5 mg PO BID #60 tablet 04/29/17 Allergies Allergy/AdvReac Type Severity Reaction Status Date / Time sumatriptan [From Imitrex] Allergy ANAPHYLAXIS Verified 09/20/17 18:31 sumatriptan succinate Allergy ANAPHYLAXIS Verified 09/20/17 18:31 [From Imitrex] chlorpromazine AdvReac HYPERSENSIT Verified 09/20/17 18:31 [From Thorazine] IVITY erythromycin base AdvReac VOMITING Verified 09/20/17 18:31 [Erythromycin Base] nortriptyline [From Pamelor] AdvReac TACHYCARDIA Verified 09/20/17 18:31 Travel Screening - Travel/Exposure Within Last 30 Days Have you traveled within the last 30 days?: No Review of Systems Constitutional: Denies: Chills, Fever, Malaise, Night sweats Eyes: Denies: Eye discharge, Eye pain ENT: Denies: Congestion, Ear pain Respiratory: Denies: Cough, Dyspnea Cardiovascular: Denies: Chest pain, Dyspnea on exertion Endocrine: Denies: Fatigue, Heat or cold intolerance Gastrointestinal: Denies: Abdominal pain, Nausea, Vomiting Genitourinary: Denies: Incontinence, Retention Musculoskeletal: Denies: Back pain, Gout Skin: Denies: Bruising, Change in color Neurological: Reports: Headache. Denies: Abnormal gait, Confusion, Seizure Psychiatric: Denies: Anxiety Hematological/Lymphatic: Denies: Anemia, Blood Clots Past Medical History - SOCIAL HISTORY Smoking Status: Never smoker Alcohol Use: None Drug Use: None - RESPIRATORY Hx Respiratory Disorders: Yes Hx Asthma: Yes Hx Pulmonary Embolism: Yes (05/18) Hx Sleep Apnea: Yes Hx of CPAP: Yes - CARDIOVASCULAR Hx Cardio Disorders: Yes Hx Hypertension: Yes ("pretty much went away since the gastric surgery") - NEURO Hx Neuro Disorders: Yes Hx Headaches: Yes (migraines) - GI Hx GI Disorders: Yes Comment:: gastric sleeve - Hx Genitourinary Disorders: Yes Hx Kidney Stones: Yes - ENDOCRINE Hx Endocrine Disorders: Yes Hx Diabetes: Yes (type II) Hx Thyroid Disease: No - MUSCULOSKELETAL Hx Musculoskeletal Disorders: No - PSYCH Hx Psych Problems: No - HEMATOLOGY/ONCOLOGY Hx Hematology/Oncology Disorders: No Family Medical History Any Significant Family History?: Yes Hx Cancer: Grandparents Hx Diabetes: Father, Grandparents Hx Heart Disease: Grandparents Hx HTN: Mother Hx Kidney Disease: Father *Kidney Comment: stones Hx Stroke: Grandparents Physical Exam - General General Appearance: Alert, Oriented x3, Cooperative, No acute distress, Other ( smiling, well appearing) Limitations: No limitations - Head Head exam: Atraumatic, Normocephalic, Normal inspection Head exam detail: negative: Abrasion, Contusion, Frazier's sign, General tenderness, Hematoma, Laceration - Eye Eye exam: Normal appearance. negative: Conjunctival injection, Periorbital swelling, Periorbital tenderness, Scleral icterus - ENT Ear exam: negative: Auricular hematoma, Auricular trauma Nasal Exam: negative: Active bleeding, Discharge, Dried blood, Foreign body Mouth exam: negative: Drooling, Laceration, Tongue elevation - Neck Neck exam: Normal inspection. negative: Meningismus, Tenderness - Respiratory Respiratory exam: Normal lung sounds bilaterally. negative: Rales, Respiratory distress, Rhonchi, Stridor - Cardiovascular Cardiovascular Exam: Regular rate, Normal rhythm, Normal heart sounds - GI/Abdominal GI/Abdominal exam: Soft. negative: Rebound, Rigid, Tenderness - Rectal Rectal exam: Deferred - exam: Deferred - Extremities Extremities exam: Normal inspection. negative: Calf tenderness, Pedal edema, Tenderness - Back Back exam: Denies: CVA tenderness (R), CVA tenderness (L) - Neurological Neurological exam: Alert, Normal gait, Oriented X3 - Psychiatric Psychiatric exam: Normal affect, Normal mood - Skin Skin exam: Normal color. negative: Abrasion Type of lesion: negative: abrasion Course Vital Signs 01/08/18 20:08 Temperature 98.3 F Pulse Rate [ 120 H Pulse Ox Probe] Respiratory 18 Rate Blood Pressure 131/97 [Left Arm] Pulse Ox 98 - Reevaluation(s) Reevaluation #1: 10/09/17 20:34 Patient reassessed, reports improvement in her pain symptoms and appears stable for discharge at this time. Disposition Disposition: Discharge Clinical Impression: Migraine Qualifiers: Migraine type: unspecified Status migrainosus presence: without status migrainosus Intractability: not intractable Qualified Code(s): G43.909 - Migraine, unspecified, not intractable, without status migrainosus Disposition: Home, Self-Care Condition: (2) Stable Instructions: Acute Headache (ED) Additional Instructions: Return to ED if your symptoms worsen or if you have any concerns. Follow-up with Dr. Davis in 5-7 days as directed. Forms: Patient Portal Access Time of Disposition: 20:35 Quality - Quality Measures Quality Measures: N/A - Blood Pressure Screening Does Patient Have Any of the Following: No Blood Pressure Classification: Hypertensive Reading Systolic Measurement: 135 Diastolic Measurement: 99 Screening for High Blood Pressure: < First Hypertensive BP, F/U Documented > [ G8950] First Hypertensive Follow-up Interventions: Referral to alternative/primary care provider.
== END 2017-10-09 20:49 | disposition home or self-care (01) ==
LOC: ER 20:02
DX: G43.909 Migraine, unspecified, not intractable, without status migrainosus (principal)
CPT/HCPCS: 96372; 99283; J2550

== ENCOUNTER 2017-10-27 18:51 | Emergency (ER) | payer BC ==
[2017-10-27] MEDS ORDERED: NALBUPHINE HCL 20 MG/ML AMPULE IM ONE (20:20)
[2017-10-27] MEDS ORDERED: PROMETHAZINE HCL 25 MG/ML VIAL IM ONE (20:20)
--- NOTE | 2017-10-27 20:56 | Emergency Department Record ---
History of Present Illness - General Chief Complaint: Headache Migraine Stated Complaint: MIGRAINE Time Seen by Provider: 10/27/17 20:02 Source: Patient Mode of Arrival: Ambulatory Limitations: No limitations - History of Present Illness Initial Comments: pt has had migraine all day and has tried all her home meds including shots of benadryl and toradol Complaint: "Migraine" Onset/Timin -: Days(s) Onset Description: Gradual Location: Diffuse Severity: Severe Severity scale (1-10): 9 Quality: Similar to previous headaches Consistency: Constant Improves With: Nothing Worsens With: None Associated Symptoms: Nausea, Photophobia, Sensitivity to sound - Related Data Home Medications Medication Instructions Recorded Confirmed Last Taken Lamotrigine [Lamictal] 100 mg PO DAILY 10/27/17 10/27/17 Unknown Previous Rx's Medication Instructions Recorded Apixaban [Eliquis] 5 mg PO BID #60 tablet 04/29/17 Allergies Allergy/AdvReac Type Severity Reaction Status Date / Time sumatriptan [From Imitrex] Allergy ANAPHYLAXIS Verified 09/20/17 18:31 sumatriptan succinate Allergy ANAPHYLAXIS Verified 09/20/17 18:31 [From Imitrex] chlorpromazine AdvReac HYPERSENSIT Verified 09/20/17 18:31 [From Thorazine] IVITY erythromycin base AdvReac VOMITING Verified 09/20/17 18:31 [Erythromycin Base] nortriptyline [From Pamelor] AdvReac TACHYCARDIA Verified 09/20/17 18:31 Travel Screening - Travel/Exposure Within Last 30 Days Have you traveled within the last 30 days?: No Review of Systems Reviewed: No additional complaints except as noted below Constitutional: Reports: As per HPI. Denies: Chills, Fever, Malaise, Night sweats, Weakness, Weight change Eyes: Reports: As per HPI. Denies: Eye discharge, Eye pain, Photophobia, Vision change ENT: Reports: As per HPI. Denies: Congestion, Dental pain, Ear pain, Epistaxis , Hearing loss, Throat pain Respiratory: Reports: As per HPI. Denies: Cough, Dyspnea, Hemoptysis, Stridor, Wheezes Cardiovascular: Reports: As per HPI. Denies: Arrhythmia, Chest pain, Dyspnea on exertion, Edema, Murmurs, Orthopnea, Palpitations, Paroxysmal nocturnal dyspnea, Rheumatic Fever, Syncope Endocrine: Reports: As per HPI. Denies: Fatigue, Heat or cold intolerance, Polydipsia, Polyuria Gastrointestinal: Reports: As per HPI, Nausea. Denies: Abdominal pain, Constipation, Diarrhea, Hematemesis, Hematochezia, Melena, Vomiting Genitourinary: Reports: As per HPI. Denies: Abnormal menses, Discharge, Dyspareunia, Dysuria, Frequency, Hematuria, Incontinence, Retention, Urgency Musculoskeletal: Reports: As per HPI. Denies: Arthralgia, Back pain, Gout, Joint swelling, Myalgia, Neck pain Skin: Reports: As per HPI. Denies: Bruising, Change in color, Change in hair/ nails, Lesions, Pruritus, Rash Neurological: Reports: As per HPI, Headache. Denies: Abnormal gait, Confusion, Numbness, Paresthesias, Seizure, Tingling, Tremors, Vertigo, Weakness Psychiatric: Reports: As per HPI. Denies: Anxiety, Auditory hallucinations, Depression, Homicidal thoughts, Suicidal thoughts, Visual hallucinations Hematological/Lymphatic: Reports: As per HPI. Denies: Anemia, Blood Clots, Easy bleeding, Easy bruising, Swollen glands Past Medical History - SOCIAL HISTORY Smoking Status: Never smoker Alcohol Use: None Drug Use: None - RESPIRATORY Hx Respiratory Disorders: Yes Hx Asthma: Yes Hx Pulmonary Embolism: Yes (05/18) Hx Sleep Apnea: Yes Hx of CPAP: Yes - CARDIOVASCULAR Hx Cardio Disorders: Yes Hx Hypertension: Yes ("pretty much went away since the gastric surgery") - NEURO Hx Neuro Disorders: Yes Hx Headaches: Yes (migraines) - GI Hx GI Disorders: Yes Comment:: gastric sleeve - Hx Genitourinary Disorders: Yes Hx Kidney Stones: Yes - ENDOCRINE Hx Endocrine Disorders: Yes Hx Diabetes: Yes (type II) Hx Thyroid Disease: No - MUSCULOSKELETAL Hx Musculoskeletal Disorders: No - PSYCH Hx Psych Problems: No - HEMATOLOGY/ONCOLOGY Hx Hematology/Oncology Disorders: No Family Medical History Any Significant Family History?: Yes Hx Cancer: Grandparents Hx Diabetes: Father, Grandparents Hx Heart Disease: Grandparents Hx HTN: Mother Hx Kidney Disease: Father *Kidney Comment: stones Hx Stroke: Grandparents Physical Exam - General General Appearance: Alert, Oriented x3, Cooperative, Mild distress - Head Head exam: Normal inspection - Eye Eye exam: Normal appearance, PERRL, EOMI Pupils: Normal accommodation - ENT ENT exam: Normal exam, Mucous membranes moist, Normal external ear exam, Normal orophraynx Ear exam: Normal external inspection. negative: External canal tenderness Nasal Exam: Normal inspection. negative: Discharge, Sinus tenderness Mouth exam: Normal external inspection, Tongue normal Teeth exam: Normal inspection. negative: Dental caries Throat exam: Normal inspection. negative: Tonsillar erythema, Tonsillar exudate - Neck Neck exam: Normal inspection, Full ROM. negative: Tenderness - Respiratory Respiratory exam: Normal lung sounds bilaterally. negative: Respiratory distress - Cardiovascular Cardiovascular Exam: Regular rate, Normal rhythm, Normal heart sounds - GI/Abdominal GI/Abdominal exam: Soft, Normal bowel sounds. negative: Tenderness - Rectal Rectal exam: Deferred - exam: Deferred - Extremities Extremities exam: Normal inspection, Full ROM, Normal capillary refill. negative: Tenderness - Back Back exam: Reports: Normal inspection, Full ROM. Denies: Muscle spasm, Rash noted, Tenderness - Neurological Neurological exam: Alert, CN II-XII intact, Normal gait, Oriented X3 - Psychiatric Psychiatric exam: Depressed (tearful), Normal affect, Normal mood - Skin Skin exam: Dry, Intact, Normal color, Warm Course Vital Signs 10/27/17 19:40 Temperature 98.7 F Pulse Rate [ 87 Pulse Ox Probe] Respiratory 20 Rate Blood Pressure 134/94 [Left Arm] Pulse Ox 98 - Reevaluation(s) Reevaluation #1: 10/27/17 20:53 pt has a plan of no more then 2 nubain shots in a month. she was unaware that she has already had 2 this month and states she was quite upset to learn that and tearful and states she doesnt know what elde to do. she has agreed to give up 1 of her november shots for this headache and agrees to just get 1 nubain shot in nov. Reevaluation #2: 10/27/17 20:56 pt feels better Disposition Disposition: Discharge Clinical Impression: Migraine Qualifiers: Migraine type: unspecified Status migrainosus presence: with status migrainosus Intractability: intractable Qualified Code(s): G43.911 - Migraine, unspecified, intractable, with status migrainosus Disposition: Home, Self-Care Condition: (1) Good Instructions: Migraine Headache (ED) Additional Instructions: follow up with neurologist. return sooner if worse. rest. Quality - Quality Measures Quality Measures: N/A - Blood Pressure Screening Does Patient Have Any of the Following: No Blood Pressure Classification: Hypertensive Reading Systolic Measurement: 134 Diastolic Measurement: 94 Screening for High Blood Pressure: < Pre-Hypertensive BP, F/U Documented > [ G8950] Pre-Hypertensive Follow-up Interventions: Follow-up with rescreen every year.
== END 2017-10-27 21:06 | disposition home or self-care (01) ==
LOC: ER 18:51
DX: G43.911 Migraine, unspecified, intractable, with status migrainosus (principal); R11.0 Nausea
CPT/HCPCS: 99283 ×2; 96372; J2300; J2550

== ENCOUNTER 2017-11-03 15:22 | Emergency (ER) | payer BC ==
[2017-11-03] MEDS ORDERED: PROMETHAZINE HCL 25 MG/ML VIAL IM ONE (16:22)
[2017-11-03] MEDS ORDERED: NALBUPHINE HCL 20 MG/ML AMPULE IM ONE (16:22)
--- NOTE | 2017-11-03 17:19 | Emergency Department Record ---
History of Present Illness - General Chief Complaint: Headache Migraine Stated Complaint: MIGRAINE Time Seen by Provider: 11/03/17 16:14 Source: Patient Mode of Arrival: Ambulatory Limitations: No limitations - History of Present Illness Initial Comments: pt having typical migraine. she goes to the [facility] and is possibly going to be admitted in 5 days possibly MD Complaint: "Migraine" -: Unknown Onset Description: Gradual Location: Diffuse Severity scale (1-10): 9 Quality: Aching, Full, Pulsatile, Sharp, Throbbing, Similar to previous headaches Consistency: Constant Improves With: Nothing Worsens With: None Treatment Prior to Arrival Comment:: 0200 toradol and benadryl injections given by self - Related Data Previous Rx's Medication Instructions Recorded Apixaban [Eliquis] 5 mg PO BID #60 tablet 04/29/17 Allergies Allergy/AdvReac Type Severity Reaction Status Date / Time sumatriptan [From Imitrex] Allergy ANAPHYLAXIS Verified 11/03/17 16:07 sumatriptan succinate Allergy ANAPHYLAXIS Verified 11/03/17 16:07 [From Imitrex] chlorpromazine AdvReac HYPERSENSIT Verified 11/03/17 16:07 [From Thorazine] IVITY erythromycin base AdvReac VOMITING Verified 11/03/17 16:07 [Erythromycin Base] nortriptyline [From Pamelor] AdvReac TACHYCARDIA Verified 11/03/17 16:07 Travel Screening - Travel/Exposure Within Last 30 Days Have you traveled within the last 30 days?: Yes Location Detail:: [place] - Travel/Exposure Within Last Year Have you traveled outside the [place] in the last year?: No - Additonal Travel Details Have you been exposed to anyone with a communicable illness?: No - Travel Symptoms Symptom Screening: None Review of Systems Reviewed: No additional complaints except as noted below Constitutional: Reports: As per HPI. Denies: Chills, Fever, Malaise, Night sweats, Weakness, Weight change Eyes: Reports: As per HPI. Denies: Eye discharge, Eye pain, Photophobia, Vision change ENT: Reports: As per HPI. Denies: Congestion, Dental pain, Ear pain, Epistaxis , Hearing loss, Throat pain Respiratory: Reports: As per HPI. Denies: Cough, Dyspnea, Hemoptysis, Stridor, Wheezes Cardiovascular: Reports: As per HPI. Denies: Arrhythmia, Chest pain, Dyspnea on exertion, Edema, Murmurs, Orthopnea, Palpitations, Paroxysmal nocturnal dyspnea, Rheumatic Fever, Syncope Endocrine: Reports: As per HPI. Denies: Fatigue, Heat or cold intolerance, Polydipsia, Polyuria Gastrointestinal: Reports: As per HPI. Denies: Abdominal pain, Constipation, Diarrhea, Hematemesis, Hematochezia, Melena, Nausea, Vomiting Genitourinary: Reports: As per HPI. Denies: Abnormal menses, Discharge, Dyspareunia, Dysuria, Frequency, Hematuria, Incontinence, Retention, Urgency Musculoskeletal: Reports: As per HPI. Denies: Arthralgia, Back pain, Gout, Joint swelling, Myalgia, Neck pain Skin: Reports: As per HPI. Denies: Bruising, Change in color, Change in hair/ nails, Lesions, Pruritus, Rash Neurological: Reports: As per HPI, Headache. Denies: Abnormal gait, Confusion, Numbness, Paresthesias, Seizure, Tingling, Tremors, Vertigo, Weakness Psychiatric: Reports: As per HPI. Denies: Anxiety, Auditory hallucinations, Depression, Homicidal thoughts, Suicidal thoughts, Visual hallucinations Hematological/Lymphatic: Reports: As per HPI. Denies: Anemia, Blood Clots, Easy bleeding, Easy bruising, Swollen glands Past Medical History - SOCIAL HISTORY Smoking Status: Never smoker Alcohol Use: None Drug Use: None - RESPIRATORY Hx Respiratory Disorders: Yes Hx Asthma: Yes Hx Pulmonary Embolism: Yes (05/18) Hx Sleep Apnea: Yes Hx of CPAP: Yes - CARDIOVASCULAR Hx Cardio Disorders: Yes Hx Hypertension: Yes ("pretty much went away since the gastric surgery") - NEURO Hx Neuro Disorders: Yes Hx Headaches: Yes (migraines) - GI Hx GI Disorders: Yes Comment:: gastric sleeve - Hx Genitourinary Disorders: Yes Hx Kidney Stones: Yes - ENDOCRINE Hx Endocrine Disorders: Yes Hx Diabetes: Yes (type II) Hx Thyroid Disease: No - MUSCULOSKELETAL Hx Musculoskeletal Disorders: No - PSYCH Hx Psych Problems: No - HEMATOLOGY/ONCOLOGY Hx Hematology/Oncology Disorders: No Family Medical History Any Significant Family History?: Yes Hx Cancer: Grandparents Hx Diabetes: Father, Grandparents Hx Heart Disease: Grandparents Hx HTN: Mother Hx Kidney Disease: Father *Kidney Comment: stones Hx Stroke: Grandparents Physical Exam - General General Appearance: Alert, Oriented x3, Cooperative, Mild distress - Head Head exam: Normal inspection - Eye Eye exam: Normal appearance, PERRL, EOMI Pupils: Normal accommodation - ENT ENT exam: Normal exam, Mucous membranes moist, Normal external ear exam, Normal orophraynx Ear exam: Normal external inspection. negative: External canal tenderness Nasal Exam: Normal inspection. negative: Discharge, Sinus tenderness Mouth exam: Normal external inspection, Tongue normal Teeth exam: Normal inspection. negative: Dental caries Throat exam: Normal inspection. negative: Tonsillar erythema, Tonsillar exudate - Neck Neck exam: Normal inspection, Full ROM. negative: Tenderness - Respiratory Respiratory exam: Normal lung sounds bilaterally. negative: Respiratory distress - Cardiovascular Cardiovascular Exam: Normal rhythm, Normal heart sounds, Tachycardia - GI/Abdominal GI/Abdominal exam: Soft, Normal bowel sounds. negative: Tenderness - Rectal Rectal exam: Deferred - exam: Deferred - Extremities Extremities exam: Normal inspection, Full ROM, Normal capillary refill. negative: Tenderness - Back Back exam: Reports: Normal inspection, Full ROM. Denies: Muscle spasm, Rash noted, Tenderness - Neurological Neurological exam: Alert, CN II-XII intact, Normal gait, Oriented X3 - Psychiatric Psychiatric exam: Normal affect, Normal mood - Skin Skin exam: Dry, Intact, Normal color, Warm Course Vital Signs 11/03/17 16:00 Temperature 97.4 F L Pulse Rate 114 H Respiratory 16 Rate Blood Pressure 124/94 Pulse Ox 96 Disposition Disposition: Discharge Clinical Impression: Migraine Qualifiers: Migraine type: unspecified Status migrainosus presence: without status migrainosus Intractability: intractable Qualified Code(s): G43.919 - Migraine, unspecified, intractable, without status migrainosus Disposition: Home, Self-Care Condition: (1) Good Instructions: Migraine Headache (ED) Additional Instructions: follow up with neurologist. rest .return sooner if worse Quality - Quality Measures Quality Measures: N/A - Blood Pressure Screening Does Patient Have Any of the Following: No Blood Pressure Classification: Hypertensive Reading Systolic Measurement: 124 Diastolic Measurement: 94 Screening for High Blood Pressure: < Pre-Hypertensive BP, F/U Documented > [ G8950] Pre-Hypertensive Follow-up Interventions: Follow-up with rescreen every year.
== END 2017-11-03 17:36 | disposition home or self-care (01) ==
LOC: ER 15:22
DX: G43.919 Migraine, unspecified, intractable, without status migrainosus (principal)
CPT/HCPCS: 99283 ×2; 96372; J2300; J2550

== ENCOUNTER 2017-11-06 14:22 | Emergency (ER) | payer BC ==
[2017-11-06] MEDS ORDERED: 0.9 % SODIUM CHLORIDE 1000ML 1,000 ML IV ONE (14:35)
--- NOTE | 2017-11-06 14:38 | Emergency Department Record ---
History of Present Illness - General Chief Complaint: Fall Injury Stated Complaint: FALL Time Seen by Provider: 11/06/17 14:35 Source: Patient, EMS Mode of Arrival: EMS Limitations: No limitations - History of Present Illness Initial Comments: 32 yo female presents by EMS after a fall down 9-10 steps. She denies any LOC. She has neck, back, rib, and flank pain. She was previously on Elaquis. She has not had a dose for 5 days. No numbness, weakness, extremity pain or extremity injury. No history of serious spinal injury in the past. She has frequent, chronic migraines. MD Complaint: Fall Onset/Timin -: Minutes(s) Fall From: Down stairs (#) When Fall Occurred: Just prior to arrival Fall Witnessed: No Place Fall Occurred: Home Loss of Consciousness: None Prolonged Down Time?: No Symptoms Prior to Fall: Dizziness Location: Head, Neck, Pelvis Severity: Moderate Severity scale (1-10): 10 Quality: Aching - Ramos Coma Scale Eye Response: (4) Open spontaneously Motor Response: (6) Obeys commands Verbal Response: (5) Oriented Ramos Total: 15 - Related Data Home Medications Medication Instructions Recorded Confirmed Last Taken Baclofen 10 mg PO BID 11/06/17 11/06/17 1 Day Ago ~11/05/17 Olanzapine [Zyprexa] 2.5 mg PO BID 11/06/17 11/06/17 1 Day Ago ~11/05/17 Previous Rx's Medication Instructions Recorded Hydrocodone/Acetaminophen [Dassel 1 each PO Q6H #15 tablet 11/06/17 7.5-325 Tablet] Allergies Allergy/AdvReac Type Severity Reaction Status Date / Time sumatriptan [From Imitrex] Allergy ANAPHYLAXIS Verified 11/03/17 16:07 sumatriptan succinate Allergy ANAPHYLAXIS Verified 11/03/17 16:07 [From Imitrex] chlorpromazine AdvReac HYPERSENSIT Verified 11/03/17 16:07 [From Thorazine] IVITY erythromycin base AdvReac VOMITING Verified 11/03/17 16:07 [Erythromycin Base] nortriptyline [From Pamelor] AdvReac TACHYCARDIA Verified 11/03/17 16:07 Travel Screening - Travel/Exposure Within Last 30 Days Have you traveled within the last 30 days?: No - Travel/Exposure Within Last Year Have you traveled outside the [place] in the last year?: No - Additonal Travel Details Have you been exposed to anyone with a communicable illness?: No - Travel Symptoms Symptom Screening: None Review of Systems Constitutional: Denies: Chills, Fever, Malaise, Night sweats, Weakness Eyes: Denies: Eye discharge, Eye pain, Photophobia, Vision change ENT: Denies: Congestion, Throat pain Respiratory: Denies: Cough, Dyspnea, Hemoptysis, Stridor, Wheezes Cardiovascular: Denies: Chest pain, Palpitations, Syncope Endocrine: Denies: Fatigue, Polydipsia, Polyuria Gastrointestinal: Denies: Abdominal pain, Diarrhea, Nausea, Vomiting Genitourinary: Denies: Dysuria, Hematuria, Urgency Musculoskeletal: Reports: Arthralgia, Back pain, Myalgia, Neck pain. Denies: Joint swelling Skin: Denies: Bruising, Change in color, Rash Neurological: Reports: Headache. Denies: Abnormal gait, Confusion, Numbness, Tingling, Tremors, Vertigo, Weakness Psychiatric: Denies: Anxiety Hematological/Lymphatic: Denies: Anemia, Blood Clots, Easy bleeding, Easy bruising, Swollen glands Past Medical History - SOCIAL HISTORY Smoking Status: Never smoker Alcohol Use: None Drug Use: None - RESPIRATORY Hx Respiratory Disorders: Yes Hx Asthma: Yes Hx Pulmonary Embolism: Yes (05/18) Hx Sleep Apnea: Yes Hx of CPAP: Yes - CARDIOVASCULAR Hx Cardio Disorders: Yes Hx Hypertension: Yes ("pretty much went away since the gastric surgery") - NEURO Hx Neuro Disorders: Yes Hx Headaches: Yes (migraines) - GI Hx GI Disorders: Yes Comment:: gastric sleeve - Hx Genitourinary Disorders: Yes Hx Kidney Stones: Yes - ENDOCRINE Hx Endocrine Disorders: Yes Hx Diabetes: Yes (type II) Hx Thyroid Disease: No - MUSCULOSKELETAL Hx Musculoskeletal Disorders: No - PSYCH Hx Psych Problems: No - HEMATOLOGY/ONCOLOGY Hx Hematology/Oncology Disorders: No Family Medical History Any Significant Family History?: Yes Hx Cancer: Grandparents Hx Diabetes: Father, Grandparents Hx Heart Disease: Grandparents Hx HTN: Mother Hx Kidney Disease: Father *Kidney Comment: stones Hx Stroke: Grandparents Physical Exam - General General Appearance: Alert, Oriented x3, Cooperative, No acute distress, Other ( Calm, no acute distress) Limitations: No limitations - Head Head exam: Atraumatic, Normocephalic, Normal inspection Head exam detail: negative: Abrasion, Contusion, Hematoma, Laceration - Eye Eye exam: Normal appearance, PERRL, EOMI. negative: Conjunctival injection, Periorbital swelling, Periorbital tenderness, Scleral icterus - ENT ENT exam: Normal exam, Mucous membranes moist, Normal orophraynx Ear exam: Normal external inspection. negative: Auricular hematoma, Auricular trauma Nasal Exam: Normal inspection. negative: Dried blood Mouth exam: Normal external inspection. negative: Laceration Teeth exam: Normal inspection Throat exam: Normal inspection. negative: Tonsillar erythema, Tonsillar exudate - Neck Neck exam: Normal inspection, Full ROM, Tenderness - Respiratory Respiratory exam: Normal lung sounds bilaterally, Chest wall tenderness (left lateral ribs tender). negative: Respiratory distress - Cardiovascular Cardiovascular Exam: Regular rate, Normal rhythm, Normal heart sounds Peripheral Pulses: 2+: Radial (R), Radial (L) - GI/Abdominal GI/Abdominal exam: Soft, Tenderness (mild left lateral). negative: Distended, Guarding - Rectal Rectal exam: Deferred - exam: Deferred - Extremities Extremities exam: Normal inspection, Full ROM, Normal capillary refill. negative: Calf tenderness, Joint swelling, Pedal edema, Tenderness Image of Full Body: 1 - tenderness to palpation 2 - tenderness 3 - tenderness to palpation 4 - tenderness to palpation - Back Back exam: Reports: Normal inspection, CVA tenderness (L), Paraspinal tenderness , Tenderness, Vertebral tenderness. Denies: CVA tenderness (R) - Neurological Neurological exam: Alert, Oriented X3, Other (on back borad with C collar). negative: Motor sensory deficit - Psychiatric Psychiatric exam: Normal affect, Normal mood - Skin Skin exam: Dry, Intact, Normal color, Warm. negative: Abrasion, Cyanosis, Diaphoretic, Erythema, Mottled Course Vital Signs 11/06/17 14:28 Temperature 98.1 F Pulse Rate 92 H Respiratory 20 Rate Blood Pressure 135/72 Pulse Ox 98 - Reevaluation(s) Reevaluation #1: I discussed with the patient the recommendation for CT scans given the mechanism and the wide distribution of pain. [facility] No acute changes on the CBC, CMP negative HCG The patient was taken to radiology for CTs 11/06/17 15:51 11/06/17 16:45 [facility] HCT was Negative [facility] Cervical CT was Negative 11/06/17 16:[address] [facility] [address] was Negative [facility] Abdomen and Pelvis CT demonstrated 1.6cm hypodense mass right kidney that is not a cyst. DDX: complex cyst, infection, hematoma, neoplasm. consider MRI or biopsy. The patient was informed of the results. 11/06/17 17:29 The UA is negative for infection or blood Medical Decision Making - Lab Data Result diagrams: 11/06/17 14:46 11/06/17 14:46 Disposition Disposition: Discharge Clinical Impression: Rib contusion Qualifiers: Encounter type: initial encounter Laterality: unspecified laterality Qualified Code(s): S20.219A - Contusion of unspecified front wall of thorax, initial encounter Contusion, back Qualifiers: Encounter type: initial encounter Laterality: unspecified laterality Qualified Code(s): S20.229A - Contusion of unspecified back wall of thorax, initial encounter Cervical strain, acute Qualifiers: Encounter type: initial encounter Qualified Code(s): S16.1XXA - Strain of muscle, fascia and tendon at neck level, initial encounter Fall Qualifiers: Encounter type: initial encounter Qualified Code(s): W19.XXXA - Unspecified fall, initial encounter Disposition: Home, Self-Care Condition: (1) Good Instructions: Cervical Strain (ED), Low Back Strain (ED) Additional Instructions: Call your doctor for close follow up and a recheck after this ER visit You will need follow up of the small 1.6cm right kidney mass. The radiologist recommends an MRI or a biopsy. Call your doctor to discuss this Return if worse, new pains or concerns Prescriptions: Hydrocodone/Acetaminophen [Dassel 7.5-325 Tablet] 1 each PO Q6H #15 tablet Forms: Patient Portal Access Time of Disposition: 17:31 Quality - Quality Measures Quality Measures: N/A - Blood Pressure Screening Does Patient Have Any of the Following: No Blood Pressure Classification: Pre-Hypertensive BP Reading Systolic Measurement: 125 Diastolic Measurement: 75 Screening for High Blood Pressure: < Pre-Hypertensive BP, F/U Documented > [ G8950] Pre-Hypertensive Follow-up Interventions: Referral to alternative/primary care provider.
[2017-11-06] MEDS ORDERED: ACETAMINOPHEN 1,000 MG/100 ML BTL IVPB ONE (14:44)
[2017-11-06 14:54] LABS: BASO % 0.6 % (0-6); EOS % 2.6 % (0-6); GRAN % 62.8 % (47-80); HEMATOCRIT 38.9 % (35.0-47.0); HEMOGLOBIN 12.8 gm/dl (11.6-16.0); LYMPH % 26.4 % (16-45); MEAN CELL VOLUME 86.3 fl (81-97); MEAN CORPUSCULAR HEMOGLOBIN 28.4 pg (27-33); MEAN CORPUSCULAR HGB CONC 32.9 g/dl (32-36); MEAN PLATELET VOLUME 9.4 fl (7.4-10.4); MONO % 7.6 % (0-9); PLATELET COUNT 478 K/uL (130-400); RED BLOOD COUNT 4.51 M/uL (3.80-5.40); RED CELL DISTRIBUTION WIDTH 13.6 % (11.5-14.5); WHITE BLOOD COUNT W/O DIFF 9.8 K/uL (4.2-12.2)
[2017-11-06 15:04] LABS: BLOOD UREA NITROGEN 8 mg/dL (6-20); CREATININE 0.5 mg/dL (0.5-0.9); EST GLOMERULAR FILTRATION RATE > 60 mL/min; TOTAL PROTEIN 7.9 g/dL (6.6-8.7)
[2017-11-06 15:06] LABS: GLUCOSE,RANDOM 128 mg/dL (74-109)
[2017-11-06 15:09] LABS: ALB/GLOB RATIO 1.4 (1.1-1.8); ALBUMIN 4.6 g/dL (4.0-5.0); ALKALINE PHOSPHATASE 85 U/L (35-104); ALT/SGPT 11 U/L (<33); AST/SGOT 10 U/L (10.0-35.0)
[2017-11-06 16:50] LABS: URINE APPEARANCE CLEAR; URINE BILIRUBIN NEGATIVE (NEGATIVE); URINE BLOOD NEGATIVE (NEGATIVE); URINE COLOR YELLOW; URINE GLUCOSE (UA) NEGATIVE (NEGATIVE); URINE KETONE NEGATIVE (NEGATIVE); URINE LEUKOCYTE ESTERASE NEGATIVE (NEGATIVE); URINE NITRITE NEGATIVE (NEGATIVE); URINE PROTEIN NEGATIVE (NEGATIVE); URINE UROBILINOGEN 0.2 E.U./dL (0.20 - 1.00)
[2017-11-06] MEDS ORDERED: MORPHINE SULFATE 5 MG/ML PFS IVP ONE (17:10)
--- NOTE | 2017-11-08 13:17 | CT SCAN REPORT ---
DATE: 11/06/2017 at 3:36 p.m. EXAM: EMERGENCY HEAD CT. HISTORY: The patient fell down nine to ten steps with pain in the back of the head. TECHNIQUE: Axial CT scan of the head performed without intravenous contrast. Preliminary report provided by [facility]. COMPARISON: No prior head CT. ENCOUNTER: Initial. FINDINGS: No definite acute intracranial hemorrhage identified. No focal mass effect or midline shift apparent. No definite acute infarct or intracranial mass lesion is seen. No depressed calvarial fracture identified. IMPRESSION: EMERGENCY NONCONTRAST HEAD CT APPEARS ESSENTIALLY NEGATIVE WITH NO DEFINITE ACUTE INTRACRANIAL HEMORRHAGE OR FOCAL MASS EFFECT IDENTIFIED. JOB NUMBER: [id number] MTDD
--- NOTE | 2017-11-08 13:22 | CT SCAN REPORT ---
DATE: 11/06/2017 at 3:36 p.m. EXAM: EMERGENCY CERVICAL SPINE CT WITHOUT CONTRAST. HISTORY: The patient fell down nine to ten steps with neck pain. TECHNIQUE: Axial CT scan of the entire cervical spine performed without intravenous contrast. Preliminary report provided by [facility]. COMPARISON: No prior cervical CT with which to compare. Comparison is made with the cervical spine plain film series dated 01/09/2017. ENCOUNTER: Initial. FINDINGS: No apical pneumothorax evident. No definite fracture of the cervical spine identified. No prevertebral soft tissue swelling is seen. There is loss of the normal cervical lordosis likely due to positioning or spasm. There is mild narrowing of the C5-6 interspace. IMPRESSION: 1. NO FRACTURE OR PREVERTEBRAL SOFT TISSUE SWELLING SEEN IN THE CERVICAL SPINE. 2. LOSS OF LORDOSIS LIKELY DUE TO POSITIONING OR SPASM. 3. SLIGHT NARROWING OF THE C5-6 INTERSPACE. JOB NUMBER: [id number] [facility]TDD
--- NOTE | 2017-11-08 13:38 | CT SCAN REPORT ---
DATE: 11/06/2017 at 3:44 p.m. EXAM: CHEST CT WITH CONTRAST. HISTORY: The patient fell down nine to ten steps with chest pain, particularly in the ribs. TECHNIQUE: Axial CT scan of the chest performed following the intravenous administration of 100 mL of Omnipaque 300 as the intravenous contrast. Preliminary report provided by [facility]. COMPARISON: Prior chest CT angiogram of 04/28/2017. FINDINGS: Mild dependent atelectasis posteriorly in both lungs. No definite pneumothorax identified. No definite pulmonary contusion seen. Heart size is normal. No pleural or pericardial effusion evident and no pneumothorax seen. There is diffuse fatty infiltration of the visualized liver. There is probably postoperative change along the greater curvature of the stomach. Examination not protocol specifically for evaluation of the pulmonary arterial tree, but the pulmonary embolus evident back on 04/28/2017 is not clearly seen with no definite pulmonary embolus identified today. IMPRESSION: NO ACUTE FINDINGS IN THE CHEST CT IDENTIFIED WITH NO PNEUMOTHORAX OR DEFINITE PULMONARY CONTUSION SEEN. MILD DEPENDENT ATELECTASIS IN THE POSTERIOR ASPECT OF THE LUNGS. JOB NUMBER: [id number] [facility]
--- NOTE | 2017-11-08 14:03 | CT SCAN REPORT ---
DATE: 11/06/2017 at 3:44 p.m. EXAM: EMERGENCY CT OF THE ABDOMEN AND PELVIS WITH CONTRAST. HISTORY: The patient fell down nine to ten steps with bilateral hip and lower back and abdomen pain. TECHNIQUE: Axial CT scan of the abdomen and pelvis performed following the intravenously contrast-enhanced chest CT, utilizing a dose of 100 mL of Omnipaque 300 for the intravenous contrast. No oral contrast was utilized at the referring physician's request. Preliminary report provided by [email or web address]. COMPARISON: CT of the abdomen and pelvis dated 12/24/2016. ENCOUNTER: Initial. FINDINGS: No calcified gallstones are seen within the gallbladder. There is diffuse fatty infiltration of the liver with no focal hepatic mass identified. No definite splenic, adrenal, pancreatic, or left renal mass identified. There is an approximately 1.6 cm relatively low-attenuation mass in the lower pole of the right kidney. However, this does have a CT density of 35 which is high for a typical simple cyst. This may just be a relatively dense cyst but is nonspecific, and follow-up MRI of the abdomen with attention to the kidneys would be suggested for further evaluation if not contraindicated. This was not well seen on the prior noncontrast CT. There appears to be a gastric suture line along the greater curvature of the stomach, also present previously. The uterus is tilted slightly toward the right. No appendicitis is identified. No free intraperitoneal air or free intraperitoneal fluid identified. Degenerative disc disease at multiple levels in the lumbar spine. The previously noted prominent disc spur complex at the L3-4 level again seen, likely indenting the anterior aspect of the thecal sac at this level. IMPRESSION: 1. DIFFUSE FATTY INFILTRATION OF THE LIVER. 2. POSTOPERATIVE CHANGES IN THE STOMACH. 3. INDETERMINATE 1.6 CM MASS IN THE LOWER POLE OF THE RIGHT KIDNEY. FOLLOW-UP MRI OF THE KIDNEY IS SUGGESTED DESCRIBED ABOVE. 4. PERSISTENT, PROMINENT DISC SPUR COMPLEX AT THE L3-4 INTERSPACE POSTERIORLY BEFORE. JOB NUMBER: [id number] [facility]
== END 2017-11-06 18:04 | disposition home or self-care (01) ==
LOC: ER 14:22
DX: S20.219A Contusion of unspecified front wall of thorax, initial encounter (principal); S20.229A Contusion of unspecified back wall of thorax, initial encounter; S16.1XXA Strain of muscle, fascia and tendon at neck level, initial encounter; M54.5 Low back pain; R42 Dizziness and giddiness; N28.89 Other specified disorders of kidney and ureter; E11.9 Type 2 diabetes mellitus without complications; W10.9XXA Fall (on) (from) unspecified stairs and steps, initial encounter; Y92.009 Unspecified place in unspecified non-institutional (private) residence as the place of occurrence of the external cause
CPT/HCPCS: 99284 ×2; 85025; 80053; 81003; 84703; 72125; 71260; 70450; 74177; Q9967; J2270; J7030

== ENCOUNTER 2017-11-13 20:46 | Emergency (ER) | payer BC ==
[2017-11-13] MEDS ORDERED: DIPHENHYDRAMINE HCL IV 50 MG/ML VIAL IM ONE (20:58)
[2017-11-13] MEDS ORDERED: HALOPERIDOL LACTATE 5 MG/ML VIAL IM ONE (20:58)
--- NOTE | 2017-11-13 21:05 | Emergency Department Record ---
History of Present Illness - General Chief complaint: Pain Stated complaint: RT HIP/BACK PAIN,MIGRAINE Time Seen by Provider: 11/13/17 20:47 Source: Patient Mode of Arrival: Ambulatory Limitations: No limitations - History of Present Illness Initial comments: 32 yo female presents to ED for evaluation of recurrent migraine headache symptoms as well as pain to the back and right hip following a fall 1 week ago. Patient was seen on 11/06/16 following her fall, underwent CT imaging of head, neck, chest, abdomen and pelvis without acute fracture identified. Patient reports that she has been taking her Edmonds that she was prescribed following her fall without significant improvement in her symptoms. Patient denies fevers , chills, or stiff neck symptoms and reports that her headache symptoms are similar to previous. Patient has also been limited to Nubain twice monthly that has been given earlier in the month x 2. MD Complaint: Extremity pain Onset/Timin -: Week(s) Location: Right -: Yes Arthralgia Quality: Aching Consistency: Constant Improves with: Nothing Worsens with: Other (movement) Associated Symptoms: Denies other symptoms - Related Data Previous Rx's Medication Instructions Recorded Hydrocodone/Acetaminophen [Edmonds 1 each PO Q6H #15 tablet 11/06/17 7.5-325 Tablet] Allergies Allergy/AdvReac Type Severity Reaction Status Date / Time sumatriptan [From Imitrex] Allergy ANAPHYLAXIS Verified 11/03/17 16:07 sumatriptan succinate Allergy ANAPHYLAXIS Verified 11/03/17 16:07 [From Imitrex] chlorpromazine AdvReac HYPERSENSIT Verified 11/03/17 16:07 [From Thorazine] IVITY erythromycin base AdvReac VOMITING Verified 11/03/17 16:07 [Erythromycin Base] nortriptyline [From Pamelor] AdvReac TACHYCARDIA Verified 11/03/17 16:07 Review of Systems Constitutional: Denies: Chills, Fever, Malaise, Night sweats Eyes: Denies: Eye discharge, Eye pain ENT: Denies: Congestion, Ear pain, Epistaxis Respiratory: Denies: Cough, Dyspnea Cardiovascular: Denies: Chest pain, Dyspnea on exertion Endocrine: Denies: Fatigue, Heat or cold intolerance Gastrointestinal: Denies: Abdominal pain, Nausea, Vomiting Genitourinary: Denies: Incontinence, Retention Musculoskeletal: Reports: Arthralgia, Back pain Skin: Denies: Bruising, Change in color Neurological: Reports: Headache. Denies: Abnormal gait, Confusion, Seizure Psychiatric: Denies: Anxiety Hematological/Lymphatic: Denies: Anemia Past Medical History - SOCIAL HISTORY Smoking Status: Never smoker Drug Use: None - RESPIRATORY Hx Respiratory Disorders: Yes Hx Asthma: Yes Hx Pulmonary Embolism: Yes (05/18) Hx Sleep Apnea: Yes Hx of CPAP: Yes - CARDIOVASCULAR Hx Cardio Disorders: Yes Hx Hypertension: Yes ("pretty much went away since the gastric surgery") - NEURO Hx Neuro Disorders: Yes Hx Headaches: Yes (migraines) - GI Hx GI Disorders: Yes Comment:: gastric sleeve - Hx Genitourinary Disorders: Yes Hx Kidney Stones: Yes - ENDOCRINE Hx Endocrine Disorders: Yes Hx Diabetes: Yes (type II) Hx Thyroid Disease: No - MUSCULOSKELETAL Hx Musculoskeletal Disorders: No - PSYCH Hx Psych Problems: No - HEMATOLOGY/ONCOLOGY Hx Hematology/Oncology Disorders: No Family Medical History Hx Cancer: Grandparents Hx Diabetes: Father, Grandparents Hx Heart Disease: Grandparents Hx HTN: Mother Hx Kidney Disease: Father *Kidney Comment: stones Hx Stroke: Grandparents Physical Exam - General General Appearance: Alert, Oriented x3, Cooperative, Mild distress Limitations: No limitations - Head Head exam: Atraumatic, Normocephalic, Normal inspection Head exam detail: negative: Abrasion, Contusion, Frazier's sign, General tenderness, Hematoma, Laceration - Eye Eye exam: Normal appearance. negative: Conjunctival injection, Periorbital swelling, Periorbital tenderness, Scleral icterus - ENT Ear exam: negative: Auricular hematoma, Auricular trauma Nasal Exam: negative: Active bleeding, Discharge, Dried blood, Foreign body Mouth exam: negative: Drooling, Laceration, Muffled voice, Tongue elevation - Neck Neck exam: Normal inspection. negative: Meningismus, Tenderness - Respiratory Respiratory exam: Normal lung sounds bilaterally. negative: Rales, Respiratory distress, Rhonchi, Stridor - Cardiovascular Cardiovascular Exam: Regular rate, Normal rhythm, Normal heart sounds - GI/Abdominal GI/Abdominal exam: Soft. negative: Rebound, Rigid, Tenderness - Rectal Rectal exam: Deferred - exam: Deferred - Extremities Extremities exam: Normal inspection. negative: Calf tenderness, Pedal edema, Tenderness - Back Back exam: Denies: CVA tenderness (R), CVA tenderness (L) - Neurological Neurological exam: Alert, Normal gait, Oriented X3 - Psychiatric Psychiatric exam: Normal affect, Normal mood - Skin Skin exam: Normal color. negative: Abrasion Type of lesion: negative: abrasion Course Vital Signs 11/13/17 20:55 Temperature 98.3 F Pulse Rate [ 99 H Pulse Ox Probe] Respiratory 18 Rate Blood Pressure 144/117 [Left Arm] Pulse Ox 99 - Reevaluation(s) Reevaluation #1: 11/13/17 21:41 Patient reassessed, reports very mild improvement, but reports that she is ready to go home at this time. Patient appears stable for discharge at this time. Disposition Disposition: Discharge Clinical Impression: Migraine Qualifiers: Migraine type: unspecified Status migrainosus presence: without status migrainosus Intractability: not intractable Qualified Code(s): G43.909 - Migraine, unspecified, not intractable, without status migrainosus Disposition: Home, Self-Care Condition: (2) Stable Instructions: Migraine Headache (ED) Additional Instructions: Return to ED if your symptoms worsen or if you have any concerns. Follow-up with your family doctor in 3-5 days as directed. Forms: Patient Portal Access Time of Disposition: 21:43 Quality - Quality Measures Quality Measures: N/A - Blood Pressure Screening Does Patient Have Any of the Following: No Blood Pressure Classification: Hypertensive Reading Systolic Measurement: 144 Diastolic Measurement: 117 Screening for High Blood Pressure: < First Hypertensive BP, F/U Documented > [ G8950] First Hypertensive Follow-up Interventions: Referral to alternative/primary care provider.
[2017-11-13] MEDS ORDERED: LORAZEPAM 2 MG/ML VIAL IM ONE (21:06)
== END 2017-11-13 22:15 | disposition home or self-care (01) ==
LOC: ER 20:46
DX: G43.909 Migraine, unspecified, not intractable, without status migrainosus (principal); M25.551 Pain in right hip; E11.9 Type 2 diabetes mellitus without complications
CPT/HCPCS: 99283 ×2; 96372; J2060; J1200; J1630

== ENCOUNTER 2017-11-15 02:29 | Emergency (ER) | payer BC ==
--- NOTE | 2017-11-15 02:48 | Emergency Department Record ---
History of Present Illness - General Chief Complaint: Shortness of breath Time Seen by Provider: 11/15/17 02:43 Source: Patient Mode of Arrival: Ambulatory Limitations: No limitations - History of Present Illness Initial Comments: 32 yo female returns to ED for evaluation of shortness of breath for the past 8 hours. Patient reports that despite use of her inhaler, she has been unable to take deep breaths. Patient denies fevers, chills, or cough symptoms. Patient does have a history of PE, completed anticoagulation 2 weeks ago. MD Complaint: Shortness of breath Onset/Timin -: Hour(s) Severity: Moderate Consistency: Constant Improves With: Nothing Worsens With: Nothing Known History Of: Other Associated Symptoms: Pain with inspiration Treatments Prior to Arrival: Bronchodilator Treatment Prior to Arrival Comment:: 2 HOURS AGO - Related Data Home Oxygen Therapy: No Previous Rx's Medication Instructions Recorded Hydrocodone/Acetaminophen [[place] 1 each PO Q6H #15 tablet 11/06/17 7.5-325 Tablet] Azithromycin [Zithromax] 250 mg PO DAILY #6 tablet 11/15/17 Allergies Allergy/AdvReac Type Severity Reaction Status Date / Time sumatriptan [From Imitrex] Allergy ANAPHYLAXIS Verified 11/03/17 16:07 sumatriptan succinate Allergy ANAPHYLAXIS Verified 11/03/17 16:07 [From Imitrex] chlorpromazine AdvReac HYPERSENSIT Verified 11/03/17 16:07 [From Thorazine] IVITY erythromycin base AdvReac VOMITING Verified 11/03/17 16:07 [Erythromycin Base] nortriptyline [From Pamelor] AdvReac TACHYCARDIA Verified 11/03/17 16:07 Travel Screening - Travel/Exposure Within Last 30 Days Have you traveled within the last 30 days?: No - Travel Symptoms Symptom Screening: None Review of Systems Constitutional: Denies: Chills, Fever, Malaise, Night sweats Eyes: Denies: Eye discharge, Eye pain ENT: Denies: Congestion, Ear pain, Epistaxis Respiratory: Reports: Dyspnea. Denies: Cough Cardiovascular: Denies: Chest pain, Dyspnea on exertion, Edema Endocrine: Denies: Fatigue, Heat or cold intolerance Gastrointestinal: Denies: Abdominal pain, Nausea, Vomiting Genitourinary: Denies: Incontinence, Retention Musculoskeletal: Denies: Arthralgia, Back pain, Gout, Joint swelling Skin: Denies: Bruising, Change in color Neurological: Denies: Abnormal gait, Confusion, Headache, Seizure Psychiatric: Denies: Anxiety Hematological/Lymphatic: Reports: Blood Clots. Denies: Anemia Past Medical History - SOCIAL HISTORY Smoking Status: Never smoker Alcohol Use: None Drug Use: None - RESPIRATORY Hx Respiratory Disorders: Yes Hx Asthma: Yes Hx Pulmonary Embolism: Yes (05/18) Hx Sleep Apnea: Yes Hx of CPAP: Yes - CARDIOVASCULAR Hx Cardio Disorders: Yes Hx Hypertension: Yes ("pretty much went away since the gastric surgery") - NEURO Hx Neuro Disorders: Yes Hx Headaches: Yes (migraines) - GI Hx GI Disorders: Yes Comment:: gastric sleeve - Hx Genitourinary Disorders: Yes Hx Kidney Stones: Yes - ENDOCRINE Hx Endocrine Disorders: Yes Hx Diabetes: Yes (type II) Hx Thyroid Disease: No - MUSCULOSKELETAL Hx Musculoskeletal Disorders: No - PSYCH Hx Psych Problems: No - HEMATOLOGY/ONCOLOGY Hx Hematology/Oncology Disorders: No Family Medical History Any Significant Family History?: Yes Hx Cancer: Grandparents Hx Diabetes: Father, Grandparents Hx Heart Disease: Grandparents Hx HTN: Mother Hx Kidney Disease: Father *Kidney Comment: stones Hx Stroke: Grandparents Physical Exam - General General Appearance: Alert, Oriented x3, Cooperative, No acute distress Limitations: No limitations - Head Head exam: Atraumatic, Normocephalic, Normal inspection Head exam detail: negative: Abrasion, Contusion, Frazier's sign, General tenderness, Hematoma, Laceration - Eye Eye exam: Normal appearance. negative: Conjunctival injection, Periorbital swelling, Periorbital tenderness, Scleral icterus - ENT Ear exam: negative: Auricular hematoma, Auricular trauma Nasal Exam: negative: Active bleeding, Discharge, Dried blood, Foreign body Mouth exam: negative: Drooling, Laceration, Tongue elevation - Neck Neck exam: Normal inspection. negative: Meningismus, Tenderness - Respiratory Respiratory exam: Normal lung sounds bilaterally. negative: Rales, Respiratory distress, Rhonchi, Stridor - Cardiovascular Cardiovascular Exam: Regular rate, Normal rhythm, Normal heart sounds - GI/Abdominal GI/Abdominal exam: Soft. negative: Rebound, Rigid, Tenderness - Rectal Rectal exam: Deferred - exam: Deferred - Extremities Extremities exam: Normal inspection. negative: Calf tenderness, Pedal edema, Tenderness - Back Back exam: Denies: CVA tenderness (R), CVA tenderness (L) - Neurological Neurological exam: Alert, Normal gait, Oriented X3 - Psychiatric Psychiatric exam: Normal affect, Normal mood - Skin Skin exam: Normal color. negative: Abrasion Type of lesion: negative: abrasion Course Vital Signs 11/15/17 02:33 Temperature 97.7 F Pulse Rate 83 Respiratory 24 Rate Blood Pressure 134/87 Pulse Ox 97 - Reevaluation(s) Reevaluation #1: 11/15/17 03:38 Labs reviewed, D-Dimer 1.36, labs are otherwise grossly unremarkable for an acute process. Patient is in CT for CTA examination of the chest. Reevaluation #2: 11/15/17 04:12 CTA Chest: No PE Ground-glass appearance c/w mild edema vs. inflammatory pneumonitis Patient was updated on all results, VSS stable, patient has no cough, fever, or URI symptoms provided in the history. Will treat for possible pneumonitis with Zithromax if symptoms fail to improve in 24-48 hours. Patient agrees with plan of care as discussed. Medical Decision Making - Lab Data Result diagrams: 11/15/17 02:50 11/15/17 02:50 Disposition Disposition: Discharge Clinical Impression: Dyspnea Qualifiers: Dyspnea type: unspecified Qualified Code(s): R06.00 - Dyspnea, unspecified Disposition: Home, Self-Care Condition: (2) Stable Instructions: Dyspnea (ED) Additional Instructions: Return to ED if your symptoms worsen or if you have any concerns. Zithromax as directed. Follow-up with your family doctor in 3-5 days as directed. Prescriptions: Azithromycin [Zithromax] 250 mg PO DAILY #6 tablet Forms: Patient Portal Access Time of Disposition: 04:17 Quality - Quality Measures Quality Measures: N/A - Blood Pressure Screening Does Patient Have Any of the Following: No Blood Pressure Classification: Pre-Hypertensive BP Reading Systolic Measurement: 134 Diastolic Measurement: 87 Screening for High Blood Pressure: < Pre-Hypertensive BP, F/U Documented > [ G8950] Pre-Hypertensive Follow-up Interventions: Referral to alternative/primary care provider.
[2017-11-15 03:00] LABS: BASO % 0.5 % (0-6); EOS % 2.7 % (0-6); GRAN % 62.3 % (47-80); HEMATOCRIT 36.9 % (35.0-47.0); HEMOGLOBIN 11.9 gm/dl (11.6-16.0); LYMPH % 26.2 % (16-45); MEAN CELL VOLUME 88.1 fl (81-97); MEAN CORPUSCULAR HEMOGLOBIN 28.4 pg (27-33); MEAN CORPUSCULAR HGB CONC 32.2 g/dl (32-36); MEAN PLATELET VOLUME 9.2 fl (7.4-10.4); MONO % 8.3 % (0-9); PLATELET COUNT 444 K/uL (130-400); RED BLOOD COUNT 4.19 M/uL (3.80-5.40); RED CELL DISTRIBUTION WIDTH 13.6 % (11.5-14.5); WHITE BLOOD COUNT W/O DIFF 9.3 K/uL (4.2-12.2)
[2017-11-15 03:25] LABS: ALB/GLOB RATIO 1.4 (1.1-1.8); ALBUMIN 4.3 g/dL (4.0-5.0); ALKALINE PHOSPHATASE 70 U/L (35-104); ALT/SGPT 11 U/L (<33); AST/SGOT 14 U/L (10.0-35.0); BLOOD UREA NITROGEN 16 mg/dL (6-20); CREATININE 0.5 mg/dL (0.5-0.9); EST GLOMERULAR FILTRATION RATE > 60 mL/min; GLUCOSE,RANDOM 180 mg/dL (74-109); TOTAL PROTEIN 7.3 g/dL (6.6-8.7)
--- NOTE | 2017-11-16 08:31 | CT ANGIOGRAM REPORT ---
EXAM: CT ANGIOGRAM OF THE CHEST FOR PULMONARY EMBOLUS HISTORY: DIFFICULTY IN BREATHING. ELEVATED D-DIMER. TECHNIQUE: Routine CT angiogram of the chest was performed utilizing 95 ml of Omnipaque 350. Maximum intensity projection reformatted images are generated in the coronal and sagittal planes and reviewed. Comparison: CT angiogram of the chest dated 04/28/17. FINDINGS: Opacification of the pulmonary arteries is satisfactory for interpretation though evaluation of the segmental arteries in the lower lungs is somewhat limited by patient motion. No definite luminal filling defect within the outflow tract, main arteries, lobar arteries, nor the proximal segmental arteries that are unaffected by respiratory motion to suggest pulmonary embolic disease. The heart is not enlarged. The thoracic aorta is normal in caliber and without evidence of dissection. No mediastinal nor hilar mass/lymphadenopathy. Mild mediastinal lipomatosus. Mild ground glass opacities are scattered within the lower lobes in the setting of low lung volumes. No pleural or pericardial effusion. No convincing evidence of right heart strain. The adrenal glands are not enlarged. Gastric sleeve surgery changes are present. No lytic or blastic bone lesion is seen. IMPRESSION: 1. NO CT EVIDENCE OF ACUTE PULMONARY EMBOLIC DISEASE THOUGH EVALUATION OF THE SEGMENTAL ARTERIES OF THE LOWER LUNGS IS MILDLY LIMITED BY MOTION ARTIFACT. 2. GROUND GLASS OPACITIES SCATTERED WITHIN THE LOWER LOBES. THIS MAY RELATE TO ATELECTASIS GIVEN THE RELATIVELY LOW LUNG VOLUMES THOUGH PNEUMONITIS OR LESS LIKELY EDEMA CANNOT BE EXCLUDED. 3. POST GASTRIC SLEEVE SURGERY CHANGES. JOB NUMBER: [id number] MTDD
== END 2017-11-15 04:32 | disposition home or self-care (01) ==
LOC: ER 02:29
DX: R06.02 Shortness of breath (principal); R79.89 Other specified abnormal findings of blood chemistry; E11.9 Type 2 diabetes mellitus without complications
CPT/HCPCS: 71275; 80053; 85025; 85379; 99283; 99284

== ENCOUNTER 2017-11-15 17:43 | Emergency (ER) | payer BC ==
--- NOTE | 2017-11-15 18:30 | Emergency Department Record ---
History of Present Illness - General Chief Complaint: Shortness of breath Stated Complaint: NAHOMI,SHORT OF BREATH Time Seen by Provider: 11/15/17 18:22 Source: Patient Mode of Arrival: Ambulatory - History of Present Illness Initial Comments: Patient here for dyspnea and she was seen last night by Dr. bowers and told beginning of pneumonia and she had a CTA scan done without a PE and she has had a previous PE and off the blood thinner(Eliquis) Oct 2017. Patient has no chilles or fever and she does have head congestion and body aches. Patient fell down the stairs one week ago. and seen here 8 days ago. Onset/Timin -: Days(s) Severity: Mild Severity scale (1-10): 6 Quality: Aching Consistency: Constant Improves With: Nothing Worsens With: Nothing Known History Of: Other Associated Symptoms: Denies other symptoms Treatments Prior to Arrival: None - Related Data Previous Rx's Medication Instructions Recorded Hydrocodone/Acetaminophen [[place] 1 each PO Q6H #15 tablet 11/06/17 7.5-325 Tablet] Azithromycin [Zithromax] 250 mg PO DAILY #6 tablet 11/15/17 Hydrocodone/Acetaminophen [[place] 1 each PO Q6HR #20 tablet 11/15/17 5-325 Tablet] Allergies Allergy/AdvReac Type Severity Reaction Status Date / Time sumatriptan [From Imitrex] Allergy ANAPHYLAXIS Verified 11/03/17 16:07 sumatriptan succinate Allergy ANAPHYLAXIS Verified 11/03/17 16:07 [From Imitrex] chlorpromazine AdvReac HYPERSENSIT Verified 11/03/17 16:07 [From Thorazine] IVITY erythromycin base AdvReac VOMITING Verified 11/03/17 16:07 [Erythromycin Base] nortriptyline [From Pamelor] AdvReac TACHYCARDIA Verified 11/03/17 16:07 Travel Screening - Travel/Exposure Within Last 30 Days Have you traveled within the last 30 days?: No Review of Systems Reviewed: No additional complaints except as noted below Constitutional: Reports: As per HPI. Denies: Chills, Fever, Malaise, Night sweats, Weakness, Weight change Eyes: Reports: As per HPI. Denies: Eye discharge, Eye pain, Photophobia, Vision change ENT: Reports: As per HPI, Congestion. Denies: Dental pain, Ear pain, Epistaxis , Hearing loss, Throat pain Respiratory: Reports: As per HPI, Dyspnea. Denies: Cough, Hemoptysis, Stridor, Wheezes Cardiovascular: Reports: As per HPI. Denies: Arrhythmia, Chest pain, Dyspnea on exertion, Edema, Murmurs, Orthopnea, Palpitations, Paroxysmal nocturnal dyspnea, Rheumatic Fever, Syncope Endocrine: Reports: As per HPI. Denies: Fatigue, Heat or cold intolerance, Polydipsia, Polyuria Gastrointestinal: Reports: As per HPI. Denies: Abdominal pain, Constipation, Diarrhea, Hematemesis, Hematochezia, Melena, Nausea, Vomiting Genitourinary: Reports: As per HPI. Denies: Abnormal menses, Discharge, Dyspareunia, Dysuria, Frequency, Hematuria, Incontinence, Retention, Urgency Musculoskeletal: Reports: As per HPI. Denies: Arthralgia, Back pain, Gout, Joint swelling, Myalgia, Neck pain Skin: Reports: As per HPI. Denies: Bruising, Change in color, Change in hair/ nails, Lesions, Pruritus, Rash Neurological: Reports: As per HPI. Denies: Abnormal gait, Confusion, Headache, Numbness, Paresthesias, Seizure, Tingling, Tremors, Vertigo, Weakness Psychiatric: Reports: As per HPI. Denies: Anxiety, Auditory hallucinations, Depression, Homicidal thoughts, Suicidal thoughts, Visual hallucinations Hematological/Lymphatic: Reports: As per HPI. Denies: Anemia, Blood Clots, Easy bleeding, Easy bruising, Swollen glands Past Medical History - SOCIAL HISTORY Smoking Status: Never smoker Alcohol Use: None Drug Use: None - RESPIRATORY Hx Respiratory Disorders: Yes Hx Asthma: Yes Hx Pulmonary Embolism: Yes (05/18) Hx Sleep Apnea: Yes Hx of CPAP: Yes - CARDIOVASCULAR Hx Cardio Disorders: Yes Hx Hypertension: Yes ("pretty much went away since the gastric surgery") - NEURO Hx Neuro Disorders: Yes Hx Headaches: Yes (migraines) - GI Hx GI Disorders: Yes Comment:: gastric sleeve - Hx Genitourinary Disorders: Yes Hx Kidney Stones: Yes - ENDOCRINE Hx Endocrine Disorders: Yes Hx Diabetes: Yes (type II) Hx Thyroid Disease: No - MUSCULOSKELETAL Hx Musculoskeletal Disorders: No - PSYCH Hx Psych Problems: No - HEMATOLOGY/ONCOLOGY Hx Hematology/Oncology Disorders: No Family Medical History Any Significant Family History?: Yes Hx Cancer: Grandparents Hx Diabetes: Father, Grandparents Hx Heart Disease: Grandparents Hx HTN: Mother Hx Kidney Disease: Father *Kidney Comment: stones Hx Stroke: Grandparents Physical Exam - General General Appearance: Alert, Oriented x3, Cooperative, No acute distress - Head Head exam: Normal inspection - Eye Eye exam: Normal appearance, PERRL Pupils: Normal accommodation - ENT ENT exam: Normal exam, Mucous membranes moist, Normal external ear exam, Normal orophraynx, TM's normal bilaterally Ear exam: Normal external inspection. negative: External canal tenderness Nasal Exam: Normal inspection. negative: Discharge, Sinus tenderness Mouth exam: Normal external inspection, Tongue normal Teeth exam: Normal inspection. negative: Dental caries Throat exam: Normal inspection. negative: Tonsillar erythema, Tonsillar exudate - Neck Neck exam: Normal inspection, Full ROM. negative: Tenderness - Respiratory Respiratory exam: Normal lung sounds bilaterally. negative: Respiratory distress - Cardiovascular Cardiovascular Exam: Regular rate, Normal rhythm, Normal heart sounds - GI/Abdominal GI/Abdominal exam: Soft, Normal bowel sounds. negative: Tenderness - Rectal Rectal exam: Deferred - exam: Deferred - Extremities Extremities exam: Normal inspection, Full ROM, Normal capillary refill. negative: Tenderness - Back Back exam: Reports: Normal inspection, Full ROM. Denies: Muscle spasm, Rash noted, Tenderness - Neurological Neurological exam: Alert, Normal gait, Oriented X3, Reflexes normal - Psychiatric Psychiatric exam: Normal affect, Normal mood - Skin Skin exam: Dry, Intact, Normal color, Warm Course Vital Signs 11/15/17 17:53 Temperature 98.2 F Pulse Rate 87 Respiratory 18 Rate Blood Pressure 126/85 Pulse Ox 100 Medical Decision Making - Data Complexity MDM Data: Labs Ordered and/or Reviewed (D dimer up ), X-Ray Ordered and/or Reviewed (CTA No PE), EKG Ordered and/or Reviewed (nsr , non specific t wave changes anteriorly) - Lab Data Result diagrams: 11/15/17 19:22 11/15/17 19:22 - EKG Data -: EKG Interpreted by Me Disposition Clinical Impression: Chest wall pain Dyspnea Qualifiers: Dyspnea type: shortness of breath Qualified Code(s): R06.02 - Shortness of breath; R06.00 - Dyspnea, unspecified; R06.01 - Orthopnea Pneumonia Qualifiers: Pneumonia type: due to unspecified organism Laterality: unspecified laterality Lung location: lower lobe of lung Qualified Code(s): J18.1 - Lobar pneumonia, unspecified organism Disposition: Home, Self-Care Condition: (1) Good Additional Instructions: follow up with Dr. Flores in 2 to 5 days Prescriptions: Hydrocodone/Acetaminophen [[place] 5-325 Tablet] 1 each PO Q6HR #20 tablet Forms: Patient Portal Access Time of Disposition: 20:39 Quality - Quality Measures Quality Measures: N/A - Blood Pressure Screening Does Patient Have Any of the Following: No Blood Pressure Classification: Pre-Hypertensive BP Reading Systolic Measurement: 126 Diastolic Measurement: 85 Screening for High Blood Pressure: < Pre-Hypertensive BP, F/U Documented > [ G8950] Pre-Hypertensive Follow-up Interventions: Referral to alternative/primary care provider.
[2017-11-15] MEDS ORDERED: ASPIRIN 81 MG CHEWABLE TABLET PO ONE (18:36)
[2017-11-15] MEDS ORDERED: LORAZEPAM 2 MG/ML VIAL IV ONE (19:23)
[2017-11-15 19:29] LABS: BASO % 0.4 % (0-6); EOS % 2.9 % (0-6); GRAN % 61.2 % (47-80); HEMATOCRIT 37.9 % (35.0-47.0); HEMOGLOBIN 12.1 gm/dl (11.6-16.0); LYMPH % 27.9 % (16-45); MEAN CELL VOLUME 87.9 fl (81-97); MEAN CORPUSCULAR HEMOGLOBIN 28.1 pg (27-33); MEAN CORPUSCULAR HGB CONC 31.9 g/dl (32-36); MEAN PLATELET VOLUME 9.1 fl (7.4-10.4); MONO % 7.6 % (0-9); PLATELET COUNT 475 K/uL (130-400); RED BLOOD COUNT 4.31 M/uL (3.80-5.40); RED CELL DISTRIBUTION WIDTH 13.5 % (11.5-14.5); WHITE BLOOD COUNT W/O DIFF 9.9 K/uL (4.2-12.2)
[2017-11-15 19:41] LABS: BLOOD UREA NITROGEN 15 mg/dL (6-20); CREATININE 0.6 mg/dL (0.5-0.9); EST GLOMERULAR FILTRATION RATE > 60 mL/min
[2017-11-15 19:43] LABS: PARTIAL THROMBOPLASTIN TIME 24.7 SECONDS (24.5-39.1)
[2017-11-15 19:44] LABS: GLUCOSE,RANDOM 109 mg/dL (74-109)
[2017-11-15] MEDS ORDERED: HYDROCODONE/APAP 5/325MG TABLET PO ONE (20:27)
--- NOTE | 2017-11-16 08:44 | CT ANGIOGRAM REPORT ---
EXAM: CTA OF THE CHEST WITH CONTRAST HISTORY: ELEVATED D-DIMER, DIFFICULTY BREATHING. TECHNIQUE: CTA of the chest was performed after intravenous administration of 80 ml of Omnipaque 350 contrast material. Sagittal and coronal MIP images were performed on an independent workstation. FINDINGS: No mass or filling defect to suggest pulmonary embolism. Mild cardiomegaly. No pericardial effusion. No infiltrate or pleural effusion. No mediastinal or hilar lymphadenopathy. The visualized osseous structures appear normal. IMPRESSION: 1. NO CTA FINDINGS SUGGESTIVE OF PULMONARY EMBOLISM. 2. CARDIOMEGALY WITHOUT PERICARDIAL EFFUSION. JOB NUMBER: [id number] [facility]
== END 2017-11-15 20:48 | disposition home or self-care (01) ==
LOC: ER 17:43
DX: J18.1 Lobar pneumonia, unspecified organism (principal); R07.89 Other chest pain; R79.89 Other specified abnormal findings of blood chemistry; R06.00 Dyspnea, unspecified; Z86.711 Personal history of pulmonary embolism; E11.9 Type 2 diabetes mellitus without complications
CPT/HCPCS: 71275; 80048; 84484; 85025; 85379; 85730; 93005; 93010; 96374; 99284

== ENCOUNTER 2017-12-04 19:40 | Emergency (ER) | payer BC ==
[2017-12-04] MEDS ORDERED: NALBUPHINE HCL 20 MG/ML AMPULE IM ONE (19:56)
--- NOTE | 2017-12-04 20:02 | Emergency Department Record ---
History of Present Illness - General Chief Complaint: Headache Migraine Stated Complaint: MIGRAINE Time Seen by Provider: 12/04/17 19:50 Source: Patient Mode of Arrival: Ambulatory Limitations: No limitations - History of Present Illness Initial Comments: 32 yo female presents to ED for evaluation of migraine headache symptoms that began earlier today, similar symptoms with previous headache episodes. Patient denies fevers, chills, or neck stiffness symptoms. Patient does report that her migraine headache medications have recently changed, no taking Zyprexa nightly and Atacand for her chronic headaches. MD Complaint: Headache Onset/Timin -: Hour(s) Onset Description: Gradual Severity: Severe Quality: Aching, Similar to previous headaches Consistency: Constant, Getting worse Improves With: Nothing Treatments Prior to Arrival: Migraine medication - Related Data Previous Rx's Medication Instructions Recorded Hydrocodone/Acetaminophen [[place] 1 each PO Q6H #15 tablet 11/06/17 7.5-325 Tablet] Hydrocodone/Acetaminophen [[place] 1 each PO Q6HR #20 tablet 11/15/17 5-325 Tablet] Allergies Allergy/AdvReac Type Severity Reaction Status Date / Time sumatriptan [From Imitrex] Allergy ANAPHYLAXIS Verified 11/03/17 16:07 sumatriptan succinate Allergy ANAPHYLAXIS Verified 11/03/17 16:07 [From Imitrex] chlorpromazine AdvReac HYPERSENSIT Verified 11/03/17 16:07 [From Thorazine] IVITY erythromycin base AdvReac VOMITING Verified 11/03/17 16:07 [Erythromycin Base] nortriptyline [From Pamelor] AdvReac TACHYCARDIA Verified 11/03/17 16:07 Travel Screening - Travel/Exposure Within Last 30 Days Have you traveled within the last 30 days?: No - Travel Symptoms Symptom Screening: None Review of Systems Constitutional: Denies: Chills, Fever, Malaise, Night sweats Eyes: Denies: Eye discharge, Eye pain ENT: Denies: Congestion, Ear pain, Epistaxis Respiratory: Denies: Cough, Dyspnea Cardiovascular: Denies: Chest pain, Dyspnea on exertion, Palpitations Endocrine: Denies: Fatigue, Heat or cold intolerance Gastrointestinal: Denies: Abdominal pain, Nausea, Vomiting Genitourinary: Denies: Incontinence, Retention Musculoskeletal: Denies: Arthralgia, Back pain Skin: Denies: Bruising, Change in color, Change in hair/nails Neurological: Reports: Headache. Denies: Abnormal gait, Confusion, Seizure Psychiatric: Denies: Anxiety Hematological/Lymphatic: Denies: Anemia, Blood Clots Past Medical History - SOCIAL HISTORY Smoking Status: Never smoker - RESPIRATORY Hx Respiratory Disorders: Yes Hx Asthma: Yes Hx Pulmonary Embolism: Yes (05/18) Hx Sleep Apnea: Yes Hx of CPAP: Yes - CARDIOVASCULAR Hx Cardio Disorders: Yes Hx Hypertension: Yes ("pretty much went away since the gastric surgery") - NEURO Hx Neuro Disorders: Yes Hx Headaches: Yes (migraines) - GI Hx GI Disorders: Yes Comment:: gastric sleeve - Hx Genitourinary Disorders: Yes Hx Kidney Stones: Yes - ENDOCRINE Hx Endocrine Disorders: Yes Hx Diabetes: Yes (type II) Hx Thyroid Disease: No - MUSCULOSKELETAL Hx Musculoskeletal Disorders: No - PSYCH Hx Psych Problems: No - HEMATOLOGY/ONCOLOGY Hx Hematology/Oncology Disorders: No Family Medical History Any Significant Family History?: Yes Hx Cancer: Grandparents Hx Diabetes: Father, Grandparents Hx Heart Disease: Grandparents Hx HTN: Mother Hx Kidney Disease: Father *Kidney Comment: stones Hx Stroke: Grandparents Physical Exam - General General Appearance: Alert, Oriented x3, Cooperative, No acute distress Limitations: No limitations - Head Head exam: Atraumatic, Normocephalic, Normal inspection Head exam detail: negative: Abrasion, Contusion, Frazier's sign, General tenderness, Hematoma, Laceration - Eye Eye exam: Normal appearance, PERRL. negative: Conjunctival injection, Periorbital swelling, Periorbital tenderness, Scleral icterus - ENT Ear exam: negative: Auricular hematoma, Auricular trauma Nasal Exam: negative: Active bleeding, Discharge, Dried blood, Foreign body Mouth exam: negative: Drooling, Laceration, Muffled voice, Tongue elevation - Neck Neck exam: Normal inspection. negative: Meningismus, Tenderness - Respiratory Respiratory exam: Normal lung sounds bilaterally. negative: Rales, Respiratory distress, Rhonchi, Stridor - Cardiovascular Cardiovascular Exam: Normal rhythm, Normal heart sounds, Tachycardia - GI/Abdominal GI/Abdominal exam: Soft. negative: Rebound, Rigid, Tenderness - Rectal Rectal exam: Deferred - exam: Deferred - Extremities Extremities exam: Normal inspection. negative: Tenderness - Back Back exam: Denies: CVA tenderness (R), CVA tenderness (L) - Neurological Neurological exam: Alert, Normal gait, Oriented X3 - Psychiatric Psychiatric exam: Flat affect, Normal mood - Skin Skin exam: Normal color. negative: Abrasion Type of lesion: negative: abrasion Course Vital Signs 12/04/17 19:44 Temperature 98.4 F Pulse Rate 134 H Respiratory 18 Rate Blood Pressure 143/85 Pulse Ox 98 - Reevaluation(s) Reevaluation #1: 12/04/17 20:01 MAPS reviewed, overdose risk score 530 based on patient's prescrption history. Nubain ordered for her headache symptoms. Reevaluation #2: 12/04/17 20:12 Patient reassessed, pulse 110 (down from 134). Patient does report stopping her Bystolic 3 days ago, pulse likely elevated due to beta damon withdrawal. Will reassess headache symptoms in 15-20 minutes. Reevaluation #3: 12/04/17 20:49 Patient reassessed, reports that her headache symptoms are improved, and the patient appears stable for discharge at this time. Disposition Disposition: Discharge Clinical Impression: Headache Qualifiers: Headache type: unspecified Headache chronicity pattern: acute headache Intractability: not intractable Qualified Code(s): R51 - Headache Disposition: Home, Self-Care Condition: (2) Stable Instructions: Acute Headache (ED) Additional Instructions: Return to ED if your symptoms worsen or if you have any concerns. Follow-up with your neurolgist (Dr. Davis) in 3-5 days as directed. Forms: Patient Portal Access Time of Disposition: 20:50 Quality - Quality Measures Quality Measures: N/A - Blood Pressure Screening Does Patient Have Any of the Following: No Blood Pressure Classification: Pre-Hypertensive BP Reading Systolic Measurement: 143 Diastolic Measurement: 85 Screening for High Blood Pressure: < Pre-Hypertensive BP, F/U Documented > [ G8950] Pre-Hypertensive Follow-up Interventions: Referral to alternative/primary care provider.
== END 2017-12-04 20:57 | disposition home or self-care (01) ==
LOC: ER 19:40
DX: R51 Headache (principal)
CPT/HCPCS: 99283 ×2; J2300

== ENCOUNTER 2017-12-07 16:25 | Emergency (ER) | payer BC ==
[2017-12-07] MEDS ORDERED: NALBUPHINE HCL 20 MG/ML AMPULE IM ONE (16:38)
--- NOTE | 2017-12-07 16:41 | Emergency Department Record ---
History of Present Illness - General Chief Complaint: Headache Migraine Stated Complaint: LANGLEY Time Seen by Provider: 12/07/17 16:27 Source: Patient, Family Mode of Arrival: Ambulatory Limitations: No limitations - History of Present Illness Initial Comments: 32 yo female presents with a typical migraine. She has constant migraines that never fully resolve. She has been recently admitted again to the [facility] in [place]. She states several changes in medications occurred. She was done to 02/08 when she left which she reports is the lowest in several years. Her migraine returned at 3am. She has nausea and vomited once. She took her medications including Haldol, Bendadryl and Toradol. Complaint: "Migraine" -: Days(s) (1) Onset Description: Gradual Location: Diffuse Quality: Aching Consistency: Constant Improves With: Nothing Worsens With: Light, Noise Context: Other (Chronic intractable migraines) Associated Symptoms: Vomiting Treatments Prior to Arrival: Migraine medication - Related Data Home Medications Medication Instructions Recorded Confirmed Last Taken Olanzapine [Zyprexa] 10 mg PO QHS 12/07/17 12/07/17 12/07/17 Previous Rx's Medication Instructions Recorded Hydrocodone/Acetaminophen [[place] 1 each PO Q6H #15 tablet 11/06/17 7.5-325 Tablet] Hydrocodone/Acetaminophen [[place] 1 each PO Q6HR #20 tablet 11/15/17 5-325 Tablet] Allergies Allergy/AdvReac Type Severity Reaction Status Date / Time sumatriptan [From Imitrex] Allergy ANAPHYLAXIS Verified 12/07/17 16:31 sumatriptan succinate Allergy ANAPHYLAXIS Verified 12/07/17 16:31 [From Imitrex] chlorpromazine AdvReac HYPERSENSIT Verified 12/07/17 16:31 [From Thorazine] IVITY erythromycin base AdvReac VOMITING Verified 12/07/17 16:31 [Erythromycin Base] nortriptyline [From Pamelor] AdvReac TACHYCARDIA Verified 12/07/17 16:31 Review of Systems Constitutional: Denies: Chills, Fever, Malaise, Weakness Eyes: Reports: Photophobia. Denies: Eye discharge, Eye pain, Vision change ENT: Denies: Congestion, Throat pain Respiratory: Denies: Cough Cardiovascular: Denies: Chest pain, Syncope Endocrine: Denies: Fatigue, Polydipsia, Polyuria Gastrointestinal: Reports: Nausea, Vomiting. Denies: Abdominal pain, Diarrhea Genitourinary: Denies: Dysuria, Urgency Musculoskeletal: Denies: Arthralgia, Back pain, Joint swelling, Myalgia, Neck pain Skin: Denies: Bruising, Change in color, Rash Neurological: Reports: Headache, Weakness. Denies: Confusion, Numbness, Tingling, Tremors, Vertigo Psychiatric: Denies: Anxiety Hematological/Lymphatic: Denies: Blood Clots, Easy bleeding, Easy bruising, Swollen glands Past Medical History - SOCIAL HISTORY Smoking Status: Never smoker - RESPIRATORY Hx Respiratory Disorders: Yes Hx Asthma: Yes Hx Pulmonary Embolism: Yes (05/18) Hx Sleep Apnea: Yes Hx of CPAP: Yes - CARDIOVASCULAR Hx Cardio Disorders: Yes Hx Hypertension: Yes ("pretty much went away since the gastric surgery") - NEURO Hx Neuro Disorders: Yes Hx Headaches: Yes (migraines) - GI Hx GI Disorders: Yes Comment:: gastric sleeve - Hx Genitourinary Disorders: Yes Hx Kidney Stones: Yes - ENDOCRINE Hx Endocrine Disorders: Yes Hx Diabetes: Yes (type II) Hx Thyroid Disease: No - MUSCULOSKELETAL Hx Musculoskeletal Disorders: No - PSYCH Hx Psych Problems: No - HEMATOLOGY/ONCOLOGY Hx Hematology/Oncology Disorders: No Family Medical History Hx Cancer: Grandparents Hx Diabetes: Father, Grandparents Hx Heart Disease: Grandparents Hx HTN: Mother Hx Kidney Disease: Father *Kidney Comment: stones Hx Stroke: Grandparents Physical Exam - General General Appearance: Alert, Oriented x3, Cooperative, No acute distress Limitations: No limitations - Head Head exam: Atraumatic, Normocephalic, Normal inspection - Eye Eye exam: Normal appearance, PERRL, EOMI. negative: Conjunctival injection, Nystagmus, Periorbital swelling, Scleral icterus - ENT ENT exam: Normal exam, Mucous membranes moist, Normal orophraynx Ear exam: Normal external inspection Nasal Exam: Normal inspection Mouth exam: Normal external inspection Teeth exam: Normal inspection Throat exam: Normal inspection. negative: Tonsillar erythema, Tonsillomegaly, Tonsillar exudate, R peritonsillar mass, L peritonsillar mass - Neck Neck exam: Normal inspection, Full ROM. negative: Tenderness - Respiratory Respiratory exam: Normal lung sounds bilaterally. negative: Respiratory distress - Cardiovascular Cardiovascular Exam: Regular rate, Normal rhythm, Normal heart sounds Peripheral Pulses: 2+: Radial (R), Radial (L) - GI/Abdominal GI/Abdominal exam: Soft. negative: Tenderness - Rectal Rectal exam: Deferred - exam: Deferred - Extremities Extremities exam: Normal inspection, Full ROM, Normal capillary refill. negative: Tenderness - Back Back exam: Reports: Normal inspection, Full ROM. Denies: Muscle spasm, Rash noted, Tenderness - Neurological Neurological exam: Alert, CN II-XII intact, Normal gait, Oriented X3, Reflexes normal, Other (clear speech, alert, no signs of confusion or being altered. She has normal speech demarcus). negative: Abnormal gait, Altered, Motor sensory deficit - Psychiatric Psychiatric exam: Normal affect, Normal mood, Other (conversational, clear thoughts and responses.). negative: Agitated, Anxious, Depressed - Skin Skin exam: Dry, Intact, Normal color, Warm Course - Reevaluation(s) Reevaluation #1: 12/07/17 16:41 EMR reviewed 2nd ED visit in November The patient has a call in to her neurologist in [place] She is considering returning to [place]. She is waiting for insurance approval for Botox. 12/07/17 16:43 A HCT was negative on 11/06/17 after a fall down 9-10 steps on stairs. 12/07/17 17:01 On recheck the patient is improved. We discussed again the need to closely manage her migraines with her neurologist in [place] and her PCP Dr Flores. Disposition Disposition: Discharge Clinical Impression: Migraine Disposition: Home, Self-Care Condition: (1) Good Instructions: Migraine Headache (ED) Additional Instructions: Call your neurologist for close follow up per your neurologist recommendations regarding your local company [employer] migraine treatment Forms: Patient Portal Access Time of Disposition: 17:02 Quality - Quality Measures Quality Measures: N/A - Blood Pressure Screening Does Patient Have Any of the Following: No Blood Pressure Classification: Hypertensive Reading Systolic Measurement: 140 Diastolic Measurement: 91 Screening for High Blood Pressure: < Pre-Hypertensive BP, F/U Documented > [ G8950] Pre-Hypertensive Follow-up Interventions: Referral to alternative/primary care provider.
== END 2017-12-07 17:08 | disposition home or self-care (01) ==
LOC: ER 16:25
DX: G43.909 Migraine, unspecified, not intractable, without status migrainosus (principal); R11.2 Nausea with vomiting, unspecified
CPT/HCPCS: 99283 ×2; 96372; J2300

== ENCOUNTER 2017-12-29 18:20 | Emergency (ER) | payer BC ==
--- NOTE | 2017-12-29 18:28 | Emergency Department Record ---
History of Present Illness - General Chief Complaint: Headache Migraine Stated Complaint: LANGLEY Time Seen by Provider: 12/29/17 18:23 Mode of Arrival: Ambulatory - History of Present Illness Initial Comments: Chonic headache and today she took ativan 2mg at 8am and haldol 2mg today at 8am congentin 2 mg at 8 am. Patient states she only suppose to get nubain 2 times a month and she had 60 of toradol at 4 pm and benadryl 100 mg IM at 430 pm and parafon forte three times a day. last dose at 2pm and she had a 8am dose. Complaint: "Migraine" Onset/Timin -: Days(s) Onset Description: Gradual Location: Diffuse Severity: Severe Severity scale (1-10): 9 Quality: Aching, Similar to previous headaches Consistency: Constant Improves With: Nothing Worsens With: None Treatments Prior to Arrival: None - Related Data Home Medications Medication Instructions Recorded Confirmed Last Taken Chlorzoxazone [Parafon Forte] 500 mg PO DAILY 12/29/17 12/29/17 Unknown Allergies Allergy/AdvReac Type Severity Reaction Status Date / Time sumatriptan [From Imitrex] Allergy ANAPHYLAXIS Verified 12/07/17 16:31 sumatriptan succinate Allergy ANAPHYLAXIS Verified 12/07/17 16:31 [From Imitrex] chlorpromazine AdvReac HYPERSENSIT Verified 12/07/17 16:31 [From Thorazine] IVITY erythromycin base AdvReac VOMITING Verified 12/07/17 16:31 [Erythromycin Base] nortriptyline [From Pamelor] AdvReac TACHYCARDIA Verified 12/07/17 16:31 Travel Screening - Travel/Exposure Within Last 30 Days Have you traveled within the last 30 days?: No Review of Systems Reviewed: No additional complaints except as noted below Constitutional: Reports: As per HPI. Denies: Chills, Fever, Malaise, Night sweats, Weakness, Weight change Eyes: Reports: As per HPI. Denies: Eye discharge, Eye pain, Photophobia, Vision change ENT: Reports: As per HPI. Denies: Congestion, Dental pain, Ear pain, Epistaxis , Hearing loss, Throat pain Respiratory: Reports: As per HPI. Denies: Cough, Dyspnea, Hemoptysis, Stridor, Wheezes Cardiovascular: Reports: As per HPI. Denies: Arrhythmia, Chest pain, Dyspnea on exertion, Edema, Murmurs, Orthopnea, Palpitations, Paroxysmal nocturnal dyspnea, Rheumatic Fever, Syncope Endocrine: Reports: As per HPI. Denies: Fatigue, Heat or cold intolerance, Polydipsia, Polyuria Gastrointestinal: Reports: As per HPI. Denies: Abdominal pain, Constipation, Diarrhea, Hematemesis, Hematochezia, Melena, Nausea, Vomiting Genitourinary: Reports: As per HPI. Denies: Abnormal menses, Discharge, Dyspareunia, Dysuria, Frequency, Hematuria, Incontinence, Retention, Urgency Musculoskeletal: Reports: As per HPI. Denies: Arthralgia, Back pain, Gout, Joint swelling, Myalgia, Neck pain Skin: Reports: As per HPI. Denies: Bruising, Change in color, Change in hair/ nails, Lesions, Pruritus, Rash Neurological: Reports: As per HPI, Headache. Denies: Abnormal gait, Confusion, Numbness, Paresthesias, Seizure, Tingling, Tremors, Vertigo, Weakness Psychiatric: Reports: As per HPI. Denies: Anxiety, Auditory hallucinations, Depression, Homicidal thoughts, Suicidal thoughts, Visual hallucinations Hematological/Lymphatic: Reports: As per HPI. Denies: Anemia, Blood Clots, Easy bleeding, Easy bruising, Swollen glands Past Medical History - SOCIAL HISTORY Smoking Status: Never smoker - RESPIRATORY Hx Respiratory Disorders: Yes Hx Asthma: Yes Hx Pulmonary Embolism: Yes (05/18) Hx Sleep Apnea: Yes Hx of CPAP: Yes - CARDIOVASCULAR Hx Cardio Disorders: Yes Hx Hypertension: Yes ("pretty much went away since the gastric surgery") - NEURO Hx Neuro Disorders: Yes Hx Headaches: Yes (migraines) - GI Hx GI Disorders: Yes Comment:: gastric sleeve - Hx Genitourinary Disorders: Yes Hx Kidney Stones: Yes - ENDOCRINE Hx Endocrine Disorders: Yes Hx Diabetes: Yes (type II) Hx Thyroid Disease: No - MUSCULOSKELETAL Hx Musculoskeletal Disorders: No - PSYCH Hx Psych Problems: No - HEMATOLOGY/ONCOLOGY Hx Hematology/Oncology Disorders: No Family Medical History Any Significant Family History?: Yes Hx Cancer: Grandparents Hx Diabetes: Father, Grandparents Hx Heart Disease: Grandparents Hx HTN: Mother Hx Kidney Disease: Father *Kidney Comment: stones Hx Stroke: Grandparents Physical Exam - General General Appearance: Alert, Oriented x3, Cooperative, No acute distress, Moderate distress - Head Head exam: Normal inspection - Eye Eye exam: Normal appearance, PERRL Pupils: Normal accommodation - ENT ENT exam: Normal exam, Mucous membranes moist, Normal external ear exam, Normal orophraynx, TM's normal bilaterally Ear exam: Normal external inspection. negative: External canal tenderness Nasal Exam: Normal inspection. negative: Discharge, Sinus tenderness Mouth exam: Normal external inspection, Tongue normal Teeth exam: Normal inspection. negative: Dental caries Throat exam: Normal inspection. negative: Tonsillar erythema, Tonsillar exudate - Neck Neck exam: Normal inspection, Full ROM. negative: Tenderness - Respiratory Respiratory exam: Normal lung sounds bilaterally. negative: Respiratory distress - Cardiovascular Cardiovascular Exam: Regular rate, Normal rhythm, Normal heart sounds - GI/Abdominal GI/Abdominal exam: Soft, Normal bowel sounds. negative: Tenderness - Rectal Rectal exam: Deferred - exam: Deferred - Extremities Extremities exam: Normal inspection, Full ROM, Normal capillary refill. negative: Tenderness - Back Back exam: Reports: Normal inspection, Full ROM, Other (no neuro red flags). Denies: Muscle spasm, Rash noted, Tenderness - Neurological Neurological exam: Alert, Normal gait, Oriented X3, Reflexes normal - Psychiatric Psychiatric exam: Normal affect, Normal mood - Skin Skin exam: Dry, Intact, Normal color, Warm Course Vital Signs 12/29/17 18:24 Temperature 97.6 F Pulse Rate 116 H Respiratory 18 Rate Blood Pressure 152/106 Pulse Ox 100 - Reevaluation(s) Reevaluation #1: patient still painful but his headache agreement is two shots of nubain per month and I don't want to go over the nubain limit. 12/29/17 19:04 Disposition Clinical Impression: Migraine Qualifiers: Migraine type: without aura Status migrainosus presence: without status migrainosus Intractability: not intractable Qualified Code(s): G43.009 - Migraine without aura, not intractable, without status migrainosus Disposition: Home, Self-Care Condition: (1) Good Instructions: Migraine Headache (ED) Additional Instructions: follow up with his primary DrMaria Elena and his headache doctor next week continue home meds Forms: Patient Portal Access Time of Disposition: 19:01 Quality - Quality Measures Quality Measures: Headache - Headache: Neuroimaging Quality Measure: Measure #419: Overuse of Neuroimaging ICD10 Codes Entered: Yes Neurological Exam: Patient had a normal neurological exam. [G9535] Headache: Use of Neuroimaging: < CTA, CT, MRA or MRI was NOT ordered > [G9534] - Blood Pressure Screening Does Patient Have Any of the Following: No Blood Pressure Classification: Hypertensive Reading Systolic Measurement: 152 Diastolic Measurement: 106 Screening for High Blood Pressure: < Pre-Hypertensive BP, F/U Documented > [ G8950] Pre-Hypertensive Follow-up Interventions: Referral to alternative/primary care provider.
[2017-12-29] MEDS ORDERED: ORPHENADRINE CITRATE 60MG/2ML VIAL IM ONE (18:45)
[2017-12-29] MEDS ORDERED: DIPHENHYDRAMINE HCL IV 50 MG/ML VIAL IM ONE (18:45)
[2017-12-29] MEDS ORDERED: HALOPERIDOL LACTATE 5 MG/ML VIAL IM ONE (18:45)
== END 2017-12-29 19:20 | disposition home or self-care (01) ==
LOC: ER 18:20
DX: G43.009 Migraine without aura, not intractable, without status migrainosus (principal)
CPT/HCPCS: 96372; 99283; J1200; J1630; J2360

== ENCOUNTER 2018-02-13 01:47 | Observation (INO) | payer BC ==
[2018-02-13] MEDS ORDERED: KETOROLAC 30 MG/ML VIAL IVP ONE (01:59)
[2018-02-13] MEDS ORDERED: 0.9 % SODIUM CHLORIDE 1000ML 1,000 ML IV SCH (02:00)
[2018-02-13 02:11] LABS: EOS % 1.7 % (0-6); GRAN % 61.8 % (47-80); HEMATOCRIT 39.4 % (35.0-47.0); HEMOGLOBIN 12.9 gm/dl (11.6-16.0); LYMPH % 28.8 % (16-45); MEAN CELL VOLUME 84.7 fl (81-97); MEAN CORPUSCULAR HEMOGLOBIN 27.7 pg (27-33); MEAN CORPUSCULAR HGB CONC 32.7 g/dl (32-36); MEAN PLATELET VOLUME 9.9 fl (7.4-10.4); MONO % 6.7 % (0-9); PLATELET COUNT 434 K/uL (130-400); RED BLOOD COUNT 4.65 M/uL (3.80-5.40); RED CELL DISTRIBUTION WIDTH 13.4 % (11.5-14.5); WHITE BLOOD COUNT W/O DIFF 9.3 K/uL (4.2-12.2)
[2018-02-13] MEDS ORDERED: LORAZEPAM 2 MG/ML VIAL IV ONE ×2 (02:12→11:36)
--- NOTE | 2018-02-13 02:15 | Emergency Department Record ---
History of Present Illness - General Chief Complaint: Headache Migraine Stated Complaint: MIGRANE,PALPITATIONS Time Seen by Provider: 02/13/18 01:57 Source: Patient Mode of Arrival: Ambulatory Limitations: No limitations - History of Present Illness Initial Comments: 33 yo female presents to ED for evaluation of her typical migraine headache symptoms as well "palpitations". Patient reports that her palpitations are not new, however tonight seemed worse. Patient reports taking methergine, cogentin , haldol, and ativan for her headache symptoms prior to arrival. Patient denies fevers, stiff neck, cough, or chest pain symptoms. Patient does report recent diagnosis of PE, stopped her coumadin several months ago. MD Complaint: Headache Onset/Timin -: Days(s) Onset Description: Gradual Location: Diffuse Severity scale (1-10): 8 Quality: Similar to previous headaches Consistency: Constant Improves With: Nothing, Immobilization Worsens With: Light, Noise Treatments Prior to Arrival: Migraine medication Treatment Prior to Arrival Comment:: methergen haldol, ativan and cogentin - Symptoms of Stroke Baseline State: Baseline State - Related Data Home Medications Medication Instructions Recorded Confirmed Last Taken Candesartan Cilexetil [Atacand] 8 mg PO DAILY 02/13/18 02/13/18 Unknown Methylergonovine Maleate 0.2 mg PO TID 02/13/18 02/13/18 02/12/18 21:00 [Methergine] 0.2 Zonisamide 200 mg PO QHS 02/13/18 02/13/18 Unknown Allergies Allergy/AdvReac Type Severity Reaction Status Date / Time sumatriptan [From Imitrex] Allergy ANAPHYLAXIS Verified 02/13/18 01:56 sumatriptan succinate Allergy ANAPHYLAXIS Verified 02/13/18 01:56 [From Imitrex] chlorpromazine AdvReac HYPERSENSIT Verified 02/13/18 01:56 [From Thorazine] IVITY erythromycin base AdvReac VOMITING Verified 02/13/18 01:56 [Erythromycin Base] nortriptyline [From Pamelor] AdvReac TACHYCARDIA Verified 02/13/18 01:56 Travel Screening - Travel/Exposure Within Last 30 Days Have you traveled within the last 30 days?: No - Travel/Exposure Within Last Year Have you traveled outside the [place] in the last year?: No - Additonal Travel Details Have you been exposed to anyone with a communicable illness?: No - Travel Symptoms Symptom Screening: None Review of Systems Constitutional: Denies: Chills, Fever, Malaise, Night sweats Eyes: Denies: Eye discharge, Eye pain ENT: Denies: Congestion, Ear pain, Epistaxis Respiratory: Denies: Cough, Dyspnea Cardiovascular: Reports: Palpitations. Denies: Chest pain, Dyspnea on exertion Endocrine: Denies: Fatigue, Heat or cold intolerance Gastrointestinal: Denies: Abdominal pain, Nausea, Vomiting Genitourinary: Denies: Incontinence, Retention Musculoskeletal: Denies: Arthralgia, Back pain Skin: Denies: Bruising, Change in color Neurological: Reports: Headache. Denies: Abnormal gait, Confusion, Seizure Psychiatric: Denies: Anxiety Hematological/Lymphatic: Denies: Anemia, Blood Clots Past Medical History - SOCIAL HISTORY Smoking Status: Never smoker Alcohol Use: None Drug Use: None - RESPIRATORY Hx Respiratory Disorders: Yes Hx Asthma: Yes Hx Pulmonary Embolism: Yes (05/18) Hx Sleep Apnea: Yes Hx of CPAP: Yes - CARDIOVASCULAR Hx Cardio Disorders: Yes Hx Hypertension: Yes ("pretty much went away since the gastric surgery") - NEURO Hx Neuro Disorders: Yes Hx Headaches: Yes (migraines) - GI Hx GI Disorders: Yes Comment:: gastric sleeve - Hx Genitourinary Disorders: Yes Hx Kidney Stones: Yes - ENDOCRINE Hx Endocrine Disorders: Yes Hx Diabetes: Yes (type II) Hx Thyroid Disease: No - MUSCULOSKELETAL Hx Musculoskeletal Disorders: No - PSYCH Hx Psych Problems: No - HEMATOLOGY/ONCOLOGY Hx Hematology/Oncology Disorders: No Family Medical History Any Significant Family History?: No Hx Cancer: Grandparents Hx Diabetes: Father, Grandparents Hx Heart Disease: Grandparents Hx HTN: Mother Hx Kidney Disease: Father *Kidney Comment: stones Hx Stroke: Grandparents Physical Exam - General General Appearance: Alert, Oriented x3, Cooperative, Mild distress Limitations: No limitations - Head Head exam: Atraumatic, Normocephalic, Normal inspection Head exam detail: negative: Abrasion, Contusion, Frazier's sign, General tenderness, Hematoma, Laceration - Eye Eye exam: Normal appearance (Dilated pupils on examination (in a bright room)), Other. negative: Conjunctival injection, Periorbital swelling, Periorbital tenderness, Scleral icterus - ENT Ear exam: negative: Auricular hematoma, Auricular trauma Nasal Exam: negative: Active bleeding, Discharge, Dried blood, Foreign body Mouth exam: negative: Drooling, Laceration, Muffled voice, Tongue elevation - Neck Neck exam: Normal inspection. negative: Meningismus, Tenderness - Respiratory Respiratory exam: Normal lung sounds bilaterally. negative: Rales, Respiratory distress, Rhonchi, Stridor - Cardiovascular Cardiovascular Exam: Regular rate, Normal rhythm, Normal heart sounds - GI/Abdominal GI/Abdominal exam: Soft. negative: Rebound, Rigid, Tenderness - Rectal Rectal exam: Deferred - exam: Deferred - Extremities Extremities exam: Normal inspection. negative: Pedal edema, Tenderness - Back Back exam: Denies: CVA tenderness (R), CVA tenderness (L) - Neurological Neurological exam: Alert, Normal gait, Oriented X3 - Psychiatric Psychiatric exam: Flat affect - Skin Skin exam: Normal color. negative: Abrasion Type of lesion: negative: abrasion Course Vital Signs 02/13/18 01:59 Temperature 98.1 F Pulse Rate [ 129 H Pulse Ox Probe] Respiratory 24 Rate Blood Pressure 133/95 [Left Arm] Pulse Ox 97 - Reevaluation(s) Reevaluation #1: 02/13/18 02:16 EKG: Sinus tachycardia 125 normal axis, normal intervals Nonspecific ST-T wave changes. Patient's clincial examination appears consitent with anticholinergic vs. sympathomametic toxidrome. Ativan and IVFs ordered as well as Toradol for her headache symptoms (out of [place]). Patient also reports history of PE, D-Dimer ordered with baseline laboratory studies for further evaluation. Reevaluation #2: 02/13/18 02:46 Labs reviewed, D-Dimer 2.01. Labs are otherwise grossly unremarkable for an acute process. CTA chest ordered to exclude PE. Pulse improving to 123. Reevaluation #3: 02/13/18 04:21 CTA Chest: Bilateral lower lobe PEs Patient was updated on all results, continues to be tachycardic (115-120) on examination, will initiate treatment with Eliquis and admit for 2-D echo tomorrow morning. Reevaluation #4: 02/13/18 06:51 Case was discussed with Sara ([employer] on-call for Dr. Kinney), will accept admission at this time. Medical Decision Making - Lab Data Result diagrams: 02/13/18 02:05 02/13/18 02:05 Disposition Disposition: Admit Clinical Impression: Pulmonary embolus Qualifiers: Pulmonary embolism type: other Chronicity: acute Acute cor pulmonale presence: without acute cor pulmonale Qualified Code(s): I26.99 - Other pulmonary embolism without acute cor pulmonale Disposition: Still a Patient at [facility] Decision to Admit: Admit from ER Decision to Admit Date: 02/13/18 Decision to Admit Time: : Condition: (2) Stable Time of Disposition: : Quality - Quality Measures Quality Measures: N/A, Headache (All Ages) - Headache: Neuroimaging Quality Measure: Measure #419: Overuse of Neuroimaging ICD10 Codes Entered: Yes Neurological Exam: Patient had a normal neurological exam. [G9535] Headache: Use of Neuroimaging: < CTA, CT, MRA or MRI was NOT ordered > [G9534] - Blood Pressure Screening Does Patient Have Any of the Following: No Blood Pressure Classification: Pre-Hypertensive BP Reading Systolic Measurement: 111 Diastolic Measurement: 86 Screening for High Blood Pressure: < Pre-Hypertensive BP, F/U Documented > [ G8950] Pre-Hypertensive Follow-up Interventions: Referral to alternative/primary care provider.
[2018-02-13 02:24] LABS: BLOOD UREA NITROGEN 10 mg/dL (6-20); CREATININE 0.7 mg/dL (0.5-0.9); EST GLOMERULAR FILTRATION RATE > 60 mL/min
[2018-02-13 02:25] LABS: TOTAL PROTEIN 7.3 g/dL (6.6-8.7)
[2018-02-13 02:27] LABS: GLUCOSE,RANDOM 180 mg/dL (74-109)
[2018-02-13 02:29] LABS: ALB/GLOB RATIO 1.6 (1.1-1.8); ALBUMIN 4.5 g/dL (4.0-5.0); ALKALINE PHOSPHATASE 72 U/L (35-104); ALT/SGPT 10 U/L (<33); AST/SGOT 10 U/L (10.0-35.0)
[2018-02-13] MEDS ORDERED: APIXABAN 5MG TABLET PO ONE (04:24)
[2018-02-13] MEDS ORDERED: HALOPERIDOL 2 MG PO SCH (05:23)
[2018-02-13] MEDS ORDERED: ACETAMINOPHEN 500 MG TABLET PO PRN (05:23)
[2018-02-13] MEDS ORDERED: LORAZEPAM 2 MG PO SCH (05:23)
[2018-02-13] MEDS ORDERED: ACETAZOLAMIDE 250 MG PO SCH (05:23)
[2018-02-13] MEDS ORDERED: KETOROLAC 30 MG/ML VIAL IJ SCH (05:23)
[2018-02-13] MEDS ORDERED: 0.9 % SODIUM CHLORIDE 1000ML 1,000 ML IV PRN (05:23)
[2018-02-13] MEDS ORDERED: BENZTROPINE MESYLATE 2 MG PO SCH (05:23)
[2018-02-13] MEDS ORDERED: ONDANSETRON 4 MG ODT TABLET SL PRN (06:30)
[2018-02-13] MEDS ORDERED: FENTANYL 25MCG PATCH TD SCH (07:00)
--- NOTE | 2018-02-13 08:45 | History & Physical ---
History of Present Illness - Date of Service Date of Service for History & Physical: 02/13/18 - History of Present Illness Admitting Diagnosis: Pulmonary Embolus. Chronic headaches History of Present Illness: 33 yo female presents to ED for evaluation of her typical migraine headache symptoms as well "palpitations". Patient reports that her palpitations are not new, however tonight seemed worse. Patient reports taking methergine, cogentin , haldol, and ativan for her headache symptoms prior to arrival. Patient denies fevers, stiff neck, cough, or chest pain symptoms. Patient does report recent diagnosis of PE, stopped her Eliquis several months ago per Dr. Gamez 's orders. Additional medical history includes chronic migraines, PE, MARILEE with cpap use, and gastric sleeve surgery. Patient has a history of migraine headaches for which she receives inpatient treatment at the [facility] in [place]. Patient states after a stay in their clinic 6 months ago she was also found to have a PE upon discharge. Patient states she was most recently discharged from the Clinic for migraine treatment 2 weeks ago. She reports feelings of tachycardia, heart palpitations, and chest pain last night prior to arriving in the ED. Upon arrival to the ED patient was tachycardic at 125. Her EKG indicated sinus tachycardia. Her D-dimer was elevated at 2.01 so a CTA chest was done, which indicated bilateral lower lobe PEs. Patient received IV fluids, Toradol and a Fentanyl patch for pain relief. 02/13/18: Patient resting comfortably in bed this morning, does not appear in any distress, alert and oriented x 3. Patient reports continued chest pressure and shortness of breath with minimal exertion. Heart rate this morning in the 80s, remains on room air with oxygen saturation above 98%. Patient reports continued chest pain 05/11, fentanyl patch was placed in ED this morning. Offered toradol for breakthrough pain, declined at this time. Travel Screening - Travel/Exposure Within Last 30 Days Have you traveled within the last 30 days?: No - Travel/Exposure Within Last Year Have you traveled outside the [place] in the last year?: No - Additonal Travel Details Have you been exposed to anyone with a communicable illness?: No - Travel Symptoms Symptom Screening: None Review of Systems Constitutional: Denies: Chills, Fever, Malaise, Night sweats Eyes: Denies: Eye discharge, Eye pain ENT: Denies: Congestion, Ear pain, Epistaxis Respiratory: Denies: Cough, Dyspnea Cardiovascular: Reports: Chest pain, Palpitations. Denies: Dyspnea on exertion Endocrine: Denies: Fatigue, Heat or cold intolerance Gastrointestinal: Denies: Abdominal pain, Nausea, Vomiting Genitourinary: Denies: Incontinence, Retention Musculoskeletal: Denies: Arthralgia, Back pain Skin: Denies: Bruising, Change in color Neurological: Reports: Headache. Denies: Abnormal gait, Confusion, Seizure Psychiatric: Denies: Anxiety Hematological/Lymphatic: Reports: Blood Clots. Denies: Anemia Past Medical History - SOCIAL HISTORY Smoking Status: Never smoker Alcohol Use: None Drug Use: None - RESPIRATORY Hx Respiratory Disorders: Yes Hx Asthma: Yes Hx Pulmonary Embolism: Yes (05/18) Hx Sleep Apnea: Yes Hx of CPAP: Yes - CARDIOVASCULAR Hx Cardio Disorders: Yes Hx Hypertension: Yes ("pretty much went away since the gastric surgery") - NEURO Hx Neuro Disorders: Yes Hx Headaches: Yes (migraines) - GI Hx GI Disorders: Yes Comment:: gastric sleeve - Hx Genitourinary Disorders: Yes Hx Kidney Stones: Yes - ENDOCRINE Hx Endocrine Disorders: Yes Hx Diabetes: Yes (type II) Hx Thyroid Disease: No - MUSCULOSKELETAL Hx Musculoskeletal Disorders: No - PSYCH Hx Psych Problems: No - HEMATOLOGY/ONCOLOGY Hx Hematology/Oncology Disorders: No Family Medical History Any Significant Family History?: No Hx Cancer: Grandparents Hx Diabetes: Father, Grandparents Hx Heart Disease: Grandparents Hx HTN: Mother Hx Kidney Disease: Father *Kidney Comment: stones Hx Stroke: Grandparents H&P Meds/Allergies - Allergies Allergies: Allergies Allergy/AdvReac Type Severity Reaction Status Date / Time sumatriptan [From Imitrex] Allergy ANAPHYLAXIS Verified 02/13/18 01:56 sumatriptan succinate Allergy ANAPHYLAXIS Verified 02/13/18 01:56 [From Imitrex] chlorpromazine AdvReac HYPERSENSIT Verified 02/13/18 01:56 [From Thorazine] IVITY erythromycin base AdvReac VOMITING Verified 02/13/18 01:56 [Erythromycin Base] nortriptyline [From Pamelor] AdvReac TACHYCARDIA Verified 02/13/18 01:56 - Home Medications Home Medications Medication Instructions Recorded Confirmed Last Taken Candesartan Cilexetil [Atacand] 8 mg PO DAILY 02/13/18 02/13/18 Unknown Methylergonovine Maleate 0.2 mg PO TID 02/13/18 02/13/18 02/12/18 21:00 [Methergine] 0.2 Zonisamide 200 mg PO QHS 02/13/18 02/13/18 Unknown - Active Medications Active Medications: Current Medications Acetaminophen (Tylenol 500mg Tab) 1,000 mg PO Q6H PRN PRN Reason: PAIN/TEMP Apixaban (Eliquis) 10 mg PO BID [facility] Fentanyl (Duragesic) 25 mcg TD Q72H ALEXIA Stop: 02/20/18 07:01 Last Admin: 02/13/18 06:25 Dose: 25 mcg Sodium Chloride () 1,000 mls @ 125 mls/hr IV .Q8H PRN PRN Reason: LARGE VOLUME IV Last Admin: 02/13/18 06:26 Dose: 125 mls/hr Ketorolac Tromethamine (Toradol) 60 mg IJ ASDIR [facility] Stop: 02/18/18 05:24 Lamotrigine (Lamictal) 150 mg PO DAILY [facility] Losartan Potassium (Cozaar) 50 mg PO DAILY [facility] Non-Formulary Medication (Zonisamide [Zonisamide]) 200 mg PO QHS [facility] Non-Formulary Medication (Acetazolamide [Acetazolamide]) 250 mg PO [facility] Non-Formulary Medication (Benztropine Mesylate [Benztropine Mesylate]) 2 mg PO [facility] Non-Formulary Medication (Haloperidol [Haloperidol]) 2 mg PO [facility] Non-Formulary Medication (Lorazepam [Ativan]) 2 mg PO [facility] Non-Formulary Medication (Methylergonovine Maleate [Methergine]) 0.2 mg PO TID [facility] Olanzapine (Zyprexa) 10 mg PO QHS [facility] Olanzapine (Zyprexa) 2.5 mg PO BID [facility] Ondansetron HCl (Zofran Odt) 8 mg SL TID PRN PRN Reason: NAUSEA/VOMITING Promethazine HCl (Phenergan) 25 mg PO DAILY [facility] Tizanidine HCl (Tizanidine Hcl) 8 mg PO QHS [facility] Venlafaxine HCl (Effexor Xr) 150 mg PO QAM [facility] Physical Exam - Vital Signs Vital Signs: Vital Signs - Last 24 Hrs Temp Pulse Pulse Resp BP BP Pulse Ox 02/13/18 08:00 97.9 F 86 14 129/86 100 02/13/18 05:30 98.0 F 91 H 28 H 111/86 98 02/13/18 04:50 105 H 36 H 132/86 97 02/13/18 02:56 124 H 22 133/85 98 02/13/18 01:59 98.1 F 129 H 24 133/95 97 - General General Appearance: Alert, Oriented x3, Cooperative, No acute distress Limitations: No limitations - Head Head exam: Atraumatic, Normocephalic, Normal inspection Head exam detail: negative: Abrasion, Contusion, Frazier's sign, General tenderness, Hematoma, Laceration - Eye Eye exam: Normal appearance (Dilated pupils on examination (in a bright room)), Other. negative: Conjunctival injection, Periorbital swelling, Periorbital tenderness, Scleral icterus - ENT Ear exam: negative: Auricular hematoma, Auricular trauma Nasal Exam: negative: Active bleeding, Discharge, Dried blood, Foreign body Mouth exam: negative: Drooling, Laceration, Muffled voice, Tongue elevation - Neck Neck exam: Normal inspection. negative: Meningismus, Tenderness - Respiratory Respiratory exam: Normal lung sounds bilaterally, Decreased breath sounds ( bases bilat). negative: Rales, Respiratory distress, Rhonchi, Stridor - Cardiovascular Cardiovascular Exam: Regular rate, Normal rhythm, Normal heart sounds Peripheral Pulses: 2+: Radial (R), Radial (L), Dorsalis Pedis (R), Dorsalis Pedis (L) - GI/Abdominal GI/Abdominal exam: Soft. negative: Rebound, Rigid, Tenderness - Rectal Rectal exam: Deferred - exam: Deferred - Extremities Extremities exam: Normal inspection. negative: Calf tenderness, Pedal edema, Tenderness - Back Back exam: Denies: CVA tenderness (R), CVA tenderness (L) - Neurological Neurological exam: Alert, Normal gait, Oriented X3 - Psychiatric Psychiatric exam: Flat affect - Skin Skin exam: Normal color. negative: Abrasion Type of lesion: negative: abrasion Results - Labs Result Diagrams: 02/13/18 02:05 02/13/18 02:05 Labs Last 24 Hours: Laboratory Results - last 24 hr 05/15/18 05/15/18 05/15/18 02:05 02:05 02:05 WBC 9.3 RBC 4.65 Hgb 12.9 Hct 39.4 MCV 84.7 MCH 27.7 MCHC 32.7 RDW 13.4 Plt Count 434 H MPV 9.9 Gran % 61.8 Lymphocytes % 28.8 Monocytes % 6.7 Eosinophils % 1.7 Basophils % 1.0 D-Dimer 2.01 H Sodium 144 Potassium 3.4 Chloride 103 Carbon Dioxide 21.0 L Anion Gap 20.0 H BUN 10 Creatinine 0.7 Estimated GFR > 60 Random Glucose 180 H Calcium 9.4 Total Bilirubin 0.20 AST 10 ALT 10 Alkaline Phosphatase 72 Troponin T < 0.010 Total Protein 7.3 Albumin 4.5 Globulin 2.8 Albumin/Globulin Ratio 1.6 VTE H&P Assessment - Risk for VTE Risk for VTE: No Risk Level: Low Risk Assessment Date: 02/13/18 Risk Assessment Time: 09:30 VTE Orders Placed or Will Be Placed: No VTE Reason for No Prophylaxis: Not Indicated (receiving Eliquis for PE) Plan - Detailed Diagnosis and Plan (1) Pulmonary embolism Current Visit: Yes Status: Acute Qualifiers: Pulmonary embolism type: other Chronicity: acute Acute cor pulmonale presence: without acute cor pulmonale Qualified Code(s): I26.99 - Other pulmonary embolism without acute cor pulmonale Base Code: I26.99 - OTHER PULMONARY EMBOLISM WITHOUT ACUTE COR PULMONALE Comment: 02/13/18: CTA showing bilateral lower lobe PEs, likely causing her tachycardia and chest pain. PE likely secondary to PICC line placement at [facility] 2 weeks prior. BP, HR, and oxygen saturation stable with no supplemental oxygen needs. -Continue cardiac monitoring, VS q8h -ECHO ordered for today with cardiology consult due to tachycardia and palpitations -Eliquis 10mg po BID restarted -Patient received Fentayl patch for chest wall pain, Toradol prn (2) Chest wall pain Current Visit: No Status: Acute Base Code: R07.89 - OTHER CHEST PAIN Comment: 02/13/18: Patient complaining of substernal chest wall pain, likely secondary to PE. States pain is worse with movement or activity. Oxygen saturation 98% on room air this morning. -Fentanyl patch placed 02/13 at 0645 as ordered in ED -Toradol 30mg IVP q8h prn (3) Migraine Current Visit: No Status: Acute Qualifiers: Migraine type: without aura Status migrainosus presence: without status migrainosus Intractability: not intractable Qualified Code(s): G43.009 - Migraine without aura, not intractable, without status migrainosus Base Code: G43.909 - MIGRAINE, UNSP, NOT INTRACTABLE, WITHOUT STATUS MIGRAINOSUS Comment: 02/13/18: Patient has chronic migraines, for which she receives treatment at the [facility] in [place]. Will continue home medication regimen of Methergine, Ativan, and Benztropine Mesylate. (4) Full code status Current Visit: No Status: Acute Base Code: Z78.9 - OTHER SPECIFIED HEALTH STATUS Comment: 02/13/18- patient is full code
--- NOTE | 2018-02-13 09:19 | CT ANGIOGRAM REPORT ---
EXAM: CTA OF THE CHEST FOR PE WITH POST PROCESSING HISTORY: PALPITATIONS, HISTORY OF PULMONARY EMBOLUS, CHEST PAINS, POSSIBLE PULMONARY EMBOLUS. ELEVATED D-DIMER. TECHNIQUE: CTA of the chest was performed following the intravenous administration of 95 ml of Omnipaque 350 as the IV contrast. Post processing on an independent workstation was performed with multiple 3D MIP series obtained. A preliminary report was provided by [facility] at the time of the scan. Comparison: Prior chest CTA 11/15/17 at 8:02 p.m. FINDINGS: There is evidence of bilateral subsegmental PE today, new since the prior study. There may be a small amount in the right middle lobe as well. The left vertebral artery appears to rise directly off the aortic arch as a developmental variant. No thoracic aortic aneurysm or dissection evident. Postop changes along the stomach. No definite hilar or mediastinal adenopathy. No pleural or pericardial effusion evident. No pneumothorax is seen. Some minor streaky atelectasis or infiltrate in the right posterior costophrenic angle. Some hypertrophic spurring in the thoracic spine. IMPRESSION: 1. BILATERAL SUBSEGMENTAL PE IN THE LOWER LOBES AND POSSIBLY A SMALL AMOUNT IN THE RIGHT MIDDLE LOBE. 2. MINOR STREAKY ATELECTASIS OR INFILTRATE IN THE RIGHT POSTERIOR COSTOPHRENIC ANGLE. 3. POSTOP CHANGES INVOLVING THE STOMACH. JOB NUMBER: [id number] [facility]
[2018-02-13] MEDS ORDERED: LOSARTAN POTASSIUM 25 MG TABLET PO SCH (10:00)
[2018-02-13] MEDS ORDERED: LAMOTRIGINE 100 MG TABLET PO SCH (10:00)
[2018-02-13] MEDS ORDERED: OLANZAPINE 5MG TABLET PO SCH ×2 (10:00→22:00)
[2018-02-13] MEDS ORDERED: VENLAFAXINE ER 37.5 MG CAPSULE PO SCH (10:00)
[2018-02-13] MEDS ORDERED: PROMETHAZINE HCL 25 MG TABLET PO SCH (10:00)
[2018-02-13] MEDS: APIXABAN 5MG TABLET PO SCH ×2 (10:11→18:51)
[2018-02-13] MEDS: METHYLERGONOVINE MALEATE 0.2 MG PO SCH ×2 (10:12→17:17)
[2018-02-13] MEDS ORDERED: KETOROLAC 30 MG/ML VIAL IVP PRN (11:36)
[2018-02-13] MEDS ORDERED: HYDROMORPHONE HCL 2 MG/ML VIAL IM ONE (17:50)
--- NOTE | 2018-02-13 17:58 | Discharge Summary ---
Providers Discharge Summary Date: 02/13/18 Date of admission: 02/13/18 05:12 Attending physician: BISHOP MERCADO Consults: Consult Orders 02/13/18 09:11 Consult - Cardiology NOW Consulting Provider: CAYDEN MADRIGAL Physician Instructions: Reason For Exam: PE, tachycardia Does pt have current observation assistant?: Not Established Physical Exam - Vital Signs Vital Signs: Vital Signs - Last 24 Hrs Temp Pulse Pulse Resp BP BP Pulse Ox 02/13/18 16:00 97.4 F L 66 18 140/72 96 02/13/18 12:00 97.4 F L 132 H 20 121/91 98 02/13/18 08:52 16 02/13/18 08:00 97.9 F 86 14 129/86 100 02/13/18 05:30 98.0 F 91 H 28 H 111/86 98 02/13/18 04:50 105 H 36 H 132/86 97 02/13/18 02:56 124 H 22 133/85 98 02/13/18 01:59 98.1 F 129 H 24 133/95 97 - General General Appearance: Alert, Oriented x3, Cooperative, No acute distress Limitations: No limitations - Head Head exam: Atraumatic, Normocephalic, Normal inspection Head exam detail: negative: Abrasion, Contusion, Frazier's sign, General tenderness, Hematoma, Laceration - Eye Eye exam: Normal appearance (Dilated pupils on examination (in a bright room)), Other. negative: Conjunctival injection, Periorbital swelling, Periorbital tenderness, Scleral icterus - ENT Ear exam: negative: Auricular hematoma, Auricular trauma Nasal Exam: negative: Active bleeding, Discharge, Dried blood, Foreign body Mouth exam: negative: Drooling, Laceration, Muffled voice, Tongue elevation - Neck Neck exam: Normal inspection. negative: Meningismus, Tenderness - Respiratory Respiratory exam: Normal lung sounds bilaterally, Decreased breath sounds ( bases bilat). negative: Rales, Respiratory distress, Rhonchi, Stridor - Cardiovascular Cardiovascular Exam: Regular rate, Normal heart sounds, Tachycardia Peripheral Pulses: 2+: Radial (R), Radial (L), Dorsalis Pedis (R), Dorsalis Pedis (L) - GI/Abdominal GI/Abdominal exam: Soft. negative: Rebound, Rigid, Tenderness - Rectal Rectal exam: Deferred - exam: Deferred - Extremities Extremities exam: Normal inspection. negative: Calf tenderness, Pedal edema, Tenderness - Back Back exam: Denies: CVA tenderness (R), CVA tenderness (L) - Neurological Neurological exam: Alert, Normal gait, Oriented X3 - Psychiatric Psychiatric exam: Flat affect - Skin Skin exam: Normal color. negative: Abrasion Type of lesion: negative: abrasion Hospitalization - Hospitalization Admission Diagnosis: Pulmonary Embolus. Chronic headaches - Problem List/Discharge Diagnosis (1) Pulmonary embolism Status: Acute Discharge Diagnosis: Pulmonary embolism type: other Chronicity: acute Acute cor pulmonale presence: without acute cor pulmonale Qualified Code(s): I26.99 - Other pulmonary embolism without acute cor pulmonale Base Code: I26.99 - OTHER PULMONARY EMBOLISM WITHOUT ACUTE COR PULMONALE Comment: 02/13/18: CTA showing bilateral lower lobe PEs, likely causing her tachycardia and chest pain. PE likely secondary to PICC line placement at [facility] 2 weeks prior. BP, HR, and oxygen saturation stable with no supplemental oxygen needs. -Continue cardiac monitoring, VS q8h -ECHO ordered for today with cardiology consult due to tachycardia and palpitations -Eliquis 10mg po BID restarted. Will continue 10mg BID x 7 days and then Eliquis 5mg BID -Patient received Fentayl patch for chest wall pain, Toradol prn (2) Migraine Status: Acute Discharge Diagnosis: Migraine type: without aura Status migrainosus presence: without status migrainosus Intractability: not intractable Qualified Code(s): G43.009 - Migraine without aura, not intractable, without status migrainosus Base Code: G43.909 - MIGRAINE, UNSP, NOT INTRACTABLE, WITHOUT STATUS MIGRAINOSUS Comment: 02/13/18: Patient has chronic migraines, for which she receives treatment at the [facility] in [place]. Will continue home medication regimen of Methergine, Ativan, and Benztropine Mesylate. (3) Full code status Status: Acute Base Code: Z78.9 - OTHER SPECIFIED HEALTH STATUS Comment: 02/13- patient is full code - Disposition Home with - Hospitalization Course Disposition: Home, Self-Care Hospital Course: 33 yo female presents to ED for evaluation of her typical migraine headache symptoms as well "palpitations". Patient reports that her palpitations are not new, however tonight seemed worse. Patient reports taking methergine, cogentin , haldol, and ativan for her headache symptoms prior to arrival. Patient denies fevers, stiff neck, cough, or chest pain symptoms. Patient does report recent diagnosis of PE, stopped her Eliquis several months ago per Dr. Gamez 's orders. Additional medical history includes chronic migraines, PE, MARILEE with cpap use, and gastric sleeve surgery. Patient has a history of migraine headaches for which she receives inpatient treatment at the [facility] in [place]. Patient states after a stay in their clinic 6 months ago she was also found to have a PE upon discharge. Patient states she was most recently discharged from the Clinic for migraine treatment 2 weeks ago. She reports feelings of tachycardia, heart palpitations, and chest pain last night prior to arriving in the ED. Upon arrival to the ED patient was tachycardic at 125. Her EKG indicated sinus tachycardia. Her D-dimer was elevated at 2.01 so a CTA chest was done, which indicated bilateral lower lobe PEs. Patient received IV fluids, Toradol and a Fentanyl patch for pain relief. 02/13/18: Patient resting comfortably in bed this morning, does not appear in any distress, alert and oriented x 3. Patient reports continued chest pressure and shortness of breath with minimal exertion. Heart rate this morning in the 80s, remains on room air with oxygen saturation above 98%. Patient reports continued chest pain 05/11, fentanyl patch was placed in ED this morning. Offered toradol for breakthrough pain, declined at this time. Throughout the day patient repeatedly asked nursing staff and myself for Dilaudid IVP, stating that was the only thing helping her pain her last admission for a PE. Patient was instructed that she would not be given Dilaudid IVP in addition to the fentanyl patch. Patient's heart rate remained 60-[address] Madrigal was consulted and saw patient. [place] Eliquis treatment was appropriate for PE and wished to stop her Losartan and begin Metoprolol for her tachycardia. He would like to follow-up with her in 4-6 weeks as outpatient. Procedures: Imaging and X-Rays 02/13/18 02:45 CHEST CTA w contrast [CTA] Stat Cardiology Procedures 02/13/18 01:59 EKG NOW 02/13/18 04:33 Echo W/CF & Cardiac Doppler NOW 02/13/18 05:23 Lab Clerk .Continuous Abnormal Labs: Abnormal Lab Results 02/13/18 02/13/18 02/13/18 Range/Units 02:05 02:05 02:05 Plt Count 434 H (130-400) K/uL D-Dimer 2.01 H (0-0.59) mg/L FEU Carbon Dioxide 21.0 L (22-29) mmol/L Anion Gap 20.0 H (7-16) Random Glucose 180 H (74-109) mg/dL Condition at Discharge: (2) Stable Discharge Medications - Discharge Medications Prescriptions: Apixaban [Eliquis] 10 mg PO BID 30 Days tablet Hydrocodone/Acetaminophen [[place] 10mg/325mg] 1 tab PO Q6H PRN #12 tab PRN Reason: Pain - General Metoprolol Tartrate [Lopressor] 25 mg PO Q12H #60 tab Home Medications: Ambulatory Orders Medroxyprogesterone Acetate [Depo Provera] 150 mg IM ASDIR 04/27/14 [Last Taken 12/07/17 16:32] Diphenhydramine HCl [Benadryl] 100 mg SQ Q12H PRN 07/23/14 [Last Taken 12/07/17 16:32] Acetazolamide 250 mg PO ASDIR PRN 02/12/17 [Last Taken 12/07/17 16:32] Haloperidol 2 mg PO ASDIR PRN 02/12/17 [Last Taken 02/12/18 08:00 2 mg] Ketorolac Tromethamine 60 mg IJ ASDIR 02/12/17 [Last Taken 12/07/17 16:32] Benztropine Mesylate 2 mg PO ASDIR PRN 03/12/17 [Last Taken 02/12/18 08:00] Lorazepam [Ativan] 2 mg PO ASDIR 03/12/17 [Last Taken 02/12/18 08:00 2mg] Promethazine HCl [Phenergan] 25 mg PO DAILY PRN 03/12/17 [Last Taken 12/07/17 16 :32] Tizanidine HCl [Zanaflex] 8 mg PO QHS 03/12/17 [Last Taken 12/07/17 16:32] Clonazepam [Klonopin] 2 mg PO QHS 07/28/17 [Last Taken 12/07/17 16:32] Ondansetron HCl [Zofran] 8 mg PO TID PRN 04/28/17 [Last Taken 12/07/17 16:32] Venlafaxine HCl [Effexor Xr] 150 mg PO QAM 09/20/17 [Last Taken 12/07/17 16:32] Lamotrigine [Lamictal] 150 mg PO DAILY 10/27/17 [Last Taken 12/07/17 16:32] Olanzapine [Zyprexa] 10 mg PO QHS 12/07/17 [Last Taken 12/07/17] Apixaban [Eliquis] 10 mg PO BID 30 Days tablet 02/13/18 [Last Taken Unknown] Hydrocodone/Acetaminophen [[place]um[place] 10mg/325mg] 1 tab PO Q6H PRN #12 tab 02/13/18 [ Last Taken Unknown] Methylergonovine Maleate [Methergine] 0.2 mg PO TID 02/13/18 [Last Taken 21:00 0.2] Metoprolol Tartrate [Lopressor] 25 mg PO Q12H #60 tab 02/13/18 [Last Taken Unknown] Zonisamide 200 mg PO QHS 02/13/18 [Last Taken Unknown] Discharge Plan - Discharge Instructions Activity at Discharge: Increase Activity as Tolerated Diet at Discharge: Regular Diet Instructions: Pulmonary Embolism (DC) Additional Instructions: 2 Activity: Increase Activity as Tolerated 2 Diet: Regular Diet 2 Additional: Follow-up with PCP this week. Follow-up with Dr. Madrigal in 4-6 weeks. Take Eliquis 10mg twice a day for 6 days, then 5mg twice a day after that Take Tecumseh every 6 hours as needed for pain Stop taking your Losartan and begin taking Metoprolol twice a day Return to the closest emergency department for worsening shortness of breath or chest pain Quality Measures - Quality Measures Quality Measures: Documentation of Current Medications in Medical Record, Screening for High Blood Pressure and F/U Documented - Current Medications Quality Measure: Measure #130: Documentation of Current Medications Documentation of Current Medications: <Current Medications Documented/Reviewed> [G8489] - Blood Pressure Screening Quality Measure: Screening for High Blood Pressure and Follow-Up Documented Does Patient Have Any of the Following: No Blood Pressure Classification: Pre-Hypertensive BP Reading Systolic Measurement: 119 Diastolic Measurement: 89 Screening for High Blood Pressure: < Pre-Hypertensive BP, F/U Documented > [ G8950] Pre-Hypertensive Follow-up Interventions: Referral to alternative/primary care provider. - Elder Abuse Suspicion Index EASI Reference Information: Tri GONZALEZ, Omar Kan, Edouard Ryan, Adolfo Martin.Development and validation of a tool to assist physicians identification of elder abuse: The Elder Abuse Suspicion Index (EASI ). Journal of Elder Abuse and Neglect, 2008; 20 (3): 276-300.
[2018-02-13] MEDS ORDERED: ZONISAMIDE 200 MG PO SCH (22:00)
[2018-02-13] MEDS ORDERED: TIZANIDINE HCL 4 MG TABLET PO SCH (22:00)
--- NOTE | 2018-02-13 23:06 | Medical Records Consult ---
DATE OF CONSULTATION: 02/13/2018 REASON FOR CONSULTATION: PULMONARY EMBOLISM. REFERRING PHYSICIAN: DR. BISHOP MERCADO HISTORY OF PRESENT ILLNESS: Miss Atkinson is a 33-year-old female who has struggled with migraine headaches for a long time and also had struggled with her weight for a long time as well and she has undergone gastric sleeve surgery about three years ago and has lost 70 lbs of weight. The patient unfortunately has had daily migraine headaches with follows up with the [facility] in [place], where she periodically gets admitted for a few weeks for intravenous pharmacotherapy. The patient was admitted for management of pulmonary embolism. She presented to the Emergency Department yesterday because she was having bilateral sharp chest pain and noticed that her Apple Watch was showing her to have a heart rate of 150 beats per minute, so she woke up her significant other and presented to the Emergency Department. A CT scan was performed, which showed bilateral subsegmental PE, which were reported to be acute. The patient has been admitted and has been started on Eliquis 10 mg b.i.d. The patient was diagnosed with pulmonary embolism back in May of 2017 and was on Eliquis until September of 2017 and then she was taken off the anticoagulation. She is not aware of any hypercoagulable workup. She doesn't have any history of DVTs, however, she does give a history of DVT for her father , who was thought to have a DVT because of air travel and frequent road trips for his job. The patient is to see Dr. Mesfin Lopez for migraine headaches and was on Verapamil for migraine prophylaxis and then after her gastric sleeve surgery, when she lost weight, her blood pressure was low and she was taken off of the Verapamil. She most recently has been on Losartan 25 mg daily for migraine prophylaxis as well. The patient tells me that her heart rate at home usually is in the upper 90's to lower 100's, as she keeps track of it through her Apple Watch. She denies any pedal edema. Denies any orthopnea. ALLERGIES: PATIENT IS ALLERGIC TO SUMATRIPTAN, CHLORPROMAZINE, ERYTHROMYCIN, NORTRIPTYLINE. HOME MEDICATIONS: Atacand 8 mg p.o. daily Methergine 0.2 mg p.o. t.i.d. Zonisamide 200 mg p.o. every h.s. SOCIAL HISTORY: The patient denies any illicit drug use or any alcohol or tobacco use. REVIEW OF SYSTEMS: Denies any fevers or chills. Denies any bleeding complications. Complains of chest pain, as explained in the HPI. Denies any abdominal pain, nausea, or vomiting. Denies any incontinence of urine. Denies any arthralgias or back pain. Denies any anxiety or depression. PHYSICAL EXAMINATION: On physical examination, her vital signs show a blood pressure of 129/86 mmHg with a temperature of 97.9 degrees Fahrenheit. GENERAL: The patient is an obese 33-year-old female who is sitting up in bed, not in any apparent distress. She is alert and oriented x3. HEENT: On HEENT examination, normocephalic/atraumatic. Pupils are equal and reactive. Extraocular muscles are intact. NECK: Neck is supple. No thyromegaly. CVS: On CVS examination, she has normal S1 and S2. There is no JVD. No pedal edema. RESPIRATORY: Respiratory examination revealed that lungs are clear to auscultation bilaterally. NEUROLOGIC: Neurologic examination is nonfocal. LABORATORY DATA: Shows a white count of 9.3. Hemoglobin of 12.9. Hematocrit of 39.4. Platelet count of 434. Sodium 144. Potassium slightly low at 3.4. Chloride 103. CO2 21. BUN 10. Creatinine 0.7. Blood glucose 180. EKG: Her EKG doesn't show any acute changes. Her telemonitor shows sinus tachycardia at 110 beats per minute. Heart troponin level was less than 0.010. ECHOCARDIOGRAM: She had an echocardiogram showing a normal left ventricular systolic function with an estimated ejection fraction 60 to 65% with no evidence of right ventricular strain and her RVSD was normal as well. ASSESSMENT AND PLAN: 1. PULMONARY EMBOLISM: The patient has had bilateral subsegmental pulmonary embolism, however, doesn't have any right ventricular strain and the troponin is within normal limits. This would classify this into small pulmonary embolism. The patient's tachycardia is most likely related to that, however, it could also be because of her headaches and her deconditioning. Since the patient has been on Losartan and sometimes on Atacand for migraine headaches, I would recommend discontinuing that and starting her on Metoprolol 25 mg b.i.d., which will be beneficial for her headaches as well as for the tachycardia. The patient is on a liquid anticoagulation in the form of Eliquis 10 mg b.i.d., which should be continued at this dose for a week and then should be lowered down to 5 mg b.i.d. I would also recommend doing hypercoagulable workup and she should be evaluated for Factor V Leiden deficiency, antithrombin III, and protein C deficiency as well as protein S deficiency. She should also be evaluated for prothrombin gene mutation. If she has any hypercoagulable states, she should be on long-term anticoagulation. Since the patient doesn't have any right ventricular strain and her troponins are within normal limits, I do not feel the need for any repeat echocardiograms and no further cardiac workup is necessary at this time. JOB NUMBER: [id number] MTDD
== END 2018-02-13 19:11 | disposition home or self-care (01) ==
LOC: ER 01:47 → MEDSURG 05:12
PROVIDERS: ADMIT Internal Medicine; ATTEND Internal Medicine
DX: I26.99 Other pulmonary embolism without acute cor pulmonale (principal); R00.2 Palpitations; R07.9 Chest pain, unspecified; I10 Essential (primary) hypertension; E11.9 Type 2 diabetes mellitus without complications; J45.909 Unspecified asthma, uncomplicated; G47.30 Sleep apnea, unspecified
CPT/HCPCS: 85025; 80053; 84484; 85379; 71275; 93005; 93010; G0378; Q9967; J1885; J1170; J2060; J3490; 96374; 96375; 99220; 99285; J7030

== ENCOUNTER 2018-02-15 15:34 | Emergency (ER) | payer BC ==
--- NOTE | 2018-02-15 16:07 | Emergency Department Record ---
History of Present Illness - General Chief complaint: Lower Extremity Pain Stated complaint: HAS BLOOD CLOTS AND NOW PAIN IN LEG Time Seen by Provider: 02/15/18 15:47 Source: Patient, Family Mode of Arrival: Ambulatory Limitations: No limitations - History of Present Illness Initial comments: 33 yo female presents with right calf and leg pain. She was admitted earlier this week with bilateral subsegmental pulmonary emboli. She did not have an extremity dopplers at the time of admission. She noticed the calf was sore. She was told to come to the ED by her PCP. She is being treated with Eliquis. The patient reports she is doing well at home. She still has some chest pain that has not ever resolved but it's getting better. No shortness of breath. She has been compliant with the Eliquis. Complaint: Extremity pain Onset/Timin -: Days(s) Location: Right, Lower Leg -: Yes Myalgia Radiation: Distal Quality: Aching Consistency: Constant Improves with: Rest Worsens with: Palpation Associated Symptoms: Denies other symptoms - Related Data Home Medications Medication Instructions Recorded Confirmed Last Taken Oxycodone HCl/Acetaminophen 1 tab PO Q6H PRN 02/15/18 02/15/18 02/15/18 [Percocet 10mg/325mg] Previous Rx's Medication Instructions Recorded Apixaban [Eliquis] 10 mg PO BID 30 Days tablet 02/13/18 Metoprolol Tartrate [Lopressor] 25 mg PO Q12H #60 tab 02/13/18 Allergies Allergy/AdvReac Type Severity Reaction Status Date / Time sumatriptan [From Imitrex] Allergy ANAPHYLAXIS Verified 02/15/18 15:52 sumatriptan succinate Allergy ANAPHYLAXIS Verified 02/15/18 15:52 [From Imitrex] chlorpromazine AdvReac HYPERSENSIT Verified 02/15/18 15:52 [From Thorazine] IVITY erythromycin base AdvReac VOMITING Verified 02/15/18 15:52 [Erythromycin Base] nortriptyline [From Pamelor] AdvReac TACHYCARDIA Verified 02/15/18 15:52 Travel Screening - Travel/Exposure Within Last 30 Days Have you traveled within the last 30 days?: No - Travel/Exposure Within Last Year Have you traveled outside the [place] in the last year?: No - Additonal Travel Details Have you been exposed to anyone with a communicable illness?: No - Travel Symptoms Symptom Screening: None Review of Systems Constitutional: Denies: Chills, Fever, Malaise, Weakness Eyes: Denies: Eye discharge ENT: Denies: Congestion, Epistaxis, Throat pain Respiratory: Denies: Cough, Dyspnea, Hemoptysis, Stridor, Wheezes Cardiovascular: Reports: Chest pain. Denies: Palpitations, Syncope Endocrine: Denies: Fatigue Gastrointestinal: Denies: Abdominal pain, Diarrhea, Nausea, Vomiting Genitourinary: Denies: Dysuria, Urgency Musculoskeletal: Reports: Myalgia. Denies: Arthralgia, Back pain, Neck pain Skin: Denies: Bruising, Change in color, Rash Neurological: Denies: Numbness, Weakness Psychiatric: Denies: Anxiety Hematological/Lymphatic: Reports: Blood Clots. Denies: Anemia, Easy bleeding, Easy bruising, Swollen glands Past Medical History - SOCIAL HISTORY Smoking Status: Never smoker Alcohol Use: None Drug Use: None - RESPIRATORY Hx Respiratory Disorders: Yes Hx Asthma: Yes Hx Pulmonary Embolism: Yes (05/18) Hx Sleep Apnea: Yes Hx of CPAP: Yes - CARDIOVASCULAR Hx Cardio Disorders: Yes Hx Hypertension: Yes ("pretty much went away since the gastric surgery") - NEURO Hx Neuro Disorders: Yes Hx Headaches: Yes (migraines) - GI Hx GI Disorders: Yes Comment:: gastric sleeve - Hx Genitourinary Disorders: Yes Hx Kidney Stones: Yes - ENDOCRINE Hx Endocrine Disorders: Yes Hx Diabetes: Yes (type II) Hx Thyroid Disease: No - MUSCULOSKELETAL Hx Musculoskeletal Disorders: No - PSYCH Hx Psych Problems: No - HEMATOLOGY/ONCOLOGY Hx Hematology/Oncology Disorders: No Family Medical History Any Significant Family History?: No Hx Cancer: Grandparents Hx Diabetes: Father, Grandparents Hx Heart Disease: Grandparents Hx HTN: Mother Hx Kidney Disease: Father *Kidney Comment: stones Hx Stroke: Grandparents Physical Exam - General General Appearance: Alert, Oriented x3, Cooperative, No acute distress Limitations: No limitations - Head Head exam: Atraumatic, Normal inspection - Eye Eye exam: Normal appearance. negative: Conjunctival injection, Scleral icterus - ENT ENT exam: Normal exam Ear exam: Normal external inspection Nasal Exam: Normal inspection Mouth exam: Normal external inspection - Neck Neck exam: Normal inspection - Respiratory Respiratory exam: Normal lung sounds bilaterally. negative: Respiratory distress - Cardiovascular Cardiovascular Exam: Regular rate, Normal rhythm, Normal heart sounds - GI/Abdominal GI/Abdominal exam: Soft. negative: Tenderness - Rectal Rectal exam: Deferred - exam: Deferred - Extremities Extremities exam: Normal inspection, Calf tenderness (mild), Tenderness. negative: Joint swelling, Normal capillary refill, Pedal edema (no visible swelling at this time) - Back Back exam: Denies: CVA tenderness (R), CVA tenderness (L) - Neurological Neurological exam: Alert, Oriented X3 - Psychiatric Psychiatric exam: negative: Agitated, Anxious - Skin Skin exam: Dry, Intact, Normal color, Warm Course Vital Signs 02/15/18 15:37 Temperature 98.4 F Pulse Rate 90 Respiratory 18 Rate Blood Pressure 131/95 Pulse Ox 97 - Reevaluation(s) Reevaluation #1: The EMR was reviewed Recent admission and DC Summary were reviewed The Cardiology Consultation was reviewed. No heart strain on the ECHO The patient clinically is doing well. Vitals reviewed. No tachycardia or hypoxia The patient has not had dopplers of the legs during this or the prior admission for PE. I explained that her PE likely came from a DVT. Today's dopplers will serve as a baseline for future studies to compare for resolution. She is on has just started her therapy. 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 Dr Flores's office was called. It is closed. A message was left on his phone. 02/15/18 16:09 02/15/18 17:21 The doppler study was negative for DVT bilateral The patient was informed. She was referred to the specialty clinic for hematology 02/15/18 17:24 Dr Flores did not respond to the message prior to patient departure in the ED 02/15/18 The bilateral dopplers were negative. She is to continue her medications as prescribed, follow up with her PCP and hematology referral Disposition Disposition: Discharge Clinical Impression: Calf pain Qualifiers: Laterality: right Qualified Code(s): M79.661 - Pain in right lower leg Disposition: Home, Self-Care Condition: (1) Good Instructions: Leg Pain (ED) Additional Instructions: Call your doctor for close follow up and recheck after this ER visit You have been referred to the [facility] for hematology Referrals: Bette Alcantara [DOCTOR OF OSTEOPATH] - [facility] Special[facility] [Provider Group] Forms: Patient Portal Access Time of Disposition: 17:22 Quality - Quality Measures Quality Measures: Headache (All Ages) - Headache: Neuroimaging Quality Measure: Measure #419: Overuse of Neuroimaging ICD10 Codes Entered: Yes Neurological Exam: Patient had a normal neurological exam. [G9535] Headache: Use of Neuroimaging: < CTA, CT, MRA or MRI was NOT ordered > [G9534] - Blood Pressure Screening Does Patient Have Any of the Following: No Blood Pressure Classification: Hypertensive Reading Systolic Measurement: 129 Diastolic Measurement: 90 Screening for High Blood Pressure: < Pre-Hypertensive BP, F/U Documented > [ G8950] Pre-Hypertensive Follow-up Interventions: Referral to alternative/primary care provider.
[2018-02-15] MEDS ORDERED: OXYCODONE/APAP 10MG-325MG TABLET PO ONE (17:20)
[2018-02-15] MEDS ORDERED: OXYCODONE HCL/APAP 5MG/325MG TABLET PO ONE (17:23)
--- NOTE | 2018-02-16 23:11 | US VENOUS DOPPLER REPORT ---
EXAM: ULTRASOUND VENOUS DOPPLER LOWER EXT MARY HISTORY: RIGHT LEG PAIN. TECHNIQUE: Transverse and longitudinal sonographic images of the bilateral lower extremity deep venous system. COMPARISON: None. FINDINGS: Doppler and spectral analysis with color-flow is utilized. Normal waveforms bilaterally. No visible areas of thrombus formation. Normal compression and augmentation bilaterally. IMPRESSION: NEGATIVE EXAM. JOB NUMBER: [id number] MTDD
== END 2018-02-15 17:32 | disposition home or self-care (01) ==
LOC: ER 15:34
DX: M79.661 Pain in right lower leg (principal); R07.9 Chest pain, unspecified; Z79.01 Long term (current) use of anticoagulants
CPT/HCPCS: 93970; 99283

== ENCOUNTER 2018-02-21 19:04 | Emergency (ER) | payer BC ==
[2018-02-21 20:11] LABS: BASO % 0.6 % (0-6); EOS % 2.6 % (0-6); GRAN % 56.6 % (47-80); HEMOGLOBIN 12.9 gm/dl (11.6-16.0); LYMPH % 31.7 % (16-45); MEAN CELL VOLUME 85.7 fl (81-97); MEAN CORPUSCULAR HEMOGLOBIN 27.6 pg (27-33); MEAN CORPUSCULAR HGB CONC 32.3 g/dl (32-36); MEAN PLATELET VOLUME 9.2 fl (7.4-10.4); MONO % 8.5 % (0-9); PLATELET COUNT 409 K/uL (130-400); RED BLOOD COUNT 4.67 M/uL (3.80-5.40); RED CELL DISTRIBUTION WIDTH 13.8 % (11.5-14.5); WHITE BLOOD COUNT W/O DIFF 8.5 K/uL (4.2-12.2)
[2018-02-21 20:23] LABS: BLOOD UREA NITROGEN 17 mg/dL (6-20); CREATININE 0.6 mg/dL (0.5-0.9); EST GLOMERULAR FILTRATION RATE > 60 mL/min
[2018-02-21 20:26] LABS: GLUCOSE,RANDOM 141 mg/dL (74-109)
[2018-02-21 20:40] LABS: THYROID STIMULATING HORMONE 2.26 uIU/mL (0.270-4.20)
[2018-02-21] MEDS ORDERED: PROMETHAZINE HCL 25 MG in 0.9 % SODIUM CHLORIDE 100ML 100 ML IVPB ONE (21:55)
--- NOTE | 2018-02-21 22:01 | Emergency Department Record ---
History of Present Illness - General Chief Complaint: Headache Migraine Stated Complaint: MIGRAINE Time Seen by Provider: 02/21/18 19:25 Source: Patient Mode of Arrival: Ambulatory Limitations: No limitations - History of Present Illness Initial Comments: pt is c/o rudolph, cp and palpitations. she was recently dxd w PE and is on eliquis. she states the pain is much worse and shes having palpitations. she is also having her typical migraine and has taken her home meds. Complaint: "Migraine" Onset/Timin -: Days(s) Onset Description: Sudden Location: Diffuse Severity: Severe Severity scale (1-10): 9 Quality: Aching, Similar to previous headaches Consistency: Constant Improves With: Nothing Worsens With: Exertion/activity Associated Symptoms: Nausea Other Symptoms: Chest pain Treatments Prior to Arrival: Migraine medication, Other Treatment Prior to Arrival Comment:: see home med list - Related Data Previous Rx's Medication Instructions Recorded Apixaban [Eliquis] 10 mg PO BID 30 Days tablet 02/13/18 Metoprolol Tartrate [Lopressor] 25 mg PO Q12H #60 tab 02/13/18 Allergies Allergy/AdvReac Type Severity Reaction Status Date / Time sumatriptan [From Imitrex] Allergy ANAPHYLAXIS Verified 02/15/18 15:52 sumatriptan succinate Allergy ANAPHYLAXIS Verified 02/15/18 15:52 [From Imitrex] chlorpromazine AdvReac HYPERSENSIT Verified 02/15/18 15:52 [From Thorazine] IVITY erythromycin base AdvReac VOMITING Verified 02/15/18 15:52 [Erythromycin Base] nortriptyline [From Pamelor] AdvReac TACHYCARDIA Verified 02/15/18 15:52 Travel Screening - Travel/Exposure Within Last 30 Days Have you traveled within the last 30 days?: No - Travel Symptoms Symptom Screening: Headache Review of Systems Reviewed: No additional complaints except as noted below Constitutional: Reports: As per HPI. Denies: Chills, Fever, Malaise, Night sweats, Weakness, Weight change Eyes: Reports: As per HPI. Denies: Eye discharge, Eye pain, Photophobia, Vision change ENT: Reports: As per HPI. Denies: Congestion, Dental pain, Ear pain, Epistaxis , Hearing loss, Throat pain Respiratory: Reports: As per HPI. Denies: Cough, Dyspnea, Hemoptysis, Stridor, Wheezes Cardiovascular: Reports: As per HPI. Denies: Arrhythmia, Chest pain, Dyspnea on exertion, Edema, Murmurs, Orthopnea, Palpitations, Paroxysmal nocturnal dyspnea, Rheumatic Fever, Syncope Endocrine: Reports: As per HPI. Denies: Fatigue, Heat or cold intolerance, Polydipsia, Polyuria Gastrointestinal: Reports: As per HPI. Denies: Abdominal pain, Constipation, Diarrhea, Hematemesis, Hematochezia, Melena, Nausea, Vomiting Genitourinary: Reports: As per HPI. Denies: Abnormal menses, Discharge, Dyspareunia, Dysuria, Frequency, Hematuria, Incontinence, Retention, Urgency Musculoskeletal: Reports: As per HPI. Denies: Arthralgia, Back pain, Gout, Joint swelling, Myalgia, Neck pain Skin: Reports: As per HPI. Denies: Bruising, Change in color, Change in hair/ nails, Lesions, Pruritus, Rash Neurological: Reports: As per HPI. Denies: Abnormal gait, Confusion, Headache, Numbness, Paresthesias, Seizure, Tingling, Tremors, Vertigo, Weakness Psychiatric: Reports: As per HPI. Denies: Anxiety, Auditory hallucinations, Depression, Homicidal thoughts, Suicidal thoughts, Visual hallucinations Hematological/Lymphatic: Reports: As per HPI. Denies: Anemia, Blood Clots, Easy bleeding, Easy bruising, Swollen glands Past Medical History - SOCIAL HISTORY Smoking Status: Never smoker - RESPIRATORY Hx Respiratory Disorders: Yes Hx Asthma: Yes Hx Pulmonary Embolism: Yes (05/18) Hx Sleep Apnea: Yes Hx of CPAP: Yes - CARDIOVASCULAR Hx Cardio Disorders: Yes Hx Hypertension: Yes ("pretty much went away since the gastric surgery") - NEURO Hx Neuro Disorders: Yes Hx Headaches: Yes (migraines) - GI Hx GI Disorders: Yes Comment:: gastric sleeve - Hx Genitourinary Disorders: Yes Hx Kidney Stones: Yes - ENDOCRINE Hx Endocrine Disorders: Yes Hx Diabetes: Yes (type II) Hx Thyroid Disease: No - MUSCULOSKELETAL Hx Musculoskeletal Disorders: No - PSYCH Hx Psych Problems: No - HEMATOLOGY/ONCOLOGY Hx Hematology/Oncology Disorders: No Family Medical History Any Significant Family History?: Yes Hx Cancer: Grandparents Hx Diabetes: Father, Grandparents Hx Heart Disease: Grandparents Hx HTN: Mother Hx Kidney Disease: Father *Kidney Comment: stones Hx Stroke: Grandparents Physical Exam - General General Appearance: Alert, Oriented x3, Cooperative, Mild distress - Head Head exam: Normal inspection - Eye Eye exam: Normal appearance, PERRL, EOMI Pupils: Normal accommodation - ENT ENT exam: Normal exam, Mucous membranes moist, Normal external ear exam, Normal orophraynx, TM's normal bilaterally Ear exam: Normal external inspection. negative: External canal tenderness Nasal Exam: Normal inspection. negative: Discharge, Sinus tenderness Mouth exam: Normal external inspection, Tongue normal Teeth exam: Normal inspection. negative: Dental caries Throat exam: Normal inspection. negative: Tonsillar erythema, Tonsillar exudate - Neck Neck exam: Normal inspection, Full ROM. negative: Tenderness - Respiratory Respiratory exam: Normal lung sounds bilaterally. negative: Respiratory distress - Cardiovascular Cardiovascular Exam: Regular rate, Normal rhythm, Normal heart sounds - GI/Abdominal GI/Abdominal exam: Soft, Normal bowel sounds. negative: Tenderness - Rectal Rectal exam: Deferred - exam: Deferred - Extremities Extremities exam: Normal inspection, Full ROM, Normal capillary refill. negative: Tenderness - Back Back exam: Reports: Normal inspection, Full ROM. Denies: Muscle spasm, Rash noted, Tenderness - Neurological Neurological exam: Alert, CN II-XII intact, Normal gait, Oriented X3 - Psychiatric Psychiatric exam: Normal affect, Normal mood - Skin Skin exam: Dry, Intact, Normal color, Warm Course Vital Signs 02/21/18 02/21/18 02/21/18 19:13 20:26 21:08 Temperature 98.6 F Pulse Rate [ 120 H 79 95 H Pulse Ox Probe] Respiratory 20 20 20 Rate Blood Pressure 145/103 143/100 144/98 [Left Arm] Pulse Ox 98 100 100 02/21/18 21:50 Temperature Pulse Rate [ 92 H Pulse Ox Probe] Respiratory 22 Rate Blood Pressure 144/96 [Left Arm] Pulse Ox 100 - Reevaluation(s) Reevaluation #1: 02/21/18 22:[address] shows decrease and resolving of PEs. Medical Decision Making - Lab Data Result diagrams: 02/21/18 20:05 02/21/18 20:05 Lab Results 02/21/18 02/21/18 02/21/18 Range/Units 19:51 20:05 20:05 WBC 8.5 (4.2-12.2) K/uL RBC 4.67 (3.80-5.40) M/uL Hgb 12.9 (11.6-16.0) gm/dl Hct 40.0 (35.0-47.0) % MCV 85.7 (81-97) fl MCH 27.6 (27-33) pg MCHC 32.3 (32-36) g/dl RDW 13.8 (11.5-14.5) % Plt Count 409 H (130-400) K/uL MPV 9.2 (7.4-10.4) fl Gran % 56.6 (47-80) % Lymphocytes % 31.7 (16-45) % Monocytes % 8.5 (0-9) % Eosinophils % 2.6 (0-6) % Basophils % 0.6 (0-6) % Sodium 144 (136-145) mmol/L Potassium 3.6 (3.4-4.5) mmol/L Chloride 104 (98-107) mmol/L Carbon Dioxide 22.0 (22-29) mmol/L Anion Gap 18.0 H (7-16) BUN 17 (6-20) mg/dL Creatinine 0.6 (0.5-0.9) mg/dL Estimated GFR > 60 mL/min Random Glucose 141 H (74-109) mg/dL Calcium 9.0 (8.6-10.0) mg/dL Troponin T Cancelled < 0.010 TSH 2.26 (0.270-4.20) uIU/mL Disposition Disposition: Discharge Clinical Impression: Migraine Qualifiers: Migraine type: unspecified Status migrainosus presence: with status migrainosus Intractability: intractable Qualified Code(s): G43.911 - Migraine, unspecified, intractable, with status migrainosus Chest pain Qualifiers: Chest pain type: unspecified Qualified Code(s): R07.9 - Chest pain, unspecified Disposition: Home, Self-Care Condition: (1) Good Instructions: Migraine Headache (ED) Additional Instructions: follow up with family doctor. return sooner if worse Forms: Patient Portal Access Quality - Quality Measures Quality Measures: Headache (All Ages) - Headache: Neuroimaging Quality Measure: Measure #419: Overuse of Neuroimaging ICD10 Codes Entered: Yes Neurological Exam: Patient had a normal neurological exam. [G9535] Headache: Use of Neuroimaging: < CTA, CT, MRA or MRI was NOT ordered > [G9534] - Blood Pressure Screening Does Patient Have Any of the Following: No Blood Pressure Classification: Hypertensive Reading Systolic Measurement: 144 Diastolic Measurement: 96 Screening for High Blood Pressure: < First Hypertensive BP, F/U Documented > [ G8950] First Hypertensive Follow-up Interventions: Follow-up with rescreen GT 1 day and LT 4 weeks.
[2018-02-21] MEDS ORDERED: LORAZEPAM 2 MG/ML VIAL IV ONE (22:11)
[2018-02-21] MEDS ORDERED: MORPHINE SULFATE 4MG/ML PREFILLED SYRINGE IVP ONE (22:46)
== END 2018-02-21 23:15 | disposition home or self-care (01) ==
LOC: ER 19:04
DX: G43.911 Migraine, unspecified, intractable, with status migrainosus (principal); R07.9 Chest pain, unspecified; R11.0 Nausea; E11.9 Type 2 diabetes mellitus without complications; Z79.01 Long term (current) use of anticoagulants; Z86.711 Personal history of pulmonary embolism
CPT/HCPCS: 71275; 80048; 84443; 84484; 85025; 93005; 93010; 96365; 96375; 99284; J2274; J2550

== ENCOUNTER 2018-03-02 15:11 | Emergency (ER) | payer BC ==
--- NOTE | 2018-03-02 15:25 | Emergency Department Record ---
History of Present Illness - General Chief Complaint: Fall Injury Stated Complaint: FALL Time Seen by Provider: 03/02/18 15:12 Source: Patient Mode of Arrival: Ambulatory Limitations: No limitations - History of Present Illness Initial Comments: The patient is here due to stating she fell down 9 steps at home an hour or two ago. She states she was walking down the steps and tripped over her pant leg and then landed on her buttocks and then possibly tumbled down the 9 steps. There was no one else home at the time. The patient may have had a LOC but is unsure. She then called 911 and was brought to the ER here. Her main complaints are a mild LANGLEY with L rib and flank pain and mild L hip pain. The patient has had no nausea or vomiting since the reported fall. MD Complaint: Fall Onset/Timin -: Hour(s) Fall From: Down stairs (#) (9) When Fall Occurred: Unsure Fall Witnessed: No Place Fall Occurred: Home Loss of Consciousness: Unsure - Related Data Previous Rx's Medication Instructions Recorded Apixaban [Eliquis] 10 mg PO BID 30 Days tablet 02/13/18 Allergies Allergy/AdvReac Type Severity Reaction Status Date / Time sumatriptan [From Imitrex] Allergy ANAPHYLAXIS Verified 02/15/18 15:52 sumatriptan succinate Allergy ANAPHYLAXIS Verified 02/15/18 15:52 [From Imitrex] chlorpromazine AdvReac HYPERSENSIT Verified 02/15/18 15:52 [From Thorazine] IVITY erythromycin base AdvReac VOMITING Verified 02/15/18 15:52 [Erythromycin Base] nortriptyline [From Pamelor] AdvReac TACHYCARDIA Verified 02/15/18 15:52 Review of Systems Constitutional: Denies: Chills Eyes: Denies: Eye discharge ENT: Denies: Congestion Respiratory: Denies: Cough, Dyspnea Past Medical History - SOCIAL HISTORY Smoking Status: Never smoker - RESPIRATORY Hx Respiratory Disorders: Yes Hx Asthma: Yes Hx Pulmonary Embolism: Yes (05/18) Hx Sleep Apnea: Yes Hx of CPAP: Yes - CARDIOVASCULAR Hx Cardio Disorders: Yes Hx Hypertension: Yes ("pretty much went away since the gastric surgery") - NEURO Hx Neuro Disorders: Yes Hx Headaches: Yes (migraines) - GI Hx GI Disorders: Yes Comment:: gastric sleeve - Hx Genitourinary Disorders: Yes Hx Kidney Stones: Yes - ENDOCRINE Hx Endocrine Disorders: Yes Hx Diabetes: Yes (type II) Hx Thyroid Disease: No - MUSCULOSKELETAL Hx Musculoskeletal Disorders: No - PSYCH Hx Psych Problems: No - HEMATOLOGY/ONCOLOGY Hx Hematology/Oncology Disorders: No Family Medical History Hx Cancer: Grandparents Hx Diabetes: Father, Grandparents Hx Heart Disease: Grandparents Hx HTN: Mother Hx Kidney Disease: Father *Kidney Comment: stones Hx Stroke: Grandparents Physical Exam - General General Appearance: Alert, Oriented x3, Cooperative, No acute distress - Head Head exam: Atraumatic, Normocephalic, Normal inspection (There are no signs of trauma or injury to the skull at the reported sites of impact.) - Eye Eye exam: Normal appearance, PERRL, EOMI - ENT Throat exam: Normal inspection. negative: Tonsillar erythema, Tonsillar exudate - Neck Neck exam: Normal inspection, Full ROM, Tenderness (There is mild Cspine tenderness.) - Respiratory Respiratory exam: Normal lung sounds bilaterally, Chest wall tenderness (There is diffuse L rib and flank tenderness to palpation.). negative: Respiratory distress - Cardiovascular Cardiovascular Exam: Regular rate, Normal rhythm, Normal heart sounds - GI/Abdominal GI/Abdominal exam: Soft, Normal bowel sounds. negative: Tenderness - Extremities Extremities exam: Normal inspection, Full ROM (There is normal ROM of the hips with no pain.), Normal capillary refill. negative: Joint swelling, Tenderness - Back Back exam: Reports: Normal inspection. Denies: Vertebral tenderness - Neurological Neurological exam: Alert. negative: Motor sensory deficit Course Vital Signs 03/02/18 15:15 Temperature 98.7 F Pulse Rate 95 H Respiratory 18 Rate Blood Pressure 129/86 Pulse Ox 97 - Reevaluation(s) Reevaluation #1: The patient is doing very well at this time. I did explain to her that her Head and Cervical CT's are normal. We will order her a dose of Ofirmiv for pain. 03/02/18 17:07 Reevaluation #2: The patient is doing very well at this time. I did also explain that the chest and abdomen CT's are normal. We will get her ambulating and have her take her home pain medicines as needed and see her PCP if not better by Monday. 03/02/18 17:20 Reevaluation #3: The patient is doing better and is ambulating with no problems. She state she is having some pain all over but does have pain medicines at home. I explained to her that I can only recommend Tylenol for pain due to the Eliquis. She is to rest at home and see her PCP Monday if needed and return to the ER for any worsening problems. At this time I do not see any indication of any significant head injury and strongly believe she is stable for discharge. 03/02/18 17:31 03/02/18 17:53 Medical Decision Making - Data Complexity MDM Data: Labs Ordered and/or Reviewed, X-Ray Ordered and/or Reviewed - Lab Data Result diagrams: 03/02/18 15:35 03/02/18 15:35 - Radiology Data Radiology results: Report reviewed (Head, Cervical, Chest and Abd/Pelvis CT: WNL 's with no acute changes.) Disposition Disposition: Discharge Clinical Impression: Fall (on) (from) other stairs and steps, initial encounter Disposition: Home, Self-Care Condition: (2) Stable Instructions: Contusion in Adults (ED) Additional Instructions: Please rest and use Tylenol for pain. Please see your family doctor for recheck Monday if needed. Return to the ER for any worsening head pain, nausea, vomiting , or confusion. Forms: Patient Portal Access Time of Disposition: 17:34 Quality - Quality Measures Quality Measures: N/A - Blood Pressure Screening View Details: Yes Does Patient Have Any of the Following: No Blood Pressure Classification: Pre-Hypertensive BP Reading Systolic Measurement: 130 Diastolic Measurement: 80 Screening for High Blood Pressure: < Pre-Hypertensive BP, F/U Documented > [ G8950] Pre-Hypertensive Follow-up Interventions: Referral to alternative/primary care provider.
[2018-03-02 15:41] LABS: BASO % 1.1 % (0-6); EOS % 2.2 % (0-6); GRAN % 60.2 % (47-80); HEMATOCRIT 39.9 % (35.0-47.0); HEMOGLOBIN 12.9 gm/dl (11.6-16.0); LYMPH % 26.7 % (16-45); MEAN CORPUSCULAR HEMOGLOBIN 27.8 pg (27-33); MEAN CORPUSCULAR HGB CONC 32.3 g/dl (32-36); MEAN PLATELET VOLUME 9.3 fl (7.4-10.4); MONO % 9.8 % (0-9); PLATELET COUNT 467 K/uL (130-400); RED BLOOD COUNT 4.64 M/uL (3.80-5.40); WHITE BLOOD COUNT W/O DIFF 7.4 K/uL (4.2-12.2)
[2018-03-02 15:55] LABS: BLOOD UREA NITROGEN 12 mg/dL (6-20); INR 1.1; PARTIAL THROMBOPLASTIN TIME 26.4 SECONDS (24.5-39.1); PROTHROMBIN TIME (PATIENT) 11.5 SECONDS (9.5-12.1)
[2018-03-02 15:56] LABS: CREATININE 0.6 mg/dL (0.5-0.9); EST GLOMERULAR FILTRATION RATE > 60 mL/min
[2018-03-02 15:58] LABS: GLUCOSE,RANDOM 101 mg/dL (74-109)
[2018-03-02] MEDS: ACETAMINOPHEN 1,000 MG/100 ML BTL IVPB ONE (17:10)
--- NOTE | 2018-03-04 12:42 | CT SCAN REPORT ---
DATE: 03/02/2018 at 1608 hours. EXAM: CT OF THE CERVICAL SPINE. HISTORY: Fall. TECHNIQUE: Noncontrast images of the cervical spine are obtained. FINDINGS: There is mild disc space narrowing at C5-6 with tiny osteophytes. Otherwise, the examination is unremarkable without fracture, dislocation, or significant malalignment. IMPRESSION: MINIMAL DEGENERATIVE DISC DISEASE; OTHERWISE NEGATIVE. JOB NUMBER: [id number] [facility]
--- NOTE | 2018-03-04 12:46 | CT SCAN REPORT ---
DATE: 03/02/2018 at 1608 hours. EXAM: CT OF THE HEAD WITHOUT CONTRAST. HISTORY: Fall. TECHNIQUE: Noncontrast images of the brain are obtained. FINDINGS: Brain volume is normal. There is no evidence of hemorrhage, mass effect, midline shift, or acute transcortical infarction. No extra-axial fluid collections are seen. The ventricles and basal cisterns are preserved. There is mild ethmoid mucosal thickening. IMPRESSION: NO EVIDENCE OF AN ACUTE INTRACRANIAL PROCESS. JOB NUMBER: [id number] [facility]
--- NOTE | 2018-03-04 12:53 | CT SCAN REPORT ---
DATE: 03/02/2018 at 1619 hours. EXAM: CT OF THE ABDOMEN AND PELVIS WITH INTRAVENOUS CONTRAST. HISTORY: Trauma/fall. TECHNIQUE: After the administration of 100 mL of intravenous Omnipaque 350, axial images are obtained from the dome of the diaphragm to the symphysis pubis. FINDINGS: The lung bases and pleural spaces are clear. The liver is unremarkable in size and shape without focal mass or biliary dilatation. The gallbladder is normal. The spleen and pancreas are within normal limits. The kidneys and adrenal glands demonstrate no evidence of soft tissue mass, hydronephrosis, or renal calculi. There is no mesenteric mass. There is evidence of prior gastric surgery. There is constipation with increased stool burden throughout the colon but no evidence of colonic or small-bowel distension. There is no mesenteric adenopathy. There is a trace amount of free pelvic fluid , possibly physiologic. There is no ascites or free air. There are degenerative changes in the lumbar spine without fracture. No abdominal wall defects are detected. IMPRESSION: NO EVIDENCE OF AN ACUTE INTRA-ABDOMINAL PROCESS. DEGENERATIVE DISEASE OF THE LUMBAR SPINE. CONSTIPATION. JOB NUMBER: [id number] [facility]
--- NOTE | 2018-03-04 12:56 | CT SCAN REPORT ---
DATE: 03/02/2018 at 1619 hours. EXAM: CT OF THE CHEST WITH CONTRAST. HISTORY: Fall and pain. TECHNIQUE: FINDINGS: The lungs are clear. There is no evidence of effusion or pneumothorax. There is no evidence of parenchymal contusion. There is no evidence of lung mass or mediastinal adenopathy. No rib fractures are identified. There is no evidence of subcutaneous hematoma or emphysema. IMPRESSION: NEGATIVE CT SCAN OF THE CHEST. JOB NUMBER: [id number] [facility]
== END 2018-03-02 17:42 | disposition home or self-care (01) ==
LOC: ER 15:11
DX: G89.11 Acute pain due to trauma (principal); M25.552 Pain in left hip; R10.9 Unspecified abdominal pain; R07.81 Pleurodynia; M54.5 Low back pain; M54.2 Cervicalgia; R51 Headache; E11.9 Type 2 diabetes mellitus without complications; Z79.01 Long term (current) use of anticoagulants; W10.9XXA Fall (on) (from) unspecified stairs and steps, initial encounter; Y92.009 Unspecified place in unspecified non-institutional (private) residence as the place of occurrence of the external cause
CPT/HCPCS: 99284 ×2; 96374; 85025; 85730; 85610; 80048; 84703; 72125; 71260; 70450; 74177; Q9967

== ENCOUNTER 2018-03-06 17:21 | Emergency (ER) | payer BC ==
[2018-03-06] MEDS ORDERED: PROMETHAZINE HCL 25 MG/ML VIAL IM ONE (18:35)
[2018-03-06] MEDS ORDERED: LORAZEPAM 2 MG/ML VIAL IM ONE (18:35)
--- NOTE | 2018-03-06 18:40 | Emergency Department Record ---
History of Present Illness - General Chief Complaint: Headache Migraine Stated Complaint: MIGRAINE Time Seen by Provider: 03/06/18 18:16 Source: Patient Mode of Arrival: Ambulatory Limitations: No limitations - History of Present Illness Initial Comments: 33 yo female presents to ED for evaluation of headache symptoms that began 3-4 days ago. Patient reports numerous similar epsidoes previously, denies fevers, chills, or stiff neck symptoms. Patient reports that she is going to [place] to the [place] [facility] next week to see her neurologist (Dr. Davis) for possible change in her migraine headache regimen. Patient usually responds to Nubain with some improvement, and reports that she has tried her home therapy without significant improvement in her symptoms. MD Complaint: Headache Onset/Timin -: Days(s) Onset Description: Other Location: Diffuse Severity: Moderate Severity scale (1-10): 9 Quality: Aching, Throbbing Consistency: Constant Improves With: Nothing Worsens With: None Associated Symptoms: Photophobia Treatments Prior to Arrival: Migraine medication, Prescription analgesic - Related Data Previous Rx's Medication Instructions Recorded Apixaban [Eliquis] 10 mg PO BID 30 Days tablet 02/13/18 Allergies Allergy/AdvReac Type Severity Reaction Status Date / Time sumatriptan [From Imitrex] Allergy ANAPHYLAXIS Verified 03/06/18 17:29 sumatriptan succinate Allergy ANAPHYLAXIS Verified 03/06/18 17:29 [From Imitrex] chlorpromazine AdvReac HYPERSENSIT Verified 03/06/18 17:29 [From Thorazine] IVITY erythromycin base AdvReac VOMITING Verified 03/06/18 17:29 [Erythromycin Base] nortriptyline [From Pamelor] AdvReac TACHYCARDIA Verified 03/06/18 17:29 Travel Screening - Travel/Exposure Within Last 30 Days Have you traveled within the last 30 days?: No - Travel/Exposure Within Last Year Have you traveled outside the [place] in the last year?: No - Additonal Travel Details Have you been exposed to anyone with a communicable illness?: No - Travel Symptoms Symptom Screening: None Review of Systems Constitutional: Denies: Chills, Fever, Malaise, Night sweats Eyes: Denies: Eye discharge, Eye pain ENT: Denies: Congestion, Ear pain, Epistaxis Respiratory: Denies: Cough, Dyspnea Cardiovascular: Denies: Chest pain, Dyspnea on exertion Endocrine: Denies: Fatigue, Heat or cold intolerance Gastrointestinal: Denies: Abdominal pain Genitourinary: Denies: Incontinence, Retention Musculoskeletal: Denies: Arthralgia, Back pain Skin: Denies: Bruising, Change in color Neurological: Reports: Headache. Denies: Abnormal gait, Confusion, Tingling, Tremors Psychiatric: Denies: Anxiety Hematological/Lymphatic: Denies: Anemia Past Medical History - SOCIAL HISTORY Smoking Status: Never smoker Alcohol Use: None Drug Use: None - RESPIRATORY Hx Respiratory Disorders: Yes Hx Asthma: Yes Hx Pulmonary Embolism: Yes (05/18) Hx Sleep Apnea: Yes Hx of CPAP: Yes - CARDIOVASCULAR Hx Cardio Disorders: Yes Hx Hypertension: Yes ("pretty much went away since the gastric surgery") - NEURO Hx Neuro Disorders: Yes Hx Headaches: Yes (migraines) - GI Hx GI Disorders: Yes Comment:: gastric sleeve - Hx Genitourinary Disorders: Yes Hx Kidney Stones: Yes - ENDOCRINE Hx Endocrine Disorders: Yes Hx Diabetes: Yes (type II) Hx Thyroid Disease: No - MUSCULOSKELETAL Hx Musculoskeletal Disorders: No - PSYCH Hx Psych Problems: No - HEMATOLOGY/ONCOLOGY Hx Hematology/Oncology Disorders: No Family Medical History Any Significant Family History?: Yes Hx Cancer: Grandparents Hx Diabetes: Father, Grandparents Hx Heart Disease: Grandparents Hx HTN: Mother Hx Kidney Disease: Father *Kidney Comment: stones Hx Stroke: Grandparents Physical Exam - General General Appearance: Alert, Oriented x3, Cooperative, Mild distress Limitations: No limitations - Head Head exam: Atraumatic, Normocephalic, Normal inspection Head exam detail: negative: Abrasion, Contusion, Frazier's sign, General tenderness, Hematoma, Laceration - Eye Eye exam: Normal appearance. negative: Conjunctival injection, Periorbital swelling, Periorbital tenderness, Scleral icterus - ENT Ear exam: negative: Auricular hematoma, Auricular trauma Nasal Exam: negative: Active bleeding, Discharge, Dried blood, Foreign body Mouth exam: negative: Drooling, Laceration, Tongue elevation - Neck Neck exam: Normal inspection. negative: Meningismus, Tenderness - Respiratory Respiratory exam: Normal lung sounds bilaterally. negative: Respiratory distress, Rhonchi, Stridor, Wheezes - Cardiovascular Cardiovascular Exam: Regular rate, Normal rhythm, Normal heart sounds - GI/Abdominal GI/Abdominal exam: Soft. negative: Distended, Rebound, Rigid, Tenderness - Rectal Rectal exam: Deferred - exam: Deferred - Extremities Extremities exam: Normal inspection. negative: Calf tenderness, Pedal edema, Tenderness - Back Back exam: Denies: CVA tenderness (R), CVA tenderness (L) - Neurological Neurological exam: Alert, Normal gait, Oriented X3 - Psychiatric Psychiatric exam: Normal affect, Normal mood - Skin Skin exam: Normal color. negative: Abrasion Type of lesion: negative: abrasion Course Vital Signs 03/06/18 17:30 Temperature 98.9 F Pulse Rate 130 H Respiratory 20 Rate Blood Pressure 128/96 Pulse Ox 100 - Reevaluation(s) Reevaluation #1: 03/06/18 18:39 Nubain is currently unavailable from pharmacy Patient reports that she cannot take Toradol due to her Eliquis use. Will administer Ativan and Phenergan and reassess. Reevaluation #2: 03/06/18 19:26 In to speak with the patient as she reports that the medications given are not helping (given 18 minutes ago), after a long discussion about other options I did inform the patient and her mother that Morphine/Dilaudid are NOT indicated based on her symptoms. I did offer her Haldol in addition, reports that she will try it. Patient is concerned that she is not able to sleep, recommended Benadryl and Melatonin for her recurrent symptoms and to call her Neurologist ( Dr. Davis) and her PCP (Dr. Flores) for other options to assist with her chronic headache symptoms. Reevaluation #3: 03/06/18 19:57 patient was reassessed following Haldol administration, reports "some improvement". Patient appears stable for discharge at this time with instructions to contact her neurologist for further recommendations. Repeat pulse 96. Disposition Disposition: Discharge Clinical Impression: Headache Qualifiers: Headache type: other vascular headache Qualified Code(s): G44.1 - Vascular headache, not elsewhere classified Disposition: Home, Self-Care Condition: (2) Stable Instructions: Acute Headache (ED) Additional Instructions: Return to ED if your symptoms worsen or if you have any concerns. Follow-up with your family doctor in 3-5 days as directed. Forms: Patient Portal Access Time of Disposition: 19:58 Quality - Quality Measures Quality Measures: N/A, Headache (All Ages) - Headache: Neuroimaging Quality Measure: Measure #419: Overuse of Neuroimaging ICD10 Codes Entered: Yes Neurological Exam: Patient had a normal neurological exam. [G9535] Headache: Use of Neuroimaging: < CTA, CT, MRA or MRI was NOT ordered > [G9534] - Blood Pressure Screening Does Patient Have Any of the Following: No Blood Pressure Classification: Hypertensive Reading Systolic Measurement: 128 Diastolic Measurement: 96 Screening for High Blood Pressure: < Second Hypertensive BP, F/U Documented > [ G8950] Second Hypertensive Follow-up Interventions: Referral to alternative/primary care provider.
[2018-03-06] MEDS ORDERED: HALOPERIDOL LACTATE 5 MG/ML VIAL IM ONE (19:25)
== END 2018-03-06 20:03 | disposition home or self-care (01) ==
LOC: ER 17:21
DX: G44.1 Vascular headache, not elsewhere classified (principal); H53.149 Visual discomfort, unspecified; Z86.711 Personal history of pulmonary embolism; Z79.01 Long term (current) use of anticoagulants
CPT/HCPCS: 96372; 99283; J1630; J2550

== ENCOUNTER 2018-03-24 19:35 | Emergency (ER) | payer BC ==
--- NOTE | 2018-03-24 19:54 | Emergency Department Record ---
History of Present Illness - General Chief complaint: Allergic Reaction Stated complaint: light headed/hearing and seeing things Time Seen by Provider: 03/24/18 19:38 Source: Patient Mode of Arrival: Ambulatory Limitations: No limitations - History of Present Illness Initial Comments: 33 yo female presents to ED for evaluation of "seeing things that aren't there, feeling weak and dizzy, and falling x 2". Patient reports that she was returning from the [facility] where she was started on metoprolol 1 week ago, stopped the medication 2 days ago due to her symptoms. Patient called her Neurologist today and was told to come to the ED "to make sure you are not having a stroke". Patient denies focal weakness, numbness, tingling, or headache symptoms. MD Complaint: Other Onset/Timin -: Days(s) Exposure: Medication Symptoms: Dizziness Severity: Moderate Treatment Prior to Arrival: None Previous Allergy History: None - Related Data Previous Rx's Medication Instructions Recorded Apixaban [Eliquis] 10 mg PO BID 30 Days tablet 02/13/18 Allergies Allergy/AdvReac Type Severity Reaction Status Date / Time sumatriptan [From Imitrex] Allergy ANAPHYLAXIS Verified 03/06/18 17:29 sumatriptan succinate Allergy ANAPHYLAXIS Verified 03/06/18 17:29 [From Imitrex] chlorpromazine AdvReac HYPERSENSIT Verified 03/06/18 17:29 [From Thorazine] IVITY erythromycin base AdvReac VOMITING Verified 03/06/18 17:29 [Erythromycin Base] nortriptyline [From Pamelor] AdvReac TACHYCARDIA Verified 03/06/18 17:29 Review of Systems Constitutional: Denies: Chills, Fever, Malaise, Night sweats Eyes: Denies: Eye discharge, Eye pain ENT: Denies: Congestion, Ear pain, Epistaxis Respiratory: Denies: Cough, Dyspnea, Hemoptysis Cardiovascular: Denies: Chest pain, Dyspnea on exertion Endocrine: Denies: Fatigue, Heat or cold intolerance Gastrointestinal: Denies: Abdominal pain, Nausea, Vomiting Genitourinary: Denies: Incontinence, Retention Musculoskeletal: Denies: Arthralgia, Back pain, Gout, Joint swelling Skin: Denies: Bruising, Change in color Neurological: Denies: Abnormal gait, Confusion, Headache, Seizure Psychiatric: Reports: Visual hallucinations. Denies: Anxiety Hematological/Lymphatic: Denies: Anemia, Blood Clots Past Medical History - SOCIAL HISTORY Smoking Status: Never smoker Alcohol Use: None Drug Use: None - RESPIRATORY Hx Respiratory Disorders: Yes Hx Asthma: Yes Hx Pulmonary Embolism: Yes (05/18) Hx Sleep Apnea: Yes Hx of CPAP: Yes - CARDIOVASCULAR Hx Cardio Disorders: Yes Hx Hypertension: Yes ("pretty much went away since the gastric surgery") - NEURO Hx Neuro Disorders: Yes Hx Headaches: Yes (migraines) - GI Hx GI Disorders: Yes Comment:: gastric sleeve - Hx Genitourinary Disorders: Yes Hx Kidney Stones: Yes - ENDOCRINE Hx Endocrine Disorders: Yes Hx Diabetes: Yes (type II) Hx Thyroid Disease: No - MUSCULOSKELETAL Hx Musculoskeletal Disorders: Yes Comment:: djd - PSYCH Hx Psych Problems: No - HEMATOLOGY/ONCOLOGY Hx Hematology/Oncology Disorders: No Family Medical History Any Significant Family History?: No Hx Cancer: Grandparents Hx Diabetes: Father, Grandparents Hx Heart Disease: Grandparents Hx HTN: Mother Hx Kidney Disease: Father *Kidney Comment: stones Hx Stroke: Grandparents Physical Exam - General General Appearance: Alert, Oriented x3, Cooperative, No acute distress Limitations: No limitations - Head Head exam: Atraumatic, Normocephalic, Normal inspection Head exam detail: negative: Abrasion, Contusion, Frazier's sign, General tenderness, Hematoma, Laceration - Eye Eye exam: Normal appearance. negative: Conjunctival injection, Periorbital swelling, Periorbital tenderness, Scleral icterus - ENT Ear exam: negative: Auricular hematoma, Auricular trauma Nasal Exam: negative: Active bleeding, Discharge, Dried blood, Foreign body Mouth exam: negative: Drooling, Laceration, Muffled voice, Tongue elevation - Neck Neck exam: Normal inspection. negative: Meningismus, Tenderness - Respiratory Respiratory exam: Normal lung sounds bilaterally. negative: Rales, Respiratory distress, Rhonchi, Stridor - Cardiovascular Cardiovascular Exam: Regular rate, Normal rhythm, Normal heart sounds - GI/Abdominal GI/Abdominal exam: Soft. negative: Rebound, Rigid, Tenderness - Rectal Rectal exam: Deferred - exam: Deferred - Extremities Extremities exam: Normal inspection. negative: Calf tenderness, Pedal edema, Tenderness - Back Back exam: Denies: CVA tenderness (R), CVA tenderness (L) - Neurological Neurological exam: Alert, Normal gait, Oriented X3 - Psychiatric Psychiatric exam: Normal affect, Normal mood - Skin Skin exam: Normal color. negative: Abrasion Type of lesion: negative: abrasion Course - Reevaluation(s) Reevaluation #1: 03/24/18 19:52 EKG NSR 98 Normal [place], Normal intervals including QT interval No evidence for WPW (no presence delta wave) There are no findings to suggest Brugada syndrome. There are no findings to suggest Hypertrophic Cardiomyopathy (Tall QRS, deep Q waves) Cardiac monitoring in the emergency department reveals no tachycardic or bradycardic dysrhythmias Patient was seen and examined, has no focal weakness on examination to suggest CVA, has no slurred speech on examination, is alert, oriented, and appropriate in ED. Patient does exhibit mildly dilated pupils bilaterally. Will obtain laboratory studies and CT Brain to exclude an acute hemorrhage as the patient reports falls x 2 and does take Eliquis. Reevaluation #2: 03/24/18 21:00 Labs reviewed and are grossly unremarkable for an acute process. CT Brain: No acute process Patient was updated on all results, symptoms are likely related to recent medication change. Patient is alert, oriented, and answers all questions appropriately on re-examination. There does not appear to be a clear neurological etiology for her symptoms. Patient was instructed to follow-up with Dr. Davis Monday for further evaluation as her symptoms have been present for 3 days. Medical Decision Making - Lab Data Result diagrams: 03/24/18 20:10 03/24/18 20:10 Disposition Disposition: Discharge Clinical Impression: Medication adverse effect Qualifiers: Encounter type: initial encounter Qualified Code(s): T50.905A - Adverse effect of unspecified drugs, medicaments and biological substances, initial encounter Disposition: Home, Self-Care Condition: (2) Stable Instructions: Adverse Drug Reaction (ED) Additional Instructions: Return to ED if your symptoms worsen or if you have any concerns. Follow-up with Dr. Davis in 1-3 days as directed. Forms: Patient Portal Access Time of Disposition: 21:03 Quality - Quality Measures Quality Measures: N/A - Blood Pressure Screening Does Patient Have Any of the Following: No Blood Pressure Classification: Pre-Hypertensive BP Reading Systolic Measurement: 128 Diastolic Measurement: 66 Screening for High Blood Pressure: < Pre-Hypertensive BP, F/U Documented > [ G8950] Pre-Hypertensive Follow-up Interventions: Referral to alternative/primary care provider.
[2018-03-24 20:30] LABS: BASO % 0.7 % (0-6); EOS % 2.6 % (0-6); GRAN % 58.9 % (47-80); HEMATOCRIT 39.8 % (35.0-47.0); HEMOGLOBIN 12.9 gm/dl (11.6-16.0); LYMPH % 29.9 % (16-45); MEAN CELL VOLUME 86.1 fl (81-97); MEAN CORPUSCULAR HEMOGLOBIN 27.9 pg (27-33); MEAN CORPUSCULAR HGB CONC 32.4 g/dl (32-36); MEAN PLATELET VOLUME 10.1 fl (7.4-10.4); MONO % 7.9 % (0-9); PLATELET COUNT 431 K/uL (130-400); RED BLOOD COUNT 4.62 M/uL (3.80-5.40); RED CELL DISTRIBUTION WIDTH 14.3 % (11.5-14.5); WHITE BLOOD COUNT W/O DIFF 10.6 K/uL (4.2-12.2)
[2018-03-24 20:42] LABS: BLOOD UREA NITROGEN 15 mg/dL (6-20); CREATININE 0.7 mg/dL (0.5-0.9); EST GLOMERULAR FILTRATION RATE > 60 mL/min
[2018-03-24 20:43] LABS: TOTAL PROTEIN 7.3 g/dL (6.6-8.7)
[2018-03-24 20:45] LABS: GLUCOSE,RANDOM 145 mg/dL (74-109)
[2018-03-24 20:47] LABS: ALB/GLOB RATIO 1.6 (1.1-1.8); ALBUMIN 4.5 g/dL (4.0-5.0); ALKALINE PHOSPHATASE 90 U/L (35-104); ALT/SGPT 11 U/L (<33); AST/SGOT 22 U/L (10.0-35.0)
--- NOTE | 2018-03-24 23:23 | CT SCAN REPORT ---
EXAM: CT SCAN HEAD WO CONTRAST HISTORY: LIGHTHEADEDNESS. TUNNEL VISION. HALLUCINATIONS. SLURRED SPEECH. FALL TWO WEEKS PRIOR. TECHNIQUE: Routine CT images of the head obtained without contrast. COMPARISON: 03/21/18. FINDINGS: The ventricles, basal cisterns, and sulci are of normal size, shape, and configuration. No midline shift or mass effect. Lambert-white differentiation well maintained throughout both cerebral hemispheres without evidence for acute ischemia. No intracranial mass or hemorrhage. Paranasal sinuses and mastoid air cells are clear. Orbital contents are unremarkable. IMPRESSION: NO ACUTE INTRACRANIAL ABNORMALITY JOB NUMBER: [id number] MTDD
== END 2018-03-24 21:15 | disposition home or self-care (01) ==
LOC: ER 19:35
DX: T44.7X5A Adverse effect of beta-adrenoreceptor antagonists, initial encounter (principal); R42 Dizziness and giddiness; R44.1 Visual hallucinations; R53.1 Weakness; R47.81 Slurred speech; E11.9 Type 2 diabetes mellitus without complications; I10 Essential (primary) hypertension
CPT/HCPCS: 70450; 80053; 85025; 93005; 93010; 99284

== ENCOUNTER 2018-04-02 20:14 | Emergency (ER) | payer BC ==
[2018-04-02] MEDS ORDERED: LORAZEPAM 2 MG/ML VIAL IM ONE (21:40)
[2018-04-02] MEDS ORDERED: DIPHENHYDRAMINE HCL 50 MG/ML VIAL IM ONE (21:40)
--- NOTE | 2018-04-02 21:49 | Emergency Department Record ---
History of Present Illness - General Chief Complaint: Headache Migraine Stated Complaint: MIGRAINE Time Seen by Provider: 04/02/18 21:05 Source: Patient, Family Mode of Arrival: Ambulatory Limitations: No limitations - History of Present Illness Initial Comments: pt is having her typical migraine. she just got back from the [facility] and is waiting for the arrival of a new migraine medication Complaint: "Migraine" Onset/Timin -: Days(s) Onset Description: Gradual Location: Diffuse Severity scale (1-10): 9 Quality: Similar to previous headaches Consistency: Constant Improves With: Medication Worsens With: Light, Movement of head/neck, Noise Associated Symptoms: Nausea, Photophobia, Sensitivity to sound Treatments Prior to Arrival: Migraine medication, Prescription analgesic - Related Data Previous Rx's Medication Instructions Recorded Apixaban [Eliquis] 10 mg PO BID 30 Days tablet 02/13/18 Allergies Allergy/AdvReac Type Severity Reaction Status Date / Time sumatriptan [From Imitrex] Allergy ANAPHYLAXIS Verified 03/06/18 17:29 sumatriptan succinate Allergy ANAPHYLAXIS Verified 03/06/18 17:29 [From Imitrex] chlorpromazine AdvReac HYPERSENSIT Verified 03/06/18 17:29 [From Thorazine] IVITY erythromycin base AdvReac VOMITING Verified 03/06/18 17:29 [Erythromycin Base] nortriptyline [From Pamelor] AdvReac TACHYCARDIA Verified 03/06/18 17:29 Travel Screening - Travel/Exposure Within Last 30 Days Have you traveled within the last 30 days?: No - Travel Symptoms Symptom Screening: None Review of Systems Reviewed: No additional complaints except as noted below Constitutional: Reports: As per HPI. Denies: Chills, Fever, Malaise, Night sweats, Weakness, Weight change Eyes: Reports: As per HPI. Denies: Eye discharge, Eye pain, Photophobia, Vision change ENT: Reports: As per HPI. Denies: Congestion, Dental pain, Ear pain, Epistaxis , Hearing loss, Throat pain Respiratory: Reports: As per HPI. Denies: Cough, Dyspnea, Hemoptysis, Stridor, Wheezes Cardiovascular: Reports: As per HPI. Denies: Arrhythmia, Chest pain, Dyspnea on exertion, Edema, Murmurs, Orthopnea, Palpitations, Paroxysmal nocturnal dyspnea, Rheumatic Fever, Syncope Endocrine: Reports: As per HPI. Denies: Fatigue, Heat or cold intolerance, Polydipsia, Polyuria Gastrointestinal: Reports: As per HPI. Denies: Abdominal pain, Constipation, Diarrhea, Hematemesis, Hematochezia, Melena, Nausea, Vomiting Genitourinary: Reports: As per HPI. Denies: Abnormal menses, Discharge, Dyspareunia, Dysuria, Frequency, Hematuria, Incontinence, Retention, Urgency Musculoskeletal: Reports: As per HPI. Denies: Arthralgia, Back pain, Gout, Joint swelling, Myalgia, Neck pain Skin: Reports: As per HPI. Denies: Bruising, Change in color, Change in hair/ nails, Lesions, Pruritus, Rash Neurological: Reports: As per HPI. Denies: Abnormal gait, Confusion, Headache, Numbness, Paresthesias, Seizure, Tingling, Tremors, Vertigo, Weakness Psychiatric: Reports: As per HPI. Denies: Anxiety, Auditory hallucinations, Depression, Homicidal thoughts, Suicidal thoughts, Visual hallucinations Hematological/Lymphatic: Reports: As per HPI. Denies: Anemia, Blood Clots, Easy bleeding, Easy bruising, Swollen glands Past Medical History - SOCIAL HISTORY Smoking Status: Never smoker - RESPIRATORY Hx Respiratory Disorders: Yes Hx Asthma: Yes Hx Pulmonary Embolism: Yes (05/18) Hx Sleep Apnea: Yes Hx of CPAP: Yes - CARDIOVASCULAR Hx Cardio Disorders: Yes Hx Hypertension: Yes ("pretty much went away since the gastric surgery") - NEURO Hx Neuro Disorders: Yes Hx Headaches: Yes (migraines) - GI Hx GI Disorders: Yes Comment:: gastric sleeve - Hx Genitourinary Disorders: Yes Hx Kidney Stones: Yes - ENDOCRINE Hx Endocrine Disorders: Yes Hx Diabetes: Yes (type II) Hx Thyroid Disease: No - MUSCULOSKELETAL Hx Musculoskeletal Disorders: Yes Comment:: djd - PSYCH Hx Psych Problems: No - HEMATOLOGY/ONCOLOGY Hx Hematology/Oncology Disorders: No Family Medical History Any Significant Family History?: Yes Hx Cancer: Grandparents Hx Diabetes: Father, Grandparents Hx Heart Disease: Grandparents Hx HTN: Mother Hx Kidney Disease: Father *Kidney Comment: stones Hx Stroke: Grandparents Physical Exam - General General Appearance: Alert, Oriented x3, Cooperative, Mild distress - Head Head exam: Normal inspection - Eye Eye exam: Normal appearance, PERRL, EOMI Pupils: Normal accommodation - ENT ENT exam: Normal exam, Mucous membranes moist, Normal external ear exam, Normal orophraynx Ear exam: Normal external inspection. negative: External canal tenderness Nasal Exam: Normal inspection. negative: Discharge, Sinus tenderness Mouth exam: Normal external inspection, Tongue normal Teeth exam: Normal inspection. negative: Dental caries Throat exam: Normal inspection. negative: Tonsillar erythema, Tonsillar exudate - Neck Neck exam: Normal inspection, Full ROM. negative: Tenderness - Respiratory Respiratory exam: Normal lung sounds bilaterally. negative: Respiratory distress - Cardiovascular Cardiovascular Exam: Normal rhythm, Normal heart sounds, Tachycardia - GI/Abdominal GI/Abdominal exam: Soft, Normal bowel sounds. negative: Tenderness - Rectal Rectal exam: Deferred - exam: Deferred - Extremities Extremities exam: Normal inspection, Full ROM, Normal capillary refill. negative: Tenderness - Back Back exam: Reports: Normal inspection, Full ROM. Denies: Muscle spasm, Rash noted, Tenderness - Neurological Neurological exam: Alert, CN II-XII intact, Normal gait, Oriented X3 - Psychiatric Psychiatric exam: Normal affect, Normal mood - Skin Skin exam: Dry, Intact, Normal color, Warm Course Vital Signs 04/02/18 20:57 Temperature 98.6 F Pulse Rate 128 H Respiratory 18 Rate Blood Pressure 116/86 Pulse Ox 98 - Reevaluation(s) Reevaluation #1: 04/02/18 22:32 feels better, ready to go home Disposition Disposition: Discharge Clinical Impression: Migraine Qualifiers: Migraine type: unspecified Status migrainosus presence: without status migrainosus Intractability: not intractable Qualified Code(s): G43.909 - Migraine, unspecified, not intractable, without status migrainosus Disposition: Home, Self-Care Condition: (1) Good Instructions: Migraine Headache (ED) Additional Instructions: follow up with family doctor and with neurologist. return sooner if worse. Quality - Quality Measures Quality Measures: N/A - Blood Pressure Screening Does Patient Have Any of the Following: No Blood Pressure Classification: Pre-Hypertensive BP Reading Systolic Measurement: 116 Diastolic Measurement: 86 Screening for High Blood Pressure: < Pre-Hypertensive BP, F/U Documented > [ G8950] Pre-Hypertensive Follow-up Interventions: Follow-up with rescreen every year.
== END 2018-04-02 22:41 | disposition home or self-care (01) ==
LOC: ER 20:14
DX: G43.909 Migraine, unspecified, not intractable, without status migrainosus (principal); R11.0 Nausea; H53.149 Visual discomfort, unspecified
CPT/HCPCS: 99283 ×2; 96372; J2060; J1200

== ENCOUNTER 2018-04-17 16:45 | Emergency (ER) | payer BC ==
[2018-04-17] MEDS ORDERED: DIPHENHYDRAMINE HCL 50 MG/ML VIAL IM ONE (16:55)
[2018-04-17] MEDS ORDERED: LORAZEPAM 2 MG/ML VIAL IM ONE (16:55)
--- NOTE | 2018-04-17 17:04 | Emergency Department Record ---
History of Present Illness - General Chief Complaint: Headache Migraine Stated Complaint: MIGRAINE Time Seen by Provider: 04/17/18 16:46 Source: Patient Mode of Arrival: Ambulatory Limitations: No limitations - History of Present Illness Initial Comments: 33 yo female presents with a migraine that is typical. She has a long history of recurrent migraines. This current episode started on Monday. She is cared for at the [facility]. Last visit was in March. She is on a migraine regimen that has not resolved the headache. She is nauseated without vomiting. No new or atypical features. She last had Benadryl about 12 hours ago. Her home dose is 100mg. She also took Haldol and Zofran prior to arrival. No trauma or fever. MD Complaint: "Migraine" -: Days(s) Onset Description: Gradual Location: Diffuse Severity: Moderate Quality: Aching, Throbbing Consistency: Constant Improves With: Nothing Worsens With: Light Context: Other Associated Symptoms: Nausea Other Symptoms: Other Treatments Prior to Arrival: Migraine medication - Related Data Previous Rx's Medication Instructions Recorded Apixaban [Eliquis] 10 mg PO BID 30 Days tablet 02/13/18 Allergies Allergy/AdvReac Type Severity Reaction Status Date / Time sumatriptan [From Imitrex] Allergy ANAPHYLAXIS Verified 04/17/18 16:54 sumatriptan succinate Allergy ANAPHYLAXIS Verified 04/17/18 16:54 [From Imitrex] chlorpromazine AdvReac HYPERSENSIT Verified 04/17/18 16:54 [From Thorazine] IVITY erythromycin base AdvReac VOMITING Verified 04/17/18 16:54 [Erythromycin Base] nortriptyline [From Pamelor] AdvReac TACHYCARDIA Verified 04/17/18 16:54 Review of Systems Constitutional: Denies: Chills, Fever, Night sweats, Weakness Eyes: Reports: Photophobia. Denies: Eye discharge, Eye pain, Vision change ENT: Denies: Congestion, Throat pain Respiratory: Denies: Cough, Dyspnea, Wheezes Cardiovascular: Denies: Chest pain, Syncope Endocrine: Denies: Fatigue Gastrointestinal: Reports: Nausea. Denies: Abdominal pain, Diarrhea, Vomiting Genitourinary: Denies: Dysuria, Urgency Musculoskeletal: Denies: Arthralgia, Back pain, Joint swelling, Myalgia, Neck pain Skin: Denies: Bruising, Change in color, Rash Neurological: Reports: Headache. Denies: Abnormal gait, Confusion, Numbness, Paresthesias, Seizure, Tingling, Tremors, Vertigo, Weakness Psychiatric: Denies: Anxiety Hematological/Lymphatic: Denies: Easy bleeding, Easy bruising Past Medical History - SOCIAL HISTORY Smoking Status: Never smoker - RESPIRATORY Hx Respiratory Disorders: Yes Hx Asthma: Yes Hx Pulmonary Embolism: Yes (05/18) Hx Sleep Apnea: Yes Hx of CPAP: Yes - CARDIOVASCULAR Hx Cardio Disorders: Yes Hx Hypertension: Yes ("pretty much went away since the gastric surgery") - NEURO Hx Neuro Disorders: Yes Hx Headaches: Yes (migraines) - GI Hx GI Disorders: Yes Comment:: gastric sleeve - Hx Genitourinary Disorders: Yes Hx Kidney Stones: Yes - ENDOCRINE Hx Endocrine Disorders: Yes Hx Diabetes: Yes (type II) Hx Thyroid Disease: No - MUSCULOSKELETAL Hx Musculoskeletal Disorders: Yes Comment:: djd - PSYCH Hx Psych Problems: No - HEMATOLOGY/ONCOLOGY Hx Hematology/Oncology Disorders: No Family Medical History Hx Cancer: Grandparents Hx Diabetes: Father, Grandparents Hx Heart Disease: Grandparents Hx HTN: Mother Hx Kidney Disease: Father *Kidney Comment: stones Hx Stroke: Grandparents Physical Exam - General General Appearance: Alert, Oriented x3, Cooperative, No acute distress Limitations: No limitations - Head Head exam: Atraumatic, Normal inspection Head exam detail: negative: Abrasion, Contusion, General tenderness, Hematoma - Eye Eye exam: Normal appearance, PERRL, EOMI. negative: Conjunctival injection, Nystagmus, Periorbital swelling, Scleral icterus - ENT ENT exam: Normal exam, Mucous membranes moist, Normal orophraynx Ear exam: Normal external inspection Nasal Exam: Normal inspection Mouth exam: Normal external inspection Teeth exam: Normal inspection - Neck Neck exam: Normal inspection, Full ROM. negative: Tenderness - Respiratory Respiratory exam: Normal lung sounds bilaterally. negative: Respiratory distress - Cardiovascular Cardiovascular Exam: Regular rate, Normal rhythm, Normal heart sounds - GI/Abdominal GI/Abdominal exam: Soft. negative: Tenderness - Rectal Rectal exam: Deferred - exam: Deferred - Extremities Extremities exam: Normal inspection, Full ROM, Normal capillary refill. negative: Pedal edema, Tenderness - Back Back exam: Denies: CVA tenderness (R), CVA tenderness (L) - Neurological Neurological exam: Alert, CN II-XII intact, Normal gait, Oriented X3. negative : Abnormal gait, Altered, Motor sensory deficit - Psychiatric Psychiatric exam: Normal affect, Normal mood. negative: Agitated, Anxious - Skin Skin exam: Dry, Intact, Normal color, Warm. negative: Diaphoretic Course - Reevaluation(s) Reevaluation #1: 04/17/18 17:31 The patient is doing much better and is ready for DC The patient is doing well and is comfortable with DC. DC vitals were reviewed. We discussed at length reasons to immediately return to the ED as well as close follow up. The patient will call the PCP for close follow up of this ED visit to review this visit and the tests performed Disposition Disposition: Discharge Clinical Impression: Migraine Disposition: Home, Self-Care Condition: (1) Good Instructions: Migraine Headache (ED) Additional Instructions: Take the prescriptions provided today as directed. Call your family doctor. Call to schedule the next available appointment for a recheck. Return to ED if your symptoms worsen or if you have any new concerns. Review the final Emergency Record and test results with your doctor on follow up Forms: Patient Portal Access Time of Disposition: 17:32 Quality - Quality Measures Quality Measures: N/A, Headache (All Ages) - Headache: Neuroimaging Quality Measure: Measure #419: Overuse of Neuroimaging ICD10 Codes Entered: Yes Neurological Exam: Patient had a normal neurological exam. [G9535] Headache: Use of Neuroimaging: < CTA, CT, MRA or MRI was NOT ordered > [G9534] - Blood Pressure Screening Does Patient Have Any of the Following: No Blood Pressure Classification: Pre-Hypertensive BP Reading Systolic Measurement: 126 Diastolic Measurement: 88 Screening for High Blood Pressure: < Pre-Hypertensive BP, F/U Documented > [ G8950] Pre-Hypertensive Follow-up Interventions: Referral to alternative/primary care provider.
== END 2018-04-17 17:40 | disposition home or self-care (01) ==
LOC: ER 16:45
DX: G43.909 Migraine, unspecified, not intractable, without status migrainosus (principal); R11.0 Nausea
CPT/HCPCS: 96372; 99283; J1200

== ENCOUNTER 2018-04-24 11:58 | Emergency (ER) | payer BC ==
[2018-04-24] MEDS: NALBUPHINE HCL 20 MG/ML AMPULE IM ONE (12:33)
[2018-04-24] MEDS: PROMETHAZINE HCL 25 MG/ML VIAL IM ONE (12:34)
--- NOTE | 2018-04-24 12:44 | Emergency Department Record ---
History of Present Illness - General Chief Complaint: Headache Migraine Stated Complaint: MIGRAINE Time Seen by Provider: 04/24/18 12:16 Source: Patient Mode of Arrival: Ambulatory Limitations: No limitations - History of Present Illness Initial Comments: pt is having her typical migraine. she started a new migraine med but it hasnt had time to kick in. Complaint: "Migraine" Onset/Timin -: Days(s) Onset Description: Gradual Location: Diffuse Severity: Moderate Severity scale (1-10): 8 Quality: Similar to previous headaches Consistency: Constant Improves With: Nothing Worsens With: None Associated Symptoms: Photophobia, Sensitivity to sound Treatments Prior to Arrival: Prescription analgesic - Related Data Previous Rx's Medication Instructions Recorded Apixaban [Eliquis] 10 mg PO BID 30 Days tablet 02/13/18 Allergies Allergy/AdvReac Type Severity Reaction Status Date / Time sumatriptan [From Imitrex] Allergy ANAPHYLAXIS Verified 04/24/18 12:03 sumatriptan succinate Allergy ANAPHYLAXIS Verified 04/24/18 12:03 [From Imitrex] chlorpromazine AdvReac HYPERSENSIT Verified 04/24/18 12:03 [From Thorazine] IVITY erythromycin base AdvReac VOMITING Verified 04/24/18 12:03 [Erythromycin Base] nortriptyline [From Pamelor] AdvReac TACHYCARDIA Verified 04/24/18 12:03 Travel Screening - Travel/Exposure Within Last 30 Days Have you traveled within the last 30 days?: No - Travel/Exposure Within Last Year Have you traveled outside the [place] in the last year?: No - Additonal Travel Details Have you been exposed to anyone with a communicable illness?: No - Travel Symptoms Symptom Screening: None Review of Systems Reviewed: No additional complaints except as noted below Constitutional: Reports: As per HPI. Denies: Chills, Fever, Malaise, Night sweats, Weakness, Weight change Eyes: Reports: As per HPI. Denies: Eye discharge, Eye pain, Photophobia, Vision change ENT: Reports: As per HPI. Denies: Congestion, Dental pain, Ear pain, Epistaxis , Hearing loss, Throat pain Respiratory: Reports: As per HPI. Denies: Cough, Dyspnea, Hemoptysis, Stridor, Wheezes Cardiovascular: Reports: As per HPI. Denies: Arrhythmia, Chest pain, Dyspnea on exertion, Edema, Murmurs, Orthopnea, Palpitations, Paroxysmal nocturnal dyspnea, Rheumatic Fever, Syncope Endocrine: Reports: As per HPI. Denies: Fatigue, Heat or cold intolerance, Polydipsia, Polyuria Gastrointestinal: Reports: As per HPI. Denies: Abdominal pain, Constipation, Diarrhea, Hematemesis, Hematochezia, Melena, Nausea, Vomiting Genitourinary: Reports: As per HPI. Denies: Abnormal menses, Discharge, Dyspareunia, Dysuria, Frequency, Hematuria, Incontinence, Retention, Urgency Musculoskeletal: Reports: As per HPI. Denies: Arthralgia, Back pain, Gout, Joint swelling, Myalgia, Neck pain Skin: Reports: As per HPI. Denies: Bruising, Change in color, Change in hair/ nails, Lesions, Pruritus, Rash Neurological: Reports: As per HPI, Headache. Denies: Abnormal gait, Confusion, Numbness, Paresthesias, Seizure, Tingling, Tremors, Vertigo, Weakness Psychiatric: Reports: As per HPI. Denies: Anxiety, Auditory hallucinations, Depression, Homicidal thoughts, Suicidal thoughts, Visual hallucinations Hematological/Lymphatic: Reports: As per HPI. Denies: Anemia, Blood Clots, Easy bleeding, Easy bruising, Swollen glands Past Medical History - SOCIAL HISTORY Smoking Status: Never smoker Alcohol Use: None Drug Use: None - RESPIRATORY Hx Respiratory Disorders: Yes Hx Asthma: Yes Hx Pulmonary Embolism: Yes (05/18) Hx Sleep Apnea: Yes Hx of CPAP: Yes - CARDIOVASCULAR Hx Cardio Disorders: Yes Hx Hypertension: Yes ("pretty much went away since the gastric surgery") - NEURO Hx Neuro Disorders: Yes Hx Headaches: Yes (migraines) - GI Hx GI Disorders: Yes Comment:: gastric sleeve - Hx Genitourinary Disorders: Yes Hx Kidney Stones: Yes - ENDOCRINE Hx Endocrine Disorders: Yes Hx Diabetes: Yes (type II) Hx Thyroid Disease: No - MUSCULOSKELETAL Hx Musculoskeletal Disorders: Yes Comment:: djd - PSYCH Hx Psych Problems: No - HEMATOLOGY/ONCOLOGY Hx Hematology/Oncology Disorders: No Family Medical History Any Significant Family History?: Yes Hx Cancer: Grandparents Hx Diabetes: Father, Grandparents Hx Heart Disease: Grandparents Hx HTN: Mother Hx Kidney Disease: Father *Kidney Comment: stones Hx Stroke: Grandparents Physical Exam - General General Appearance: Alert, Oriented x3, Cooperative, Mild distress - Head Head exam: Normal inspection - Eye Eye exam: Normal appearance, PERRL, EOMI Pupils: Normal accommodation - ENT ENT exam: Normal exam, Mucous membranes moist, Normal external ear exam, Normal orophraynx Ear exam: Normal external inspection. negative: External canal tenderness Nasal Exam: Normal inspection. negative: Discharge, Sinus tenderness Mouth exam: Normal external inspection, Tongue normal Teeth exam: Normal inspection. negative: Dental caries Throat exam: Normal inspection. negative: Tonsillar erythema, Tonsillar exudate - Neck Neck exam: Normal inspection, Full ROM. negative: Tenderness - Respiratory Respiratory exam: Normal lung sounds bilaterally. negative: Respiratory distress - Cardiovascular Cardiovascular Exam: Regular rate, Normal rhythm, Normal heart sounds - GI/Abdominal GI/Abdominal exam: Soft, Normal bowel sounds. negative: Tenderness - Rectal Rectal exam: Deferred - exam: Deferred - Extremities Extremities exam: Normal inspection, Full ROM, Normal capillary refill. negative: Tenderness - Back Back exam: Reports: Normal inspection, Full ROM. Denies: Muscle spasm, Rash noted, Tenderness - Neurological Neurological exam: Alert, CN II-XII intact, Normal gait, Oriented X3 - Psychiatric Psychiatric exam: Normal affect, Normal mood - Skin Skin exam: Dry, Intact, Normal color, Warm Course Vital Signs 04/24/18 12:04 Temperature 104 F H Pulse Rate 18 L Respiratory 18 Rate Blood Pressure 114/83 Pulse Ox 99 Disposition Disposition: Discharge Clinical Impression: Migraine Qualifiers: Migraine type: unspecified Status migrainosus presence: without status migrainosus Intractability: not intractable Qualified Code(s): G43.909 - Migraine, unspecified, not intractable, without status migrainosus Disposition: Home, Self-Care Condition: (1) Good Instructions: Migraine Headache (ED) Additional Instructions: follow up with neurologist. return sooner if worse Quality - Quality Measures Quality Measures: Headache (All Ages) - Headache: Neuroimaging Quality Measure: Measure #419: Overuse of Neuroimaging ICD10 Codes Entered: Yes Neurological Exam: Patient had a normal neurological exam. [G9535] Headache: Use of Neuroimaging: < CTA, CT, MRA or MRI was NOT ordered > [G9534] - Blood Pressure Screening Does Patient Have Any of the Following: No Blood Pressure Classification: Pre-Hypertensive BP Reading Systolic Measurement: 114 Diastolic Measurement: 83 Screening for High Blood Pressure: < Pre-Hypertensive BP, F/U Documented > [ G8950] Pre-Hypertensive Follow-up Interventions: Follow-up with rescreen every year.
== END 2018-04-24 13:00 | disposition home or self-care (01) ==
LOC: ER 11:58
DX: G43.909 Migraine, unspecified, not intractable, without status migrainosus (principal); H53.149 Visual discomfort, unspecified; E11.9 Type 2 diabetes mellitus without complications; Z79.01 Long term (current) use of anticoagulants
CPT/HCPCS: 99283 ×2; 96372; J2300; J2550

== ENCOUNTER 2018-04-25 21:42 | Emergency (ER) | payer BC ==
[2018-04-25] MEDS ORDERED: PROMETHAZINE HCL 25 MG/ML VIAL IM ONE (22:09)
[2018-04-25] MEDS ORDERED: METHYLPREDNISOLONE PF 125MG/VIAL IVP ONE (22:09)
[2018-04-25] MEDS ORDERED: NALBUPHINE HCL 20 MG/ML AMPULE IM ONE (22:09)
[2018-04-25] MEDS ORDERED: METHYLPREDNISOLONE PF 125MG/VIAL IM SCH (22:15)
--- NOTE | 2018-04-25 22:15 | Emergency Department Record ---
History of Present Illness - General Chief Complaint: Headache Migraine Stated Complaint: MIGRAINE Time Seen by Provider: 04/25/18 21:52 Source: Patient Mode of Arrival: Ambulatory Limitations: No limitations - History of Present Illness Initial Comments: 33 yo female returns to ED for evaluation of recurrent "migraine headache" symptoms. Patient reports that she received Nubain yesterday, but her headache was not improved. Patient called her Neurologist (Dr. Davis) who recommended coming to the ED "arleen that I could get my second Nubain shot for the month as well as phenergan and Solumedrol". Patient denies fevers, chills, or recent illness. Patient denies neck stiffness or blurred vision symptoms. MD Complaint: Headache Onset/Timin -: Days(s) Onset Description: Gradual Location: Diffuse Severity: Moderate Quality: Similar to previous headaches Consistency: Constant Improves With: Nothing Worsens With: None Treatments Prior to Arrival: Other (Benadryl) - Related Data Previous Rx's Medication Instructions Recorded Apixaban [Eliquis] 10 mg PO BID 30 Days tablet 02/13/18 Allergies Allergy/AdvReac Type Severity Reaction Status Date / Time sumatriptan [From Imitrex] Allergy ANAPHYLAXIS Verified 04/24/18 12:03 sumatriptan succinate Allergy ANAPHYLAXIS Verified 04/24/18 12:03 [From Imitrex] chlorpromazine AdvReac HYPERSENSIT Verified 04/24/18 12:03 [From Thorazine] IVITY erythromycin base AdvReac VOMITING Verified 04/24/18 12:03 [Erythromycin Base] nortriptyline [From Pamelor] AdvReac TACHYCARDIA Verified 04/24/18 12:03 Review of Systems Constitutional: Denies: Chills, Fever, Malaise, Night sweats Eyes: Denies: Eye discharge, Eye pain ENT: Denies: Congestion, Ear pain, Epistaxis Respiratory: Denies: Cough, Dyspnea Cardiovascular: Denies: Chest pain, Dyspnea on exertion Endocrine: Denies: Fatigue, Heat or cold intolerance Gastrointestinal: Denies: Abdominal pain, Nausea, Vomiting Genitourinary: Denies: Incontinence, Retention Musculoskeletal: Denies: Arthralgia, Back pain, Gout, Joint swelling Skin: Denies: Bruising, Change in color Neurological: Reports: Headache. Denies: Abnormal gait, Confusion, Seizure Psychiatric: Denies: Anxiety Hematological/Lymphatic: Denies: Anemia, Blood Clots Past Medical History - SOCIAL HISTORY Smoking Status: Never smoker Alcohol Use: None Drug Use: None - RESPIRATORY Hx Respiratory Disorders: Yes Hx Asthma: Yes Hx Pulmonary Embolism: Yes (05/18) Hx Sleep Apnea: Yes Hx of CPAP: Yes - CARDIOVASCULAR Hx Cardio Disorders: Yes Hx Hypertension: Yes ("pretty much went away since the gastric surgery") - NEURO Hx Neuro Disorders: Yes Hx Headaches: Yes (migraines) - GI Hx GI Disorders: Yes Comment:: gastric sleeve - Hx Genitourinary Disorders: Yes Hx Kidney Stones: Yes - ENDOCRINE Hx Endocrine Disorders: Yes Hx Diabetes: Yes (type II) Hx Thyroid Disease: No - MUSCULOSKELETAL Hx Musculoskeletal Disorders: Yes Comment:: djd - PSYCH Hx Psych Problems: No - HEMATOLOGY/ONCOLOGY Hx Hematology/Oncology Disorders: No Family Medical History Any Significant Family History?: Yes Hx Cancer: Grandparents Hx Diabetes: Father, Grandparents Hx Heart Disease: Grandparents Hx HTN: Mother Hx Kidney Disease: Father *Kidney Comment: stones Hx Stroke: Grandparents Physical Exam - General General Appearance: Alert, Oriented x3, Cooperative, No acute distress, Other ( Patient is conversational, well appearing without evidence of distress.) Limitations: No limitations - Head Head exam: Atraumatic, Normocephalic, Normal inspection Head exam detail: negative: Abrasion, Contusion, Frazier's sign, General tenderness, Hematoma, Laceration - Eye Eye exam: Normal appearance. negative: Conjunctival injection, Periorbital swelling, Periorbital tenderness, Scleral icterus - ENT Ear exam: negative: Auricular hematoma, Auricular trauma Nasal Exam: negative: Active bleeding, Discharge, Dried blood, Foreign body Mouth exam: negative: Drooling, Laceration, Muffled voice, Tongue elevation - Neck Neck exam: Normal inspection. negative: Meningismus, Tenderness - Respiratory Respiratory exam: Normal lung sounds bilaterally. negative: Rales, Respiratory distress, Rhonchi, Stridor - Cardiovascular Cardiovascular Exam: Regular rate, Normal rhythm, Normal heart sounds - GI/Abdominal GI/Abdominal exam: Soft. negative: Rebound, Rigid, Tenderness - Rectal Rectal exam: Deferred - exam: Deferred - Extremities Extremities exam: Normal inspection. negative: Calf tenderness, Pedal edema, Tenderness - Back Back exam: Denies: CVA tenderness (R), CVA tenderness (L) - Neurological Neurological exam: Alert, Normal gait, Oriented X3 - Psychiatric Psychiatric exam: Normal affect, Normal mood - Skin Skin exam: Normal color. negative: Abrasion Type of lesion: negative: abrasion Course Vital Signs 04/25/18 21:54 Temperature 99.0 F Pulse Rate [ 89 Pulse Ox Probe] Respiratory 18 Rate Blood Pressure 137/91 [Left Arm] Pulse Ox 98 - Reevaluation(s) Reevaluation #1: 04/25/18 22:50 Patient reassessed, reports that she is feeling much better. Patient appears stable for discharge at this time. Disposition Disposition: Discharge Clinical Impression: Headache Qualifiers: Headache type: unspecified Headache chronicity pattern: acute headache Intractability: not intractable Qualified Code(s): R51 - Headache Disposition: Home, Self-Care Condition: (2) Stable Instructions: Acute Headache (ED) Additional Instructions: Return to ED if your symptoms worsen or if you have any concerns. Follow-up with your family doctor in 3-5 days as directed. Forms: Patient Portal Access Time of Disposition: 22:16 Quality - Quality Measures Quality Measures: Headache (All Ages) - Headache: Neuroimaging Quality Measure: Measure #419: Overuse of Neuroimaging ICD10 Codes Entered: Yes Neurological Exam: Patient had a normal neurological exam. [G9535] Headache: Use of Neuroimaging: < CTA, CT, MRA or MRI was NOT ordered > [G9534] - Blood Pressure Screening Does Patient Have Any of the Following: No Blood Pressure Classification: Pre-Hypertensive BP Reading Systolic Measurement: 122 Diastolic Measurement: 79 Screening for High Blood Pressure: < Pre-Hypertensive BP, F/U Documented > [ G8950] Pre-Hypertensive Follow-up Interventions: Referral to alternative/primary care provider.
== END 2018-04-25 22:50 | disposition home or self-care (01) ==
LOC: ER 21:42
DX: R51 Headache (principal)
CPT/HCPCS: 99283 ×2; 96372; J2300; J2550; J2930

== ENCOUNTER 2018-05-02 20:44 | Emergency (ER) | payer BC ==
--- NOTE | 2018-05-02 21:11 | Emergency Department Record ---
History of Present Illness - General Chief Complaint: Headache Migraine Stated Complaint: MIGRAINE Time Seen by Provider: 05/02/18 21:03 Source: Patient Mode of Arrival: Ambulatory Limitations: No limitations - History of Present Illness Initial Comments: 33 yo female returns to ED for recurrent headache symptoms. Patient reports that her headache symptoms are similar to previous, denies fevers, chills, or change in vision, or neck stiffness symptoms. Patient reports that she has been taking her home migraine therapy without improvement in her symptoms. Patient was seen 04/24 and 04/26 for similar symptoms. MD Complaint: Headache Onset/Timin -: Days(s) Onset Description: Gradual Location: Diffuse Quality: Aching Consistency: Constant Improves With: Nothing Worsens With: Light, Noise Context: Other Treatments Prior to Arrival: Migraine medication - Related Data Previous Rx's Medication Instructions Recorded Apixaban [Eliquis] 10 mg PO BID 30 Days tablet 02/13/18 Allergies Allergy/AdvReac Type Severity Reaction Status Date / Time sumatriptan [From Imitrex] Allergy ANAPHYLAXIS Verified 04/24/18 12:03 sumatriptan succinate Allergy ANAPHYLAXIS Verified 04/24/18 12:03 [From Imitrex] chlorpromazine AdvReac HYPERSENSIT Verified 04/24/18 12:03 [From Thorazine] IVITY erythromycin base AdvReac VOMITING Verified 04/24/18 12:03 [Erythromycin Base] nortriptyline [From Pamelor] AdvReac TACHYCARDIA Verified 04/24/18 12:03 Travel Screening - Travel/Exposure Within Last 30 Days Have you traveled within the last 30 days?: No - Travel Symptoms Symptom Screening: None Review of Systems Constitutional: Denies: Chills, Fever, Malaise, Night sweats Eyes: Denies: Eye discharge, Eye pain ENT: Denies: Congestion, Ear pain, Epistaxis Respiratory: Denies: Cough, Dyspnea Cardiovascular: Denies: Chest pain, Dyspnea on exertion Endocrine: Denies: Fatigue, Heat or cold intolerance Gastrointestinal: Denies: Abdominal pain, Nausea, Vomiting Genitourinary: Denies: Incontinence, Retention Musculoskeletal: Denies: Arthralgia, Back pain Skin: Denies: Bruising, Change in color Neurological: Reports: Headache. Denies: Abnormal gait, Confusion, Seizure Psychiatric: Denies: Anxiety Hematological/Lymphatic: Denies: Anemia, Blood Clots Past Medical History - SOCIAL HISTORY Smoking Status: Never smoker Alcohol Use: None Drug Use: None - RESPIRATORY Hx Respiratory Disorders: Yes Hx Asthma: Yes Hx Pulmonary Embolism: Yes (05/18) Hx Sleep Apnea: Yes Hx of CPAP: Yes - CARDIOVASCULAR Hx Cardio Disorders: Yes Hx Hypertension: Yes ("pretty much went away since the gastric surgery") - NEURO Hx Neuro Disorders: Yes Hx Headaches: Yes (migraines) - GI Hx GI Disorders: Yes Comment:: gastric sleeve - Hx Genitourinary Disorders: Yes Hx Kidney Stones: Yes - ENDOCRINE Hx Endocrine Disorders: Yes Hx Diabetes: Yes (type II) Hx Thyroid Disease: No - MUSCULOSKELETAL Hx Musculoskeletal Disorders: Yes Comment:: djd - PSYCH Hx Psych Problems: No - HEMATOLOGY/ONCOLOGY Hx Hematology/Oncology Disorders: No Family Medical History Any Significant Family History?: Yes Hx Cancer: Grandparents Hx Diabetes: Father, Grandparents Hx Heart Disease: Grandparents Hx HTN: Mother Hx Kidney Disease: Father *Kidney Comment: stones Hx Stroke: Grandparents Physical Exam - General General Appearance: Alert, Oriented x3, Cooperative, No acute distress Limitations: No limitations - Head Head exam: Atraumatic, Normocephalic, Normal inspection Head exam detail: negative: Abrasion, Contusion, Frazier's sign, General tenderness, Hematoma, Laceration - Eye Eye exam: Normal appearance. negative: Conjunctival injection, Periorbital swelling, Periorbital tenderness, Scleral icterus - ENT Ear exam: negative: Auricular hematoma, Auricular trauma Nasal Exam: negative: Active bleeding, Discharge, Dried blood, Foreign body Mouth exam: negative: Drooling, Laceration, Muffled voice, Tongue elevation - Neck Neck exam: Normal inspection. negative: Meningismus, Tenderness - Respiratory Respiratory exam: Normal lung sounds bilaterally. negative: Rales, Respiratory distress, Rhonchi, Stridor - Cardiovascular Cardiovascular Exam: Regular rate, Normal rhythm, Normal heart sounds - GI/Abdominal GI/Abdominal exam: Soft. negative: Rebound, Rigid, Tenderness - Rectal Rectal exam: Deferred - exam: Deferred - Extremities Extremities exam: Normal inspection. negative: Calf tenderness, Pedal edema, Tenderness - Back Back exam: Denies: CVA tenderness (R), CVA tenderness (L) - Neurological Neurological exam: Alert, Normal gait, Oriented X3 - Psychiatric Psychiatric exam: Normal affect, Normal mood - Skin Skin exam: Normal color. negative: Abrasion Type of lesion: negative: abrasion Course Vital Signs 05/02/18 20:54 Temperature 98.8 F Pulse Rate [ 106 H Pulse Ox Probe] Respiratory 18 Rate Blood Pressure 127/91 [Left Arm] Pulse Ox 99 - Reevaluation(s) Reevaluation #1: 05/02/18 21:06 [employer] neurologist contacted for further recommendations as this visit is the patient's 3rd visit in 7 days. Reevaluation #2: 05/02/18 21:14 Case was discussed Sharynramakrishna Lai (Dr. Davis's PA), recommends Haldol (2mg) as well as Ativan (1 mg) as directed. Also recommended Cogentin which is not currently stocked in the ED pyxis. Nubain was discouraged by Dr. Davis's PA at this time as well. Haldol and Ativan were ordered per PA's recommendations. Reevaluation #3: 05/02/18 22:30 Patient was reassessed, reports that she is feeling better. On re-examination, patient appears calm, conversational, and stable for discharge at this time with instructions to call Dr. Davis's office tomorrow morning for further recommendations. Disposition Disposition: Discharge Clinical Impression: Headache Qualifiers: Headache type: unspecified Headache chronicity pattern: acute headache Intractability: not intractable Qualified Code(s): R51 - Headache Disposition: Home, Self-Care Condition: (2) Stable Instructions: Acute Headache (ED) Additional Instructions: Return to ED if your symptoms worsen or if you have any concerns. Call Dr. Davis's office tomorrow for further recommendations regarding your headache symptoms. Forms: Patient Portal Access Time of Disposition: 22:32 Quality - Quality Measures Quality Measures: N/A, Headache (All Ages) - Headache: Neuroimaging Quality Measure: Measure #419: Overuse of Neuroimaging ICD10 Codes Entered: Yes Neurological Exam: Patient had a normal neurological exam. [G9535] Headache: Use of Neuroimaging: < CTA, CT, MRA or MRI was NOT ordered > [G9534] - Blood Pressure Screening Does Patient Have Any of the Following: No Blood Pressure Classification: Pre-Hypertensive BP Reading Systolic Measurement: 124 Diastolic Measurement: 83 Screening for High Blood Pressure: < Pre-Hypertensive BP, F/U Documented > [ G3285] Pre-Hypertensive Follow-up Interventions: Referral to alternative/primary care provider.
[2018-05-02] MEDS ORDERED: LORAZEPAM 2 MG/ML VIAL IV ONE (21:18)
[2018-05-02] MEDS ORDERED: HALOPERIDOL LACTATE 5 MG/ML VIAL IM ONE (21:18)
[2018-05-02] MEDS ORDERED: LORAZEPAM 2 MG/ML VIAL IM ONE (21:24)
[2018-05-02] MEDS ORDERED: BENZTROPINE IM SCH (21:30)
== END 2018-05-02 22:36 | disposition home or self-care (01) ==
LOC: ER 20:44
DX: R51 Headache (principal); E11.9 Type 2 diabetes mellitus without complications
CPT/HCPCS: 99283 ×2; 96372; J2060; J1630

== ENCOUNTER 2018-05-07 12:49 | Emergency (ER) | payer BC ==
--- NOTE | 2018-05-07 13:02 | Emergency Department Record ---
History of Present Illness - General Chief Complaint: Headache Migraine Stated Complaint: MIGRAINE Time Seen by Provider: 05/07/18 12:50 Source: Patient Mode of Arrival: Ambulatory Limitations: No limitations - History of Present Illness Initial Comments: 33 yo female presents with a headache. She has chronic migraine headaches on a daily basis. She is treated by Dr Davis at that [facility] in [place]. She is having a headache that is typical in location and characteristics. She is light sensitive. She is nauseated but no vomiting. Her Zofran did not control her nausea this AM. Her current medication has not controlled the symptoms. No fever. No trauma. She continues to work with her [place] doctors with new medications. She is waiting for [employer] medications ( steroid burst and a compound [facility]) to arrive from the [facility]. Her typical migraine medications at home were taken with persistent symptoms. MD Complaint: Headache, "Migraine" -: Days(s) Onset Description: Gradual Location: Diffuse Severity: Moderate Quality: Aching Consistency: Constant Improves With: Nothing Worsens With: Light Context: Other Associated Symptoms: Other Treatments Prior to Arrival: Migraine medication - Related Data Previous Rx's Medication Instructions Recorded Apixaban [Eliquis] 10 mg PO BID 30 Days tablet 02/13/18 Allergies Allergy/AdvReac Type Severity Reaction Status Date / Time sumatriptan [From Imitrex] Allergy ANAPHYLAXIS Verified 04/24/18 12:03 sumatriptan succinate Allergy ANAPHYLAXIS Verified 04/24/18 12:03 [From Imitrex] chlorpromazine AdvReac HYPERSENSIT Verified 04/24/18 12:03 [From Thorazine] IVITY erythromycin base AdvReac VOMITING Verified 04/24/18 12:03 [Erythromycin Base] nortriptyline [From Pamelor] AdvReac TACHYCARDIA Verified 04/24/18 12:03 Review of Systems Constitutional: Denies: Chills, Fever, Malaise, Weakness Eyes: Denies: Eye discharge ENT: Denies: Congestion, Throat pain Respiratory: Denies: Cough Cardiovascular: Denies: Chest pain, Syncope Endocrine: Denies: Fatigue Gastrointestinal: Reports: Nausea. Denies: Abdominal pain, Diarrhea, Vomiting Genitourinary: Denies: Dysuria, Urgency Skin: Denies: Bruising, Change in color, Rash Neurological: Reports: Headache. Denies: Abnormal gait, Confusion, Numbness, Seizure, Tingling, Tremors, Vertigo, Weakness Psychiatric: Denies: Anxiety Hematological/Lymphatic: Denies: Easy bleeding, Easy bruising Past Medical History - SOCIAL HISTORY Smoking Status: Never smoker Drug Use: None - RESPIRATORY Hx Respiratory Disorders: Yes Hx Asthma: Yes Hx Pulmonary Embolism: Yes (05/18) Hx Sleep Apnea: Yes Hx of CPAP: Yes - CARDIOVASCULAR Hx Cardio Disorders: Yes Hx Hypertension: Yes ("pretty much went away since the gastric surgery") - NEURO Hx Neuro Disorders: Yes Hx Headaches: Yes (migraines) - GI Hx GI Disorders: Yes Comment:: gastric sleeve - Hx Genitourinary Disorders: Yes Hx Kidney Stones: Yes - ENDOCRINE Hx Endocrine Disorders: Yes Hx Diabetes: Yes (type II) Hx Thyroid Disease: No - MUSCULOSKELETAL Hx Musculoskeletal Disorders: Yes Comment:: djd - PSYCH Hx Psych Problems: No - HEMATOLOGY/ONCOLOGY Hx Hematology/Oncology Disorders: No Family Medical History Hx Cancer: Grandparents Hx Diabetes: Father, Grandparents Hx Heart Disease: Grandparents Hx HTN: Mother Hx Kidney Disease: Father *Kidney Comment: stones Hx Stroke: Grandparents Physical Exam - General General Appearance: Alert, Oriented x3, Cooperative, No acute distress Limitations: No limitations - Head Head exam: Atraumatic, Normocephalic, Normal inspection - Eye Eye exam: Normal appearance, PERRL, EOMI. negative: Conjunctival injection, Nystagmus, Periorbital swelling, Scleral icterus - ENT ENT exam: Normal exam, Mucous membranes moist, Normal orophraynx. negative: Mucous membranes dry Ear exam: Normal external inspection Nasal Exam: Normal inspection Mouth exam: Normal external inspection Teeth exam: Normal inspection Throat exam: Normal inspection. negative: Tonsillar erythema, Tonsillomegaly, R peritonsillar mass, L peritonsillar mass - Neck Neck exam: Normal inspection, Full ROM. negative: Lymphadenopathy, Meningismus , Tenderness - Respiratory Respiratory exam: Normal lung sounds bilaterally. negative: Respiratory distress - Cardiovascular Cardiovascular Exam: Regular rate, Normal rhythm, Normal heart sounds - GI/Abdominal GI/Abdominal exam: Soft. negative: Tenderness - Rectal Rectal exam: Deferred - exam: Deferred - Extremities Extremities exam: Normal inspection. negative: Pedal edema - Back Back exam: Denies: CVA tenderness (R), CVA tenderness (L) - Neurological Neurological exam: Alert, CN II-XII intact, Normal gait, Oriented X3. negative : Abnormal gait, Altered, Motor sensory deficit, Reflexes normal - Psychiatric Psychiatric exam: Normal affect, Normal mood - Skin Skin exam: Dry, Intact, Normal color, Warm Course - Reevaluation(s) Reevaluation #1: The patient is doing well and is comfortable with DC. We discussed at length reasons to immediately return to the ED as well as close follow up. The patient will call the PCP and neurologist for close follow up of this ED visit to review this visit and the tests performed 05/07/18 13:46 Disposition Disposition: Discharge Clinical Impression: Migraine Disposition: Home, Self-Care Condition: (1) Good Instructions: Migraine Headache (ED) Additional Instructions: Call Dr Davis today to inform him of your recurrent headaches Return or be seen if vomiting, worse or any new concerns. Forms: Patient Portal Access Time of Disposition: 13:47 Quality - Quality Measures Quality Measures: N/A, Headache (All Ages) - Headache: Neuroimaging Quality Measure: Measure #419: Overuse of Neuroimaging ICD10 Codes Entered: Yes Neurological Exam: Patient had a normal neurological exam. [G9535] Headache: Use of Neuroimaging: < CTA, CT, MRA or MRI was NOT ordered > [G9534] - Blood Pressure Screening Does Patient Have Any of the Following: No Blood Pressure Classification: Hypertensive Reading Systolic Measurement: 137 Diastolic Measurement: 96 Screening for High Blood Pressure: < Pre-Hypertensive BP, F/U Documented > [ G8950] Pre-Hypertensive Follow-up Interventions: Referral to alternative/primary care provider.
[2018-05-07] MEDS ORDERED: NALBUPHINE HCL 20 MG/ML AMPULE IM ONE (13:08)
[2018-05-07] MEDS ORDERED: PROMETHAZINE HCL 25 MG/ML VIAL IM ONE (13:08)
== END 2018-05-07 13:56 | disposition home or self-care (01) ==
LOC: ER 12:49
DX: G43.909 Migraine, unspecified, not intractable, without status migrainosus (principal); R11.0 Nausea
CPT/HCPCS: 99283 ×2; 96372; J2300; J2550

== ENCOUNTER 2018-05-28 17:44 | Emergency (ER) | payer BC ==
[2018-05-28] MEDS ORDERED: NALBUPHINE HCL 20 MG/ML AMPULE IM ONE (17:52)
[2018-05-28] MEDS ORDERED: PROMETHAZINE HCL 25 MG/ML VIAL IM ONE (17:52)
--- NOTE | 2018-05-28 17:58 | Emergency Department Record ---
History of Present Illness - General Chief Complaint: Headache Migraine Stated Complaint: MIGRAINE Time Seen by Provider: 05/28/18 17:45 Source: Patient, Family Mode of Arrival: Ambulatory Limitations: No limitations - History of Present Illness Initial Comments: 33 yo female presents with a migraine headache since Monday night. She has a long history of chronic migraines. She is treated in the [facility] in [place]. Her next appointment is June 05 on the Monday. The headache she is having is typical. No trauma. No fever. She has light sensitivity, nausea and vomited. No vision loss. No other changes in her health recently. MD Complaint: "Migraine" -: Days(s) (3) Onset Description: Gradual Location: Diffuse Severity: Severe Quality: Aching Consistency: Constant Improves With: Nothing Worsens With: Eating, Light Context: Other Associated Symptoms: Photophobia, Sensitivity to sound, Vomiting Treatments Prior to Arrival: Other (Benadryl and Ativan) - Related Data Previous Rx's Medication Instructions Recorded Apixaban [Eliquis] 10 mg PO BID 30 Days tablet 02/13/18 Allergies Allergy/AdvReac Type Severity Reaction Status Date / Time sumatriptan [From Imitrex] Allergy ANAPHYLAXIS Verified 05/28/18 17:53 sumatriptan succinate Allergy ANAPHYLAXIS Verified 05/28/18 17:53 [From Imitrex] chlorpromazine AdvReac HYPERSENSIT Verified 05/28/18 17:53 [From Thorazine] IVITY erythromycin base AdvReac VOMITING Verified 05/28/18 17:53 [Erythromycin Base] nortriptyline [From Pamelor] AdvReac TACHYCARDIA Verified 05/28/18 17:53 Review of Systems Constitutional: Denies: Chills, Fever, Malaise, Weakness Eyes: Reports: Photophobia. Denies: Eye discharge ENT: Denies: Congestion, Throat pain Respiratory: Denies: Cough, Dyspnea, Hemoptysis, Wheezes Cardiovascular: Denies: Chest pain, Palpitations, Syncope Endocrine: Denies: Fatigue, Polydipsia, Polyuria Gastrointestinal: Reports: Nausea, Vomiting. Denies: Abdominal pain Genitourinary: Denies: Dysuria, Urgency Musculoskeletal: Denies: Arthralgia, Back pain, Joint swelling, Myalgia, Neck pain Skin: Denies: Bruising, Change in color, Rash Neurological: Reports: Headache. Denies: Abnormal gait, Confusion, Numbness, Paresthesias, Seizure, Tingling, Tremors, Vertigo, Weakness Psychiatric: Denies: Anxiety Hematological/Lymphatic: Denies: Easy bleeding, Easy bruising Past Medical History - SOCIAL HISTORY Smoking Status: Never smoker Drug Use: None - RESPIRATORY Hx Respiratory Disorders: Yes Hx Asthma: Yes Hx Pulmonary Embolism: Yes (05/18) Hx Sleep Apnea: Yes Hx of CPAP: Yes - CARDIOVASCULAR Hx Cardio Disorders: Yes Hx Hypertension: Yes ("pretty much went away since the gastric surgery") - NEURO Hx Neuro Disorders: Yes Hx Headaches: Yes (migraines) - GI Hx GI Disorders: Yes Comment:: gastric sleeve - Hx Genitourinary Disorders: Yes Hx Kidney Stones: Yes - ENDOCRINE Hx Endocrine Disorders: Yes Hx Diabetes: Yes (type II) Hx Thyroid Disease: No - MUSCULOSKELETAL Hx Musculoskeletal Disorders: Yes Comment:: djd - PSYCH Hx Psych Problems: No - HEMATOLOGY/ONCOLOGY Hx Hematology/Oncology Disorders: No Family Medical History Hx Cancer: Grandparents Hx Diabetes: Father, Grandparents Hx Heart Disease: Grandparents Hx HTN: Mother Hx Kidney Disease: Father *Kidney Comment: stones Hx Stroke: Grandparents Physical Exam - General General Appearance: Alert, Oriented x3, Cooperative, No acute distress Limitations: No limitations - Head Head exam: Atraumatic, Normocephalic, Normal inspection - Eye Eye exam: Normal appearance, PERRL, EOMI. negative: Conjunctival injection, Nystagmus, Periorbital swelling, Scleral icterus - ENT ENT exam: Normal exam, Mucous membranes moist, Normal orophraynx Ear exam: Normal external inspection Nasal Exam: Normal inspection Mouth exam: Normal external inspection - Neck Neck exam: Normal inspection, Full ROM. negative: Meningismus, Tenderness - Respiratory Respiratory exam: Normal lung sounds bilaterally. negative: Respiratory distress - Cardiovascular Cardiovascular Exam: Regular rate, Normal rhythm, Normal heart sounds Peripheral Pulses: 2+: Radial (R), Radial (L) - GI/Abdominal GI/Abdominal exam: Soft, Tenderness - Rectal Rectal exam: Deferred - exam: Deferred - Extremities Extremities exam: Normal inspection. negative: Normal capillary refill, Pedal edema, Tenderness - Back Back exam: Denies: CVA tenderness (R), CVA tenderness (L) - Neurological Neurological exam: Alert, CN II-XII intact, Normal gait, Oriented X3. negative : Abnormal gait, Altered, Motor sensory deficit - Psychiatric Psychiatric exam: Normal affect, Normal mood - Skin Skin exam: Dry, Intact, Normal color, Warm Course - Reevaluation(s) Reevaluation #1: 05/28/18 18:23 The patient is improving and comfortable She is ready for DC We discussed home care, reasons to return and close follow up with her neurologist Disposition Disposition: Discharge Clinical Impression: Migraine Disposition: Home, Self-Care Condition: (1) Good Instructions: Migraine Headache (ED) Additional Instructions: Rest and stay hydrated Follow up as scheduled with your neurologist Return if you have any uncontrolled symptoms or new concerns Forms: Patient Portal Access Time of Disposition: 18:22 Quality - Quality Measures Quality Measures: N/A, Headache (All Ages) - Headache: Neuroimaging Quality Measure: Measure #419: Overuse of Neuroimaging ICD10 Codes Entered: Yes Neurological Exam: Patient had a normal neurological exam. [G9535] Headache: Use of Neuroimaging: < CTA, CT, MRA or MRI was NOT ordered > [G9534] - Blood Pressure Screening Does Patient Have Any of the Following: No Blood Pressure Classification: Pre-Hypertensive BP Reading Systolic Measurement: 123 Diastolic Measurement: 84 Screening for High Blood Pressure: < Pre-Hypertensive BP, F/U Documented > [ G8950] Pre-Hypertensive Follow-up Interventions: Referral to alternative/primary care provider.
== END 2018-05-28 18:29 | disposition home or self-care (01) ==
LOC: ER 17:44
DX: G43.909 Migraine, unspecified, not intractable, without status migrainosus (principal); R11.2 Nausea with vomiting, unspecified; H53.149 Visual discomfort, unspecified; E11.9 Type 2 diabetes mellitus without complications
CPT/HCPCS: 99283 ×2; 96372; J2300; J2550

== ENCOUNTER 2018-06-21 17:39 | Emergency (ER) | payer BC ==
[2018-06-21] MEDS ORDERED: PROMETHAZINE HCL 25 MG/ML VIAL IM ONE (18:02)
[2018-06-21] MEDS ORDERED: NALBUPHINE HCL 20 MG/ML AMPULE IM ONE (18:02)
--- NOTE | 2018-06-21 18:07 | Emergency Department Record ---
History of Present Illness - General Chief Complaint: Headache Migraine Stated Complaint: HEADACHE Time Seen by Provider: 06/21/18 17:40 Source: Patient Mode of Arrival: Ambulatory Limitations: No limitations - History of Present Illness Initial Comments: The patient is here due to a migraine LANGLEY for the last 3 days. The LANGLEY onset was gradual and is associated with nausea and mild photophobia. The patient has a LONG hx of similar problems and comes to the ER 2-3 times a month for Nubain shots per her Neurologist. She denies any falls or trauma or any new LANGLEY characteristics. MD Complaint: "Migraine" Onset/Timin -: Days(s) Onset Description: Gradual Location: Diffuse Severity: Moderate Severity scale (1-10): 8 Quality: Similar to previous headaches Consistency: Constant Improves With: Nothing Worsens With: Light, Noise Associated Symptoms: Photophobia, Sensitivity to sound Treatments Prior to Arrival: Migraine medication, Prescription analgesic - Related Data Previous Rx's Medication Instructions Recorded Apixaban [Eliquis] 10 mg PO BID 30 Days tablet 02/13/18 Allergies Allergy/AdvReac Type Severity Reaction Status Date / Time sumatriptan [From Imitrex] Allergy ANAPHYLAXIS Verified 06/21/18 17:49 sumatriptan succinate Allergy ANAPHYLAXIS Verified 06/21/18 17:49 [From Imitrex] chlorpromazine AdvReac HYPERSENSIT Verified 06/21/18 17:49 [From Thorazine] IVITY erythromycin base AdvReac VOMITING Verified 06/21/18 17:49 [Erythromycin Base] nortriptyline [From Pamelor] AdvReac TACHYCARDIA Verified 06/21/18 17:49 Travel Screening - Travel/Exposure Within Last 30 Days Have you traveled within the last 30 days?: Yes Location Detail:: [place] - Travel/Exposure Within Last Year Have you traveled outside the [place] in the last year?: No - Additonal Travel Details Have you been exposed to anyone with a communicable illness?: No - Travel Symptoms Symptom Screening: None Review of Systems Constitutional: Denies: Chills, Fever Eyes: Denies: Eye discharge ENT: Denies: Congestion Respiratory: Denies: Cough, Dyspnea Cardiovascular: Denies: Arrhythmia Endocrine: Denies: Fatigue Genitourinary: Denies: Dysuria Musculoskeletal: Denies: Back pain Past Medical History - SOCIAL HISTORY Smoking Status: Never smoker Alcohol Use: None Drug Use: None - RESPIRATORY Hx Respiratory Disorders: Yes Hx Asthma: Yes Hx Pulmonary Embolism: Yes (05/18) Hx Sleep Apnea: Yes Hx of CPAP: Yes - CARDIOVASCULAR Hx Cardio Disorders: Yes Hx Hypertension: Yes ("pretty much went away since the gastric surgery") - NEURO Hx Neuro Disorders: Yes Hx Headaches: Yes (migraines) - GI Hx GI Disorders: Yes Comment:: gastric sleeve - Hx Genitourinary Disorders: Yes Hx Kidney Stones: Yes - ENDOCRINE Hx Endocrine Disorders: Yes Hx Diabetes: Yes (type II) Hx Thyroid Disease: No - MUSCULOSKELETAL Hx Musculoskeletal Disorders: Yes Comment:: djd - PSYCH Hx Psych Problems: No - HEMATOLOGY/ONCOLOGY Hx Hematology/Oncology Disorders: No Family Medical History Any Significant Family History?: Yes Hx Cancer: Grandparents Hx Diabetes: Father, Grandparents Hx Heart Disease: Grandparents Hx HTN: Mother Hx Kidney Disease: Father *Kidney Comment: stones Hx Stroke: Grandparents Physical Exam - General General Appearance: Alert, Oriented x3, Cooperative, No acute distress - Head Head exam: Atraumatic, Normocephalic, Normal inspection - Eye Eye exam: Normal appearance, PERRL, EOMI - Neck Neck exam: Normal inspection, Full ROM. negative: Tenderness - Respiratory Respiratory exam: Normal lung sounds bilaterally. negative: Respiratory distress - Cardiovascular Cardiovascular Exam: Regular rate, Normal rhythm, Normal heart sounds - Extremities Extremities exam: Normal inspection, Full ROM, Normal capillary refill. negative: Tenderness - Neurological Neurological exam: Alert, Normal gait, Oriented X3, Other (Neg Drift and [place]omberg.). negative: Abnormal gait, Altered, Motor sensory deficit Course Vital Signs 06/21/18 17:50 Temperature 98.6 F Pulse Rate 88 Respiratory 18 Rate Blood Pressure 129/80 Pulse Ox 100 - Reevaluation(s) Reevaluation #1: The patient is doing a lot better at this time. Her pain is MUCH better and she is ready for home. 06/21/18 18:27 Disposition Disposition: Discharge Clinical Impression: Migraine Qualifiers: Migraine type: unspecified Status migrainosus presence: without status migrainosus Intractability: not intractable Qualified Code(s): G43.909 - Migraine, unspecified, not intractable, without status migrainosus Disposition: Home, Self-Care Condition: (2) Stable Instructions: Migraine Headache (ED) Additional Instructions: Please continue your regular medicines and see your doctor for recheck next week if needed. Return to the ER for any worsening symptoms. Forms: Patient Portal Access Time of Disposition: 18:28 Quality - Quality Measures Quality Measures: Headache (All Ages) - Headache: Neuroimaging Quality Measure: Measure #419: Overuse of Neuroimaging ICD10 Codes Entered: Yes View Detail: Yes Neurological Exam: Patient had a normal neurological exam. [G9535] Headache: Use of Neuroimaging: < CTA, CT, MRA or MRI was NOT ordered > [G9534] - Blood Pressure Screening View Details: Yes Does Patient Have Any of the Following: No Blood Pressure Classification: Normal BP Reading Systolic Measurement: 116 Diastolic Measurement: 71 Screening for High Blood Pressure: < Normal BP, F/U Not Required > [G8783]
== END 2018-06-21 18:36 | disposition home or self-care (01) ==
LOC: ER 17:39
DX: G43.909 Migraine, unspecified, not intractable, without status migrainosus (principal); R11.0 Nausea; H53.149 Visual discomfort, unspecified
CPT/HCPCS: 99283 ×2; 96372; J2300; J2550

== ENCOUNTER 2018-07-09 19:09 | Emergency (ER) | payer BC ==
[2018-07-09] MEDS ORDERED: PROMETHAZINE HCL 25 MG/ML VIAL IM ONE (19:21)
[2018-07-09] MEDS ORDERED: NALBUPHINE HCL 20 MG/ML AMPULE IM ONE (19:21)
--- NOTE | 2018-07-09 19:25 | Emergency Department Record ---
History of Present Illness - General Chief Complaint: Headache Migraine Stated Complaint: MIGRAINE Time Seen by Provider: 07/09/18 19:14 Source: Patient Mode of Arrival: Ambulatory Limitations: No limitations - History of Present Illness Initial Comments: 33 yo female presents to ED for evaluation of headache symptoms that began earlier today, similar to previous "migraine headaches". Patient reports that her home migraine therapy has not improved her symptoms today, however she was recently started in a new migraine medication that has significantly improved her daily/weekly headache symptoms. Patient denies fevers, chills, neck stiffness, or change from her baseline headache symptoms. MD Complaint: Headache Onset/Timin -: Days(s) Onset Description: Gradual Location: Diffuse Severity: Moderate Severity scale (1-10): 8 Quality: Throbbing, Similar to previous headaches Consistency: Intermittent Improves With: Nothing Worsens With: Light, Noise Associated Symptoms: Nausea, Photophobia, Sensitivity to sound Treatments Prior to Arrival: Antiemetic, Migraine medication Treatment Prior to Arrival Comment:: Benadryl 1100 & Haldol 1600 - Related Data Home Medications Medication Instructions Recorded Confirmed Last Taken Erenumab-Aooe [Aimovig 140 mg SQ MONTHLY 07/09/18 07/09/18 06/21/18 Autoinjector] Previous Rx's Medication Instructions Recorded Apixaban [Eliquis] 10 mg PO BID 30 Days tablet 02/13/18 Allergies Allergy/AdvReac Type Severity Reaction Status Date / Time sumatriptan [From Imitrex] Allergy ANAPHYLAXIS Verified 07/09/18 19:20 sumatriptan succinate Allergy ANAPHYLAXIS Verified 07/09/18 19:20 [From Imitrex] chlorpromazine AdvReac HYPERSENSIT Verified 07/09/18 19:20 [From Thorazine] IVITY erythromycin base AdvReac VOMITING Verified 07/09/18 19:20 [Erythromycin Base] nortriptyline [From Pamelor] AdvReac TACHYCARDIA Verified 07/09/18 19:20 Travel Screening - Travel/Exposure Within Last 30 Days Have you traveled within the last 30 days?: No - Travel/Exposure Within Last Year Have you traveled outside the [place] in the last year?: No - Additonal Travel Details Have you been exposed to anyone with a communicable illness?: No - Travel Symptoms Symptom Screening: None Review of Systems Constitutional: Denies: Chills, Fever, Malaise, Night sweats Eyes: Denies: Eye discharge, Eye pain ENT: Denies: Congestion, Ear pain, Epistaxis Respiratory: Denies: Cough, Dyspnea Cardiovascular: Denies: Chest pain, Dyspnea on exertion Endocrine: Denies: Fatigue, Heat or cold intolerance Gastrointestinal: Denies: Abdominal pain, Nausea, Vomiting Genitourinary: Denies: Incontinence, Retention Musculoskeletal: Denies: Arthralgia, Back pain Skin: Denies: Bruising, Change in color Neurological: Reports: Headache. Denies: Abnormal gait, Confusion Psychiatric: Denies: Anxiety, Auditory hallucinations Hematological/Lymphatic: Denies: Anemia, Blood Clots Past Medical History - SOCIAL HISTORY Smoking Status: Never smoker Alcohol Use: None Drug Use: None - RESPIRATORY Hx Respiratory Disorders: Yes Hx Asthma: Yes Hx Pulmonary Embolism: Yes (05/18) Hx Sleep Apnea: Yes Hx of CPAP: Yes - CARDIOVASCULAR Hx Cardio Disorders: Yes Hx Hypertension: Yes ("pretty much went away since the gastric surgery") - NEURO Hx Neuro Disorders: Yes Hx Headaches: Yes (migraines) - GI Hx GI Disorders: Yes Comment:: gastric sleeve - Hx Genitourinary Disorders: Yes Hx Kidney Stones: Yes - ENDOCRINE Hx Endocrine Disorders: Yes Hx Diabetes: Yes (type II) Hx Thyroid Disease: No - MUSCULOSKELETAL Hx Musculoskeletal Disorders: Yes Comment:: djd - PSYCH Hx Psych Problems: No - HEMATOLOGY/ONCOLOGY Hx Hematology/Oncology Disorders: No Family Medical History Any Significant Family History?: Yes Hx Cancer: Grandparents Hx Diabetes: Father, Grandparents Hx Heart Disease: Grandparents Hx HTN: Mother Hx Kidney Disease: Father *Kidney Comment: stones Hx Stroke: Grandparents Physical Exam - General General Appearance: Alert, Oriented x3, Cooperative, No acute distress Limitations: No limitations - Head Head exam: Atraumatic, Normocephalic, Normal inspection Head exam detail: negative: Abrasion, Contusion, Frazier's sign, General tenderness, Hematoma, Laceration - Eye Eye exam: Normal appearance. negative: Conjunctival injection, Periorbital swelling, Periorbital tenderness, Scleral icterus - ENT Ear exam: negative: Auricular hematoma, Auricular trauma Nasal Exam: negative: Active bleeding, Discharge, Dried blood, Foreign body Mouth exam: negative: Drooling, Laceration, Muffled voice, Tongue elevation - Neck Neck exam: Normal inspection. negative: Meningismus, Tenderness - Respiratory Respiratory exam: Normal lung sounds bilaterally. negative: Respiratory distress, Rhonchi, Stridor, Wheezes - Cardiovascular Cardiovascular Exam: Regular rate, Normal rhythm, Normal heart sounds - GI/Abdominal GI/Abdominal exam: Soft. negative: Rebound, Rigid, Tenderness - Rectal Rectal exam: Deferred - exam: Deferred - Extremities Extremities exam: Normal inspection. negative: Pedal edema, Tenderness - Neurological Neurological exam: Alert, Normal gait, Oriented X3 - Psychiatric Psychiatric exam: Normal affect, Normal mood - Skin Skin exam: Normal color. negative: Abrasion Type of lesion: negative: abrasion Course Vital Signs 07/09/18 19:13 Temperature 98.1 F Pulse Rate 84 Respiratory 17 Rate Blood Pressure 123/89 Pulse Ox 100 - Reevaluation(s) Reevaluation #1: 07/09/18 20:00 Patient was reassessed, reports that her pain symptoms are improving. Patient has no clinical signs of meningitis or SAH, and appears stable for discharge at this time. Disposition Disposition: Discharge Clinical Impression: Headache Qualifiers: Headache type: unspecified Headache chronicity pattern: acute headache Intractability: not intractable Qualified Code(s): R51 - Headache Disposition: Home, Self-Care Condition: (2) Stable Instructions: Acute Headache (ED) Additional Instructions: Return to ED if your symptoms worsen or if you have any concerns. Follow-up with your family doctor in 3-5 days as directed. Forms: Patient Portal Access Time of Disposition: 19:25 Quality - Quality Measures Quality Measures: N/A - Blood Pressure Screening Does Patient Have Any of the Following: No Blood Pressure Classification: Pre-Hypertensive BP Reading Systolic Measurement: 123 Diastolic Measurement: 89 Screening for High Blood Pressure: < Pre-Hypertensive BP, F/U Documented > [ G8950] Pre-Hypertensive Follow-up Interventions: Referral to alternative/primary care provider.
== END 2018-07-09 20:20 | disposition home or self-care (01) ==
LOC: ER 19:09
DX: R51 Headache (principal); R11.0 Nausea; H53.149 Visual discomfort, unspecified; I10 Essential (primary) hypertension
CPT/HCPCS: 99283 ×2; 96372; J2300; J2550

== ENCOUNTER 2018-07-12 14:32 | Emergency (ER) | payer BC ==
--- NOTE | 2018-07-12 15:58 | Emergency Department Record ---
History of Present Illness - General Chief Complaint: Headache Migraine Stated Complaint: MIGRAIN Time Seen by Provider: 07/12/18 15:51 Source: Patient Mode of Arrival: Ambulatory - History of Present Illness Initial Comments: Typical migraine rudolph awakened her from sleep 2 a.m. Her home meds did not help today. She denies fevers, chills, nausea, vomiting, or dehydration. She went on clear liquids and protein shakes which have helped. MD Complaint: "Migraine" Onset/Timin -: Hour(s) Onset Description: Sudden, Awoke with symptoms Location: Diffuse Severity scale (1-10): 8 Consistency: Constant Improves With: Nothing Worsens With: None Treatments Prior to Arrival: Migraine medication, Other Treatment Prior to Arrival Comment:: IM benardyl at 1400. Haliperidol at 1100. - Related Data Previous Rx's Medication Instructions Recorded Apixaban [Eliquis] 10 mg PO BID 30 Days tablet 02/13/18 Allergies Allergy/AdvReac Type Severity Reaction Status Date / Time sumatriptan [From Imitrex] Allergy ANAPHYLAXIS Verified 07/09/18 19:20 sumatriptan succinate Allergy ANAPHYLAXIS Verified 07/09/18 19:20 [From Imitrex] chlorpromazine AdvReac HYPERSENSIT Verified 07/09/18 19:20 [From Thorazine] IVITY erythromycin base AdvReac VOMITING Verified 07/09/18 19:20 [Erythromycin Base] nortriptyline [From Pamelor] AdvReac TACHYCARDIA Verified 07/09/18 19:20 Travel Screening - Travel/Exposure Within Last 30 Days Have you traveled within the last 30 days?: No - Travel/Exposure Within Last Year Have you traveled outside the [place] in the last year?: No - Additonal Travel Details Have you been exposed to anyone with a communicable illness?: No - Travel Symptoms Symptom Screening: None Review of Systems Reviewed: No additional complaints except as noted below Constitutional: Reports: As per HPI. Denies: Chills, Fever, Malaise, Night sweats, Weakness, Weight change Eyes: Reports: As per HPI. Denies: Eye discharge, Eye pain, Photophobia, Vision change ENT: Reports: As per HPI. Denies: Congestion, Dental pain, Ear pain, Epistaxis , Hearing loss, Throat pain Respiratory: Reports: As per HPI. Denies: Cough, Dyspnea, Hemoptysis, Stridor, Wheezes Cardiovascular: Reports: As per HPI. Denies: Arrhythmia, Chest pain, Dyspnea on exertion, Edema, Murmurs, Orthopnea, Palpitations, Paroxysmal nocturnal dyspnea, Rheumatic Fever, Syncope Endocrine: Reports: As per HPI. Denies: Fatigue, Heat or cold intolerance, Polydipsia, Polyuria Gastrointestinal: Reports: As per HPI. Denies: Abdominal pain, Constipation, Diarrhea, Hematemesis, Hematochezia, Melena, Nausea, Vomiting Genitourinary: Reports: As per HPI. Denies: Abnormal menses, Discharge, Dyspareunia, Dysuria, Frequency, Hematuria, Incontinence, Retention, Urgency Musculoskeletal: Reports: As per HPI. Denies: Arthralgia, Back pain, Gout, Joint swelling, Myalgia, Neck pain Skin: Reports: As per HPI. Denies: Bruising, Change in color, Change in hair/ nails, Lesions, Pruritus, Rash Neurological: Reports: As per HPI. Denies: Abnormal gait, Confusion, Headache, Numbness, Paresthesias, Seizure, Tingling, Tremors, Vertigo, Weakness Psychiatric: Reports: As per HPI. Denies: Anxiety, Auditory hallucinations, Depression, Homicidal thoughts, Suicidal thoughts, Visual hallucinations Hematological/Lymphatic: Reports: As per HPI. Denies: Anemia, Blood Clots, Easy bleeding, Easy bruising, Swollen glands Past Medical History - SOCIAL HISTORY Smoking Status: Never smoker Alcohol Use: None Drug Use: None - RESPIRATORY Hx Respiratory Disorders: Yes Hx Asthma: Yes Hx Pulmonary Embolism: Yes (05/18) Hx Sleep Apnea: Yes Hx of CPAP: Yes - CARDIOVASCULAR Hx Cardio Disorders: Yes Hx Hypertension: Yes ("pretty much went away since the gastric surgery") - NEURO Hx Neuro Disorders: Yes Hx Headaches: Yes (migraines) - GI Hx GI Disorders: Yes Comment:: gastric sleeve - Hx Genitourinary Disorders: Yes Hx Kidney Stones: Yes - ENDOCRINE Hx Endocrine Disorders: Yes Hx Diabetes: Yes (type II) Hx Thyroid Disease: No - MUSCULOSKELETAL Hx Musculoskeletal Disorders: Yes Comment:: djd - PSYCH Hx Psych Problems: No - HEMATOLOGY/ONCOLOGY Hx Hematology/Oncology Disorders: No Family Medical History Any Significant Family History?: No Hx Cancer: Grandparents Hx Diabetes: Father, Grandparents Hx Heart Disease: Grandparents Hx HTN: Mother Hx Kidney Disease: Father *Kidney Comment: stones Hx Stroke: Grandparents Physical Exam - General General Appearance: Alert, Oriented x3, Cooperative, Mild distress - Head Head exam: Normal inspection - Eye Eye exam: Normal appearance, PERRL, EOMI. negative: Conjunctival injection, Nystagmus Pupils: Normal accommodation - ENT ENT exam: Normal exam, Mucous membranes moist, Normal external ear exam, Normal orophraynx, TM's normal bilaterally Ear exam: Normal external inspection. negative: External canal tenderness Nasal Exam: Normal inspection. negative: Discharge, Sinus tenderness Mouth exam: Normal external inspection, Tongue normal Teeth exam: Normal inspection. negative: Dental caries Throat exam: Normal inspection. negative: Tonsillar erythema, Tonsillar exudate - Neck Neck exam: Normal inspection, Full ROM. negative: Lymphadenopathy, Meningismus , Tenderness - Respiratory Respiratory exam: Normal lung sounds bilaterally. negative: Respiratory distress - Cardiovascular Cardiovascular Exam: Regular rate, Normal rhythm, Normal heart sounds - GI/Abdominal GI/Abdominal exam: Soft, Normal bowel sounds. negative: Tenderness - Rectal Rectal exam: Deferred - exam: Deferred - Extremities Extremities exam: Normal inspection, Full ROM, Normal capillary refill. negative: Tenderness - Back Back exam: Reports: Normal inspection, Full ROM. Denies: Muscle spasm, Rash noted, Tenderness - Neurological Neurological exam: Alert, Normal gait, Oriented X3, Reflexes normal - Psychiatric Psychiatric exam: Normal affect, Normal mood - Skin Skin exam: Dry, Intact, Normal color, Warm Course Vital Signs 07/12/18 14:53 Temperature 98.7 F Pulse Rate 84 Respiratory 16 Rate Blood Pressure 130/100 Pulse Ox 97 - Reevaluation(s) Reevaluation #1: Patientaida's pain level has decreased from an 8 to a 4 out of 10. She is ready for DC home. Mom is at the bedside to drive her. 07/12/18 16:39 Medical Decision Making - Management Options MDM Management: No Additional Work-up Planned Disposition Disposition: Discharge Clinical Impression: Migraine Qualifiers: Migraine type: without aura Status migrainosus presence: without status migrainosus Intractability: not intractable Qualified Code(s): G43.009 - Migraine without aura, not intractable, without status migrainosus Disposition: Home, Self-Care Instructions: Migraine Headache (ED) Additional Instructions: Home with ride. Do not drive. Continue present meds. Follow up with PCP as needed. Quality - Quality Measures Quality Measures: Headache (All Ages) - Headache: Neuroimaging Quality Measure: Measure #419: Overuse of Neuroimaging ICD10 Codes Entered: Yes Neurological Exam: Patient had a normal neurological exam. [G9535] Headache: Use of Neuroimaging: < CTA, CT, MRA or MRI was NOT ordered > [G9534] - Blood Pressure Screening Does Patient Have Any of the Following: No Blood Pressure Classification: Hypertensive Reading Systolic Measurement: 130 Diastolic Measurement: 100 Screening for High Blood Pressure: < Pre-Hypertensive BP, F/U Documented > [ G8950] Pre-Hypertensive Follow-up Interventions: Follow-up with rescreen every year.
[2018-07-12] MEDS ORDERED: PROMETHAZINE HCL 25 MG/ML VIAL IM ONE (16:01)
[2018-07-12] MEDS ORDERED: NALBUPHINE HCL 20 MG/ML AMPULE IM ONE (16:01)
== END 2018-07-12 17:02 | disposition home or self-care (01) ==
LOC: ER 14:32
DX: G43.009 Migraine without aura, not intractable, without status migrainosus (principal)
CPT/HCPCS: 99283 ×2; 96372; J2300; J2550

== ENCOUNTER 2018-08-02 19:28 | Emergency (ER) | payer BC ==
[2018-08-02] MEDS ORDERED: PROMETHAZINE HCL 25 MG/ML VIAL IM ONE (19:34)
[2018-08-02] MEDS ORDERED: NALBUPHINE HCL 20 MG/ML AMPULE IM ONE (19:34)
--- NOTE | 2018-08-02 19:40 | Emergency Department Record ---
History of Present Illness - General Chief Complaint: Headache Migraine Stated Complaint: LANGLEY Time Seen by Provider: 08/02/18 19:33 Source: Patient, Family Mode of Arrival: Ambulatory Limitations: No limitations - History of Present Illness Initial Comments: 33 yo female presents with a headache. She has chronic migraines. She is followed by the [facility]. She is on Aimovig that has has helped with her migraines from daily to only 3 in a two week period. No fever, no trauma, no new or atypical symptoms. This headache started yesterday. She took her DHE without complete relief. She has follow up with [facility] in a few weeks. MD Complaint: "Migraine" Onset/Timin -: Days(s) Onset Description: Gradual Location: Frontal Severity: Severe Severity scale (1-10): 10 Quality: Similar to previous headaches Consistency: Constant, Getting worse Improves With: Nothing Worsens With: None Associated Symptoms: Nausea, Photophobia Treatments Prior to Arrival: Migraine medication, Prescription analgesic - Related Data Previous Rx's Medication Instructions Recorded Apixaban [Eliquis] 10 mg PO BID 30 Days tablet 02/13/18 Allergies Allergy/AdvReac Type Severity Reaction Status Date / Time sumatriptan [From Imitrex] Allergy ANAPHYLAXIS Verified 07/09/18 19:20 sumatriptan succinate Allergy ANAPHYLAXIS Verified 07/09/18 19:20 [From Imitrex] chlorpromazine AdvReac HYPERSENSIT Verified 07/09/18 19:20 [From Thorazine] IVITY erythromycin base AdvReac VOMITING Verified 07/09/18 19:20 [Erythromycin Base] nortriptyline [From Pamelor] AdvReac TACHYCARDIA Verified 07/09/18 19:20 Travel Screening - Travel/Exposure Within Last 30 Days Have you traveled within the last 30 days?: No Review of Systems Constitutional: Denies: Chills, Fever, Weakness Eyes: Reports: Photophobia. Denies: Eye discharge, Eye pain, Vision change ENT: Denies: Congestion, Throat pain Respiratory: Denies: Cough, Dyspnea Cardiovascular: Denies: Chest pain, Syncope Endocrine: Denies: Fatigue Gastrointestinal: Reports: Nausea. Denies: Abdominal pain, Diarrhea, Vomiting Genitourinary: Denies: Dysuria, Urgency Musculoskeletal: Denies: Arthralgia, Back pain, Neck pain Skin: Denies: Bruising, Change in color, Rash Neurological: Reports: Headache. Denies: Confusion, Numbness, Paresthesias, Seizure, Tingling, Tremors, Vertigo, Weakness Psychiatric: Denies: Anxiety Hematological/Lymphatic: Denies: Easy bleeding, Easy bruising Past Medical History - SOCIAL HISTORY Smoking Status: Never smoker Alcohol Use: None Drug Use: None - RESPIRATORY Hx Respiratory Disorders: Yes Hx Asthma: Yes Hx Pulmonary Embolism: Yes (05/18) Hx Sleep Apnea: Yes Hx of CPAP: Yes - CARDIOVASCULAR Hx Cardio Disorders: Yes Hx Hypertension: Yes ("pretty much went away since the gastric surgery") - NEURO Hx Neuro Disorders: Yes Hx Headaches: Yes (migraines) - GI Hx GI Disorders: Yes Comment:: gastric sleeve - Hx Genitourinary Disorders: Yes Hx Kidney Stones: Yes - ENDOCRINE Hx Endocrine Disorders: Yes Hx Diabetes: Yes (type II) Hx Thyroid Disease: No - MUSCULOSKELETAL Hx Musculoskeletal Disorders: Yes Comment:: djd - PSYCH Hx Psych Problems: No - HEMATOLOGY/ONCOLOGY Hx Hematology/Oncology Disorders: No Family Medical History Any Significant Family History?: Yes Hx Cancer: Grandparents Hx Diabetes: Father, Grandparents Hx Heart Disease: Grandparents Hx HTN: Mother Hx Kidney Disease: Father *Kidney Comment: stones Hx Stroke: Grandparents Physical Exam - General General Appearance: Alert, Oriented x3, Cooperative, No acute distress Limitations: No limitations - Head Head exam: Atraumatic, Normal inspection - Eye Eye exam: Normal appearance, PERRL, EOMI. negative: Conjunctival injection, Nystagmus, Periorbital swelling, Scleral icterus - ENT ENT exam: Normal exam Ear exam: Normal external inspection Nasal Exam: Normal inspection Mouth exam: Normal external inspection - Neck Neck exam: Normal inspection - Respiratory Respiratory exam: Normal lung sounds bilaterally. negative: Respiratory distress - Cardiovascular Cardiovascular Exam: Regular rate, Normal rhythm, Normal heart sounds - Back Back exam: Denies: CVA tenderness (R), CVA tenderness (L) - Neurological Neurological exam: Alert, CN II-XII intact, Normal gait, Oriented X3, Reflexes normal. negative: Abnormal gait, Altered - Psychiatric Psychiatric exam: Normal affect, Normal mood - Skin Skin exam: Dry, Intact, Normal color, Warm Course Vital Signs 08/02/18 19:32 Temperature 98.6 F Pulse Rate [ 85 Pulse Ox Probe] Respiratory 20 Rate Blood Pressure 132/95 [Left Arm] Pulse Ox 100 Disposition Disposition: Discharge Clinical Impression: Migraine Disposition: Home, Self-Care Condition: (1) Good Instructions: Migraine Headache (ED) Additional Instructions: Follow up with [facility] as directed Return if you have any concerns of new or different symptoms Rest and stay well hydrated Forms: Patient Portal Access Time of Disposition: 19:38 Quality - Quality Measures Quality Measures: N/A, Headache (All Ages) - Headache: Neuroimaging Quality Measure: Measure #419: Overuse of Neuroimaging ICD10 Codes Entered: Yes Neurological Exam: Patient had a normal neurological exam. [G9535] Headache: Use of Neuroimaging: < CTA, CT, MRA or MRI was NOT ordered > [G9534] - Blood Pressure Screening Does Patient Have Any of the Following: No Blood Pressure Classification: Hypertensive Reading Systolic Measurement: 132 Diastolic Measurement: 95 Screening for High Blood Pressure: Patient Exclusion, Hx of HTN [G9744] Pre-Hypertensive Follow-up Interventions: Referral to alternative/primary care provider.
== END 2018-08-02 20:04 | disposition home or self-care (01) ==
LOC: ER 19:28
DX: G43.909 Migraine, unspecified, not intractable, without status migrainosus (principal); R11.0 Nausea; H53.149 Visual discomfort, unspecified
CPT/HCPCS: 99283 ×2; 96372; J2300; J2550

== ENCOUNTER 2018-08-12 12:54 | Emergency (ER) | payer BC ==
--- NOTE | 2018-08-12 14:07 | Emergency Department Record ---
History of Present Illness - General Chief Complaint: Headache Migraine Stated Complaint: MIGRAINE Time Seen by Provider: 08/12/18 14:03 Source: Patient, RN notes reviewed (a) Mode of Arrival: Ambulatory - History of Present Illness Initial Comments: chronic migraine headache and she has been to the [facility] and allowed two nubain shots a month with phenergan. this feels like her typical headache, no balance problems MD Complaint: "Migraine" Onset/Timin -: Days(s) Onset Description: Sudden Location: Diffuse Severity: Severe Severity scale (1-10): 10 Quality: Full Consistency: Constant Improves With: Nothing Worsens With: None Associated Symptoms: Nausea Treatments Prior to Arrival: Migraine medication - Related Data Previous Rx's Medication Instructions Recorded Apixaban [Eliquis] 10 mg PO BID 30 Days tablet 02/13/18 Allergies Allergy/AdvReac Type Severity Reaction Status Date / Time sumatriptan [From Imitrex] Allergy ANAPHYLAXIS Verified 08/12/18 13:09 sumatriptan succinate Allergy ANAPHYLAXIS Verified 08/12/18 13:09 [From Imitrex] chlorpromazine AdvReac HYPERSENSIT Verified 08/12/18 13:09 [From Thorazine] IVITY erythromycin base AdvReac VOMITING Verified 08/12/18 13:09 [Erythromycin Base] nortriptyline [From Pamelor] AdvReac TACHYCARDIA Verified 08/12/18 13:09 Travel Screening - Travel/Exposure Within Last 30 Days Have you traveled within the last 30 days?: No Review of Systems Reviewed: No additional complaints except as noted below Constitutional: Reports: As per HPI. Denies: Chills, Fever, Malaise, Night sweats, Weakness, Weight change Eyes: Reports: As per HPI. Denies: Eye discharge, Eye pain, Photophobia, Vision change ENT: Reports: As per HPI. Denies: Congestion, Dental pain, Ear pain, Epistaxis , Hearing loss, Throat pain Respiratory: Reports: As per HPI. Denies: Cough, Dyspnea, Hemoptysis, Stridor, Wheezes Cardiovascular: Reports: As per HPI. Denies: Arrhythmia, Chest pain, Dyspnea on exertion, Edema, Murmurs, Orthopnea, Palpitations, Paroxysmal nocturnal dyspnea, Rheumatic Fever, Syncope Endocrine: Reports: As per HPI. Denies: Fatigue, Heat or cold intolerance, Polydipsia, Polyuria Gastrointestinal: Reports: As per HPI. Denies: Abdominal pain, Constipation, Diarrhea, Hematemesis, Hematochezia, Melena, Nausea, Vomiting Genitourinary: Reports: As per HPI. Denies: Abnormal menses, Discharge, Dyspareunia, Dysuria, Frequency, Hematuria, Incontinence, Retention, Urgency Musculoskeletal: Reports: As per HPI. Denies: Arthralgia, Back pain, Gout, Joint swelling, Myalgia, Neck pain Skin: Reports: As per HPI. Denies: Bruising, Change in color, Change in hair/ nails, Lesions, Pruritus, Rash Neurological: Reports: As per HPI. Denies: Abnormal gait, Confusion, Headache, Numbness, Paresthesias, Seizure, Tingling, Tremors, Vertigo, Weakness Psychiatric: Reports: As per HPI. Denies: Anxiety, Auditory hallucinations, Depression, Homicidal thoughts, Suicidal thoughts, Visual hallucinations Hematological/Lymphatic: Reports: As per HPI. Denies: Anemia, Blood Clots, Easy bleeding, Easy bruising, Swollen glands Past Medical History - SOCIAL HISTORY Smoking Status: Never smoker Alcohol Use: None Drug Use: None - RESPIRATORY Hx Respiratory Disorders: Yes Hx Asthma: Yes Hx Pulmonary Embolism: Yes (05/18) Hx Sleep Apnea: Yes Hx of CPAP: Yes - CARDIOVASCULAR Hx Cardio Disorders: Yes Hx Hypertension: Yes ("pretty much went away since the gastric surgery") - NEURO Hx Neuro Disorders: Yes Hx Headaches: Yes (migraines) - GI Hx GI Disorders: Yes Comment:: gastric sleeve - Hx Genitourinary Disorders: Yes Hx Kidney Stones: Yes - ENDOCRINE Hx Endocrine Disorders: Yes Hx Diabetes: Yes (type II) Hx Thyroid Disease: No - MUSCULOSKELETAL Hx Musculoskeletal Disorders: Yes Comment:: djd - PSYCH Hx Psych Problems: No - HEMATOLOGY/ONCOLOGY Hx Hematology/Oncology Disorders: No Family Medical History Any Significant Family History?: Yes Hx Cancer: Grandparents Hx Diabetes: Father, Grandparents Hx Heart Disease: Grandparents Hx HTN: Mother Hx Kidney Disease: Father *Kidney Comment: stones Hx Stroke: Grandparents Physical Exam - General General Appearance: Alert, Oriented x3, Cooperative, No acute distress - Head Head exam: Normal inspection - Eye Eye exam: Normal appearance, PERRL Pupils: Normal accommodation - ENT ENT exam: Normal exam, Mucous membranes moist, Normal external ear exam, Normal orophraynx, TM's normal bilaterally Ear exam: Normal external inspection. negative: External canal tenderness Nasal Exam: Normal inspection. negative: Discharge, Sinus tenderness Mouth exam: Normal external inspection, Tongue normal Teeth exam: Normal inspection. negative: Dental caries Throat exam: Normal inspection. negative: Tonsillar erythema, Tonsillar exudate - Neck Neck exam: Normal inspection, Full ROM. negative: Tenderness - Respiratory Respiratory exam: Normal lung sounds bilaterally. negative: Respiratory distress - Cardiovascular Cardiovascular Exam: Regular rate, Normal rhythm, Normal heart sounds - GI/Abdominal GI/Abdominal exam: Soft, Normal bowel sounds. negative: Tenderness - Rectal Rectal exam: Deferred - exam: Deferred - Extremities Extremities exam: Normal inspection, Full ROM, Normal capillary refill. negative: Tenderness - Back Back exam: Reports: Normal inspection, Full ROM. Denies: Muscle spasm, Rash noted, Tenderness - Neurological Neurological exam: Alert, Normal gait, Oriented X3, Reflexes normal - Psychiatric Psychiatric exam: Normal affect, Normal mood - Skin Skin exam: Dry, Intact, Normal color, Warm Course Vital Signs 08/12/18 13:03 Temperature 98.4 F Pulse Rate 106 H Respiratory 16 Rate Blood Pressure 139/80 Pulse Ox 99 - Reevaluation(s) Reevaluation #1: feeling better 08/12/18 14:45 Disposition Clinical Impression: Headache Qualifiers: Headache type: unspecified Headache chronicity pattern: chronic headache Intractability: not intractable Qualified Code(s): R51 - Headache Migraine Qualifiers: Migraine type: without aura Status migrainosus presence: without status migrainosus Intractability: not intractable Qualified Code(s): G43.009 - Migraine without aura, not intractable, without status migrainosus Disposition: Home, Self-Care Condition: (1) Good Instructions: Migraine Headache (ED) Additional Instructions: follow up with the [facility] Forms: Patient Portal Access Time of Disposition: 14:45 Quality - Quality Measures Quality Measures: N/A, Headache (All Ages) - Headache: Neuroimaging Quality Measure: Measure #419: Overuse of Neuroimaging ICD10 Codes Entered: Yes Neurological Exam: Patient had a normal neurological exam. [G9535] Headache: Use of Neuroimaging: < CTA, CT, MRA or MRI was NOT ordered > [G9534] - Blood Pressure Screening Does Patient Have Any of the Following: No Blood Pressure Classification: Pre-Hypertensive BP Reading Systolic Measurement: 139 Diastolic Measurement: 80 Screening for High Blood Pressure: < Pre-Hypertensive BP, F/U Documented > [ G8950] Pre-Hypertensive Follow-up Interventions: Referral to alternative/primary care provider.
[2018-08-12] MEDS ORDERED: NALBUPHINE HCL 20 MG/ML AMPULE IM ONE (14:11)
[2018-08-12] MEDS ORDERED: PROMETHAZINE HCL 25 MG/ML VIAL IM ONE (14:11)
== END 2018-08-12 14:58 | disposition home or self-care (01) ==
LOC: ER 12:54
DX: G43.009 Migraine without aura, not intractable, without status migrainosus (principal); R11.0 Nausea
CPT/HCPCS: 99283 ×2; 96372; J2300; J2550

== ENCOUNTER 2018-09-03 20:08 | Emergency (ER) | payer BC ==
[2018-09-03] MEDS ORDERED: PROMETHAZINE HCL 25 MG/ML VIAL IM ONE (20:14)
[2018-09-03] MEDS ORDERED: NALBUPHINE HCL 20 MG/ML AMPULE IM ONE (20:14)
--- NOTE | 2018-09-03 20:19 | Emergency Department Record ---
History of Present Illness - General Chief Complaint: Headache Migraine Stated Complaint: MIGRAINE Time Seen by Provider: 09/03/18 20:09 Source: Patient Mode of Arrival: Ambulatory Limitations: No limitations - History of Present Illness Initial Comments: 33 yo female presents to ED for evaluation of a migraine headache that began approximately 48 hours ago. Patient reports that her typical migraine medications have not helped with her symptoms, patient denies fevers or neck stiffness symptoms. Patient reports that her headache specialist started a new prophylatic regimen 2 months ago which has reduced the incidence of her chronic headaches. MD Complaint: Headache Onset/Timin -: Hour(s) Onset Description: Gradual Location: Diffuse Severity: Moderate Quality: Throbbing Consistency: Constant Improves With: Nothing Worsens With: None - Related Data Previous Rx's Medication Instructions Recorded Apixaban [Eliquis] 10 mg PO BID 30 Days tablet 02/13/18 Allergies Allergy/AdvReac Type Severity Reaction Status Date / Time sumatriptan [From Imitrex] Allergy ANAPHYLAXIS Verified 08/12/18 13:09 sumatriptan succinate Allergy ANAPHYLAXIS Verified 08/12/18 13:09 [From Imitrex] chlorpromazine AdvReac HYPERSENSIT Verified 08/12/18 13:09 [From Thorazine] IVITY erythromycin base AdvReac VOMITING Verified 08/12/18 13:09 [Erythromycin Base] nortriptyline [From Pamelor] AdvReac TACHYCARDIA Verified 08/12/18 13:09 Review of Systems Constitutional: Denies: Chills, Fever, Malaise, Night sweats Eyes: Denies: Eye discharge, Eye pain ENT: Denies: Congestion, Ear pain, Epistaxis Respiratory: Denies: Cough, Dyspnea Cardiovascular: Denies: Chest pain, Dyspnea on exertion Endocrine: Denies: Fatigue, Heat or cold intolerance Gastrointestinal: Denies: Abdominal pain, Nausea, Vomiting Genitourinary: Denies: Incontinence, Retention Musculoskeletal: Denies: Arthralgia, Back pain, Gout, Joint swelling Skin: Denies: Bruising, Change in color, Change in hair/nails Neurological: Reports: Headache. Denies: Abnormal gait, Confusion, Seizure Psychiatric: Denies: Anxiety Hematological/Lymphatic: Denies: Anemia, Blood Clots Past Medical History - SOCIAL HISTORY Smoking Status: Never smoker Drug Use: None - RESPIRATORY Hx Respiratory Disorders: Yes Hx Asthma: Yes Hx Pulmonary Embolism: Yes (05/18) Hx Sleep Apnea: Yes Hx of CPAP: Yes - CARDIOVASCULAR Hx Cardio Disorders: Yes Hx Hypertension: Yes ("pretty much went away since the gastric surgery") - NEURO Hx Neuro Disorders: Yes Hx Headaches: Yes (migraines) - GI Hx GI Disorders: Yes Comment:: gastric sleeve - Hx Genitourinary Disorders: Yes Hx Kidney Stones: Yes - ENDOCRINE Hx Endocrine Disorders: Yes Hx Diabetes: Yes (type II) Hx Thyroid Disease: No - MUSCULOSKELETAL Hx Musculoskeletal Disorders: Yes Comment:: djd - PSYCH Hx Psych Problems: No - HEMATOLOGY/ONCOLOGY Hx Hematology/Oncology Disorders: No Family Medical History Hx Cancer: Grandparents Hx Diabetes: Father, Grandparents Hx Heart Disease: Grandparents Hx HTN: Mother Hx Kidney Disease: Father *Kidney Comment: stones Hx Stroke: Grandparents Physical Exam - General General Appearance: Alert, Oriented x3, Cooperative, Mild distress Limitations: No limitations - Head Head exam: Atraumatic, Normocephalic, Normal inspection Head exam detail: negative: Abrasion, Contusion, Frazier's sign, General tenderness, Hematoma, Laceration - Eye Eye exam: Normal appearance. negative: Conjunctival injection, Periorbital swelling, Periorbital tenderness, Scleral icterus - ENT Ear exam: negative: Auricular hematoma, Auricular trauma Nasal Exam: negative: Active bleeding, Discharge, Dried blood, Foreign body Mouth exam: negative: Drooling, Laceration, Muffled voice, Tongue elevation - Neck Neck exam: Normal inspection. negative: Meningismus, Tenderness - Respiratory Respiratory exam: Normal lung sounds bilaterally. negative: Rales, Respiratory distress, Rhonchi, Stridor - Cardiovascular Cardiovascular Exam: Regular rate, Normal rhythm, Normal heart sounds - GI/Abdominal GI/Abdominal exam: Soft. negative: Rebound, Rigid, Tenderness - Rectal Rectal exam: Deferred - exam: Deferred - Extremities Extremities exam: Normal inspection. negative: Calf tenderness, Pedal edema, Tenderness - Back Back exam: Denies: CVA tenderness (R), CVA tenderness (L) - Neurological Neurological exam: Alert, Normal gait, Oriented X3 - Psychiatric Psychiatric exam: Normal affect, Normal mood - Skin Skin exam: Normal color. negative: Abrasion Type of lesion: negative: abrasion Course Vital Signs 09/03/18 20:12 Temperature 98.5 F Pulse Rate [ 107 H Pulse Ox Probe] Respiratory 20 Rate Blood Pressure 145/94 [Left Arm] Pulse Ox 99 - Reevaluation(s) Reevaluation #1: 09/03/18 20:41 Patient was reassessed, reports improvement in her pain symptoms, and appears stable for discharge at this time. Disposition Disposition: Discharge Clinical Impression: Headache Qualifiers: Headache type: unspecified Headache chronicity pattern: acute headache Intractability: not intractable Qualified Code(s): R51 - Headache Disposition: Home, Self-Care Condition: (2) Stable Instructions: Acute Headache (ED) Additional Instructions: Return to ED if your symptoms worsen or if you have any concerns. Follow-up with your family doctor in 3-5 days as directed. Forms: Patient Portal Access Time of Disposition: 20:19 Quality - Quality Measures Quality Measures: N/A, Headache (All Ages) - Headache: Neuroimaging Quality Measure: Measure #419: Overuse of Neuroimaging ICD10 Codes Entered: Yes Neurological Exam: Patient had a normal neurological exam. [G9535] Headache: Use of Neuroimaging: < CTA, CT, MRA or MRI was NOT ordered > [G9534] - Blood Pressure Screening Does Patient Have Any of the Following: No Blood Pressure Classification: Hypertensive Reading Systolic Measurement: 145 Diastolic Measurement: 94 Screening for High Blood Pressure: < First Hypertensive BP, F/U Documented > [ G8950] First Hypertensive Follow-up Interventions: Referral to alternative/primary care provider.
== END 2018-09-03 20:40 | disposition home or self-care (01) ==
LOC: ER 20:08
DX: R51 Headache (principal); R11.0 Nausea; H53.149 Visual discomfort, unspecified
CPT/HCPCS: 99283 ×2; 96372; J2300; J2550

== ENCOUNTER 2018-09-13 18:11 | Emergency (ER) | payer BC ==
[2018-09-13] MEDS ORDERED: PROMETHAZINE HCL 25 MG/ML VIAL IM ONE (18:20)
[2018-09-13] MEDS ORDERED: NALBUPHINE HCL 20 MG/ML AMPULE IM ONE (18:20)
--- NOTE | 2018-09-13 18:26 | Emergency Department Record ---
History of Present Illness - General Chief Complaint: Headache Migraine Stated Complaint: LANGLEY Time Seen by Provider: 09/13/18 18:15 Source: Patient Mode of Arrival: Ambulatory Limitations: No limitations - History of Present Illness Initial Comments: 33 yo female presents to ED for evaluation of a migraine headache that began yesterday. Patient did take Benadryl 100mg and Haldol IM prior to arrival, reports that she called her neurologist and he reported that she may be "experiencing medication drop-out" as she is due for her Inviga in 4 days. Patient denies fevers, chills, or neck stiffness symptoms. Patient reports that today's headache symptoms are similar to previous episodes. MD Complaint: Headache Onset/Timin -: Days(s) Onset Description: Gradual Location: Diffuse Severity: Moderate Quality: Throbbing Consistency: Constant Improves With: Nothing Worsens With: None Treatments Prior to Arrival: Migraine medication - Related Data Previous Rx's Medication Instructions Recorded Apixaban [Eliquis] 10 mg PO BID 30 Days tablet 02/13/18 Allergies Allergy/AdvReac Type Severity Reaction Status Date / Time sumatriptan [From Imitrex] Allergy ANAPHYLAXIS Verified 08/12/18 13:09 sumatriptan succinate Allergy ANAPHYLAXIS Verified 08/12/18 13:09 [From Imitrex] chlorpromazine AdvReac HYPERSENSIT Verified 08/12/18 13:09 [From Thorazine] IVITY erythromycin base AdvReac VOMITING Verified 08/12/18 13:09 [Erythromycin Base] nortriptyline [From Pamelor] AdvReac TACHYCARDIA Verified 08/12/18 13:09 Review of Systems Constitutional: Denies: Chills, Fever, Malaise, Night sweats Eyes: Denies: Eye discharge, Eye pain ENT: Denies: Congestion, Ear pain, Epistaxis Respiratory: Denies: Cough, Dyspnea Cardiovascular: Denies: Chest pain, Dyspnea on exertion Endocrine: Denies: Fatigue, Heat or cold intolerance Gastrointestinal: Reports: Nausea. Denies: Abdominal pain, Vomiting Genitourinary: Denies: Incontinence, Retention Musculoskeletal: Denies: Arthralgia, Back pain Skin: Denies: Bruising, Change in color Neurological: Reports: Headache. Denies: Abnormal gait, Confusion, Numbness, Tingling Psychiatric: Denies: Anxiety Hematological/Lymphatic: Denies: Anemia, Blood Clots Past Medical History - SOCIAL HISTORY Smoking Status: Never smoker Drug Use: None - RESPIRATORY Hx Respiratory Disorders: Yes Hx Asthma: Yes Hx Pulmonary Embolism: Yes (05/18) Hx Sleep Apnea: Yes Hx of CPAP: Yes - CARDIOVASCULAR Hx Cardio Disorders: Yes Hx Hypertension: Yes ("pretty much went away since the gastric surgery") - NEURO Hx Neuro Disorders: Yes Hx Headaches: Yes (migraines) - GI Hx GI Disorders: Yes Comment:: gastric sleeve - Hx Genitourinary Disorders: Yes Hx Kidney Stones: Yes - ENDOCRINE Hx Endocrine Disorders: Yes Hx Diabetes: Yes (type II) Hx Thyroid Disease: No - MUSCULOSKELETAL Hx Musculoskeletal Disorders: Yes Comment:: djd - PSYCH Hx Psych Problems: No - HEMATOLOGY/ONCOLOGY Hx Hematology/Oncology Disorders: No Family Medical History Hx Cancer: Grandparents Hx Diabetes: Father, Grandparents Hx Heart Disease: Grandparents Hx HTN: Mother Hx Kidney Disease: Father *Kidney Comment: stones Hx Stroke: Grandparents Physical Exam - General General Appearance: Alert, Oriented x3, Cooperative, Mild distress Limitations: No limitations - Head Head exam: Atraumatic, Normocephalic, Normal inspection Head exam detail: negative: Abrasion, Contusion, Frazier's sign, General tenderness, Hematoma, Laceration - Eye Eye exam: Normal appearance. negative: Conjunctival injection, Periorbital swelling, Periorbital tenderness, Scleral icterus - ENT Ear exam: negative: Auricular hematoma, Auricular trauma Nasal Exam: negative: Active bleeding, Discharge, Dried blood, Foreign body Mouth exam: negative: Drooling, Laceration, Muffled voice, Tongue elevation - Neck Neck exam: Normal inspection. negative: Meningismus, Tenderness - Respiratory Respiratory exam: Normal lung sounds bilaterally. negative: Respiratory distress, Rhonchi, Stridor, Wheezes - Cardiovascular Cardiovascular Exam: Regular rate, Normal rhythm, Normal heart sounds - GI/Abdominal GI/Abdominal exam: Soft. negative: Distended, Rebound, Rigid, Tenderness - Rectal Rectal exam: Deferred - exam: Deferred - Extremities Extremities exam: Normal inspection. negative: Calf tenderness, Pedal edema, Tenderness - Back Back exam: Denies: CVA tenderness (R), CVA tenderness (L) - Neurological Neurological exam: Alert, Normal gait, Oriented X3 - Psychiatric Psychiatric exam: Normal affect, Normal mood - Skin Skin exam: Normal color. negative: Abrasion Type of lesion: negative: abrasion Course - Reevaluation(s) Reevaluation #1: 09/13/18 18:51 Patient was reassessed and reports improvement in her headache symptoms, appears stable for discharge at this time. Disposition Disposition: Discharge Clinical Impression: Headache Qualifiers: Headache type: unspecified Headache chronicity pattern: acute headache Intractability: not intractable Qualified Code(s): R51 - Headache Disposition: Home, Self-Care Condition: (2) Stable Instructions: Acute Headache (ED) Additional Instructions: Return to ED if your symptoms worsen or if you have any concerns. Follow-up with your family doctor in 3-5 days as directed. Forms: Patient Portal Access Time of Disposition: 18:28 Quality - Quality Measures Quality Measures: N/A, Headache (All Ages) - Headache: Neuroimaging Quality Measure: Measure #419: Overuse of Neuroimaging ICD10 Codes Entered: Yes Neurological Exam: Patient had a normal neurological exam. [G9535] Headache: Use of Neuroimaging: < CTA, CT, MRA or MRI was NOT ordered > [G9534] - Blood Pressure Screening Does Patient Have Any of the Following: No Blood Pressure Classification: Hypertensive Reading Systolic Measurement: 136 Diastolic Measurement: 98 Screening for High Blood Pressure: < Second Hypertensive BP, F/U Documented > [ G8950] Second Hypertensive Follow-up Interventions: Referral to alternative/primary care provider.
== END 2018-09-13 18:53 | disposition home or self-care (01) ==
LOC: ER 18:11
DX: R51 Headache (principal)
CPT/HCPCS: 99283 ×2; 96372; J2300; J2550

== ENCOUNTER 2018-09-14 22:21 | Observation (INO) | payer BC ==
[2018-09-14 22:40] LABS: BASO % 0.6 % (0-6); GRAN % 63.6 % (47-80); HEMATOCRIT 41.7 % (35.0-47.0); HEMOGLOBIN 13.2 gm/dl (11.6-16.0); LYMPH % 26.7 % (16-45); MEAN CELL VOLUME 84.2 fl (81-97); MEAN CORPUSCULAR HEMOGLOBIN 26.7 pg (27-33); MEAN CORPUSCULAR HGB CONC 31.7 g/dl (32-36); MONO % 8.1 % (0-9); PLATELET COUNT 520 K/uL (130-400); RED BLOOD COUNT 4.95 M/uL (3.80-5.40); RED CELL DISTRIBUTION WIDTH 13.7 % (11.5-14.5); WHITE BLOOD COUNT W/O DIFF 12.4 K/uL (4.2-12.2)
[2018-09-14 22:52] LABS: BLOOD UREA NITROGEN 11 mg/dL (6-20); CREATININE 0.7 mg/dL (0.5-0.9); EST GLOMERULAR FILTRATION RATE > 60 mL/min
[2018-09-14 22:53] LABS: TOTAL PROTEIN 7.8 g/dL (6.6-8.7)
[2018-09-14 22:55] LABS: GLUCOSE,RANDOM 136 mg/dL (74-109)
--- NOTE | 2018-09-14 22:55 | Emergency Department Record ---
History of Present Illness - General Chief Complaint: Chest Pain Stated Complaint: CHEST PAIN Time Seen by Provider: 09/14/18 22:23 Source: Patient Mode of Arrival: Ambulatory Limitations: No limitations - History of Present Illness Initial Comments: 33 yo female presents to ED for evaluation of chest pain symptoms to the anterior aspect of the chest that began 6-7 hours ago. Patient describes her pain as "a separation of my diaphragm from my anterior ribs", reports "it feels just like my first PE". Patient reports a history of PE x 2, currently taking Eliquis. Patient denies fevers, chills, cough, or worsening of her symptoms with exertion. Patient denies previous cardiac disease. MD Complaint: Chest pain Onset/Timin -: Hour(s) Onset: During rest Pain Location: Left chest, Right chest Pain Radiation: Back Severity: Moderate Severity scale (1-10): 8 Quality: Sharp Consistency: Constant, Getting worse Improves With: Nothing Worsens With: Inspiration Treatments Prior to Arrival: None - Related Data On Oral Contraceptives: No Previous Rx's Medication Instructions Recorded Apixaban [Eliquis] 10 mg PO BID 30 Days tablet 02/13/18 Allergies Allergy/AdvReac Type Severity Reaction Status Date / Time sumatriptan [From Imitrex] Allergy ANAPHYLAXIS Verified 08/12/18 13:09 sumatriptan succinate Allergy ANAPHYLAXIS Verified 08/12/18 13:09 [From Imitrex] chlorpromazine AdvReac HYPERSENSIT Verified 08/12/18 13:09 [From Thorazine] IVITY erythromycin base AdvReac VOMITING Verified 08/12/18 13:09 [Erythromycin Base] nortriptyline [From Pamelor] AdvReac TACHYCARDIA Verified 08/12/18 13:09 Travel Screening - Travel/Exposure Within Last 30 Days Have you traveled within the last 30 days?: No - Travel Symptoms Symptom Screening: None Review of Systems Constitutional: Denies: Chills, Fever, Malaise, Night sweats Eyes: Denies: Eye discharge, Eye pain ENT: Denies: Congestion, Ear pain, Epistaxis Respiratory: Denies: Cough, Dyspnea Cardiovascular: Reports: Chest pain. Denies: Dyspnea on exertion, Edema, Palpitations Endocrine: Denies: Fatigue, Heat or cold intolerance Gastrointestinal: Denies: Abdominal pain, Nausea, Vomiting Genitourinary: Denies: Incontinence, Retention Musculoskeletal: Denies: Arthralgia, Back pain Skin: Denies: Bruising, Change in color Neurological: Denies: Abnormal gait, Confusion, Headache, Seizure Psychiatric: Denies: Anxiety Hematological/Lymphatic: Reports: Blood Clots, Easy bleeding, Easy bruising. Denies: Anemia Past Medical History - SOCIAL HISTORY Smoking Status: Never smoker Alcohol Use: None Drug Use: None - RESPIRATORY Hx Respiratory Disorders: Yes Hx Asthma: Yes Hx Pulmonary Embolism: Yes (05/18) Hx Sleep Apnea: Yes Hx of CPAP: Yes - CARDIOVASCULAR Hx Cardio Disorders: Yes Hx Hypertension: Yes ("pretty much went away since the gastric surgery") - NEURO Hx Neuro Disorders: Yes Hx Headaches: Yes (migraines) - GI Hx GI Disorders: Yes Comment:: gastric sleeve - Hx Genitourinary Disorders: Yes Hx Kidney Stones: Yes - ENDOCRINE Hx Endocrine Disorders: Yes Hx Diabetes: Yes (type II) Hx Thyroid Disease: No - MUSCULOSKELETAL Hx Musculoskeletal Disorders: Yes Comment:: djd - PSYCH Hx Psych Problems: No - HEMATOLOGY/ONCOLOGY Hx Hematology/Oncology Disorders: No Family Medical History Any Significant Family History?: Yes Hx Cancer: Grandparents Hx Diabetes: Father, Grandparents Hx Heart Disease: Grandparents Hx HTN: Mother Hx Kidney Disease: Father *Kidney Comment: stones Hx Stroke: Grandparents Physical Exam - General General Appearance: Alert, Oriented x3, Cooperative, No acute distress Limitations: No limitations - Head Head exam: Atraumatic, Normocephalic, Normal inspection Head exam detail: negative: Abrasion, Contusion, Frazier's sign, General tenderness, Hematoma, Laceration - Eye Eye exam: Normal appearance. negative: Conjunctival injection, Periorbital swelling, Periorbital tenderness - ENT Ear exam: negative: Auricular hematoma, Auricular trauma Nasal Exam: negative: Active bleeding, Discharge, Dried blood, Foreign body Mouth exam: negative: Drooling, Laceration, Muffled voice, Tongue elevation - Neck Neck exam: Normal inspection. negative: Meningismus, Tenderness - Respiratory Respiratory exam: Normal lung sounds bilaterally. negative: Rales, Respiratory distress, Rhonchi, Stridor - Cardiovascular Cardiovascular Exam: Regular rate, Normal rhythm, Normal heart sounds - GI/Abdominal GI/Abdominal exam: Soft. negative: Rebound, Rigid, Tenderness - Rectal Rectal exam: Deferred - exam: Deferred - Extremities Extremities exam: Normal inspection. negative: Pedal edema, Tenderness - Back Back exam: Denies: CVA tenderness (R), CVA tenderness (L) - Neurological Neurological exam: Alert, Normal gait, Oriented X3 - Psychiatric Psychiatric exam: Flat affect - Skin Skin exam: Normal color. negative: Abrasion Type of lesion: negative: abrasion Course Vital Signs 09/14/18 09/14/18 22:23 22:29 Temperature 98.6 F Pulse Rate 100 H Pulse Rate [ 93 H Pulse Ox Probe] Respiratory 24 20 Rate Blood Pressure 143/104 Pulse Ox 100 100 - Reevaluation(s) Reevaluation #1: 09/14/18 22:54 EKG: NSR 96 Normal axis, normal intervals T wave inversions III 09/14/18 23:19 Laboratory studies were reviewed: AST 124 ALT 51 WBC 12.4. Labs are otherwise grossly unremarkable for an acute process. CTA results are pending. Reevaluation #2: 09/15/18 00:08 Virtual radiology is currently down 1+ hours, unknown downtime. Will admit for evaluation until CT imaging can be read by radiology. Patient agrees with the plan of care as discussed. Reevaluation #3: 09/15/18 07:03 CTA Chest: Negative for PE Case was discussed with Sara King, will accept admission for observation pending CTA read (now completed) and repeat Troponin this morning. Medical Decision Making - Lab Data Result diagrams: 09/14/18 22:35 09/14/18 22:35 Lab Results 09/14/18 09/14/18 09/14/18 Range/Units 22:26 22:35 22:35 WBC 12.4 H (4.2-12.2) K/uL RBC 4.95 (3.80-5.40) M/uL Hgb 13.2 (11.6-16.0) gm/dl Hct 41.7 (35.0-47.0) % MCV 84.2 (81-97) fl MCH 26.7 L (27-33) pg MCHC 31.7 L (32-36) g/dl RDW 13.7 (11.5-14.5) % Plt Count 520 H (130-400) K/uL MPV 10.0 (7.4-10.4) fl Gran % 63.6 (47-80) % Lymphocytes % 26.7 (16-45) % Monocytes % 8.1 (0-9) % Eosinophils % 1.0 (0-6) % Basophils % 0.6 (0-6) % D-Dimer Cancelled Sodium 141 (136-145) mmol/L Potassium 3.4 (3.4-4.5) mmol/L Chloride 100 (98-107) mmol/L Carbon Dioxide 26.0 (22-29) mmol/L Anion Gap 15.0 (7-16) BUN 11 (6-20) mg/dL Creatinine 0.7 (0.5-0.9) mg/dL Estimated GFR > 60 mL/min Calcium 9.5 (8.6-10.0) mg/dL Total Bilirubin 0.70 (0.2-1.0) mg/dL Total Protein 7.8 (6.6-8.7) g/dL Disposition Disposition: Admit Clinical Impression: Chest pain Qualifiers: Chest pain type: unspecified Qualified Code(s): R07.9 - Chest pain, unspecified Disposition: Still a Patient at [facility] Decision to Admit: Admit from ER Decision to Admit Date: 09/15/18 Decision to Admit Time: 00:09 Condition: (2) Stable Time of Disposition: 00:09 Quality - Quality Measures Quality Measures: N/A - Blood Pressure Screening Does Patient Have Any of the Following: No Blood Pressure Classification: Pre-Hypertensive BP Reading Systolic Measurement: 127 Diastolic Measurement: 81 Screening for High Blood Pressure: < Pre-Hypertensive BP, F/U Documented > [ G8950] Pre-Hypertensive Follow-up Interventions: Referral to alternative/primary care provider.
[2018-09-14 22:57] LABS: ALB/GLOB RATIO 1.5 (1.1-1.8); ALBUMIN 4.7 g/dL (4.0-5.0); ALKALINE PHOSPHATASE 97 U/L (35-104); ALT/SGPT 51 U/L (<33); AST/SGOT 124 U/L (10.0-35.0)
[2018-09-15] MEDS ORDERED: ONDANSETRON 4 MG ODT TABLET SL PRN (01:00)
[2018-09-15] MEDS: ACETAMINOPHEN 500 MG TABLET PO PRN ×2 (01:19→08:52)
[2018-09-15] MEDS ORDERED: CLONAZEPAM 1MG TABLET PO ONE (01:22)
[2018-09-15] MEDS ORDERED: CYCLOBENZAPRINE 10MG TABLET PO ONE (01:25)
--- NOTE | 2018-09-15 08:47 | History & Physical ---
History of Present Illness - Date of Service Date of Service for History & Physical: 09/15/18 - History of Present Illness Admitting Diagnosis: Chest pain History of Present Illness: Ms. Atkinson is a 33 yo female who presented to ED for evaluation of chest pain symptoms to the anterior aspect of the chest that began the evening of 09/14. Patient describes her pain as "a separation of my diaphragm from my anterior ribs", reports "it feels just like my first PE". 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 Patient denied fevers, chills, cough, or worsening of her symptoms with exertion. Patient denied previous cardiac disease. Other history includes gastric sleeve, , renal calculi, bipolar, anxiety, depression, and migraines. In the ED, her vitals were stable. EKG demonstrated NSR. Labs were unremarkable, except for AST 124, ALT 51. CTA was performed, however, virtual radiology was down- so pt was admitted for observation and serial troponins, pending CTA result to r/o PE. 09/15/18 0900: Per nursing, pt woke up this morning with pain 8/10, location unchanged. Final CTA report was negative for PE. Second troponin was negative. VS remain stable. Will plan to continue pain management, tylenol 500mg q6h, dilaudid 1mg q2h for severe pain. Travel Screening - Travel/Exposure Within Last 30 Days Have you traveled within the last 30 days?: No - Travel/Exposure Within Last Year Have you traveled outside the [place] in the last year?: No - Additonal Travel Details Have you been exposed to anyone with a communicable illness?: No - Travel Symptoms Symptom Screening: None Review of Systems Constitutional: Denies: Chills, Fever, Malaise, Night sweats Eyes: Denies: Eye discharge, Eye pain ENT: Denies: Congestion, Ear pain, Epistaxis Respiratory: Denies: Cough, Dyspnea Cardiovascular: Reports: Chest pain. Denies: Dyspnea on exertion, Edema, Palpitations Endocrine: Denies: Fatigue, Heat or cold intolerance Gastrointestinal: Denies: Abdominal pain, Nausea, Vomiting Genitourinary: Denies: Incontinence, Retention Musculoskeletal: Denies: Arthralgia, Back pain Skin: Denies: Bruising, Change in color Neurological: Denies: Abnormal gait, Confusion, Headache, Seizure Psychiatric: Denies: Anxiety Hematological/Lymphatic: Reports: Blood Clots, Easy bleeding, Easy bruising. Denies: Anemia Past Medical History - SOCIAL HISTORY Smoking Status: Never smoker Alcohol Use: None Drug Use: None - RESPIRATORY Hx Respiratory Disorders: Yes Hx Asthma: Yes Hx Pulmonary Embolism: Yes (05/18) Hx Sleep Apnea: Yes Hx of CPAP: Yes - CARDIOVASCULAR Hx Cardio Disorders: Yes Hx Hypertension: Yes ("pretty much went away since the gastric surgery") - NEURO Hx Neuro Disorders: Yes Hx Headaches: Yes (migraines) - GI Hx GI Disorders: Yes Comment:: gastric sleeve - Hx Genitourinary Disorders: Yes Hx Kidney Stones: Yes - ENDOCRINE Hx Endocrine Disorders: Yes Hx Diabetes: Yes (type II) Hx Thyroid Disease: No - MUSCULOSKELETAL Hx Musculoskeletal Disorders: Yes Comment:: djd - PSYCH Hx Psych Problems: No - HEMATOLOGY/ONCOLOGY Hx Hematology/Oncology Disorders: No Family Medical History Any Significant Family History?: Yes Hx Cancer: Grandparents Hx Diabetes: Father, Grandparents Hx Heart Disease: Grandparents Hx HTN: Mother Hx Kidney Disease: Father *Kidney Comment: stones Hx Stroke: Grandparents H&P Meds/Allergies - Allergies Allergies: Allergies Allergy/AdvReac Type Severity Reaction Status Date / Time sumatriptan [From Imitrex] Allergy ANAPHYLAXIS Verified 08/12/18 13:09 sumatriptan succinate Allergy ANAPHYLAXIS Verified 08/12/18 13:09 [From Imitrex] chlorpromazine AdvReac HYPERSENSIT Verified 08/12/18 13:09 [From Thorazine] IVITY erythromycin base AdvReac VOMITING Verified 08/12/18 13:09 [Erythromycin Base] nortriptyline [From Pamelor] AdvReac TACHYCARDIA Verified 08/12/18 13:09 - Home Medications Previous Rx's Medication Instructions Recorded Apixaban [Eliquis] 10 mg PO BID 30 Days tablet 02/13/18 - Active Medications Active Medications: Current Medications Acetaminophen (Tylenol 500mg Tab) 1,000 mg PO Q6H PRN PRN Reason: PAIN - MILD TO MODERATE (1-7) Last Admin: 09/15/18 01:19 Dose: 1,000 mg Apixaban (Eliquis) 10 mg PO BID ALEXIA Clonazepam (Klonopin) 2 mg PO QHS ALEXIA Lamotrigine (Lamictal) 150 mg PO DAILY ALEXIA Non-Formulary Medication (Tizanidine Hcl [Zanaflex]) 8 mg PO QHS [facility] Non-Formulary Medication (Zonisamide [Zonisamide]) 200 mg PO QHS [facility] Olanzapine (Zyprexa) 10 mg PO QHS [facility] Ondansetron HCl (Zofran Odt) 8 mg SL TID PRN PRN Reason: NAUSEA Venlafaxine HCl (Effexor Xr) 150 mg PO QAM [facility] Physical Exam - Vital Signs Vital Signs: Vital Signs - Last 24 Hrs Temp Pulse Pulse Pulse Resp BP BP 09/15/18 07:20 97.9 F 87 16 09/15/18 01:00 84 18 09/15/18 00:35 97.7 F 85 18 09/15/18 00:27 84 18 127/81 09/14/18 23:29 86 18 128/78 09/14/18 22:29 93 H 20 09/14/18 22:23 98.6 F 100 H 24 143/104 BP Pulse Ox 09/15/18 07:20 122/79 99 09/15/18 01:00 09/15/18 00:35 130/86 97 09/15/18 00:27 97 09/14/18 23:29 98 09/14/18 22:29 100 09/14/18 22:23 100 - General General Appearance: Alert, Oriented x3, Cooperative, No acute distress Limitations: No limitations - Head Head exam: Atraumatic, Normocephalic, Normal inspection Head exam detail: negative: Abrasion, Contusion, Frazier's sign, General tenderness, Hematoma, Laceration - Eye Eye exam: Normal appearance. negative: Conjunctival injection, Periorbital swelling, Periorbital tenderness - ENT Ear exam: negative: Auricular hematoma, Auricular trauma Nasal Exam: negative: Active bleeding, Discharge, Dried blood, Foreign body Mouth exam: negative: Drooling, Laceration, Muffled voice, Tongue elevation - Neck Neck exam: Normal inspection. negative: Meningismus, Tenderness - Respiratory Respiratory exam: Normal lung sounds bilaterally. negative: Rales, Respiratory distress, Rhonchi, Stridor - Cardiovascular Cardiovascular Exam: Regular rate, Normal rhythm, Normal heart sounds - GI/Abdominal GI/Abdominal exam: Soft. negative: Rebound, Rigid, Tenderness - Rectal Rectal exam: Deferred - exam: Deferred - Extremities Extremities exam: Normal inspection. negative: Pedal edema, Tenderness - Back Back exam: Denies: CVA tenderness (R), CVA tenderness (L) - Neurological Neurological exam: Alert, Normal gait, Oriented X3 - Psychiatric Psychiatric exam: Flat affect - Skin Skin exam: Normal color. negative: Abrasion Type of lesion: negative: abrasion Results - Labs Result Diagrams: 09/14/18 22:35 09/14/18 22:35 Labs Last 24 Hours: Laboratory Results - last 24 hr 09/14/18 09/14/18 09/14/18 22:26 22:35 22:35 WBC 12.4 H RBC 4.95 Hgb 13.2 Hct 41.7 MCV 84.2 MCH 26.7 L MCHC 31.7 L RDW 13.7 Plt Count 520 H MPV 10.0 Gran % 63.6 Lymphocytes % 26.7 Monocytes % 8.1 Eosinophils % 1.0 Basophils % 0.6 D-Dimer Cancelled Sodium 141 Potassium 3.4 Chloride 100 Carbon Dioxide 26.0 Anion Gap 15.0 BUN 11 Creatinine 0.7 Estimated GFR > 60 Random Glucose 136 H Calcium 9.5 Total Bilirubin 0.70 AST 124 H ALT 51 H Alkaline Phosphatase 97 Troponin T < 0.010 Total Protein 7.8 Albumin 4.7 Globulin 3.1 Albumin/Globulin Ratio 1.5 09/15/18 07:15 WBC RBC Hgb Hct MCV MCH MCHC RDW Plt Count MPV Gran % Lymphocytes % Monocytes % Eosinophils % Basophils % D-Dimer Sodium Potassium Chloride Carbon Dioxide Anion Gap BUN Creatinine Estimated GFR Random Glucose Calcium Total Bilirubin AST ALT Alkaline Phosphatase Troponin T < 0.010 Total Protein Albumin Globulin Albumin/Globulin Ratio VTE H&P Assessment - Risk for VTE Risk for VTE: Yes Risk Level: Moderate Risk Assessment Date: 09/15/18 Risk Assessment Time: 08:46 VTE Orders Placed or Will Be Placed: No VTE Reason for No Prophylaxis: Not Indicated (Pt. is currently on Eliquis) Plan - Detailed Diagnosis and Plan (1) Chest pain Current Visit: Yes Status: Acute Qualifiers: Chest pain type: unspecified Qualified Code(s): R07.9 - Chest pain, unspecified Base Code: R07.9 - CHEST PAIN, UNSPECIFIED Comment: 09/15/18: -CTA negative for PE -Serial tropinins negative so far, 3rd ordered for 1500. -NSR on tele (2) DVT prophylaxis Current Visit: No Status: Acute Base Code: [id number] - Comment: 09/15/18- patient currently receiving treatment for VTE with anticoagulation (Eliquis) (3) Full code status Current Visit: No Status: Acute Base Code: Z78.9 - OTHER SPECIFIED HEALTH STATUS Comment: 09/15/18- patient is full code
[2018-09-15] MEDS: HYDROMORPHONE HCL 2 MG/ML VIAL IVP PRN ×2 (09:51→13:27)
[2018-09-15] MEDS ORDERED: VENLAFAXINE ER 37.5 MG CAPSULE PO SCH (10:00)
[2018-09-15] MEDS ORDERED: APIXABAN 5MG TABLET PO SCH (10:00)
[2018-09-15] MEDS ORDERED: LAMOTRIGINE 100 MG TABLET PO SCH (10:00)
--- NOTE | 2018-09-15 10:56 | Discharge Summary ---
Providers Discharge Summary Date: 09/15/18 Date of admission: 09/15/18 00:21 Expected Date of Discharge: 09/15/18 Attending physician: BISHOP MERCADO Primary care physician: Dr. Flores Physical Exam - Vital Signs Vital Signs: Vital Signs - Last 24 Hrs Temp Pulse Pulse Pulse Resp BP BP 09/15/18 07:20 97.9 F 87 16 09/15/18 01:00 84 18 09/15/18 00:35 97.7 F 85 18 09/15/18 00:27 84 18 127/81 09/14/18 23:29 86 18 128/78 09/14/18 22:29 93 H 20 09/14/18 22:23 98.6 F 100 H 24 143/104 BP Pulse Ox 09/15/18 07:20 122/79 99 09/15/18 01:00 09/15/18 00:35 130/86 97 09/15/18 00:27 97 09/14/18 23:29 98 09/14/18 22:29 100 09/14/18 22:23 100 - General General Appearance: Alert, Oriented x3, Cooperative, No acute distress Limitations: No limitations - Head Head exam: Atraumatic, Normocephalic, Normal inspection Head exam detail: negative: Abrasion, Contusion, Frazier's sign, General tenderness, Hematoma, Laceration - Eye Eye exam: Normal appearance. negative: Conjunctival injection, Periorbital swelling, Periorbital tenderness - ENT Ear exam: negative: Auricular hematoma, Auricular trauma Nasal Exam: negative: Active bleeding, Discharge, Dried blood, Foreign body Mouth exam: negative: Drooling, Laceration, Muffled voice, Tongue elevation - Neck Neck exam: Normal inspection. negative: Meningismus, Tenderness - Respiratory Respiratory exam: Normal lung sounds bilaterally. negative: Rales, Respiratory distress, Rhonchi, Stridor - Cardiovascular Cardiovascular Exam: Regular rate, Normal rhythm, Normal heart sounds - GI/Abdominal GI/Abdominal exam: Soft. negative: Rebound, Rigid, Tenderness - Rectal Rectal exam: Deferred - exam: Deferred - Extremities Extremities exam: Normal inspection. negative: Pedal edema, Tenderness - Back Back exam: Denies: CVA tenderness (R), CVA tenderness (L) - Neurological Neurological exam: Alert, Normal gait, Oriented X3 - Psychiatric Psychiatric exam: Flat affect - Skin Skin exam: Normal color. negative: Abrasion Type of lesion: negative: abrasion Hospitalization - Hospitalization Admission Diagnosis: Chest pain - Problem List/Discharge Diagnosis (1) Right upper quadrant pain Current Visit: Yes Status: Acute Base Code: R10.11 - RIGHT UPPER QUADRANT PAIN Comment: 09/15/18: -RUQ abd pain 8/10 -CTA was negative, labs neg or acute process -AST 124, ALT 51 -transfer to [facility] for further eval (2) Chest pain Current Visit: Yes Status: Acute Discharge Diagnosis: Chest pain type: unspecified Qualified Code(s): R07.9 - Chest pain, unspecified Base Code: R07.9 - CHEST PAIN, UNSPECIFIED Comment: 09/15/18: -CTA negative for PE -Serial tropinins negative so far, 3rd ordered for 1500. -NSR on tele (3) DVT prophylaxis Current Visit: No Status: Acute Base Code: [id number] - Comment: 09/15/18- patient currently receiving treatment for VTE with anticoagulation (Eliquis) (4) Full code status Current Visit: No Status: Acute Base Code: Z78.9 - OTHER SPECIFIED HEALTH STATUS Comment: 09/15/18- patient is full code - Disposition Transfer to [facility] for further evaluation of abdominal pain- Dr. Canela to accept admission - Hospitalization Course Disposition: Acute Care Hospital Transfer Hospital Course: Ms. Atkinson is a 33 yo female who presented to ED for evaluation of chest pain symptoms to the anterior aspect of the chest that began the evening of 09/14. Patient describes her pain as "a separation of my diaphragm from my anterior ribs", reports "it feels just like my first PE". 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 Patient denied fevers, chills, cough, or worsening of her symptoms with exertion. Patient denied previous cardiac disease. Other history includes gastric sleeve, , renal calculi, bipolar, anxiety, depression, and migraines. In the ED, her vitals were stable. EKG demonstrated NSR. Labs were unremarkable, except for AST 124, ALT 51. CTA was performed, however, virtual radiology was down- so pt was admitted for observation and serial troponins, pending CTA result to r/o PE. 09/15/18 0900: Per nursing, pt woke up this morning with pain 05/11, location unchanged. Final CTA report was negative for PE. Second troponin was negative. VS remain stable. Will plan to continue pain management, tylenol 500mg q6h, dilaudid 1mg q2h for severe pain. 09/15/18 1030: Due to no ultrasound available at [facility] this weekend to further assess abdominal pain, [facility]. No physical assessment performed by provider on Med/Sug unit during this admission due to transfer for further abdominal pain evaluation. Per ER documentation and nursing assessment- pt is stable for transport. PCP: Dr. 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 .Continuous Abnormal Labs: Abnormal Lab Results 09/14/18 09/14/18 Range/Units 22:35 22:35 WBC 12.4 H (4.2-12.2) K/uL MCH 26.7 L (27-33) pg MCHC 31.7 L (32-36) g/dl Plt Count 520 H (130-400) K/uL Random Glucose 136 H (74-109) mg/dL AST 124 H (10.0-35.0) U/L ALT 51 H (<33) U/L Condition at Discharge: (2) Stable Discharge Diagnosis: Abdominal pain Discharge Medications - Discharge Medications Home Medications: Ambulatory Orders Diphenhydramine HCl [Benadryl] 100 mg SQ Q12H PRN 07/23/14 [Last Taken 09/14/18] Acetazolamide 250 mg PO ASDIR PRN 02/12/17 [Last Taken 09/14/18] Haloperidol 2 mg PO ASDIR PRN 02/12/17 [Last Taken 09/14/18] Benztropine Mesylate 2 mg PO ASDIR PRN 03/12/17 [Last Taken 09/14/18] Lorazepam [Ativan] 2 mg PO ASDIR 03/12/17 [Last Taken 09/14/18] Promethazine HCl [Phenergan] 25 mg PO DAILY PRN 03/12/17 [Last Taken 09/14/18] Tizanidine HCl [Zanaflex] 8 mg PO QHS 03/12/17 [Last Taken 09/14/18] Clonazepam [Klonopin] 2 mg PO QHS 04/28/17 [Last Taken 09/14/18] Ondansetron HCl [Zofran] 8 mg PO TID PRN 04/28/17 [Last Taken 09/14/18] Venlafaxine HCl [Effexor Xr] 150 mg PO QAM 09/20/17 [Last Taken 09/14/18] Lamotrigine [Lamictal] 150 mg PO DAILY 10/27/17 [Last Taken 09/14/18] Olanzapine [Zyprexa] 10 mg PO QHS 12/07/17 [Last Taken 09/14/18] Apixaban [Eliquis] 10 mg PO BID 30 Days tablet 02/13/18 [Last Taken 09/14/18] Zonisamide 200 mg PO QHS 02/13/18 [Last Taken 09/14/18] Erenumab-Aooe [Aimovig Autoinjector] 140 mg SQ MONTHLY 07/09/18 [Last Taken ] Discharge Plan - Discharge Instructions Activity at Discharge: Resume Usual Activities As Tolerated Diet at Discharge: Other (NPO) Quality Measures - Quality Measures Quality Measures: Documentation of Current Medications in Medical Record, Screening for High Blood Pressure and F/U Documented - Current Medications Quality Measure: Measure #130: Documentation of Current Medications Documentation of Current Medications: <Current Medications Documented/Reviewed> [G8427] - Blood Pressure Screening Quality Measure: Screening for High Blood Pressure and Follow-Up Documented Does Patient Have Any of the Following: Active Dx of HTN Blood Pressure Classification: Pre-Hypertensive BP Reading Systolic Measurement: 127 Diastolic Measurement: 81 Screening for High Blood Pressure: Patient Exclusion, Hx of HTN [G9744] - Elder Abuse Suspicion Index EASI Reference Information: Tri GONZALEZ, Omar C, Eduoard D, Adolfo M.Development and validation of a tool to assist physicians identification of elder abuse: The Elder Abuse Suspicion Index (EASI ). Journal of Elder Abuse and Neglect, 2008; 20 (3): 276-300.
[2018-09-15] MEDS ORDERED: ZONISAMIDE 200 MG PO SCH (22:00)
[2018-09-15] MEDS ORDERED: OLANZAPINE 5MG TABLET PO SCH (22:00)
[2018-09-15] MEDS ORDERED: TIZANIDINE HCL 8 MG PO SCH (22:00)
[2018-09-15] MEDS ORDERED: CLONAZEPAM 1MG TABLET PO SCH (22:00)
--- NOTE | 2018-09-17 06:00 | CT ANGIOGRAM REPORT ---
DATE: 09/14/2018 at 2303 hours. EXAM: CT ANGIOGRAM OF THE CHEST WITH POSTPROCESSING. HISTORY: CHEST PAIN AND RIB PAIN RADIATING TO THE BACK FOR THE PAST 6 TO 7 HOURS. TECHNIQUE: Standard CT angiography of the chest was performed with postprocessing following the bolus administration of 90 mL of Omnipaque 350. COMPARISON: 02/21/2018. FINDINGS: The pulmonary arteries are normal. There is no pulmonary embolus. There is no aortic aneurysm or dissection. The heart is normal in size. There is no mediastinal or hilar lymphadenopathy. There is mild dependent atelectasis within the lungs bilaterally. The lungs are otherwise clear. The chest wall and axillary regions are normal. The upper abdomen is unremarkable. There are no acute osseous abnormalities. IMPRESSION: NEGATIVE CT ANGIOGRAM OF THE CHEST. JOB NUMBER: [id number] [facility]
== END 2018-09-15 13:40 | disposition short-term general hospital (02) ==
LOC: ER 22:21 → MEDSURG 09-15 00:21 → UNDOADMOB 09-15 00:21
PROVIDERS: ADMIT Internal Medicine; ATTEND Internal Medicine
DX: R10.11 Right upper quadrant pain (principal); R07.9 Chest pain, unspecified; Z86.711 Personal history of pulmonary embolism; Z79.01 Long term (current) use of anticoagulants; E11.9 Type 2 diabetes mellitus without complications
CPT/HCPCS: 99285 ×2; 85025; 80053; 84484 ×2; 71275; 93005; 93010; G0378; Q9967; J1170; J3490; 99220; 99236

== ENCOUNTER 2018-10-03 19:47 | Emergency (ER) | payer BC ==
[2018-10-03] MEDS ORDERED: NALBUPHINE HCL 20 MG/ML AMPULE IM ONE (19:49)
[2018-10-03] MEDS ORDERED: PROMETHAZINE HCL 25 MG/ML VIAL IM ONE (19:49)
--- NOTE | 2018-10-03 19:56 | Emergency Department Record ---
History of Present Illness - General Stated Complaint: MIGRAINE Time Seen by Provider: 10/03/18 19:49 Source: Patient Mode of Arrival: Ambulatory Limitations: No limitations - History of Present Illness Initial Comments: 33 yo female presents to ED for evaluation of migraine headache symptoms, similar to previous episodes. Patient denies fevers, chills, or neck stiffness symptoms. Patient reports taking her home migraine medications without improvement in her symptoms. Patient reports recent improvement in the frequency in her headache symptoms since beginning Amiovig. Complaint: Headache Onset/Timin -: Hour(s) Onset Description: Gradual Location: Diffuse Severity: Moderate Quality: Throbbing Consistency: Constant Improves With: Nothing Worsens With: None Treatments Prior to Arrival: Migraine medication - Related Data Previous Rx's Medication Instructions Recorded Apixaban [Eliquis] 10 mg PO BID 30 Days tablet 02/13/18 Allergies Allergy/AdvReac Type Severity Reaction Status Date / Time sumatriptan [From Imitrex] Allergy ANAPHYLAXIS Verified 10/03/18 20:03 sumatriptan succinate Allergy ANAPHYLAXIS Verified 10/03/18 20:03 [From Imitrex] chlorpromazine AdvReac HYPERSENSIT Verified 10/03/18 20:03 [From Thorazine] IVITY erythromycin base AdvReac VOMITING Verified 10/03/18 20:03 [Erythromycin Base] nortriptyline [From Pamelor] AdvReac TACHYCARDIA Verified 10/03/18 20:03 Review of Systems Constitutional: Denies: Chills, Fever, Malaise, Night sweats Eyes: Denies: Eye discharge, Eye pain ENT: Denies: Congestion, Ear pain, Epistaxis Respiratory: Denies: Cough, Dyspnea Cardiovascular: Denies: Chest pain, Dyspnea on exertion Endocrine: Denies: Fatigue, Heat or cold intolerance Gastrointestinal: Reports: Nausea. Denies: Abdominal pain, Vomiting Genitourinary: Denies: Incontinence, Retention Musculoskeletal: Denies: Arthralgia, Back pain Skin: Denies: Bruising, Change in color Neurological: Reports: Headache. Denies: Abnormal gait, Confusion, Seizure Psychiatric: Denies: Anxiety Hematological/Lymphatic: Denies: Anemia, Blood Clots Past Medical History - SOCIAL HISTORY Smoking Status: Never smoker Drug Use: None - RESPIRATORY Hx Respiratory Disorders: Yes Hx Asthma: Yes Hx Pulmonary Embolism: Yes (05/18) Hx Sleep Apnea: Yes Hx of CPAP: Yes - CARDIOVASCULAR Hx Cardio Disorders: Yes Hx Hypertension: Yes ("pretty much went away since the gastric surgery") - NEURO Hx Neuro Disorders: Yes Hx Headaches: Yes (migraines) - GI Hx GI Disorders: Yes Comment:: gastric sleeve - Hx Genitourinary Disorders: Yes Hx Kidney Stones: Yes - ENDOCRINE Hx Endocrine Disorders: Yes Hx Diabetes: Yes (type II) Hx Thyroid Disease: No - MUSCULOSKELETAL Hx Musculoskeletal Disorders: Yes Comment:: djd - PSYCH Hx Psych Problems: No - HEMATOLOGY/ONCOLOGY Hx Hematology/Oncology Disorders: No Family Medical History Hx Cancer: Grandparents Hx Diabetes: Father, Grandparents Hx Heart Disease: Grandparents Hx HTN: Mother Hx Kidney Disease: Father *Kidney Comment: stones Hx Stroke: Grandparents Physical Exam - General General Appearance: Alert, Oriented x3, Cooperative, Mild distress Limitations: No limitations - Head Head exam: Atraumatic, Normocephalic, Normal inspection Head exam detail: negative: Abrasion, Contusion, Frazier's sign, General tenderness, Hematoma, Laceration - Eye Eye exam: Normal appearance. negative: Conjunctival injection, Periorbital swelling, Periorbital tenderness, Scleral icterus - ENT Ear exam: negative: Auricular hematoma, Auricular trauma Nasal Exam: negative: Active bleeding, Discharge, Dried blood, Foreign body Mouth exam: negative: Drooling, Laceration, Muffled voice, Tongue elevation - Neck Neck exam: Normal inspection. negative: Meningismus, Tenderness - Respiratory Respiratory exam: Normal lung sounds bilaterally. negative: Rales, Respiratory distress, Rhonchi, Stridor - Cardiovascular Cardiovascular Exam: Regular rate, Normal rhythm, Normal heart sounds - GI/Abdominal GI/Abdominal exam: Soft. negative: Rebound, Rigid, Tenderness - Rectal Rectal exam: Deferred - exam: Deferred - Extremities Extremities exam: Normal inspection. negative: Pedal edema, Tenderness - Back Back exam: Denies: CVA tenderness (R), CVA tenderness (L) - Neurological Neurological exam: Alert, Normal gait, Oriented X3 - Psychiatric Psychiatric exam: Normal affect, Normal mood - Skin Skin exam: Normal color. negative: Abrasion Type of lesion: negative: abrasion Course - Reevaluation(s) Reevaluation #1: 10/03/18 21:08 Patient was reassessed, reports improvement in her headache symptoms. Patient appears stable for discharge at this time. Disposition Disposition: Discharge Clinical Impression: Migraine headache Qualifiers: Migraine type: unspecified Status migrainosus presence: without status migrainosus Intractability: not intractable Qualified Code(s): G43.909 - Migraine, unspecified, not intractable, without status migrainosus Disposition: Home, Self-Care Condition: (2) Stable Instructions: Acute Headache (ED) Additional Instructions: Return to ED if your symptoms worsen or if you have any concerns. Follow-up with your family doctor in 3-5 days as directed. Forms: Patient Portal Access Time of Disposition: 21:09 Quality - Quality Measures Quality Measures: N/A, Headache (All Ages) - Headache: Neuroimaging Quality Measure: Measure #419: Overuse of Neuroimaging ICD10 Codes Entered: Yes Neurological Exam: Patient had a normal neurological exam. [G9535] Headache: Use of Neuroimaging: < CTA, CT, MRA or MRI was NOT ordered > [G9534] - Blood Pressure Screening Does Patient Have Any of the Following: No Blood Pressure Classification: Hypertensive Reading Systolic Measurement: 146 Diastolic Measurement: 95 Screening for High Blood Pressure: < Second Hypertensive BP, F/U Documented > [ G8950] Second Hypertensive Follow-up Interventions: Referral to alternative/primary care provider.
== END 2018-10-03 21:08 | disposition home or self-care (01) ==
LOC: ER 19:47
DX: G43.909 Migraine, unspecified, not intractable, without status migrainosus (principal)
CPT/HCPCS: 99283 ×2; 96372; J2300; J2550

== ENCOUNTER 2018-10-11 19:34 | Emergency (ER) | payer BC ==
[2018-10-11] MEDS ORDERED: NALBUPHINE HCL 20 MG/ML AMPULE IM ONE (19:42)
[2018-10-11] MEDS ORDERED: PROMETHAZINE HCL 25 MG/ML VIAL IM ONE (19:42)
--- NOTE | 2018-10-11 19:43 | Emergency Department Record ---
History of Present Illness - General Stated Complaint: LANGLEY Time Seen by Provider: 10/11/18 19:36 Source: Patient, Family Mode of Arrival: Ambulatory Limitations: No limitations - History of Present Illness Initial Comments: 33 yo female presents with a headache. She has a long history of migraines. She is treated by her PCP and the [facility]. No current fevers or recent illness. This headache is similar to prior patterns. She is light sensitive and nauseated. No fever. No trauma. No new or atypical features. MD Complaint: "Migraine" -: Days(s) (1) Onset Description: Gradual Location: Diffuse Severity: Moderate Quality: Aching, Throbbing Consistency: Constant Improves With: Nothing Worsens With: None Context: Other Associated Symptoms: Nausea, Photophobia Treatments Prior to Arrival: Migraine medication, Prescription analgesic - Related Data Previous Rx's Medication Instructions Recorded Apixaban [Eliquis] 10 mg PO BID 30 Days tablet 02/13/18 Allergies Allergy/AdvReac Type Severity Reaction Status Date / Time sumatriptan [From Imitrex] Allergy ANAPHYLAXIS Verified 10/11/18 19:41 sumatriptan succinate Allergy ANAPHYLAXIS Verified 10/11/18 19:41 [From Imitrex] chlorpromazine AdvReac HYPERSENSIT Verified 10/11/18 19:41 [From Thorazine] IVITY erythromycin base AdvReac VOMITING Verified 10/11/18 19:41 [Erythromycin Base] nortriptyline [From Pamelor] AdvReac TACHYCARDIA Verified 10/11/18 19:41 Review of Systems Constitutional: Denies: Chills, Fever, Malaise, Weakness Eyes: Reports: Photophobia. Denies: Eye discharge, Eye pain, Vision change ENT: Denies: Congestion, Throat pain Respiratory: Denies: Cough, Dyspnea Cardiovascular: Denies: Chest pain, Syncope Endocrine: Denies: Fatigue Gastrointestinal: Reports: Nausea, Vomiting. Denies: Abdominal pain, Diarrhea Genitourinary: Denies: Dyspareunia, Dysuria, Urgency Musculoskeletal: Denies: Arthralgia, Back pain, Myalgia, Neck pain Skin: Denies: Bruising, Change in color, Rash Neurological: Reports: Headache. Denies: Numbness, Vertigo, Weakness Psychiatric: Denies: Anxiety Hematological/Lymphatic: Denies: Easy bleeding, Easy bruising, Swollen glands Past Medical History - SOCIAL HISTORY Smoking Status: Never smoker Drug Use: None - RESPIRATORY Hx Respiratory Disorders: Yes Hx Asthma: Yes Hx Pulmonary Embolism: Yes (05/18) Hx Sleep Apnea: Yes Hx of CPAP: Yes - CARDIOVASCULAR Hx Cardio Disorders: Yes Hx Hypertension: Yes ("pretty much went away since the gastric surgery") - NEURO Hx Neuro Disorders: Yes Hx Headaches: Yes (migraines) - GI Hx GI Disorders: Yes Comment:: gastric sleeve - Hx Genitourinary Disorders: Yes Hx Kidney Stones: Yes - ENDOCRINE Hx Endocrine Disorders: Yes Hx Diabetes: Yes (type II) Hx Thyroid Disease: No - MUSCULOSKELETAL Hx Musculoskeletal Disorders: Yes Comment:: djd - PSYCH Hx Psych Problems: No - HEMATOLOGY/ONCOLOGY Hx Hematology/Oncology Disorders: No Family Medical History Hx Cancer: Grandparents Hx Diabetes: Father, Grandparents Hx Heart Disease: Grandparents Hx HTN: Mother Hx Kidney Disease: Father *Kidney Comment: stones Hx Stroke: Grandparents Physical Exam - General General Appearance: Alert, Oriented x3, Cooperative, No acute distress Limitations: No limitations - Head Head exam: Atraumatic, Normal inspection - Eye Eye exam: Normal appearance, PERRL, EOMI. negative: Conjunctival injection, Nystagmus, Periorbital swelling, Scleral icterus - ENT ENT exam: Normal exam, Mucous membranes moist, Normal orophraynx Ear exam: Normal external inspection Nasal Exam: Normal inspection Mouth exam: Normal external inspection Teeth exam: Normal inspection Throat exam: Normal inspection - Neck Neck exam: Normal inspection, Full ROM. negative: Lymphadenopathy, Tenderness, Thyromegaly - Respiratory Respiratory exam: Normal lung sounds bilaterally. negative: Respiratory distress - Cardiovascular Cardiovascular Exam: Regular rate, Normal rhythm, Normal heart sounds - Neurological Neurological exam: Alert, CN II-XII intact, Normal gait, Oriented X3. negative : Abnormal gait, Altered, Motor sensory deficit - Psychiatric Psychiatric exam: Normal affect, Normal mood - Skin Skin exam: Dry, Intact, Normal color, Warm Course - Reevaluation(s) Reevaluation #1: 10/11/18 20:29 The patient is feeling better and ready for DC She has follow up in the next 2 weeks with the [facility] Disposition Disposition: Discharge Clinical Impression: Migraine Qualifiers: Migraine type: unspecified Status migrainosus presence: without status migrainosus Intractability: not intractable Qualified Code(s): G43.909 - Migraine, unspecified, not intractable, without status migrainosus Disposition: Home, Self-Care Condition: (1) Good Instructions: Migraine Headache (ED) Additional Instructions: Follow up as scheduled with your doctor Return if you have any new concerns or symptoms Time of Disposition: 20:29 Quality - Quality Measures Quality Measures: N/A, Headache (All Ages) - Headache: Neuroimaging Quality Measure: Measure #419: Overuse of Neuroimaging ICD10 Codes Entered: Yes Neurological Exam: Patient had a normal neurological exam. [G9535] Headache: Use of Neuroimaging: < CTA, CT, MRA or MRI was NOT ordered > [G9534] - Blood Pressure Screening Does Patient Have Any of the Following: No Blood Pressure Classification: Pre-Hypertensive BP Reading Systolic Measurement: 129 Diastolic Measurement: 88 Screening for High Blood Pressure: < Pre-Hypertensive BP, F/U Documented > [ G8950] Pre-Hypertensive Follow-up Interventions: Referral to alternative/primary care provider.
== END 2018-10-11 20:37 | disposition home or self-care (01) ==
LOC: ER 19:34
DX: G43.909 Migraine, unspecified, not intractable, without status migrainosus (principal); R11.0 Nausea; H53.149 Visual discomfort, unspecified
CPT/HCPCS: 99283 ×2; 96372; J2300; J2550

== ENCOUNTER 2018-11-04 20:00 | Emergency (ER) | payer BC ==
--- NOTE | 2018-11-04 20:33 | Emergency Department Record ---
History of Present Illness - General Chief Complaint: Headache Migraine Stated Complaint: HEADACHE Time Seen by Provider: 11/04/18 20:25 Source: Patient Mode of Arrival: Ambulatory - History of Present Illness Initial Comments: Patient states she has chronic migraines. The headache currently came on 48 hours ago, is generalized over her head with photophobia and nausea without vomiting. She has taken IM benadryl and Haldol during the day wit no relief. Nubain has helped her in the past. MD Complaint: "Migraine" Onset/Timin -: Days(s) Onset Description: Gradual Location: Diffuse Severity scale (1-10): 8 Quality: Pulsatile, Similar to previous headaches Consistency: Constant Improves With: Nothing Worsens With: Light, Noise, Other Treatments Prior to Arrival: Prescription analgesic, Other Treatment Prior to Arrival Comment:: 100mg im benadryl- 10 am, haldol about 6pm po - Symptoms of Stroke Baseline State: Baseline State - Related Data Previous Rx's Medication Instructions Recorded Apixaban [Eliquis] 10 mg PO BID 30 Days tablet 02/13/18 Allergies Allergy/AdvReac Type Severity Reaction Status Date / Time sumatriptan [From Imitrex] Allergy ANAPHYLAXIS Verified 11/04/18 20:06 sumatriptan succinate Allergy ANAPHYLAXIS Verified 11/04/18 20:06 [From Imitrex] chlorpromazine AdvReac HYPERSENSIT Verified 11/04/18 20:06 [From Thorazine] IVITY erythromycin base AdvReac VOMITING Verified 11/04/18 20:06 [Erythromycin Base] nortriptyline [From Pamelor] AdvReac TACHYCARDIA Verified 11/04/18 20:06 Travel Screening - Travel/Exposure Within Last 30 Days Have you traveled within the last 30 days?: No - Travel/Exposure Within Last Year Have you traveled outside the [place] in the last year?: No - Additonal Travel Details Have you been exposed to anyone with a communicable illness?: No - Travel Symptoms Symptom Screening: None Review of Systems Reviewed: No additional complaints except as noted below Constitutional: Reports: As per HPI. Denies: Chills, Fever, Malaise, Night sweats, Weakness, Weight change Eyes: Reports: As per HPI. Denies: Eye discharge, Eye pain, Photophobia, Vision change ENT: Reports: As per HPI. Denies: Congestion, Dental pain, Ear pain, Epistaxis , Hearing loss, Throat pain Respiratory: Reports: As per HPI. Denies: Cough, Dyspnea, Hemoptysis, Stridor, Wheezes Cardiovascular: Reports: As per HPI. Denies: Arrhythmia, Chest pain, Dyspnea on exertion, Edema, Murmurs, Orthopnea, Palpitations, Paroxysmal nocturnal dyspnea, Rheumatic Fever, Syncope Endocrine: Reports: As per HPI. Denies: Fatigue, Heat or cold intolerance, Polydipsia, Polyuria Gastrointestinal: Reports: As per HPI. Denies: Abdominal pain, Constipation, Diarrhea, Hematemesis, Hematochezia, Melena, Nausea, Vomiting Genitourinary: Reports: As per HPI. Denies: Abnormal menses, Discharge, Dyspareunia, Dysuria, Frequency, Hematuria, Incontinence, Retention, Urgency Musculoskeletal: Reports: As per HPI. Denies: Arthralgia, Back pain, Gout, Joint swelling, Myalgia, Neck pain Skin: Reports: As per HPI. Denies: Bruising, Change in color, Change in hair/ nails, Lesions, Pruritus, Rash Neurological: Reports: As per HPI. Denies: Abnormal gait, Confusion, Headache, Numbness, Paresthesias, Seizure, Tingling, Tremors, Vertigo, Weakness Psychiatric: Reports: As per HPI. Denies: Anxiety, Auditory hallucinations, Depression, Homicidal thoughts, Suicidal thoughts, Visual hallucinations Hematological/Lymphatic: Reports: As per HPI. Denies: Anemia, Blood Clots, Easy bleeding, Easy bruising, Swollen glands Past Medical History - SOCIAL HISTORY Smoking Status: Never smoker Alcohol Use: None Drug Use: None - RESPIRATORY Hx Respiratory Disorders: Yes Hx Asthma: Yes Hx Pulmonary Embolism: Yes (05/18) Hx Sleep Apnea: Yes Hx of CPAP: Yes - CARDIOVASCULAR Hx Cardio Disorders: Yes Hx Hypertension: Yes ("pretty much went away since the gastric surgery") - NEURO Hx Neuro Disorders: Yes Hx Headaches: Yes (migraines) - GI Hx GI Disorders: Yes Comment:: gastric sleeve - Hx Genitourinary Disorders: Yes Hx Kidney Stones: Yes - ENDOCRINE Hx Endocrine Disorders: Yes Hx Diabetes: Yes (type II) Hx Thyroid Disease: No - MUSCULOSKELETAL Hx Musculoskeletal Disorders: Yes Comment:: djd - PSYCH Hx Psych Problems: No Hx Depression: Yes ("I use to have depression") - HEMATOLOGY/ONCOLOGY Hx Hematology/Oncology Disorders: No Family Medical History Any Significant Family History?: No Hx Cancer: Grandparents Hx Diabetes: Father, Grandparents Hx Heart Disease: Grandparents Hx HTN: Mother Hx Kidney Disease: Father *Kidney Comment: stones Hx Stroke: Grandparents Physical Exam - General General Appearance: Alert, Oriented x3, Cooperative, Moderate distress (in dark room) - Head Head exam: Normal inspection - Eye Eye exam: Normal appearance, PERRL, EOMI. negative: Conjunctival injection, Nystagmus Pupils: Normal accommodation - ENT ENT exam: Normal exam, Mucous membranes moist, Normal external ear exam, Normal orophraynx, TM's normal bilaterally. negative: Mucous membranes dry Ear exam: Normal external inspection. negative: External canal tenderness Nasal Exam: Normal inspection. negative: Discharge, Sinus tenderness Mouth exam: Normal external inspection, Tongue normal Teeth exam: Normal inspection. negative: Dental caries Throat exam: Normal inspection. negative: Tonsillar erythema, Tonsillar exudate - Neck Neck exam: Normal inspection, Full ROM. negative: Lymphadenopathy, Meningismus , Tenderness - Respiratory Respiratory exam: Normal lung sounds bilaterally. negative: Respiratory distress - Cardiovascular Cardiovascular Exam: Regular rate, Normal rhythm, Normal heart sounds - GI/Abdominal GI/Abdominal exam: Soft, Normal bowel sounds. negative: Tenderness - Rectal Rectal exam: Deferred - exam: Deferred - Extremities Extremities exam: Normal inspection, Full ROM, Normal capillary refill. negative: Calf tenderness, Pedal edema, Tenderness - Back Back exam: Reports: Normal inspection, Full ROM. Denies: Muscle spasm, Rash noted, Tenderness - Neurological Neurological exam: Alert, CN II-XII intact, Normal gait, Oriented X3, Reflexes normal. negative: Motor sensory deficit - Psychiatric Psychiatric exam: Normal affect, Normal mood - Skin Skin exam: Dry, Intact, Normal color, Warm Course Vital Signs 11/04/18 20:05 Temperature 99.6 F Pulse Rate [ 124 H Pulse Ox Probe] Respiratory 20 Rate Blood Pressure 132/96 [Left Arm] Pulse Ox 98 - Reevaluation(s) Reevaluation #1: 11/04/18 21:04 Patient is ready for DC. Will go home to bed. Disposition Disposition: Discharge Clinical Impression: Migraine Qualifiers: Migraine type: without aura Status migrainosus presence: without status migrainosus Intractability: not intractable Qualified Code(s): G43.009 - Migraine without aura, not intractable, without status migrainosus Condition: (1) Good Instructions: Migraine Headache (ED) Additional Instructions: Home with your ride. Do not drive. Follow up with PCP as needed. Forms: Patient Portal Access Quality - Quality Measures Quality Measures: Headache (All Ages) - Headache: Neuroimaging Quality Measure: Measure #419: Overuse of Neuroimaging ICD10 Codes Entered: Yes Neurological Exam: Patient had a normal neurological exam. [G9535] Headache: Use of Neuroimaging: < CTA, CT, MRA or MRI was NOT ordered > [G9534] - Blood Pressure Screening Does Patient Have Any of the Following: No Blood Pressure Classification: Hypertensive Reading Systolic Measurement: 132 Diastolic Measurement: 96 Screening for High Blood Pressure: < Pre-Hypertensive BP, F/U Documented > [ G8950] Pre-Hypertensive Follow-up Interventions: Follow-up with rescreen every year.
[2018-11-04] MEDS ORDERED: PROMETHAZINE HCL 25 MG/ML VIAL IM ONE (20:34)
[2018-11-04] MEDS ORDERED: NALBUPHINE HCL 20 MG/ML AMPULE IM ONE (20:34)
== END 2018-11-04 21:10 | disposition home or self-care (01) ==
LOC: ER 20:00
DX: G43.009 Migraine without aura, not intractable, without status migrainosus (principal); R11.0 Nausea; H53.149 Visual discomfort, unspecified
CPT/HCPCS: 96372; 99283; J2550

== ENCOUNTER 2018-11-19 17:19 | Emergency (ER) | payer BC ==
--- NOTE | 2018-11-19 17:48 | Emergency Department Record ---
History of Present Illness - General Chief Complaint: Headache Migraine Stated Complaint: MIGRAINE Time Seen by Provider: 11/19/18 17:35 Source: Patient, RN notes reviewed Mode of Arrival: Ambulatory - History of Present Illness Initial Comments: ede's typical headache and she goes to the [facility] and they authorized two nubain shots per month. MD Complaint: "Migraine" Onset/Timin -: Week(s) Location: Diffuse Severity scale (1-10): 8 Quality: Throbbing Consistency: Constant Improves With: Nothing Worsens With: Light Associated Symptoms: Nausea Treatment Prior to Arrival Comment:: Benadryl 100 mg IM at 0900, 1300 Haldol, Zofran, dihydroergotamine IM - Related Data Home Medications Medication Instructions Recorded Confirmed Last Taken Dihydroergotamine Mesylate 1 mg IJ ASDIR 11/19/18 11/19/18 11/19/18 [D.[id number]] Previous Rx's Medication Instructions Recorded Apixaban [Eliquis] 10 mg PO BID 30 Days tablet 02/13/18 Allergies Allergy/AdvReac Type Severity Reaction Status Date / Time sumatriptan [From Imitrex] Allergy ANAPHYLAXIS Verified 11/19/18 17:29 sumatriptan succinate Allergy ANAPHYLAXIS Verified 11/19/18 17:29 [From Imitrex] chlorpromazine AdvReac HYPERSENSIT Verified 11/19/18 17:29 [From Thorazine] IVITY erythromycin base AdvReac VOMITING Verified 11/19/18 17:29 [Erythromycin Base] nortriptyline [From Pamelor] AdvReac TACHYCARDIA Verified 11/19/18 17:29 Travel Screening - Travel/Exposure Within Last 30 Days Have you traveled within the last 30 days?: No Review of Systems Reviewed: No additional complaints except as noted below Constitutional: Reports: As per HPI. Denies: Chills, Fever, Malaise, Night sweats, Weakness, Weight change Eyes: Reports: As per HPI. Denies: Eye discharge, Eye pain, Photophobia, Vision change ENT: Reports: As per HPI. Denies: Congestion, Dental pain, Ear pain, Epistaxis , Hearing loss, Throat pain Respiratory: Reports: As per HPI. Denies: Cough, Dyspnea, Hemoptysis, Stridor, Wheezes Cardiovascular: Reports: As per HPI. Denies: Arrhythmia, Chest pain, Dyspnea on exertion, Edema, Murmurs, Orthopnea, Palpitations, Paroxysmal nocturnal dyspnea, Rheumatic Fever, Syncope Endocrine: Reports: As per HPI. Denies: Fatigue, Heat or cold intolerance, Polydipsia, Polyuria Gastrointestinal: Reports: As per HPI. Denies: Abdominal pain, Constipation, Diarrhea, Hematemesis, Hematochezia, Melena, Nausea, Vomiting Genitourinary: Reports: As per HPI. Denies: Abnormal menses, Discharge, Dyspareunia, Dysuria, Frequency, Hematuria, Incontinence, Retention, Urgency Musculoskeletal: Reports: As per HPI. Denies: Arthralgia, Back pain, Gout, Joint swelling, Myalgia, Neck pain Skin: Reports: As per HPI. Denies: Bruising, Change in color, Change in hair/ nails, Lesions, Pruritus, Rash Neurological: Reports: As per HPI. Denies: Abnormal gait, Confusion, Headache, Numbness, Paresthesias, Seizure, Tingling, Tremors, Vertigo, Weakness Psychiatric: Reports: As per HPI. Denies: Anxiety, Auditory hallucinations, Depression, Homicidal thoughts, Suicidal thoughts, Visual hallucinations Hematological/Lymphatic: Reports: As per HPI. Denies: Anemia, Blood Clots, Easy bleeding, Easy bruising, Swollen glands Past Medical History - SOCIAL HISTORY Smoking Status: Never smoker Alcohol Use: None Drug Use: None - RESPIRATORY Hx Respiratory Disorders: Yes Hx Asthma: Yes Hx Pulmonary Embolism: Yes (05/18) Hx Sleep Apnea: Yes Hx of CPAP: Yes - CARDIOVASCULAR Hx Cardio Disorders: Yes Hx Hypertension: Yes ("pretty much went away since the gastric surgery") - NEURO Hx Neuro Disorders: Yes Hx Headaches: Yes (migraines) - GI Hx GI Disorders: Yes Comment:: gastric sleeve - Hx Genitourinary Disorders: Yes Hx Kidney Stones: Yes - ENDOCRINE Hx Endocrine Disorders: Yes Hx Diabetes: Yes (type II) Hx Thyroid Disease: No - MUSCULOSKELETAL Hx Musculoskeletal Disorders: Yes Comment:: djd - PSYCH Hx Psych Problems: No Hx Depression: Yes ("I use to have depression") - HEMATOLOGY/ONCOLOGY Hx Hematology/Oncology Disorders: No Family Medical History Any Significant Family History?: Yes Hx Cancer: Grandparents Hx Diabetes: Father, Grandparents Hx Heart Disease: Grandparents Hx HTN: Mother Hx Kidney Disease: Father *Kidney Comment: stones Hx Stroke: Grandparents Physical Exam - General General Appearance: Alert, Oriented x3, Cooperative, No acute distress - Head Head exam: Normal inspection - Eye Eye exam: Normal appearance, PERRL Pupils: Normal accommodation - ENT ENT exam: Normal exam, Mucous membranes moist, Normal external ear exam, Normal orophraynx, TM's normal bilaterally Ear exam: Normal external inspection. negative: External canal tenderness Nasal Exam: Normal inspection. negative: Discharge, Sinus tenderness Mouth exam: Normal external inspection, Tongue normal Teeth exam: Normal inspection. negative: Dental caries Throat exam: Normal inspection. negative: Tonsillar erythema, Tonsillar exudate - Neck Neck exam: Normal inspection, Full ROM. negative: Tenderness - Respiratory Respiratory exam: Normal lung sounds bilaterally. negative: Respiratory distress - Cardiovascular Cardiovascular Exam: Regular rate, Normal rhythm, Normal heart sounds - GI/Abdominal GI/Abdominal exam: Soft, Normal bowel sounds. negative: Tenderness - Rectal Rectal exam: Deferred - exam: Deferred - Extremities Extremities exam: Normal inspection, Full ROM, Normal capillary refill. negative: Tenderness - Back Back exam: Reports: Normal inspection, Full ROM. Denies: Muscle spasm, Rash noted, Tenderness - Neurological Neurological exam: Alert, Normal gait, Oriented X3, Reflexes normal - Psychiatric Psychiatric exam: Normal affect, Normal mood - Skin Skin exam: Dry, Intact, Normal color, Warm Course Vital Signs 11/19/18 17:25 Temperature 98.4 F Pulse Rate 95 H Respiratory 16 Rate Blood Pressure 135/96 Pulse Ox 100 Disposition Clinical Impression: Migraine Qualifiers: Migraine type: without aura Status migrainosus presence: without status migrainosus Intractability: not intractable Qualified Code(s): G43.009 - Migraine without aura, not intractable, without status migrainosus Disposition: Home, Self-Care Condition: (1) Good Instructions: Migraine Headache (ED) Additional Instructions: follow up with family DRMaria Elena Time of Disposition: 17:47 Quality - Quality Measures Quality Measures: N/A, Headache (All Ages) - Headache: Neuroimaging Quality Measure: Measure #419: Overuse of Neuroimaging ICD10 Codes Entered: Yes Neurological Exam: Patient had a normal neurological exam. [G9535] Headache: Use of Neuroimaging: < CTA, CT, MRA or MRI was NOT ordered > [G9534] - Blood Pressure Screening Does Patient Have Any of the Following: No Blood Pressure Classification: Hypertensive Reading Systolic Measurement: 135 Diastolic Measurement: 96 Screening for High Blood Pressure: < Pre-Hypertensive BP, F/U Documented > [ G8950] Pre-Hypertensive Follow-up Interventions: Referral to alternative/primary care provider.
[2018-11-19] MEDS: NALBUPHINE HCL 20 MG/ML AMPULE IM ONE (17:56)
[2018-11-19] MEDS: PROMETHAZINE HCL 25 MG/ML VIAL IM ONE (17:57)
== END 2018-11-19 18:24 | disposition home or self-care (01) ==
LOC: ER 17:19
DX: G43.009 Migraine without aura, not intractable, without status migrainosus (principal); R11.0 Nausea
CPT/HCPCS: 99283 ×2; 96372; J2300; J2550

== ENCOUNTER 2018-12-01 10:58 | Emergency (ER) | payer BC ==
[2018-12-01] MEDS ORDERED: HALOPERIDOL LACTATE 5 MG/ML VIAL IM ONE (11:18)
--- NOTE | 2018-12-01 11:22 | Emergency Department Record ---
History of Present Illness - General Chief Complaint: Headache Migraine Stated Complaint: MIGRAINE Time Seen by Provider: 12/01/18 11:12 Source: Patient Mode of Arrival: Ambulatory Limitations: No limitations - History of Present Illness Initial Comments: The patient is here due to having a typical migraine LANGLEY for the last 6 days. She has a long hx of similar problems and frequently comes to the ER for similar issues. The pain is throbbing and located all over the head. She has had mild photophobia with nausea but no vomiting. The patient states the pain onset was gradual and is typical for her migraine LANGLEY's. MD Complaint: Headache Onset/Timin -: Week(s) Onset Description: Gradual Location: Diffuse Severity: Moderate Severity scale (1-10): 8 Quality: Aching, Throbbing Consistency: Constant Improves With: Nothing Worsens With: Light, Noise Associated Symptoms: Nausea, Photophobia, Sensitivity to sound Treatments Prior to Arrival: Migraine medication Treatment Prior to Arrival Comment:: view home meds - Symptoms of Stroke Baseline State: Baseline State - Related Data Previous Rx's Medication Instructions Recorded Apixaban [Eliquis] 10 mg PO BID 30 Days tablet 02/13/18 Allergies Allergy/AdvReac Type Severity Reaction Status Date / Time sumatriptan [From Imitrex] Allergy ANAPHYLAXIS Verified 12/01/18 11:05 sumatriptan succinate Allergy ANAPHYLAXIS Verified 12/01/18 11:05 [From Imitrex] chlorpromazine AdvReac HYPERSENSIT Verified 12/01/18 11:05 [From Thorazine] IVITY erythromycin base AdvReac VOMITING Verified 12/01/18 11:05 [Erythromycin Base] nortriptyline [From Pamelor] AdvReac TACHYCARDIA Verified 12/01/18 11:05 propranolol AdvReac HYPERSENSIT Verified 12/01/18 11:05 IVITY Travel Screening - Travel/Exposure Within Last 30 Days Have you traveled within the last 30 days?: No - Travel/Exposure Within Last Year Have you traveled outside the [place] in the last year?: No - Additonal Travel Details Have you been exposed to anyone with a communicable illness?: No - Travel Symptoms Symptom Screening: Headache Review of Systems Constitutional: Denies: Chills, Fever Eyes: Denies: Eye discharge ENT: Denies: Congestion Respiratory: Denies: Cough, Dyspnea Past Medical History - SOCIAL HISTORY Smoking Status: Never smoker - RESPIRATORY Hx Respiratory Disorders: Yes Hx Asthma: Yes Hx Pulmonary Embolism: Yes (05/18) Hx Sleep Apnea: Yes Hx of CPAP: Yes - CARDIOVASCULAR Hx Cardio Disorders: Yes Hx Hypertension: Yes ("pretty much went away since the gastric surgery") - NEURO Hx Neuro Disorders: Yes Hx Headaches: Yes (migraines) - GI Hx GI Disorders: Yes Comment:: gastric sleeve - Hx Genitourinary Disorders: Yes Hx Kidney Stones: Yes - ENDOCRINE Hx Endocrine Disorders: Yes Hx Diabetes: Yes (type II) Hx Thyroid Disease: No - MUSCULOSKELETAL Hx Musculoskeletal Disorders: Yes Comment:: djd - PSYCH Hx Psych Problems: No Hx Depression: Yes ("I use to have depression") - HEMATOLOGY/ONCOLOGY Hx Hematology/Oncology Disorders: No Family Medical History Any Significant Family History?: Yes Hx Cancer: Grandparents Hx Diabetes: Father, Grandparents Hx Heart Disease: Grandparents Hx HTN: Mother Hx Kidney Disease: Father *Kidney Comment: stones Hx Stroke: Grandparents Physical Exam - General General Appearance: Alert, Oriented x3, Cooperative, No acute distress - Head Head exam: Atraumatic, Normocephalic, Normal inspection - Eye Eye exam: Normal appearance, PERRL, EOMI - Neck Neck exam: Normal inspection, Full ROM. negative: Meningismus (The neck is very supple.), Tenderness - Respiratory Respiratory exam: Normal lung sounds bilaterally. negative: Respiratory distress - Cardiovascular Cardiovascular Exam: Regular rate, Normal rhythm, Normal heart sounds - GI/Abdominal GI/Abdominal exam: Soft, Normal bowel sounds. negative: Tenderness - Extremities Extremities exam: Normal inspection, Full ROM, Normal capillary refill. negative: Tenderness - Back Back exam: Reports: Normal inspection - Neurological Neurological exam: Alert, Normal gait, Oriented X3. negative: Abnormal gait, Motor sensory deficit - Psychiatric Psychiatric exam: negative: Depressed Course Vital Signs 12/01/18 11:10 Temperature 98.4 F Pulse Rate 98 H Respiratory 17 Rate Blood Pressure 143/90 Pulse Ox 99 - Reevaluation(s) Reevaluation #1: The patient is resting comfortably and appears to be in no distress. She state she still does have the LANGLEY but appears comfortable. I did offer her multiple non -narcotic pain medicines but she did decline and would like to go home. I did have Stacey in with me at all times who is the patient's nurse. 12/01/18 12:21 12/01/18 12:22 Disposition Disposition: Discharge Clinical Impression: Migraine Qualifiers: Migraine type: unspecified Status migrainosus presence: without status migrainosus Intractability: not intractable Qualified Code(s): G43.909 - Migraine, unspecified, not intractable, without status migrainosus Disposition: Home, Self-Care Condition: (2) Stable Instructions: Migraine Headache (ED) Additional Instructions: Please continue your regular medicines and please consult with your headache specialist when possible. Please return to the ER for any worsening symptoms. Forms: Patient Portal Access Time of Disposition: 12:21 Quality - Quality Measures Quality Measures: Headache (All Ages) - Headache: Neuroimaging Quality Measure: Measure #419: Overuse of Neuroimaging ICD10 Codes Entered: Yes View Detail: Yes Neurological Exam: Patient had a normal neurological exam. [G9535] Headache: Use of Neuroimaging: < CTA, CT, MRA or MRI was NOT ordered > [G9534] - Blood Pressure Screening View Details: Yes Does Patient Have Any of the Following: No Blood Pressure Classification: Pre-Hypertensive BP Reading Systolic Measurement: 122 Diastolic Measurement: 80 Screening for High Blood Pressure: < Pre-Hypertensive BP, F/U Documented > [ G8950] Pre-Hypertensive Follow-up Interventions: Referral to alternative/primary care provider.
== END 2018-12-01 12:27 | disposition home or self-care (01) ==
LOC: ER 10:58
DX: G43.909 Migraine, unspecified, not intractable, without status migrainosus (principal); R11.0 Nausea; H53.149 Visual discomfort, unspecified
CPT/HCPCS: 96372; 99283; J1630

== ENCOUNTER 2018-12-03 19:09 | Emergency (ER) | payer BC ==
[2018-12-03] MEDS ORDERED: NALBUPHINE HCL 20 MG/ML AMPULE IM ONE (19:43)
[2018-12-03] MEDS ORDERED: PROMETHAZINE HCL 25 MG/ML VIAL IM ONE (19:43)
--- NOTE | 2018-12-03 19:44 | Emergency Department Record ---
History of Present Illness - General Chief Complaint: Headache Migraine Stated Complaint: MIGRAINE Time Seen by Provider: 12/03/18 19:30 Source: Patient, Family Mode of Arrival: Ambulatory Limitations: No limitations - History of Present Illness Initial Comments: 33 yo female presents with a headache for one week. She has a history of long standing migraines. She is followed in the [facility]. She has some light sensitivity, nausea. No fevers or trauma. MD Complaint: "Migraine" Onset/Timin -: Week(s) Onset Description: Gradual Location: Diffuse Severity scale (1-10): 8 Quality: Similar to previous headaches Consistency: Constant Improves With: Medication Worsens With: Light, Noise Associated Symptoms: Nausea, Photophobia, Sensitivity to sound Treatments Prior to Arrival: Migraine medication, Prescription analgesic - Related Data Previous Rx's Medication Instructions Recorded Apixaban [Eliquis] 10 mg PO BID 30 Days tablet 02/13/18 Allergies Allergy/AdvReac Type Severity Reaction Status Date / Time sumatriptan [From Imitrex] Allergy ANAPHYLAXIS Verified 12/01/18 11:05 sumatriptan succinate Allergy ANAPHYLAXIS Verified 12/01/18 11:05 [From Imitrex] chlorpromazine AdvReac HYPERSENSIT Verified 12/01/18 11:05 [From Thorazine] IVITY erythromycin base AdvReac VOMITING Verified 12/01/18 11:05 [Erythromycin Base] nortriptyline [From Pamelor] AdvReac TACHYCARDIA Verified 12/01/18 11:05 propranolol AdvReac HYPERSENSIT Verified 12/01/18 11:05 IVITY Travel Screening - Travel/Exposure Within Last 30 Days Have you traveled within the last 30 days?: No - Travel Symptoms Symptom Screening: None Review of Systems Constitutional: Denies: Chills, Fever, Malaise, Weakness Eyes: Reports: Photophobia. Denies: Eye discharge, Eye pain, Vision change ENT: Denies: Congestion, Throat pain Respiratory: Denies: Cough, Dyspnea, Hemoptysis, Stridor, Wheezes Cardiovascular: Denies: Chest pain, Palpitations, Syncope Endocrine: Denies: Fatigue, Polydipsia, Polyuria Gastrointestinal: Reports: Nausea. Denies: Abdominal pain, Diarrhea, Vomiting Genitourinary: Denies: Dysuria, Urgency Musculoskeletal: Denies: Arthralgia, Back pain, Joint swelling, Myalgia, Neck pain Skin: Denies: Bruising, Change in color, Rash Neurological: Reports: Headache. Denies: Confusion, Numbness, Weakness Psychiatric: Denies: Anxiety Hematological/Lymphatic: Reports: Blood Clots (History of PE). Denies: Easy bleeding, Easy bruising, Swollen glands Past Medical History - SOCIAL HISTORY Smoking Status: Never smoker - RESPIRATORY Hx Respiratory Disorders: Yes Hx Asthma: Yes Hx Pulmonary Embolism: Yes (05/18) Hx Sleep Apnea: Yes Hx of CPAP: Yes - CARDIOVASCULAR Hx Cardio Disorders: Yes Hx Hypertension: Yes ("pretty much went away since the gastric surgery") - NEURO Hx Neuro Disorders: Yes Hx Headaches: Yes (migraines) - GI Hx GI Disorders: Yes Comment:: gastric sleeve - Hx Genitourinary Disorders: Yes Hx Kidney Stones: Yes - ENDOCRINE Hx Endocrine Disorders: Yes Hx Diabetes: Yes (type II) Hx Thyroid Disease: No - MUSCULOSKELETAL Hx Musculoskeletal Disorders: Yes Comment:: djd - PSYCH Hx Psych Problems: No Hx Depression: Yes ("I use to have depression") - HEMATOLOGY/ONCOLOGY Hx Hematology/Oncology Disorders: No Family Medical History Any Significant Family History?: Yes Hx Cancer: Grandparents Hx Diabetes: Father, Grandparents Hx Heart Disease: Grandparents Hx HTN: Mother Hx Kidney Disease: Father *Kidney Comment: stones Hx Stroke: Grandparents Physical Exam - General General Appearance: Alert, Oriented x3, Cooperative, No acute distress Limitations: No limitations - Head Head exam: Atraumatic, Normocephalic, Normal inspection - Eye Eye exam: Normal appearance, PERRL, EOMI. negative: Conjunctival injection, Nystagmus, Scleral icterus - ENT ENT exam: Normal exam, Mucous membranes moist, Normal orophraynx Ear exam: Normal external inspection Nasal Exam: Normal inspection Mouth exam: Normal external inspection - Neck Neck exam: Normal inspection, Full ROM. negative: Tenderness - Respiratory Respiratory exam: Normal lung sounds bilaterally. negative: Respiratory distress - Cardiovascular Cardiovascular Exam: Regular rate, Normal rhythm, Normal heart sounds - GI/Abdominal GI/Abdominal exam: Soft. negative: Tenderness - Rectal Rectal exam: Deferred - exam: Deferred - Extremities Extremities exam: Normal inspection, Full ROM, Normal capillary refill. negative: Tenderness - Back Back exam: Denies: CVA tenderness (R), CVA tenderness (L) - Neurological Neurological exam: Alert, Oriented X3 - Psychiatric Psychiatric exam: Normal affect, Normal mood. negative: Agitated, Anxious - Skin Skin exam: Dry, Intact, Normal color, Warm Course Vital Signs 12/03/18 19:14 Temperature 98.2 F Pulse Rate [ 114 H Pulse Ox Probe] Respiratory 20 Rate Blood Pressure 135/87 [Left Arm] Pulse Ox 99 - Reevaluation(s) Reevaluation #1: The EMR was reviewed. Dr Calderon has been in contact with the patient's neurologist in the past to discuss a reasonable treatment plan option. I have reviewed Dr Calderon's notes. We did discussed considering additional communication with her neurologist to assist in the care of her chronic migraines. 12/03/18 19:44 Disposition Disposition: Discharge Clinical Impression: Migraine Disposition: Home, Self-Care Condition: (1) Good Instructions: Migraine Headache (ED) Additional Instructions: Call your doctor for close follow up and follow up with the ENT as scheduled. Time of Disposition: 19:50 Quality - Quality Measures Quality Measures: N/A, Headache (All Ages) - Headache: Neuroimaging Quality Measure: Measure #419: Overuse of Neuroimaging ICD10 Codes Entered: Yes Neurological Exam: Patient had a normal neurological exam. [G9535] Headache: Use of Neuroimaging: < CTA, CT, MRA or MRI was NOT ordered > [G9534] - Blood Pressure Screening Does Patient Have Any of the Following: No Blood Pressure Classification: Pre-Hypertensive BP Reading Systolic Measurement: 135 Diastolic Measurement: 87 Screening for High Blood Pressure: < Pre-Hypertensive BP, F/U Documented > [ G8950] Pre-Hypertensive Follow-up Interventions: Referral to alternative/primary care provider.
[2018-12-03] MEDS ORDERED: DEXAMETHASONE SOD PHOSPHATE 10MG/ML VIAL PO ONE (19:49)
== END 2018-12-03 20:15 | disposition home or self-care (01) ==
LOC: ER 19:09
DX: G43.909 Migraine, unspecified, not intractable, without status migrainosus (principal); R11.0 Nausea; H53.149 Visual discomfort, unspecified
CPT/HCPCS: 99283 ×2; 96372; J2300; J2550

== ENCOUNTER 2018-12-19 19:20 | Emergency (ER) | payer BC ==
[2018-12-19] MEDS ORDERED: NALBUPHINE HCL 20 MG/ML AMPULE IM ONE (19:34)
--- NOTE | 2018-12-19 19:43 | Emergency Department Record ---
History of Present Illness - General Chief Complaint: Headache Migraine Stated Complaint: MIGRAINE Time Seen by Provider: 12/19/18 19:21 Source: Patient Mode of Arrival: Ambulatory Limitations: No limitations - History of Present Illness Initial Comments: 33 yo female presents to ED for evaluation of a "migraine headache" that began 4 days ago. Patient reports a history of chronic headaches with similar symptoms. Patient denies fevers, chills, or neck stiffness symptoms. Patient reports taking her home regimen for her migraine headaches without significant improvement. MD Complaint: Headache Onset/Timin -: Days(s) Onset Description: Gradual Location: Diffuse Severity: Moderate Severity scale (1-10): 8 Quality: Similar to previous headaches Consistency: Constant Worsens With: Light, Noise, Other Treatments Prior to Arrival: Migraine medication - Related Data Previous Rx's Medication Instructions Recorded Apixaban [Eliquis] 10 mg PO BID 30 Days tablet 02/13/18 Allergies Allergy/AdvReac Type Severity Reaction Status Date / Time sumatriptan [From Imitrex] Allergy ANAPHYLAXIS Verified 12/01/18 11:05 sumatriptan succinate Allergy ANAPHYLAXIS Verified 12/01/18 11:05 [From Imitrex] chlorpromazine AdvReac HYPERSENSIT Verified 12/01/18 11:05 [From Thorazine] IVITY erythromycin base AdvReac VOMITING Verified 12/01/18 11:05 [Erythromycin Base] nortriptyline [From Pamelor] AdvReac TACHYCARDIA Verified 12/01/18 11:05 propranolol AdvReac HYPERSENSIT Verified 12/01/18 11:05 IVITY Travel Screening - Travel/Exposure Within Last 30 Days Have you traveled within the last 30 days?: No - Travel Symptoms Symptom Screening: None Review of Systems Constitutional: Denies: Chills, Fever, Malaise, Night sweats Eyes: Denies: Eye discharge, Eye pain ENT: Denies: Congestion, Ear pain, Epistaxis Respiratory: Denies: Cough, Dyspnea Cardiovascular: Denies: Chest pain, Dyspnea on exertion Endocrine: Denies: Fatigue, Heat or cold intolerance Gastrointestinal: Denies: Abdominal pain, Nausea, Vomiting Genitourinary: Denies: Incontinence, Retention Musculoskeletal: Denies: Arthralgia, Back pain Skin: Denies: Bruising, Change in color Neurological: Reports: Headache. Denies: Abnormal gait, Confusion, Seizure Psychiatric: Denies: Anxiety Hematological/Lymphatic: Denies: Anemia, Blood Clots Past Medical History - SOCIAL HISTORY Smoking Status: Never smoker Alcohol Use: None Drug Use: None - RESPIRATORY Hx Respiratory Disorders: Yes Hx Asthma: Yes Hx Pulmonary Embolism: Yes (05/18) Hx Sleep Apnea: Yes Hx of CPAP: Yes - CARDIOVASCULAR Hx Cardio Disorders: Yes Hx Hypertension: Yes ("pretty much went away since the gastric surgery") - NEURO Hx Neuro Disorders: Yes Hx Headaches: Yes (migraines) - GI Hx GI Disorders: Yes Comment:: gastric sleeve - Hx Genitourinary Disorders: Yes Hx Kidney Stones: Yes - ENDOCRINE Hx Endocrine Disorders: Yes Hx Diabetes: Yes (type II) Hx Thyroid Disease: No - MUSCULOSKELETAL Hx Musculoskeletal Disorders: Yes Comment:: djd - PSYCH Hx Psych Problems: No Hx Depression: Yes ("I use to have depression") - HEMATOLOGY/ONCOLOGY Hx Hematology/Oncology Disorders: No Family Medical History Any Significant Family History?: Yes Hx Cancer: Grandparents Hx Diabetes: Father, Grandparents Hx Heart Disease: Grandparents Hx HTN: Mother Hx Kidney Disease: Father *Kidney Comment: stones Hx Stroke: Grandparents Physical Exam - General General Appearance: Alert, Oriented x3, Cooperative, Mild distress Limitations: No limitations - Head Head exam: Atraumatic, Normocephalic, Normal inspection Head exam detail: negative: Abrasion, Contusion, Frazier's sign, General tenderness, Hematoma, Laceration - Eye Eye exam: Normal appearance, PERRL. negative: Conjunctival injection, Periorbital swelling, Periorbital tenderness, Scleral icterus - ENT Ear exam: negative: Auricular hematoma, Auricular trauma Nasal Exam: negative: Active bleeding, Discharge, Dried blood, Foreign body Mouth exam: negative: Drooling, Laceration, Muffled voice, Tongue elevation - Neck Neck exam: Normal inspection. negative: Meningismus, Tenderness - Respiratory Respiratory exam: Normal lung sounds bilaterally. negative: Rales, Respiratory distress, Rhonchi, Stridor - Cardiovascular Cardiovascular Exam: Regular rate, Normal rhythm, Normal heart sounds - GI/Abdominal GI/Abdominal exam: Soft. negative: Rebound, Rigid, Tenderness - Rectal Rectal exam: Deferred - exam: Deferred - Extremities Extremities exam: Normal inspection. negative: Pedal edema, Tenderness - Back Back exam: Denies: CVA tenderness (R), CVA tenderness (L) - Neurological Neurological exam: Alert, Normal gait, Oriented X3 - Psychiatric Psychiatric exam: Flat affect, Normal mood - Skin Skin exam: Normal color. negative: Abrasion Type of lesion: negative: abrasion Course Vital Signs 12/19/18 19:26 Temperature 98.4 F Pulse Rate 95 H Respiratory 18 Rate Blood Pressure 158/84 Pulse Ox 100 - Reevaluation(s) Reevaluation #1: 12/19/18 20:04 Patient was reassessed, reports that her headache symptoms have improved from to 01/09, appears stable for discharge at this time. Disposition Disposition: Discharge Clinical Impression: Headache Qualifiers: Headache type: unspecified Headache chronicity pattern: acute headache Intractability: not intractable Qualified Code(s): R51 - Headache Disposition: Home, Self-Care Condition: (2) Stable Instructions: Acute Headache (ED) Additional Instructions: Return to ED if your symptoms worsen or if you have any concerns. Follow-up with your family doctor in 3-5 days as directed. Forms: Patient Portal Access Time of Disposition: 19:43 Quality - Quality Measures Quality Measures: N/A, Headache (All Ages) - Headache: Neuroimaging Quality Measure: Measure #419: Overuse of Neuroimaging ICD10 Codes Entered: Yes Neurological Exam: Patient had a normal neurological exam. [G9535] Headache: Use of Neuroimaging: < CTA, CT, MRA or MRI was NOT ordered > [G9534] - Blood Pressure Screening Does Patient Have Any of the Following: No Blood Pressure Classification: Pre-Hypertensive BP Reading Systolic Measurement: 158 Diastolic Measurement: 84 Screening for High Blood Pressure: < Pre-Hypertensive BP, F/U Documented > [ G8950] Pre-Hypertensive Follow-up Interventions: Referral to alternative/primary care provider.
== END 2018-12-19 20:10 | disposition home or self-care (01) ==
LOC: ER 19:20
DX: R51 Headache (principal)
CPT/HCPCS: 96372; 99283

== ENCOUNTER 2019-01-04 17:36 | Emergency (ER) | payer BC ==
[2019-01-04] MEDS ORDERED: HALOPERIDOL LACTATE 5 MG/ML VIAL IM ONE ×3 (17:55→18:53)
[2019-01-04] MEDS ORDERED: DIPHENHYDRAMINE HCL 50 MG/ML VIAL IVP ONE (17:56)
[2019-01-04] MEDS ORDERED: ONDANSETRON HCL IV 4 MG/2 ML VIAL IVP ONE (17:56)
--- NOTE | 2019-01-04 17:58 | Emergency Department Record ---
History of Present Illness - General Chief Complaint: Headache Migraine Stated Complaint: [place]ANGLEY Time Seen by Provider: 01/04/19 17:45 Source: Patient, RN notes reviewed Mode of Arrival: Ambulatory - History of Present Illness Initial Comments: patient states typical headache and she has used her haldol, benadryl and norflex and zofran and DHE in the last 24 hours. Patient vomited times 4 today and she is using imovig SQ monthly which is helping her. Patient unable to take toradol because on elliquis for PE and DVT' MD Complaint: "Migraine" Onset/Timin -: Week(s) Location: Diffuse Severity scale (1-10): 8 Consistency: Constant Improves With: Nothing Worsens With: None Associated Symptoms: Vomiting Treatments Prior to Arrival: Other - Related Data Previous Rx's Medication Instructions Recorded Apixaban [Eliquis] 10 mg PO BID 30 Days tablet 02/13/18 Allergies Allergy/AdvReac Type Severity Reaction Status Date / Time sumatriptan [From Imitrex] Allergy ANAPHYLAXIS Verified 12/01/18 11:05 sumatriptan succinate Allergy ANAPHYLAXIS Verified 12/01/18 11:05 [From Imitrex] chlorpromazine AdvReac HYPERSENSIT Verified 12/01/18 11:05 [From Thorazine] IVITY erythromycin base AdvReac VOMITING Verified 12/01/18 11:05 [Erythromycin Base] nortriptyline [From Pamelor] AdvReac TACHYCARDIA Verified 12/01/18 11:05 propranolol AdvReac HYPERSENSIT Verified 12/01/18 11:05 IVITY Travel Screening - Travel/Exposure Within Last 30 Days Have you traveled within the last 30 days?: No - Travel/Exposure Within Last Year Have you traveled outside the [place] in the last year?: No - Additonal Travel Details Have you been exposed to anyone with a communicable illness?: No - Travel Symptoms Symptom Screening: Headache, Vomiting Review of Systems Reviewed: No additional complaints except as noted below Constitutional: Reports: As per HPI. Denies: Chills, Fever, Malaise, Night sweats, Weakness, Weight change Eyes: Reports: As per HPI. Denies: Eye discharge, Eye pain, Photophobia, Vision change ENT: Reports: As per HPI. Denies: Congestion, Dental pain, Ear pain, Epistaxis , Hearing loss, Throat pain Respiratory: Reports: As per HPI. Denies: Cough, Dyspnea, Hemoptysis, Stridor, Wheezes Cardiovascular: Reports: As per HPI. Denies: Arrhythmia, Chest pain, Dyspnea on exertion, Edema, Murmurs, Orthopnea, Palpitations, Paroxysmal nocturnal dyspnea, Rheumatic Fever, Syncope Endocrine: Reports: As per HPI. Denies: Fatigue, Heat or cold intolerance, Polydipsia, Polyuria Gastrointestinal: Reports: As per HPI. Denies: Abdominal pain, Constipation, Diarrhea, Hematemesis, Hematochezia, Melena, Nausea, Vomiting Genitourinary: Reports: As per HPI. Denies: Abnormal menses, Discharge, Dyspareunia, Dysuria, Frequency, Hematuria, Incontinence, Retention, Urgency Musculoskeletal: Reports: As per HPI. Denies: Arthralgia, Back pain, Gout, Joint swelling, Myalgia, Neck pain Skin: Reports: As per HPI. Denies: Bruising, Change in color, Change in hair/ nails, Lesions, Pruritus, Rash Neurological: Reports: As per HPI. Denies: Abnormal gait, Confusion, Headache, Numbness, Paresthesias, Seizure, Tingling, Tremors, Vertigo, Weakness Psychiatric: Reports: As per HPI. Denies: Anxiety, Auditory hallucinations, Depression, Homicidal thoughts, Suicidal thoughts, Visual hallucinations Hematological/Lymphatic: Reports: As per HPI. Denies: Anemia, Blood Clots, Easy bleeding, Easy bruising, Swollen glands Past Medical History - SOCIAL HISTORY Smoking Status: Never smoker Alcohol Use: None Drug Use: None - RESPIRATORY Hx Respiratory Disorders: Yes Hx Asthma: Yes Hx Pulmonary Embolism: Yes (05/18) Hx Sleep Apnea: Yes Hx of CPAP: Yes - CARDIOVASCULAR Hx Cardio Disorders: Yes Hx Hypertension: Yes ("pretty much went away since the gastric surgery") - NEURO Hx Neuro Disorders: Yes Hx Headaches: Yes (migraines) - GI Hx GI Disorders: Yes Comment:: gastric sleeve - Hx Genitourinary Disorders: Yes Hx Kidney Stones: Yes - ENDOCRINE Hx Endocrine Disorders: Yes Hx Diabetes: Yes (type II) Hx Thyroid Disease: No - MUSCULOSKELETAL Hx Musculoskeletal Disorders: Yes Comment:: djd - PSYCH Hx Psych Problems: No Hx Depression: Yes ("I use to have depression") - HEMATOLOGY/ONCOLOGY Hx Hematology/Oncology Disorders: No Family Medical History Any Significant Family History?: No Hx Cancer: Grandparents Hx Diabetes: Father, Grandparents Hx Heart Disease: Grandparents Hx HTN: Mother Hx Kidney Disease: Father *Kidney Comment: stones Hx Stroke: Grandparents Physical Exam - General General Appearance: Alert, Oriented x3, Cooperative, Moderate distress - Head Head exam: Normal inspection - Eye Eye exam: Normal appearance, PERRL Pupils: Normal accommodation - ENT ENT exam: Normal exam, Mucous membranes moist, Normal external ear exam, Normal orophraynx, TM's normal bilaterally Ear exam: Normal external inspection. negative: External canal tenderness Nasal Exam: Normal inspection. negative: Discharge, Sinus tenderness Mouth exam: Normal external inspection, Tongue normal Teeth exam: Normal inspection. negative: Dental caries Throat exam: Normal inspection. negative: Tonsillar erythema, Tonsillar exudate - Neck Neck exam: Normal inspection, Full ROM. negative: Tenderness - Respiratory Respiratory exam: Normal lung sounds bilaterally. negative: Respiratory distress - Cardiovascular Cardiovascular Exam: Regular rate, Normal rhythm, Normal heart sounds - GI/Abdominal GI/Abdominal exam: Soft, Normal bowel sounds. negative: Tenderness - Rectal Rectal exam: Deferred - exam: Deferred - Extremities Extremities exam: Normal inspection, Full ROM, Normal capillary refill. negative: Tenderness - Back Back exam: Reports: Normal inspection, Full ROM. Denies: Muscle spasm, Rash noted, Tenderness - Neurological Neurological exam: Alert, Normal gait, Oriented X3, Reflexes normal - Psychiatric Psychiatric exam: Normal affect, Normal mood - Skin Skin exam: Dry, Intact, Normal color, Warm Course Vital Signs 01/04/19 17:38 Temperature 98.5 F Pulse Rate 109 H Respiratory 18 Rate Blood Pressure 145/102 Pulse Ox 96 - Reevaluation(s) Reevaluation #1: follow up neuroexam is intact and she is feeling some better but is still having her headache. I recommended she use tylenol at home to help with the pain 01/04/19 18:39 Disposition Clinical Impression: Migraine headache Qualifiers: Migraine type: without aura Status migrainosus presence: without status migrainosus Intractability: not intractable Qualified Code(s): G43.009 - Migraine without aura, not intractable, without status migrainosus Disposition: Home, Self-Care Condition: (1) Good Instructions: Migraine Headache (ED) Additional Instructions: follow up with family Dr in 3 -5 days and contact the [facility] for further advise for her headaches continue her headache medication as prescribed by the [facility] Forms: Patient Portal Access Time of Disposition: 19:07 Quality - Quality Measures Quality Measures: N/A, Headache (All Ages) - Headache: Neuroimaging Quality Measure: Measure #419: Overuse of Neuroimaging ICD10 Codes Entered: Yes Neurological Exam: Patient had a normal neurological exam. [G9535] Headache: Use of Neuroimaging: < CTA, CT, MRA or MRI was NOT ordered > [G9534] - Blood Pressure Screening Does Patient Have Any of the Following: No Blood Pressure Classification: Hypertensive Reading Systolic Measurement: 145 Diastolic Measurement: 102 Screening for High Blood Pressure: < First Hypertensive BP, F/U Documented > [ G8950] First Hypertensive Follow-up Interventions: Referral to alternative/primary care provider.
[2019-01-04] MEDS ORDERED: 0.9 % SODIUM CHLORIDE 1000ML 1,000 ML IV SCH (18:00)
[2019-01-04] MEDS ORDERED: DIPHENHYDRAMINE HCL 50 MG/ML VIAL IM ONE (18:00)
[2019-01-04] MEDS ORDERED: ONDANSETRON HCL IV 4 MG/2 ML VIAL IM ONE (18:00)
[2019-01-04] MEDS ORDERED: DEXAMETHASONE SOD PHOSPHATE 10MG/ML VIAL PO ONE (18:54)
== END 2019-01-04 19:20 | disposition home or self-care (01) ==
LOC: ER 17:36
DX: G43.009 Migraine without aura, not intractable, without status migrainosus (principal); R11.11 Vomiting without nausea; Z79.01 Long term (current) use of anticoagulants
CPT/HCPCS: 99283 ×2; 96372; J2405; J1100; J1200; J1630

== ENCOUNTER 2019-01-15 18:20 | Emergency (ER) | payer BC ==
[2019-01-15] MEDS ORDERED: PROMETHAZINE HCL 25 MG/ML VIAL IM ONE (18:37)
[2019-01-15] MEDS ORDERED: NALBUPHINE HCL 20 MG/ML AMPULE IM ONE (18:37)
--- NOTE | 2019-01-15 18:45 | Emergency Department Record ---
History of Present Illness - General Chief Complaint: Headache Migraine Stated Complaint: MIGRAINE Time Seen by Provider: 01/15/19 18:36 Source: Patient Mode of Arrival: Ambulatory Limitations: No limitations - History of Present Illness Initial Comments: 33 yo female presents to ED for evaluation of a "migraine headache" which has been present for 5 days. Patient reports that she has been taking her home medication regimen as prescribed without improvement in her symptoms, patient denies fevers, chills, or neck stiffness symptoms. Patient reports similar headache episodes previously. MD Complaint: Headache Onset/Timin -: Days(s) Onset Description: Gradual Location: Diffuse Severity: Severe Severity scale (1-10): 10 Quality: Full Consistency: Constant Improves With: Nothing Worsens With: None Associated Symptoms: Nausea, Vomiting Treatments Prior to Arrival: Migraine medication - Related Data Previous Rx's Medication Instructions Recorded Apixaban [Eliquis] 10 mg PO BID 30 Days tablet 02/13/18 Allergies Allergy/AdvReac Type Severity Reaction Status Date / Time sumatriptan [From Imitrex] Allergy ANAPHYLAXIS Verified 01/15/19 18:36 sumatriptan succinate Allergy ANAPHYLAXIS Verified 01/15/19 18:36 [From Imitrex] chlorpromazine AdvReac HYPERSENSIT Verified 01/15/19 18:36 [From Thorazine] IVITY erythromycin base AdvReac VOMITING Verified 01/15/19 18:36 [Erythromycin Base] nortriptyline [From Pamelor] AdvReac TACHYCARDIA Verified 01/15/19 18:36 propranolol AdvReac HYPERSENSIT Verified 01/15/19 18:36 IVITY Travel Screening - Travel/Exposure Within Last 30 Days Have you traveled within the last 30 days?: No Review of Systems Constitutional: Denies: Chills, Fever, Malaise, Night sweats Eyes: Denies: Eye discharge, Eye pain ENT: Denies: Congestion, Epistaxis, Hearing loss Respiratory: Denies: Cough, Dyspnea Cardiovascular: Denies: Chest pain, Dyspnea on exertion Endocrine: Denies: Fatigue, Heat or cold intolerance Gastrointestinal: Denies: Abdominal pain, Nausea, Vomiting Genitourinary: Denies: Incontinence, Retention Musculoskeletal: Denies: Arthralgia, Back pain Skin: Denies: Bruising, Change in color Neurological: Reports: Headache. Denies: Abnormal gait, Confusion Psychiatric: Denies: Anxiety Hematological/Lymphatic: Denies: Anemia, Blood Clots Past Medical History - SOCIAL HISTORY Smoking Status: Never smoker Alcohol Use: None Drug Use: None - RESPIRATORY Hx Respiratory Disorders: Yes Hx Asthma: Yes Hx Pulmonary Embolism: Yes (05/18) Hx Sleep Apnea: Yes Hx of CPAP: Yes - CARDIOVASCULAR Hx Cardio Disorders: Yes Hx Hypertension: Yes ("pretty much went away since the gastric surgery") - NEURO Hx Neuro Disorders: Yes Hx Headaches: Yes (migraines) - GI Hx GI Disorders: Yes Comment:: gastric sleeve - Hx Genitourinary Disorders: Yes Hx Kidney Stones: Yes - ENDOCRINE Hx Endocrine Disorders: Yes Hx Diabetes: Yes (type II) Hx Thyroid Disease: No - MUSCULOSKELETAL Hx Musculoskeletal Disorders: Yes Comment:: djd - PSYCH Hx Psych Problems: No Hx Depression: Yes ("I use to have depression") - HEMATOLOGY/ONCOLOGY Hx Hematology/Oncology Disorders: No Family Medical History Any Significant Family History?: Yes Hx Cancer: Grandparents Hx Diabetes: Father, Grandparents Hx Heart Disease: Grandparents Hx HTN: Mother Hx Kidney Disease: Father *Kidney Comment: stones Hx Stroke: Grandparents Physical Exam - General General Appearance: Alert, Oriented x3, Cooperative, Mild distress Limitations: No limitations - Head Head exam: Atraumatic, Normocephalic, Normal inspection Head exam detail: negative: Abrasion, Contusion, Frazier's sign, General tenderness, Hematoma, Laceration - Eye Eye exam: Normal appearance. negative: Conjunctival injection, Periorbital swelling, Periorbital tenderness, Scleral icterus - ENT Ear exam: negative: Auricular hematoma, Auricular trauma Nasal Exam: negative: Active bleeding, Discharge, Dried blood, Foreign body Mouth exam: negative: Drooling, Laceration, Muffled voice, Tongue elevation - Neck Neck exam: Normal inspection. negative: Meningismus, Tenderness - Respiratory Respiratory exam: Normal lung sounds bilaterally. negative: Respiratory distress, Rhonchi, Stridor, Wheezes - Cardiovascular Cardiovascular Exam: Regular rate, Normal rhythm, Normal heart sounds - GI/Abdominal GI/Abdominal exam: Soft. negative: Distended, Rebound, Rigid, Tenderness - Rectal Rectal exam: Deferred - exam: Deferred - Extremities Extremities exam: Normal inspection. negative: Pedal edema, Tenderness - Back Back exam: Denies: CVA tenderness (R), CVA tenderness (L) - Neurological Neurological exam: Alert, Normal gait, Oriented X3 - Psychiatric Psychiatric exam: Normal affect, Normal mood - Skin Skin exam: Normal color. negative: Abrasion Type of lesion: negative: abrasion Course Vital Signs 01/15/19 18:33 Temperature 98.3 F Pulse Rate 89 Respiratory 20 Rate Blood Pressure 140/109 Pulse Ox 98 - Reevaluation(s) Reevaluation #1: 01/15/19 19:17 Patient was reassessed, reports that her headache symptoms are improved. Patient appears stable for discharge at this time. Disposition Disposition: Discharge Clinical Impression: Acute headache Qualifiers: Headache type: unspecified Intractability: not intractable Qualified Code(s): R51 - Headache Disposition: Home, Self-Care Condition: (2) Stable Instructions: Acute Headache (ED) Additional Instructions: Return to ED if your symptoms worsen or if you have any concerns. Follow-up with your family doctor in 3-5 days as directed. Forms: Patient Portal Access Time of Disposition: 19:17 Quality - Quality Measures Quality Measures: N/A - Blood Pressure Screening Does Patient Have Any of the Following: No Blood Pressure Classification: Hypertensive Reading Systolic Measurement: 140 Diastolic Measurement: 109 Screening for High Blood Pressure: < First Hypertensive BP, F/U Documented > [ G8950] First Hypertensive Follow-up Interventions: Referral to alternative/primary care provider.
== END 2019-01-15 19:23 | disposition home or self-care (01) ==
LOC: ER 18:20
DX: R51 Headache (principal); R11.2 Nausea with vomiting, unspecified
CPT/HCPCS: 96372; 99283; J2550

== ENCOUNTER 2019-02-06 19:08 | Emergency (ER) | payer BC ==
--- NOTE | 2019-02-06 19:20 | Emergency Department Record ---
History of Present Illness - General Chief Complaint: Headache Migraine Stated Complaint: MIGRAINE Time Seen by Provider: 02/06/19 19:17 Source: Patient - History of Present Illness Initial Comments: The patient is a chronic migraine suffered who is seen at the [facility] in [place] and who says she is essentially never headache free. She has home medications including IM haldol, IM benadryl, IM norflex, and IM zofran as well as norco. This particular headache began last Monday02-02-19, and is her typical migraine, "around her entire scalp region" headache associated with nausea and photophobia. She vomited once this morning but has been keeping water down all day since and is urinating normally. She states that the only thing she doesn't have at home is nubain which she is allowed twice monthly. Her last dose was 01-15-19. She last took Haldol around 1500 today. She has had two PE's in the past and has been placed on Eliquis for this. She denies current chest pain, shortness of breath, or calf tenderness. MD Complaint: "Migraine" - Related Data Previous Rx's Medication Instructions Recorded Apixaban [Eliquis] 10 mg PO BID 30 Days tablet 02/13/18 Allergies Allergy/AdvReac Type Severity Reaction Status Date / Time sumatriptan [From Imitrex] Allergy ANAPHYLAXIS Verified 01/15/19 18:36 sumatriptan succinate Allergy ANAPHYLAXIS Verified 01/15/19 18:36 [From Imitrex] chlorpromazine AdvReac HYPERSENSIT Verified 01/15/19 18:36 [From Thorazine] IVITY erythromycin base AdvReac VOMITING Verified 01/15/19 18:36 [Erythromycin Base] nortriptyline [From Pamelor] AdvReac TACHYCARDIA Verified 01/15/19 18:36 propranolol AdvReac HYPERSENSIT Verified 01/15/19 18:36 IVITY Review of Systems Reviewed: No additional complaints except as noted below Constitutional: Reports: As per HPI. Denies: Chills, Fever, Malaise, Night sweats, Weakness, Weight change Eyes: Reports: As per HPI. Denies: Eye discharge, Eye pain, Photophobia, Vision change ENT: Reports: As per HPI. Denies: Congestion, Dental pain, Ear pain, Epistaxis, Hearing loss, Throat pain Respiratory: Reports: As per HPI. Denies: Cough, Dyspnea, Hemoptysis, Stridor, Wheezes Cardiovascular: Reports: As per HPI. Denies: Arrhythmia, Chest pain, Dyspnea on exertion, Edema, Murmurs, Orthopnea, Palpitations, Paroxysmal nocturnal dyspnea, Rheumatic Fever, Syncope Endocrine: Reports: As per HPI. Denies: Fatigue, Heat or cold intolerance, Polydipsia, Polyuria Gastrointestinal: Reports: As per HPI. Denies: Abdominal pain, Constipation, Diarrhea, Hematemesis, Hematochezia, Melena, Nausea, Vomiting Genitourinary: Reports: As per HPI. Denies: Abnormal menses, Discharge, Dyspareunia, Dysuria, Frequency, Hematuria, Incontinence, Retention, Urgency Musculoskeletal: Reports: As per HPI. Denies: Arthralgia, Back pain, Gout, Joint swelling, Myalgia, Neck pain Skin: Reports: As per HPI. Denies: Bruising, Change in color, Change in hair/nails, Lesions, Pruritus, Rash Neurological: Reports: As per HPI. Denies: Abnormal gait, Confusion, Headache, Numbness, Paresthesias, Seizure, Tingling, Tremors, Vertigo, Weakness Psychiatric: Reports: As per HPI. Denies: Anxiety, Auditory hallucinations, Depression, Homicidal thoughts, Suicidal thoughts, Visual hallucinations Hematological/Lymphatic: Reports: As per HPI. Denies: Anemia, Blood Clots, Easy bleeding, Easy bruising, Swollen glands Past Medical History - SOCIAL HISTORY Smoking Status: Never smoker Drug Use: None - RESPIRATORY Hx Respiratory Disorders: Yes Hx Asthma: Yes Hx Pulmonary Embolism: Yes (05/18) Hx Sleep Apnea: Yes Hx of CPAP: Yes - CARDIOVASCULAR Hx Cardio Disorders: Yes Hx Hypertension: Yes ("pretty much went away since the gastric surgery") - NEURO Hx Neuro Disorders: Yes Hx Headaches: Yes (migraines) - GI Hx GI Disorders: Yes Comment:: gastric sleeve - Hx Genitourinary Disorders: Yes Hx Kidney Stones: Yes - ENDOCRINE Hx Endocrine Disorders: Yes Hx Diabetes: Yes (type II) Hx Thyroid Disease: No - MUSCULOSKELETAL Hx Musculoskeletal Disorders: Yes Comment:: djd - PSYCH Hx Psych Problems: No Hx Depression: Yes ("I use to have depression") - HEMATOLOGY/ONCOLOGY Hx Hematology/Oncology Disorders: No Family Medical History Hx Cancer: Grandparents Hx Diabetes: Father, Grandparents Hx Heart Disease: Grandparents Hx HTN: Mother Hx Kidney Disease: Father *Kidney Comment: stones Hx Stroke: Grandparents Physical Exam - General General Appearance: Alert, Oriented x3, Cooperative, Mild distress (laying quietly in a dark room) - Head Head exam: Normal inspection - Eye Eye exam: Normal appearance, PERRL, EOMI. negative: Conjunctival injection, N ystagmus Pupils: Normal accommodation - ENT ENT exam: Normal exam, Mucous membranes moist, Normal external ear exam, Normal orophraynx, TM's normal bilaterally Ear exam: Normal external inspection. negative: External canal tenderness Nasal Exam: Normal inspection. negative: Discharge, Sinus tenderness Mouth exam: Normal external inspection, Tongue normal Teeth exam: Normal inspection. negative: Dental caries Throat exam: Normal inspection. negative: Tonsillar erythema, Tonsillar exudate - Neck Neck exam: Normal inspection, Full ROM, Other (flexes chin to chest easily). negative: Lymphadenopathy, Meningismus, Tenderness - Respiratory Respiratory exam: Normal lung sounds bilaterally. negative: Respiratory distress - Cardiovascular Cardiovascular Exam: Normal rhythm, Normal heart sounds, Tachycardia - GI/Abdominal GI/Abdominal exam: Soft, Normal bowel sounds. negative: Tenderness - Rectal Rectal exam: Deferred - exam: Deferred - Extremities Extremities exam: Normal inspection, Full ROM, Normal capillary refill. negative: Calf tenderness, Pedal edema, Tenderness - Back Back exam: Reports: Normal inspection, Full ROM. Denies: Muscle spasm, Rash noted, Tenderness - Neurological Neurological exam: Alert, CN II-XII intact, Normal gait, Oriented X3, Reflexes normal. negative: Altered, Motor sensory deficit - Psychiatric Psychiatric exam: Normal affect, Normal mood - Skin Skin exam: Dry, Intact, Normal color, Warm Course Vital Signs 02/06/19 19:15 Temperature 98.4 F Pulse Rate [ 111 H Left] Respiratory 16 Rate Blood Pressure 132/86 [Left Arm] Pulse Ox 100 - Reevaluation(s) Reevaluation #1: 2037 Patient states that her nausea is nearly gone completely, and her headache has decreased to a 4/10 severity. She is ready for DC home with class b driver. 02/06/19 20:38 Disposition Disposition: Discharge Clinical Impression: Migraine Qualifiers: Migraine type: chronic without aura Status migrainosus presence: without status migrainosus Intractability: not intractable Qualified Code(s): G43.709 - Chronic migraine without aura, not intractable, without status migrainosus Disposition: Home, Self-Care Condition: (1) Good Instructions: Migraine Headache (ED) Additional Instructions: Home with class b driver. Bed for the night. Continue present medications. PCP follow up as needed. Forms: Patient Portal Access Quality - Quality Measures Quality Measures: N/A, Headache (All Ages) - Headache: Neuroimaging Quality Measure: Measure #419: Overuse of Neuroimaging ICD10 Codes Entered: Yes Neurological Exam: Patient had a normal neurological exam. [G9535] Headache: Use of Neuroimaging: < CTA, CT, MRA or MRI was NOT ordered > [G9534] - Blood Pressure Screening Does Patient Have Any of the Following: No Blood Pressure Classification: Pre-Hypertensive BP Reading Systolic Measurement: 132 Diastolic Measurement: 86 Screening for High Blood Pressure: Patient Exclusion, Hx of HTN [G9744]
[2019-02-06] MEDS ORDERED: PROMETHAZINE HCL 25 MG/ML VIAL IM ONE (19:52)
[2019-02-06] MEDS ORDERED: NALBUPHINE HCL 20 MG/ML AMPULE IM ONE (19:52)
== END 2019-02-06 20:46 | disposition home or self-care (01) ==
LOC: ER 19:08
DX: G43.709 Chronic migraine without aura, not intractable, without status migrainosus (principal); R11.2 Nausea with vomiting, unspecified; H53.149 Visual discomfort, unspecified; Z86.711 Personal history of pulmonary embolism; Z79.01 Long term (current) use of anticoagulants
CPT/HCPCS: 96372; 99283; J2550

== ENCOUNTER 2019-02-13 19:04 | Emergency (ER) | payer BC ==
[2019-02-13] MEDS ORDERED: NALBUPHINE HCL 20 MG/ML AMPULE IM ONE (19:08)
[2019-02-13] MEDS ORDERED: PROMETHAZINE HCL 25 MG/ML VIAL IM ONE (19:08)
--- NOTE | 2019-02-13 19:16 | Emergency Department Record ---
History of Present Illness - General Chief Complaint: Headache Migraine Stated Complaint: LANGLEY Time Seen by Provider: 02/13/19 19:08 Source: Patient Mode of Arrival: Ambulatory Limitations: No limitations - History of Present Illness Initial Comments: 34 yo female presents to ED for evaluation of a "migraine headache" that began approximately 3 days ago. Patient reports that her headache symptoms are similar to previous episodes, denies chagne in vision, stiff neck, or fever symptoms. Patient has been using her home migraine regimen without signific antly improvement in her symptoms. MD Complaint: Headache Onset/Timin -: Days(s) Onset Description: Gradual Location: Diffuse Severity: Severe Severity scale (1-10): 9 Quality: Similar to previous headaches Consistency: Constant Improves With: Nothing Worsens With: None Context: Other Associated Symptoms: Photophobia, Sensitivity to sound Treatments Prior to Arrival: Migraine medication - Related Data Previous Rx's Medication Instructions Recorded Apixaban [Eliquis] 10 mg PO BID 30 Days tablet 02/13/18 Allergies Allergy/AdvReac Type Severity Reaction Status Date / Time sumatriptan [From Imitrex] Allergy ANAPHYLAXIS Verified 01/15/19 18:36 sumatriptan succinate Allergy ANAPHYLAXIS Verified 01/15/19 18:36 [From Imitrex] chlorpromazine AdvReac HYPERSENSIT Verified 01/15/19 18:36 [From Thorazine] IVITY erythromycin base AdvReac VOMITING Verified 01/15/19 18:36 [Erythromycin Base] nortriptyline [From Pamelor] AdvReac TACHYCARDIA Verified 01/15/19 18:36 propranolol AdvReac HYPERSENSIT Verified 01/15/19 18:36 IVITY Travel Screening - Travel/Exposure Within Last 30 Days Have you traveled within the last 30 days?: No - Travel Symptoms Symptom Screening: None Review of Systems Constitutional: Denies: Chills, Fever, Malaise, Night sweats Eyes: Denies: Eye discharge, Eye pain ENT: Denies: Congestion, Ear pain, Epistaxis Respiratory: Denies: Cough, Dyspnea Cardiovascular: Denies: Chest pain, Dyspnea on exertion Endocrine: Denies: Fatigue, Heat or cold intolerance Gastrointestinal: Denies: Abdominal pain, Nausea, Vomiting Genitourinary: Denies: Incontinence, Retention Musculoskeletal: Denies: Arthralgia, Back pain Skin: Denies: Bruising, Change in color Neurological: Reports: Headache. Denies: Abnormal gait, Confusion, Seizure Psychiatric: Denies: Anxiety Hematological/Lymphatic: Denies: Anemia, Blood Clots Past Medical History - SOCIAL HISTORY Smoking Status: Never smoker - RESPIRATORY Hx Respiratory Disorders: Yes Hx Asthma: Yes Hx Pulmonary Embolism: Yes (05/18) Hx Sleep Apnea: Yes Hx of CPAP: Yes - CARDIOVASCULAR Hx Cardio Disorders: Yes Hx Hypertension: Yes ("pretty much went away since the gastric surgery") - NEURO Hx Neuro Disorders: Yes Hx Headaches: Yes (migraines) - GI Hx GI Disorders: Yes Comment:: gastric sleeve - Hx Genitourinary Disorders: Yes Hx Kidney Stones: Yes - ENDOCRINE Hx Endocrine Disorders: Yes Hx Diabetes: Yes (type II) Hx Thyroid Disease: No - MUSCULOSKELETAL Hx Musculoskeletal Disorders: Yes Comment:: djd - PSYCH Hx Psych Problems: No Hx Depression: Yes ("I use to have depression") - HEMATOLOGY/ONCOLOGY Hx Hematology/Oncology Disorders: No Family Medical History Any Significant Family History?: Yes Hx Cancer: Grandparents Hx Diabetes: Father, Grandparents Hx Heart Disease: Grandparents Hx HTN: Mother Hx Kidney Disease: Father *Kidney Comment: stones Hx Stroke: Grandparents Physical Exam - General General Appearance: Alert, Oriented x3, Cooperative, Mild distress Limitations: No limitations - Head Head exam: Atraumatic, Normocephalic, Normal inspection Head exam detail: negative: Abrasion, Contusion, Frazier's sign, General tenderness, Hematoma, Laceration - Eye Eye exam: Normal appearance, PERRL. negative: Conjunctival injection, Periorbital swelling, Periorbital tenderness, Scleral icterus - ENT Ear exam: negative: Auricular hematoma, Auricular trauma Nasal Exam: negative: Active bleeding, Discharge, Dried blood, Foreign body Mouth exam: negative: Drooling, Laceration, Muffled voice, Tongue elevation - Neck Neck exam: Normal inspection. negative: Meningismus, Tenderness - Respiratory Respiratory exam: Normal lung sounds bilaterally. negative: Rales, Respiratory distress, Rhonchi, Stridor - Cardiovascular Cardiovascular Exam: Regular rate, Normal rhythm, Normal heart sounds - GI/Abdominal GI/Abdominal exam: Soft. negative: Rebound, Rigid, Tenderness - Rectal Rectal exam: Deferred - exam: Deferred - Extremities Extremities exam: Normal inspection. negative: Pedal edema, Tenderness - Back Back exam: Denies: CVA tenderness (R), CVA tenderness (L) - Neurological Neurological exam: Alert, Normal gait, Oriented X3 - Psychiatric Psychiatric exam: Normal affect, Normal mood - Skin Skin exam: Normal color. negative: Abrasion Type of lesion: negative: abrasion Course Vital Signs 02/13/19 02/13/19 19:08 19:10 Temperature 98.7 F 98.7 F Pulse Rate 103 H Pulse Rate [ 98 H Pulse Ox Probe] Respiratory 18 20 Rate Blood Pressure 132/97 Blood Pressure 132/97 [Left Arm] Pulse Ox 98 - Reevaluation(s) Reevaluation #1: 02/13/19 19:55 Patient was reassessed and reports improvement in her headache symptoms Patient appears stable for discharge at this time. Disposition Disposition: Discharge Clinical Impression: Acute headache Qualifiers: Headache type: unspecified Intractability: not intractable Qualified Code(s): R51 - Headache Disposition: Home, Self-Care Condition: (2) Stable Instructions: Acute Headache (ED) Additional Instructions: Return to ED if your symptoms worsen or if you have any concerns. Continue your home medications as directed. Follow-up with your family doctor in 3-5 days as directed. Forms: Patient Portal Access Time of Disposition: 19:20 Quality - Quality Measures Quality Measures: N/A, Headache (All Ages) - Headache: Neuroimaging Quality Measure: Measure #419: Overuse of Neuroimaging ICD10 Codes Entered: Yes Neurological Exam: Patient had a normal neurological exam. [G9535] Headache: Use of Neuroimaging: < CTA, CT, MRA or MRI was NOT ordered > [G9534] - Blood Pressure Screening Does Patient Have Any of the Following: No Blood Pressure Classification: Hypertensive Reading Systolic Measurement: 132 Diastolic Measurement: 97 Screening for High Blood Pressure: < First Hypertensive BP, F/U Documented > [G8950] First Hypertensive Follow-up Interventions: Referral to alternative/primary care provider.
== END 2019-02-13 19:58 | disposition home or self-care (01) ==
LOC: ER 19:04
DX: R51 Headache (principal); H53.149 Visual discomfort, unspecified; Z79.01 Long term (current) use of anticoagulants
CPT/HCPCS: 96372; 99283; J2550

== ENCOUNTER 2019-03-05 18:09 | Emergency (ER) | payer BC ==
[2019-03-05] MEDS ORDERED: NALBUPHINE HCL 20 MG/ML AMPULE IVP ONE (18:39)
[2019-03-05] MEDS ORDERED: PROMETHAZINE HCL 25 MG/ML VIAL IM ONE (18:40)
--- NOTE | 2019-03-05 18:47 | Emergency Department Record ---
History of Present Illness - General Chief Complaint: Headache Migraine Stated Complaint: MIGRAINE Time Seen by Provider: 03/05/19 18:36 Source: Patient Mode of Arrival: Ambulatory Limitations: No limitations - History of Present Illness Initial Comments: pt is having her typical migraine for 3 days MD Complaint: "Migraine" Onset/Timin -: Hour(s) Onset Description: Gradual Severity: Moderate Severity scale (1-10): 8 Quality: Aching, Similar to previous headaches Consistency: Constant Improves With: Nothing Worsens With: Light, Noise Associated Symptoms: Nausea, Photophobia, Sensitivity to sound Treatments Prior to Arrival: Other - Related Data Previous Rx's Medication Instructions Recorded Apixaban [Eliquis] 10 mg PO BID 30 Days tablet 02/13/18 Allergies Allergy/AdvReac Type Severity Reaction Status Date / Time sumatriptan [From Imitrex] Allergy ANAPHYLAXIS Verified 03/05/19 18:20 sumatriptan succinate Allergy ANAPHYLAXIS Verified 03/05/19 18:20 [From Imitrex] chlorpromazine AdvReac HYPERSENSIT Verified 03/05/19 18:20 [From Thorazine] IVITY erythromycin base AdvReac VOMITING Verified 03/05/19 18:20 [Erythromycin Base] nortriptyline [From Pamelor] AdvReac TACHYCARDIA Verified 03/05/19 18:20 propranolol AdvReac HYPERSENSIT Verified 03/05/19 18:20 IVITY Travel Screening - Travel/Exposure Within Last 30 Days Have you traveled within the last 30 days?: No - Travel/Exposure Within Last Year Have you traveled outside the [place] in the last year?: No - Additonal Travel Details Have you been exposed to anyone with a communicable illness?: No - Travel Symptoms Symptom Screening: None Review of Systems Reviewed: No additional complaints except as noted below Constitutional: Reports: As per HPI. Denies: Chills, Fever, Malaise, Night sweats, Weakness, Weight change Eyes: Reports: As per HPI. Denies: Eye discharge, Eye pain, Photophobia, Vision change ENT: Reports: As per HPI. Denies: Congestion, Dental pain, Ear pain, Epistaxis, Hearing loss, Throat pain Respiratory: Reports: As per HPI. Denies: Cough, Dyspnea, Hemoptysis, Stridor, Wheezes Cardiovascular: Reports: As per HPI. Denies: Arrhythmia, Chest pain, Dyspnea on exertion, Edema, Murmurs, Orthopnea, Palpitations, Paroxysmal nocturnal dyspnea, Rheumatic Fever, Syncope Endocrine: Reports: As per HPI. Denies: Fatigue, Heat or cold intolerance, Polydipsia, Polyuria Gastrointestinal: Reports: As per HPI. Denies: Abdominal pain, Constipation, Diarrhea, Hematemesis, Hematochezia, Melena, Nausea, Vomiting Genitourinary: Reports: As per HPI. Denies: Abnormal menses, Discharge, Dyspareunia, Dysuria, Frequency, Hematuria, Incontinence, Retention, Urgency Musculoskeletal: Reports: As per HPI. Denies: Arthralgia, Back pain, Gout, Joint swelling, Myalgia, Neck pain Skin: Reports: As per HPI. Denies: Bruising, Change in color, Change in hair/nails, Lesions, Pruritus, Rash Neurological: Reports: As per HPI, Headache. Denies: Abnormal gait, Confusion, Numbness, Paresthesias, Seizure, Tingling, Tremors, Vertigo, Weakness Psychiatric: Reports: As per HPI. Denies: Anxiety, Auditory hallucinations, Depression, Homicidal thoughts, Suicidal thoughts, Visual hallucinations Hematological/Lymphatic: Reports: As per HPI. Denies: Anemia, Blood Clots, Easy bleeding, Easy bruising, Swollen glands Past Medical History - SOCIAL HISTORY Smoking Status: Never smoker Alcohol Use: None Drug Use: None - RESPIRATORY Hx Respiratory Disorders: Yes Hx Asthma: Yes Hx Pulmonary Embolism: Yes (05/18) Hx Sleep Apnea: Yes Hx of CPAP: Yes - CARDIOVASCULAR Hx Cardio Disorders: Yes Hx Hypertension: Yes ("pretty much went away since the gastric surgery") - NEURO Hx Neuro Disorders: Yes Hx Headaches: Yes (migraines) - GI Hx GI Disorders: Yes Comment:: gastric sleeve - Hx Genitourinary Disorders: Yes Hx Kidney Stones: Yes - ENDOCRINE Hx Endocrine Disorders: Yes Hx Diabetes: Yes (type II) Hx Thyroid Disease: No - MUSCULOSKELETAL Hx Musculoskeletal Disorders: Yes Comment:: djd - PSYCH Hx Psych Problems: No Hx Depression: Yes ("I use to have depression") - HEMATOLOGY/ONCOLOGY Hx Hematology/Oncology Disorders: No Family Medical History Any Significant Family History?: Yes Hx Cancer: Grandparents Hx Diabetes: Father, Grandparents Hx Heart Disease: Grandparents Hx HTN: Mother Hx Kidney Disease: Father *Kidney Comment: stones Hx Stroke: Grandparents Physical Exam - General General Appearance: Alert, Oriented x3, Cooperative, Mild distress - Head Head exam: Normal inspection - Eye Eye exam: Normal appearance, PERRL, EOMI Pupils: Normal accommodation - ENT ENT exam: Normal exam, Mucous membranes moist, Normal external ear exam, Normal orophraynx Ear exam: Normal external inspection. negative: External canal tenderness Nasal Exam: Normal inspection. negative: Discharge, Sinus tenderness Mouth exam: Normal external inspection, Tongue normal Teeth exam: Normal inspection. negative: Dental caries Throat exam: Normal inspection. negative: Tonsillar erythema, Tonsillar exudate - Neck Neck exam: Normal inspection, Full ROM. negative: Tenderness - Respiratory Respiratory exam: Normal lung sounds bilaterally. negative: Respiratory distress - Cardiovascular Cardiovascular Exam: Normal rhythm, Normal heart sounds, Tachycardia - GI/Abdominal GI/Abdominal exam: Soft, Normal bowel sounds. negative: Tenderness - Rectal Rectal exam: Deferred - exam: Deferred - Extremities Extremities exam: Normal inspection, Full ROM, Normal capillary refill. negative: Tenderness - Back Back exam: Reports: Normal inspection, Full ROM. Denies: Muscle spasm, Rash noted, Tenderness - Neurological Neurological exam: Alert, CN II-XII intact, Normal gait, Oriented X3 - Psychiatric Psychiatric exam: Normal affect, Normal mood - Skin Skin exam: Dry, Intact, Normal color, Warm Course Vital Signs 03/05/19 18:15 Temperature 98.7 F Pulse Rate 103 H Respiratory 20 Rate Blood Pressure 128/96 Pulse Ox 99 - Reevaluation(s) Reevaluation #1: 03/05/19 19:18 pt feels better Disposition Disposition: Discharge Clinical Impression: Migraine Qualifiers: Migraine type: unspecified Status migrainosus presence: without status migrainosus Intractability: not intractable Qualified Code(s): G43.909 - Migraine, unspecified, not intractable, without status migrainosus Disposition: Home, Self-Care Condition: (1) Good Instructions: Migraine Headache (ED) Additional Instructions: pt feels better Forms: Patient Portal Access Quality - Quality Measures Quality Measures: Headache (All Ages) - Headache: Neuroimaging Quality Measure: Measure #419: Overuse of Neuroimaging Neurological Exam: Patient had a normal neurological exam. [G9535] Headache: Use of Neuroimaging: < CTA, CT, MRA or MRI was NOT ordered > [G9534] - Blood Pressure Screening Does Patient Have Any of the Following: No Blood Pressure Classification: Hypertensive Reading Systolic Measurement: 128 Diastolic Measurement: 96 Screening for High Blood Pressure: < Pre-Hypertensive BP, F/U Documented > [G8950] Pre-Hypertensive Follow-up Interventions: Follow-up with rescreen every year.
--- NOTE | 2019-03-05 19:30 | Emergency Department Record ---
History of Present Illness - General Chief Complaint: Headache Migraine Stated Complaint: MIGRAINE Time Seen by Provider: 03/05/19 18:36 Source: Patient Mode of Arrival: Ambulatory Limitations: No limitations - History of Present Illness MD Complaint: "Migraine" Onset/Timin -: Hour(s) Onset Description: Gradual Severity: Moderate Severity scale (1-10): 8 Quality: Aching, Similar to previous headaches Consistency: Constant Improves With: Nothing Worsens With: Light, Noise Associated Symptoms: Nausea, Photophobia, Sensitivity to sound Treatments Prior to Arrival: Other - Related Data Previous Rx's Medication Instructions Recorded Apixaban [Eliquis] 10 mg PO BID 30 Days tablet 02/13/18 Allergies Allergy/AdvReac Type Severity Reaction Status Date / Time sumatriptan [From Imitrex] Allergy ANAPHYLAXIS Verified 03/05/19 18:20 sumatriptan succinate Allergy ANAPHYLAXIS Verified 03/05/19 18:20 [From Imitrex] chlorpromazine AdvReac HYPERSENSIT Verified 03/05/19 18:20 [From Thorazine] IVITY erythromycin base AdvReac VOMITING Verified 03/05/19 18:20 [Erythromycin Base] nortriptyline [From Pamelor] AdvReac TACHYCARDIA Verified 03/05/19 18:20 propranolol AdvReac HYPERSENSIT Verified 03/05/19 18:20 IVITY Travel Screening - Travel/Exposure Within Last 30 Days Have you traveled within the last 30 days?: No - Travel/Exposure Within Last Year Have you traveled outside the [place] in the last year?: No - Additonal Travel Details Have you been exposed to anyone with a communicable illness?: No - Travel Symptoms Symptom Screening: None Review of Systems Constitutional: Reports: As per HPI. Denies: Chills, Fever, Malaise, Night sweats, Weakness, Weight change Eyes: Reports: As per HPI. Denies: Eye discharge, Eye pain, Photophobia, Vision change ENT: Reports: As per HPI. Denies: Congestion, Dental pain, Ear pain, Epistaxis, Hearing loss, Throat pain Respiratory: Reports: As per HPI. Denies: Cough, Dyspnea, Hemoptysis, Stridor, Wheezes Cardiovascular: Reports: As per HPI. Denies: Arrhythmia, Chest pain, Dyspnea on exertion, Edema, Murmurs, Orthopnea, Palpitations, Paroxysmal nocturnal dyspnea, Rheumatic Fever, Syncope Endocrine: Reports: As per HPI. Denies: Fatigue, Heat or cold intolerance, Polydipsia, Polyuria Gastrointestinal: Reports: As per HPI. Denies: Abdominal pain, Constipation, Diarrhea, Hematemesis, Hematochezia, Melena, Nausea, Vomiting Genitourinary: Reports: As per HPI. Denies: Abnormal menses, Discharge, Dyspareunia, Dysuria, Frequency, Hematuria, Incontinence, Retention, Urgency Musculoskeletal: Reports: As per HPI. Denies: Arthralgia, Back pain, Gout, Joint swelling, Myalgia, Neck pain Skin: Reports: As per HPI. Denies: Bruising, Change in color, Change in rudolph ir/nails, Lesions, Pruritus, Rash Neurological: Reports: As per HPI, Headache. Denies: Abnormal gait, Confusion, Numbness, Paresthesias, Seizure, Tingling, Tremors, Vertigo, Weakness Psychiatric: Reports: As per HPI. Denies: Anxiety, Auditory hallucinations, Depression, Homicidal thoughts, Suicidal thoughts, Visual hallucinations Hematological/Lymphatic: Reports: As per HPI. Denies: Anemia, Blood Clots, Easy bleeding, Easy bruising, Swollen glands Past Medical History - SOCIAL HISTORY Smoking Status: Never smoker Alcohol Use: None Drug Use: None - RESPIRATORY Hx Respiratory Disorders: Yes Hx Asthma: Yes Hx Pulmonary Embolism: Yes (05/18) Hx Sleep Apnea: Yes Hx of CPAP: Yes - CARDIOVASCULAR Hx Cardio Disorders: Yes Hx Hypertension: Yes ("pretty much went away since the gastric surgery") - NEURO Hx Neuro Disorders: Yes Hx Headaches: Yes (migraines) - GI Hx GI Disorders: Yes Comment:: gastric sleeve - Hx Genitourinary Disorders: Yes Hx Kidney Stones: Yes - ENDOCRINE Hx Endocrine Disorders: Yes Hx Diabetes: Yes (type II) Hx Thyroid Disease: No - MUSCULOSKELETAL Hx Musculoskeletal Disorders: Yes Comment:: djd - PSYCH Hx Psych Problems: No Hx Depression: Yes ("I use to have depression") - HEMATOLOGY/ONCOLOGY Hx Hematology/Oncology Disorders: No Family Medical History Any Significant Family History?: Yes Hx Cancer: Grandparents Hx Diabetes: Father, Grandparents Hx Heart Disease: Grandparents Hx HTN: Mother Hx Kidney Disease: Father *Kidney Comment: stones Hx Stroke: Grandparents Physical Exam - General Limitations: No limitations Course Vital Signs 03/05/19 18:15 Temperature 98.7 F Pulse Rate 103 H Respiratory 20 Rate Blood Pressure 128/96 Pulse Ox 99 Disposition Disposition: Discharge Clinical Impression: Migraine Qualifiers: Migraine type: unspecified Status migrainosus presence: without status migrainosus Intractability: not intractable Qualified Code(s): G43.909 - Migraine, unspecified, not intractable, without status migrainosus Disposition: Home, Self-Care Condition: (1) Good Instructions: Migraine Headache (ED) Additional Instructions: follow up with family doctor. return sooner if worse Forms: Patient Portal Access Quality - Quality Measures Quality Measures: Headache (All Ages) - Headache: Neuroimaging Quality Measure: Measure #419: Overuse of Neuroimaging ICD10 Codes Entered: Yes Neurological Exam: Patient had a normal neurological exam. [G9535] Headache: Use of Neuroimaging: < CTA, CT, MRA or MRI was NOT ordered > [G9534] - Blood Pressure Screening Does Patient Have Any of the Following: No Blood Pressure Classification: Hypertensive Reading Systolic Measurement: 128 Diastolic Measurement: 96 Screening for High Blood Pressure: < Pre-Hypertensive BP, F/U Documented > [G8950] Pre-Hypertensive Follow-up Interventions: Follow-up with rescreen every year.
== END 2019-03-05 19:35 | disposition home or self-care (01) ==
LOC: ER 18:09
DX: G43.909 Migraine, unspecified, not intractable, without status migrainosus (principal); R11.0 Nausea; H53.149 Visual discomfort, unspecified
CPT/HCPCS: 96372; 96374; 99284; J2550